=== PATIENT | female | born 1965 | race Caucasian/White ===

== ENCOUNTER 2020-11-14 16:54 | Inpatient (IN) | payer MEDICARE, MEDICAID ==
[~2020-11-14] VITALS: Ht 157.5 cm; Wt 79.0 kg
[2020-11-15] MEDS ORDERED: FLEET ENEMA ADULT 1 EA BTL PR PRN (10:30)
[2020-11-15] MEDS ORDERED: ONDANSETRON 4 MG (ZOFRAN) ORAL DISSOLVE TAB PO PRN (10:30)
[2020-11-15] MEDS ORDERED: LOPERAMIDE 2 MG (IMODIUM) TABLET PO PRN (10:30)
[2020-11-15] MEDS ORDERED: diphenhydrAMINE 25 MG TAB (BENADRYL) PO PRN (10:30)
[2020-11-15] MEDS ORDERED: DOCUSATE SODIUM 100 MG (COLACE) CAP PO PRN (10:30)
[2020-11-15] MEDS ORDERED: BISACODYL 10 MG SUPP (DULCOLAX) PR PRN ×2 (10:30→13:15)
[2020-11-15] MEDS ORDERED: guaiFENesin/CODEINE (ROBITUSSIN AC) 10ML UDC PO PRN (10:30)
[2020-11-15] MEDS ORDERED: CALCIUM CARBONATE 500 MG (TUMS) TAB.CHEW PO PRN (10:30)
[2020-11-15] MEDS ORDERED: LACTULOSE SYRUP 10GM/15ML (ENULOSE) 30ML UDC PO PRN (10:30)
[2020-11-15] MEDS ORDERED: CLOP75TA28 PO (10:36)
[2020-11-15] MEDS ORDERED: INSU200I4 SQ (10:36)
[2020-11-15] MEDS ORDERED: ACHD5005 PO (10:36)
[2020-11-15] MEDS ORDERED: ASPI-999 PO (10:36)
[2020-11-15] MEDS ORDERED: POTA-51 PO (10:36)
[2020-11-15] MEDS ORDERED: ATOR80TA76 PO (10:36)
[2020-11-15] MEDS ORDERED: LORA-404 PO (10:36)
[2020-11-15] MEDS ORDERED: LACO100T2 PO (10:36)
[2020-11-15] MEDS ORDERED: FURO40TA4 PO (10:36)
[2020-11-15] MEDS ORDERED: CYCL10TA9 PO (10:36)
[2020-11-15] MEDS ORDERED: LEVO88CA4 PO (10:36)
[2020-11-15] MEDS ORDERED: HYDR30CR69 RC (10:36)
[2020-11-15] MEDS ORDERED: NICO-533 TD (10:36)
[2020-11-15] MEDS ORDERED: INDLA120 PO (10:36)
[2020-11-15] MEDS ORDERED: NYST1POW4 TOP (10:36)
[2020-11-15] MEDS ORDERED: OMEP20CA18 PO (10:36)
[2020-11-15] MEDS ORDERED: MONT10TA97 PO (10:36)
[2020-11-15] MEDS ORDERED: FLUT9.9S NS (10:36)
[2020-11-15] MEDS ORDERED: LEVE500T99 PO (10:36)
[2020-11-15] MEDS ORDERED: METF-397 PO (10:36)
[2020-11-15] MEDS ORDERED: IPRA4AER IH (10:36)
[2020-11-15] MEDS ORDERED: ALLO100T PO (10:36)
[2020-11-15] MEDS ORDERED: LOSA25TA41 PO (10:36)
[2020-11-15] MEDS ORDERED: FLUT1DIS28 IH (10:36)
[2020-11-15] MEDS ORDERED: DIVA500T PO (10:36)
--- NOTE | 2020-11-15 10:38 | NUR ---
MED REC HAS BEEN ENTERED USING THE DISCHARGE ORDERS FROM [facility]. AFTER MEDICATIONS ARE CONTINUED I WILL SPEAK WITH THE PT AND MAKE ANY CHANGES TO THE MED REC/NOTES IF NEEDED. ON THE DISCHARGE ORDERS IT LISTS "NYSTATIN TOPICAL", I REACHED OUT TO ARIC CORDERO AT [facility] AND SHE VERIFIED THEY HAD BEEN USING THE POWDER Addendum: 11/17/20 at 1555 by AIDA YANG senior php software developer WHEN I SPOKE WITH THE PT SHE WAS NOT ABLE TO GIVE ME INFORMATION ABOUT HER MEDICATIONS- THEREFORE I CALLED [facility] AND WENT THRU THE EXT MED HISTORY TO COMPLETE THE MED REC MEDICATIONS THAT HAVE BEEN REMOVED DUE TO PT NOT TAKING PRIOR TO [facility]: ASPIRIN 81MG CLOPIDOGREL 75MG LOSARTAN 25MG NICOTINE PATCH NYSTATIN MEDICATIONS/DIRECTIONS THAT HAVE BEEN CHANGED TO HOW PT WAS TAKING PRIOR TO [facility]: POTASSIUM 20MEQ- PT WAS TAKING 1 TAB DAILY ([facility] DISCHARGE 1 TAB MON,WED,FRI) TRESIBA- AT HOME PT WAS TAKING 40 UNITS HS ([facility] DISCHARGE 30 UNITS DAILY) HYDROCODONE 5/325MG- AT HOME 1 TAB DAILY PRN ([facility] DISCHARGE 1 TAB Q 6 H PRN) ADVAIR 100/50- AT HOME PT USES PRN ([facility] DISCHARGE 1 PUFF BID) ROSUVASTATIN 10MG WAS DISCONTINUED BY [facility] (AND HAS BEEN ADDED TO THE MED REC) BUT WAS CHANGED TO ATORVASTATIN 80MG (THIS WAS REMOVED FROM THE MED REC) IMITREX 50MG WAS DISCONTINUED BY [facility] BUT PT WAS TAKING PRIOR TO ADMISSION
--- NOTE | 2020-11-15 11:40 | NUR ---
Francesca Lex Zamora admitted to room 224-1, with an admitting diagnosis of CVA, on 11/15/20 from [facility], accompanied by EMS. FRANCESCA SZYMANSKI introduced to surroundings, call light, bed controls, phone, TV, temperature control, lights, meal times, smoking policy, visitor policy, side rail policy, bathrooms and showers. Patient Rights given to patient in the handbook.FRANCESCA SZYMANSKI verbalizes understanding that [facility] is not responsible for the loss or damage to any personal effects or valuables that are kept in the patients posession during their hospitalization. The following Patient Care Plans were discussed with the patient: Discharge Planning, stroke, and falls. FRANCESCA SZYMANSKI verbalizes understanding of Interdisciplinary Patient Education. Patient and/or family were informed about the Rapid Response Team and its purpose. Patient received Patient Rights Booklet, which includes Privacy Act Statement and Data Collection Information Summary.
--- NOTE | 2020-11-15 12:14 | Occupational Therapy Eval ---
OT Evaluation-General/PLF Medical Diagnosis Admission Date Medical Diagnosis: CVA Onset Date: Nov 10, 2020 Therapy Diagnosis Therapy Diagnosis: decreased ADL status, decreased functional use LUE Precautions Precautions/Isolations: Seizure, Fall Prevention, Standard Precautions Referral Physician: Damian Cote Reason: Evaluation/Treatment Medical History Pertinent Medical History: Arthritis, COPD, DM, GERD, HTN Additional Medical History epilepsy, HLD, CKD, hypothyroidism, Vagus Nerve Stimulator (09/05/2011), lumbar (09/18/2011), tremor, gout, thromboembolism, cholecystectomy (10/31/2020) Current History Pt to ED 11/10/2020 with headache, L side weakness, slurred speech. Pt admitted to [facility]U 11/15/2020 for skilled therapies and continued medication management. Social History Home: Single Level Current Living Status: Spouse Entry Into Home: Ramp ADL-Prior Level of Function SCALE: Activities may be completed with or without assistive devices. 9-Xqcwajbwrh-uaddzxl completes the activity by him/herself with no assistance from a helper. 5-Set-up or Clean-up Assistance-helper sets up or cleans up; patient completes activity. [place] assists only prior to or following the activity. 4-Supervision or Touching Assistance-helper provides verbal cues and/or touching/steadying and/or contact guard assistance as patient completes activity. Assistance may be provided throughout the activity or intermittently. 3-Partial/Moderate Assistance-helper does LESS THAN HALF the effort. [place] lifts, holds or supports trunk or limbs, but provides less than half the effort. 2-Substantial/Maximal Assistance-helper does MORE THAN HALF the effort. [place] lifts or holds trunk or limbs and provides more than half the effort. 7-Ammhxzjwi-zipqrd does ALL the effort. Patient does none of the effort to complete the activity. Or, the assistance of 2 or more helpers is required for the patient to complete the activity. If activity was not attempted, code reason: 7-Patient Refused. 9-Not Applicable-not attempted and the patient did not perform the activity before the current illness, exacerbation or injury. 10-Not Attempted due to Environmental Limitations-(lack of equipment, weather restraints, etc.). 88-Not Attempted due to Medical Conditions or Safety Concerns. ADL PLOF Comments Pt reports being independent with ADLs at PLOF, and functional mobility using SPC Self Care: Independent Functional Cognition: Independent DME/Equipment: Bath Chair OT Current Status Subjective Pt agreeable to OT tx, reports some pain L shoulder. 8/10. Pain Numeric Pain Scale: 8 Location: Left Location Body Site: Shoulder Mental Status/Objective Patient Orientation: Person, Confused, Place, Mumbles Current Glasses/Contacts: Yes Hearing Aids: No Dentures/Partials: Yes Hand Dominance: Right Upper Extremity ROM RUE WFL LUE significantly impaired. Pt indicates she is able to make full fist, but when she attempts no movements noted. Upper Extremity Coordination decreased due to decreased functional use LUE. RUE WFL Upper Extremity Sensation slightly impaired LUE, pt had difficulty communicating if she had intact sensation. Upper Extremity Strength RUE grossly 4/5 LUE grossly 1/5 ADL-Treatment Eating (QC): 5 (set up assistance with cutting food. Pt then able to eat.) Oral Hygiene (QC): 3 (Mod A, OT placed toothpaste onto brush and placed in pt's hands, pt able to brush with cues. Pt spit out dentures when asked to spit, assistance to remove dentures and clean thoroughly. ) Shower/Bathe Self (QC): 1 (Assist x2 in stand. Pt able to wash chest/abdomen, LUE with cues. OT assisted with washing RUE, buttocks, periarea, BLEs, feet.) Upper Body Dressing (QC): 2 (Assist to thread LUE. Pt attempted to thread RUE as OT held shirt open, hand over hand assist required to find arm hole. Assist over head and to manage down trunk.) Lower Body Dressing (QC): 1 (Based on clinical judgement, pt would require 2 person assistance in healthcare administrative assistant order to complete pant hike.) On/Off Footwear (QC): 1 (Dependent donning/doffing gripper socks. Pt cued to take sock off but did not initiate task.) Toileting Hygiene (QC): 1 (Based on clinical judgement, pt would require 2 person assistance with task.) Other Treatments [id number] OT evaluation. [id number] OT/PT cotreat due to skill of 2 clinicians required which a x ray tech could not perform in order to coordinate UE/LE with tasks, and due to pt's limitations in strength, endurance, mobility, and L neglect. OT focused on UE placement, cues for sequencing and safety and ADLs, PT focused on LE placement, transfers, and ambulation. Pt transferred supine to sit EOB, assistance required to maintain sitting position unsupported. Pt stood with FAIRING WORKER x2, attempted to take a couple steps. SPT towards R side (strong side). Post tx, pt seated in recliner, call light in reach and all needs met, chair alarm on. [id number] OT/PT cotreat due to skill of 2 clinicians required which a x ray tech could not perform in order to coordinate UE/LE with tasks, and due to pt's limitations in strength, endurance, mobility, and L neglect. OT focused on UE placement, cues for sequencing and safety and ADLs, PT focused on LE placement, transfers, gross overall movement and ambulation. Pt completed sponge bat h/dressing seated at recliner, cues for sequencing of task and due to distractibility. Pt brushed teeth at tray table as outlined above. SPT to R side to w/c. Pt propelled w/c to therapy gym, requiring cues for L side attention, and near constant cues to use RUE/RLE to advance w/c as pt would abruptly stop propelling w/c. During rest break, pt cued to visually scan towards L visual field, pt had difficulty locating items on L. Pt stood at parallel bars, then ambulated length of bars x2, w/c follow and cues to advance L leg. Pt taken back to room in w/c, transferring back to recliner via SPT to R side, mod A. Post tx, pt seated in recliner, call light in reach and all needs met. Chair alarm on. Education OT Patient Education: Correct positioning, Energy conservation, Modified ADL techniques, Progress toward Goal/Update tx plan, Purpose of tx/functional activities, Rehab process, Safety issues, Transfer techniques, W/C management Teaching Recipient: Patient Teaching Methods: Discussion Response to Teaching: Verbalize Understanding, Reinforcement Needed OT Short Term Goals Short Term Goals Time Frame: Nov 30, 2020 Oral hygiene: 5 Shower/bathe self: 3 Upper body dressin Lower body dressin OT Mcfp Goals Mcfp Goals Time Frame: Dec 09, 2020 Eating (QC): 6 Oral Hygiene (QC): 6 Toileting Hygiene (QC): 4 Shower/Bathe Self (QC): 4 Upper Body Dressing (QC): 5 Lower Body Dressing (QC): 4 On/Off Footwear (QC): 4 Additional Goals: 1-Demonstrate ADL Tasks, 2-Verbalize Understanding, 3- ImproveStrength/Cooper 1=Demonstrate adherence to instructed precautions during ADL tasks. 2=Patient will verbalize/demonstrate understanding of assistive devices/modifications for ADL. 3=Patient will improve strength/tolerance for activity to enable patient to perform ADL's. OT Education/Plan Problem List/Assessment Assessment: Decreased Activ Tolerance, Decreased UE Strength, Impaired Bed Mobility, Impaired Funct Balance, Impaired I ADL's, Impaired Self-Care Skills, Restricted Funct UE ROM Discharge Recommendations Plan/Recommendations: Continue POC Treatment Plan/Plan of Care Patient would benefit from OT for education, treatment and training to promote independence in ADL's, mobility, safety and/or upper extremity function for ADL's. Plan of Care: ADL Retraining, Functional Mobility, Group Exercise/Act as Ind, UE Funct Exercise/Act, UE Neuromus Re-Ed/Coord, Visual/Perceptual Retrain Treatment Duration: Dec 09, 2020 Frequency: At least 5 of 7 days/Wk (IRF) Estimated Hrs Per Day: 1.5 hours per day Agreement: Yes Rehab Potential: Fair Time/GCodes Start Time: 11:40 ([id number]) Stop Time: 13:55 ([id number]) Billed Treatment Time [id number] OT evaluation, [id number] OT/PT cotreat [id number] OT/PT cotreat 1, EVM 1, ADL 2 (25'), FA 2 (30)' JOAN JACOBSON OT Nov 15, 2020 12:14
--- NOTE | 2020-11-15 12:57 | Physical Therapy Evaluation ---
PT Evaluation-General Medical Diagnosis Admission Date Nov 15, 2020 at 11:40 Medical Diagnosis: CVA Onset Date: Nov 10, 2020 Therapy Diagnosis Therapy Diagnosis: impaired mobility, strength, endurance, left hemiparesis Precautions Precautions/Isolations: Seizure, Fall Prevention, Standard Precautions, Pressure Ulcer Referral Physician: Emerita Salgado DO Reason for Referral: Evaluation/Treatment Medical History Pertinent Medical History: Arthritis, COPD, DM, GERD, HTN Additional Medical History epilepsy, HLD, CKD, hypothyroidism, Vagus Nerve Stimulator (09/05/2011), lumbar (09/18/2011), tremor, gout, thromboembolism, cholecystectomy (10/31/2020) Reviewed History: Yes Social History Home: Single Level Current Living Status: Spouse Entry Into Home: Ramp Prior Prior Level of Function SCALE: Activities may be completed with or without assistive devices. 5-Ueejashvql-kvharul completes the activity by him/herself with no assistance from a helper. 5-Set-up or Clean-up Assistance-helper sets up or cleans up; patient completes activity. [place] assists only prior to or following the activity. 4-Supervision or Touching Assistance-helper provides verbal cues and/or touching/steadying and/or contact guard assistance as patient completes activ ity. Assistance may be provided throughout the activity or intermittently. 3-Partial/Moderate Assistance-helper does LESS THAN HALF the effort. [place] lifts, holds or supports trunk or limbs, but provides less than half the effort. 2-Substantial/Maximal Assistance-helper does MORE THAN HALF the effort. [place] lifts or holds trunk or limbs and provides more than half the effort. 3-Vozyjgxvx-zwdxna does ALL the effort. Patient does none of the effort to complete the activity. Or, the assistance of 2 or more helpers is required for the patient to complete the activity. If activity was not attempted, code reason: 7-Patient Refused. 9-Not Applicable-not attempted and the patient did not perform the activity before the current illness, exacerbation or injury. 10-Not Attempted due to Environmental Limitations-(lack of equipment, weather restraints, etc.). 88-Not Attempted due to Medical Conditions or Safety Concerns. Bed Mobility: 6 Transfers (B,C,W/C): 6 Gait: 6 Indoor Mobility (Ambulation): Independent SPC PT Evaluation-Current Subjective Patient in bed pre tx, agrees to PT, has no complaints of pain. Will be co- treating with OT for part of tx due to poor patient mobility, strength, endurance, left hemiparesis, the need to coordinate UE and LE during activity. Pt/Family Goals to be independent at home Objective Patient Orientation: Person, Confused, Place, Situation ROM/Strength ROM Lower Extremities WNL Strength Lower Extremities RLE (hip flexion 3/5, knee flexion 4-/5, knee extension 4-/5, dorsiflexion 4- /5), LLE 2/5 gross Neuromuscular (Tone, Coordination, Reflexes) Patient has left neglect, impaired peripheral vision and tracking on the left side Sensory Vision: Hearing: Functional Sensation Right Lower Extremit: Intact Sensation Left Lower Extremity: Intact Transfers Roll Left & Right (QC): 2 Sit to Lying (QC): 2 Lying to Sitting/Side of Bed(Q: 2 Sit to Stand (QC): 2 Chair/Rji-rk-Gawil Xfer(QC): 2 Toilet Transfer (QC): 2 Car Transfer (QC): 2 Patient performs bed mobility and supine <-> sit with max assist, sit <-> stand max assist, transfers max assist, car transfer max assist. Patient performs a stand pivot with min assist to the right side but max assist to the left. Cues for safety and hand placement. Gait Walk 10 feet (QC): 88 Walk 50 ft with 2 Turns(QC): 88 Walk 150 ft (QC): 88 Walking 10ft/uneven surface-QC: 88 Distance: 2' Gait Assistive Device: Handheld Assist Comments/Gait Description Patient can ambulate 2' with [employer] x2. Patient leans heavily to the left side, can only advance her left leg a couple of inches at a time but it takes a lot of time and concentration by patient. Wheelchair Training Wheel 50 ft with 2 turns (QC): 9 Wheel 150 ft (QC): 9 Stairs 1 Step (curb) (QC): 88 4 Steps (QC): 88 12 Steps (QC): 88 Balance Sitting Static: Poor Sitting Dynamic: Poor Standing Static: Poor Standing Dynamic: Poor Picking up an Object (QC): 88 Treatment PT performed testing and functional mobility, OT performed testing and UE positioning and safety during activity. Patient in recliner post tx with nurse call, phone, tray, all needs met, chair alarm on. Assessment/Needs Patient has left neglect, left hemiparesis, flat affect. Patient max assist for most mobility but can perform a stand pivot transfer with min assist (to the right side) after she gets standing. Rehab Potential: Fair PT Short Term Goals Short Term Goals Time Frame: Nov 22, 2020 Roll Left & Right: 3 Sit to lyin Lying to sitting on side of be: 3 Sit to stand: 3 Chair/szu-pk-felye transfer: 3 Walk 10 feet: 3 PT Assisted Goals Hostess Host Goals PT Assisted Goals Time Frame: Dec 06, 2020 Roll Left & Right (QC): 3 (Joel) Sit to Lying (QC): 3 (Joel) Lying-Sitting on Side/Bed(QC): 3 (Joel) Sit to Stand (QC): 3 (Joel) Chair/Ngt-mm-Aidxd Xfer(QC): 3 (Joel) Toilet Transfer (QC): 3 (Joel) Car Transfer (QC): 3 (Joel) Does the Patient Walk: Yes Walk 10 feet (QC): 3 (Joel) Walk 50ft with 2 Turns (QC): 3 (Joel) Walk 150 ft (QC): 88 Walking 10ft on Uneven Surface: 88 1 Step (curb) (QC): 88 4 Steps (QC): 88 12 Steps (QC): 88 Picking up an Object (QC): 88 Wheel 50 feet with 2 turns (QC: 4 Wheel 150 feet: 4 PT Plan Problem List Problem List: Activity Tolerance, Functional Strength, Safety, Balance, Gait, Transfer, Bed Mobility, ROM Treatment/Plan Treatment Plan: Continue Plan of Care Treatment Plan: Bed Mobility, Education, Functional Activity Cooper, Functional Strength, Group Therapy, Gait, Safety, Therapeutic Exercise, Transfers Treatment Duration: Dec 06, 2020 Frequency: At least 5 of 7 days/Wk (IRF) Estimated Hrs Per Day: 1.5 hours per day Patient and/or Family Agrees t: Yes Safety Risks/Education Patient Education: Gait Training, Transfer Techniques, Correct Positioning, Safety Issues Teaching Recipient: Patient Teaching Methods: Demonstration, Discussion Response to Teaching: Reinforcement Needed Discharge Recommendations Plan Patient will perform bed mobility and transfer training, balance and endurance training,functional strengthening, stair training, gait training, and education, to improve functional mobility and independence at home. Therapy Discharge Recommendati: Scheduled Assistance, Home & Family Time/GCodes Time In: 1150 Time Out: 1210 Total Billed Treatment Time: 20 Total Billed Treatment 1 visit KHUSHBU WHITE PT Nov 15, 2020 12:57
[2020-11-15] MEDS ORDERED: HYDROCORTISONE 2.5% CREAM (ANUSOL-HC) 30 GM RC PRN (13:00)
[2020-11-15] MEDS ORDERED: ACETAMINOPHEN 325 MG TABLET PO PRN (13:00)
[2020-11-15] MEDS: FLUTICASONE NASAL SPRAY (FLONASE) 16 GM BTL NS SCH (13:00)
[2020-11-15] MEDS ORDERED: ALBUTEROL/IPRATROP (COMBIVENT RESPIMAT) 4 GM INHALER IH PRN (13:00)
--- NOTE | 2020-11-15 13:03 | PM&R Post Admission Assessment ---
PM&R HP Date of Visit: Nov 15, 2020 Time of Visit: 13:00 History of Present Illness CC: CVA HPI: This is a 55yoWF chronically disabled patient who presents from [facility] following a catastrophic CVA with left sided weakness and left hemineglect. Patient is settling in and I have reviewed all home meds and new meds from [facility]. Multiple allergies noted and will be updated. Patient does smoke and nicotine patch will be maintained. BM today. I have reviewed [facility] chart. Patient does not wish to talk much today due to being tired from therapy assessments. [facility] note DC summary Dr York: Primary Diagnoses: 1. Large right cerebral infarct with left hemineglect, left hemiparesis 2. Right ICA acute intraluminal thrombus Secondary Diagnoses: 1. Epilepsy, no seizure activity while inpatient 2. Migraine headaches 3. Essential tremor, chronic 4. Hypertension 5. Hyperlipidemia 6. Medical obesity 7. Chronic pain syndrome Francesca Ramirez a 55 y.o.femalewho was admitted to [facility] on 11/10/2020and found to have a principle diagnosis of right cerebral infarct. Ms. Zamora presented with headache, left side weakness and slurred speech that started the night prior to admission and worsened the morning of admission so they presented to the ED in the afternoon. Unfortunately, she presented late and was outside of the treatment window for tPA or IR intervention per Neurology consult in the ED. She was admitted with consult to Neurology and CV surgery due to intraluminal thrombus. CV surgery felt that thrombectomy had too high a risk:benefit ratio so felt surgical or other intervention to be inappropriate. Neurology recommended aspirin, Plavix and atorvastatin 80mg. These were all started and therapies were consulted. She passed a swallow. Her odilon-neglect has improved a little and she has gained some movement of her left foot and distal leg. She can still only wiggle fingers for the left upper extremity. She will discharge to Rehab where she can hopefully make further progress with more intensive therapies. Prior to the last 24 hours, her glucose levels were in normal range due to decreased appetite. This has improved significantly in the last 24 hours so I have discharged her with her home medication but will need close monitoring. She has had no seizure activity and her seizure medication has been continued throughout. Discharge medications and new prescriptions: Medication List START taking these medications wxogikq95 mg Tablet, Chewable Commonly known as: [employer] CHEWABLE Take 1 Tablet (81 mg) by mouth daily with breakfast. Start taking on: November 16, 2020 Signed by: Samanta York DO Quantity: Refills: 0 jrfxiczpykrq49 mg tablet Commonly known as: LIPITOR Take 1 Tablet (80 mg) by mouth daily at bedtime. Signed by: Samanta York DO Quantity: Refills: 0 irmzuxunknU57 mg Tablet Commonly known as: PLAVIX Take 1 Tablet (75 mg) by mouth daily. Start taking on: November 16, 2020 Signed by: Samanta York DO Quantity: Refills: 0 ursipamu33 mg tablet Commonly known as: COZAAR Take 1 Tablet (25 mg) by mouth daily. Start taking on: November 16, 2020 Signed by: Samanta York DO Quantity: Refills: 0 mg/24 hr patch Commonly known as: NICODERM CQ Apply 1 Patch to skin as directed 1 time daily as needed for Other (See Comment) (nicotine craving). Signed by: Samanta York DO Quantity: Refills: 0 CHANGE how you take these medications LORazepam0.5 mg tablet Commonly known as: ATIVAN What changed: how much to take Take 1 Tablet (0.5 mg) by mouth 3 times daily as needed for Anxiety. Signed by: Malou Wing MD Quantity: 8 Tablet Refills: 0 potassium gpuhrmkd67 mEq Extended Release tablet Commonly known as: KLOR-CON What changed: additional instructions Take 1 Tab by mouth daily. sat and sat only Signed by: Bryon Andrade DO Quantity: 30 Tab Refills: 5 CONTINUE taking these medications Advair Ptpejh482-06 mcg/dose disk inhaler Take 1 Puff by inhalation 2 times daily. Refills: 0 Generic drug: fluticasone propion-salmeteroL smaygtlldcJ535 mg tablet Commonly known as: ZYLOPRIM TAKE 1 TABLET(S) BY MOUTH 2 TIMES A DAY ORALLY 30 DAY(S) Refills: 1 nuzkskoqypxdxyo06 mg tablet Commonly known as: FLEXERIL 10 mg daily at bedtime. Refills: 0 Zrzfqdnu093 mg delayed release tablet 500 mg 2 times daily. Refills: 0 Generic drug: divalproex fluticasone zdglhnmhyh29 mcg/spray [place], Suspension nasal inhaler Commonly known as: FLONASE Administer 2 Sprays in each nostril daily. Signed by: Diane Hogan PA-C Quantity: 16 Gram Refills: 0 mxtdxrqual82 mg tablet Commonly known as: LASIX Take 1 Tab by mouth daily. Signed by: Bryon Andrade DO Quantity: 30 Tab Refills: 5 ATEUNipsnel-lmjqutkpgxmbq6-638 mg tablet Commonly known as: NORCO Take 1 Tablet by mouth every 6 hours as needed for Pain. Max Daily Amount: 4 Tablets Signed by: Dustin Art MD Quantity: 15 Tablet Refills: 0 hydrocortisone2.5 % cream with perineal applicator Commonly known as: Proctozone-HC Insert by rectum 2 times daily as needed for Hemorrhoids. Signed by: Bryon Andrade DO Quantity: 30 Gram Refills: 2 rnsymwbasto-udyiquflV24-035 mcg/actuation Aerosol Commonly known as: COMBIVENT RESPIMAT Take 1 Puff by inhalation every 6 hours as needed for Wheezing. Signed by: Bryon Andrade DO Quantity: 4 Gram Refills: 3 umbeloxpjc378 mg tablet Commonly known as: Vimpat Take 1 Tablet (100 mg) by mouth 2 times daily. Signed by: Juliano Walton MD Quantity: 60 Tablet Refills: 4 mluWXWHOiycfw653 mg tablet Commonly known as: Keppra Take 3 Tablets (1,500 mg) by mouth 2 times daily. Signed by: Juliano Walton MD Quantity: 180 Tablet Refills: 0 rxncnhzwsdmmy02 mcg tablet Commonly known as: SYNTHROID Take 1 Tablet (88 mcg) by mouth daily. Signed by: Dustin Art MD Quantity: 30 Tablet Refills: 0 ftnOBIKXR198 mg tablet Commonly known as: GLUCOPHAGE Take 500 mg by mouth 2 times daily with meals. Refills: 0 eunuofvxfcg75 mg tablet Commonly known as: Singulair Take 1 Tablet (10 mg) by mouth daily at bedtime. Signed by: Paras Kapadia MD Quantity: 30 Tablet Refills: 3 NYSTATIN TOPICAL Apply to affected area 3 times daily. Refills: 0 ngjwynrtmu17 mg Capsule, Delayed Release(E.C.) Commonly known as: PriLOSEC Take 1 Cap by mouth daily. Signed by: Bryon Andrade DO Quantity: 30 Cap Refills: 5 Pen Ayacui31 gauge x 5/32" Needle USE DIRECTED Refills: 2 Generic drug: Insulin [place] (Disposable) otjkwpmbsxL213 mg Long Acting 24 hour capsule Commonly known as: Inderal LA Take 1 Cap (120 mg) by mouth 2 times daily. Signed by: Joseph Mayes MD Quantity: 60 Cap Refills: 3 Tresiba FlexTouch [id number] unit/mL pen syringe 30 UNITS ONCE A DAY SUBCUTANEOUSLY 30 DAYS Refills: 3 Generic drug: insulin degludec w STOP taking these medications kaekxqreecsh37 mg tablet Commonly known as: CRESTOR WVAOuzyvtou91 mg tablet Commonly known as: IMITREX Past Kaxidae-Gkmwpi-Cixqox Hx Past Med/Social Hx: Reviewed Nursing Past Med/Soc Hx, Reviewed and Corrections made Patient Social History Marrital Status: single Employed/Student: unemployed Alcohol Use: Denies Use Smoking Status: Current Everyday Smoker Immunizations Up To Date Date of Pneumonia Vaccine: Aug 15, 2012 Past Medical History Respiratory: COPD Cardiac: High Cholesterol, Hypertension Neurological: Headaches /Migraines, Seizure Disorder, Stroke Musculoskeletal: Arthritis, Chronic Back Pain Endocrine: Diabetes, Insulin dep Family History FH: breast cancer 19 MOTHER Seizure disorder 19 FATHER Self Care: Independent Functional Cognition: Independent PM&R Allergy/Meds/Data Review Allergies Coded Allergies: NSAIDS (Non-Steroidal Anti-Inflamma (Verified Allergy, Unknown, 11/15/20) Renal dysfunction Penicillins (Verified Allergy, Unknown, 11/15/20) Throat swelling adhesive (Verified Allergy, Unknown, Rash, 11/15/20) albuterol (Verified Allergy, Unknown, 11/15/20) SOB, wheezing bee venom protein (honey bee) (Verified Allergy, Unknown, 11/15/20) Swelling carbamazepine (Verified Allergy, Unknown, 11/15/20) Seizure codeine (Verified Allergy, Unknown, Itching, 11/15/20) doxepin (Verified Allergy, Unknown, 11/15/20) Seizure duloxetine (Verified Allergy, Unknown, 11/15/20) Seizure lavender (Lavandula angustifolia) (Verified Allergy, Unknown, Hives, 11/15/20) phenobarbital (Verified Allergy, Unknown, 11/15/20) Seizure phenytoin (Verified Allergy, Unknown, 11/15/20) Seizure sulfamethoxazole (Verified Allergy, Unknown, 11/15/20) Renal dysfunction tramadol (Verified Allergy, Unknown, 11/15/20) Seizure trimethoprim (Verified Allergy, Unknown, 11/15/20) Renal dysfunction Home Medications Scheduled Allopurinol (Allopurinol), 100 MG PO BID, (Reported) Aspirin (Aspirin), 81 MG PO DAILY, (Reported) Atorvastatin Calcium (Atorvastatin Calcium), 80 MG PO HS, (Reported) Clopidogrel Bisulfate (Clopidogrel), 75 MG PO DAILY, (Reported) Cyclobenzaprine HCl (Cyclobenzaprine HCl), 10 MG PO HS, (Reported) Divalproex Sodium (Depakote), 500 MG PO BID, (Reported) Fluticasone Propionate (Flonase Allergy Relief), 2 SPRAY NS DAILY, (Reported) Fluticasone/Salmeterol (Advair 100-50 Diskus), 1 EACH IH BID, (Reported) Furosemide (Furosemide), 40 MG PO DAILY, (Reported) Insulin Degludec (Tresiba Flextouch U-200), 30 UNIT SQ DAILY, (Reported) Lacosamide (Vimpat), 100 MG PO BID, (Reported) Levetiracetam (Keppra), 1,500 MG PO BID, (Reported) Levothyroxine Sodium (Levothyroxine), 88 MCG PO DAILY, (Reported) Losartan Potassium (Losartan Potassium), 25 MG PO DAILY, (Reported) Metformin HCl (Metformin HCl), 500 MG PO BID WITH MEALS, (Reported) Montelukast Sodium (Montelukast Sodium), 10 MG PO HS, (Reported) Nystatin (Nystatin), 1 EACH TOP TID, (Reported) Omeprazole (Omeprazole), 20 MG PO DAILY, (Reported) Potassium Chloride (Potassium Chloride), 20 MEQ PO SAT,SAT,, (Reported) Propranolol HCl (Inderal LA), 120 MG PO BID, (Reported) Scheduled PRN Albuterol/Ipratropium (Combivent Respimat Inhal [place]), 1 PUFF IH Q6H PRN for WHEEZING, (Reported) Hydrocodone/Acetaminophen (Hydrocodone-Acetamin 5-325 mg), 1 EACH PO Q6H PRN for PAIN-MODERATE (5-7), (Reported) Hydrocortisone (Proctozone-Hc), 1 APPLIC RC BID PRN for HEMMORRHOID DISCOMFORT, (Reported) Lorazepam (Ativan), 0.5 MG PO TID PRN for ANXIETY, (Reported) Nicotine (Nicotine Patch), 14 MG TD DAILY PRN for NICOTINE CRAVING, (Reported) Current Medications Current Medications Reviewed Review of Systems Constitutional: see HPI, malaise, weakness EENTM: no symptoms reported Respiratory: no symptoms reported Cardiovascular: no symptoms reported Gastrointestinal: no symptoms reported Genitourinary: no symptoms reported Musculoskeletal: joint pain Skin: no symptoms reported Psychiatric/Neurological: Anxiety, Depressed, Weakness Physical Exam Physical Exam Vital Signs Capillary Refill : Height, Weight, BMI Height: '" Weight: lbs. oz. kg; BMI Method: General Appearance: No Apparent Distress, WD/WN, Anxious, Chronically ill Eyes: Bilateral Eye Normal Inspection, Bilateral Eye PERRL HEENT: PERRL/EOMI, Normal ENT Inspection, Pharynx Normal Neck: Full Range of Motion, Normal Inspection, Non Tender, Supple, Carotid Bruit Respiratory: Chest Non Tender, Normal Breath Sounds, No Accessory Muscle Use, No Respiratory Distress, Decreased Breath Sounds Cardiovascular: Regular Rate, Rhythm, No Edema, No Gallop, No JVD, No Murmur, Normal Peripheral Pulses Gastrointestinal: Normal Bowel Sounds, No Organomegaly, No Pulsatile Mass, Non Tender, Soft Back: Normal Inspection, No CVA Tenderness, No Vertebral Tenderness Extremity: Normal Capillary Refill, Normal Inspection, Normal Range of Motion, Non Tender, No Calf Tenderness, No Pedal Edema Neurologic/Psychiatric: Alert, Oriented x3, Abnormal Gait, Aphasia (partial), Depressed Affect, Facial Droop (left), Motor Weakness (left sided weakness 1/5) Skin: Normal Color, Warm/Dry Lymphatic: No Adenopathy PM&R Medical Assessment & Plan REHAB/MEDICAL ASSESSMENT AND PLAN: REHAB IMPAIRMENT GROUP: CVA ETIOLOGIC DIAGNOSIS: CVA The comorbidities that impact the patients function and/or functional outcome by: catastrophic CVA with severe deficits, smoker, DM, chronic disability prior to CVA, HTN REHAB PLAN: The patient is being admitted to our comprehensive inpatient rehabilitation facility and can tolerate the intensity of service consisting of at least: 180 minutes of therapy a day, 5 out of 7 days a week Rehab treatment will consist of: PT OT will focus on regaining ambulatory skills with use of AD along with increase of ADL independence with expert techniques The patient/family has a good understanding of our discharge process and will benefit from an interdisciplinary inpatient rehabilitation program. The patient has potential to make improvement and is in need of at least two of the following multidisciplinary therapies including but not limited to physical, occupational, speech, and prosthetics and orthotics. Additionally the patient will need services from respiratory, nutritional services, wound care, psychology, etc. (Customize this to each patient). Given the patients complex condition and risk of further medical complications, rehabilitation services cannot be safely or effectively provided at a lower level of care such as a longterm facility. BARRIERS TO DISCHARGE: Severe deficits ESTIMATED LOS: 14 days DISPOSITION: Home RELEVANT CHANGES SINCE PREADMISSION SCREENING: I have compared the patients medical and functional status at the time of the preadmission screening and there are: no changes PROGNOSIS: Fair REHABILITATION GOALS: 1. PT OT will focus on regaining ambulatory skills with use of AD along with increase of ADL independence with expert techniques All the above goals were reviewed with the patient and he/she is in agreement. By signing this document, I acknowledge that I have personally performed a full physical examination on this patient within 24 hours of admission to this inpatient rehabilitation facility and have determined the patient to be able to tolerate the above course of treatment at an intensive level for a reasonable period of time. I will be completing a detailed individualized Plan of Care for this patient by day #4 of the patients stay based upon the Preadmission Screen, the Post-Admission Evaluation, and the therapy evaluations. 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
[2020-11-15] MEDS ORDERED: polyethylene glycoL POWDER 17 GM (MIRALAX) PACK PO NR (13:15)
[2020-11-15] MEDS ORDERED: NICOTINE 14 MG (NICODERM) PATCH TD PRN (13:30)
[2020-11-15] MEDS ORDERED: PATIENT MAY USE OWN MED,SINGLE MED PO SCH ×4 (13:45→17:00)
[2020-11-15] MEDS ORDERED: SENNA W/DOCUSATE (SENOKOT S) TABLET PO NR (14:00)
--- NOTE | 2020-11-15 14:01 | Physical Therapy Daily Note ---
PT Daily Note-Current Subjective Pt in recliner chair finishing lunch upon arrival to room, pt agreeable to PT treatment at this time. Pt has no complaints of pain during or after session. During session, pt seems confused, continually calling out for her "Priyank", pt reoriented to being in the hospital but she continues to talk to her asking for him to bring her different items. Appearance Following session, pt in recliner chair with BLE elevated and LUE propped onto pillow. Call light placed within reach of RUE and tray table within reach. Pt has no further needs at this time. Pt does seem fatigued post session, as she has her eyes closed prior to exit of room. Mental Status Patient Orientation: Person, Confused Transfers SCALE: Activities may be completed with or without assistive devices. 7-Siqqnjycyc-pftnsol completes the activity by him/herself with no assistance fr om a helper. 5-Set-up or Clean-up Assistance-helper sets up or cleans up; patient completes activity. York assists only prior to or following the activity. 4-Supervision or Touching Assistance-helper provides verbal cues and/or touching/steadying and/or contact guard assistance as patient completes activity. Assistance may be provided throughout the activity or intermittently. 3-Partial/Moderate Assistance-helper does LESS THAN HALF the effort. York lifts, holds or supports trunk or limbs, but provides less than half the effort. 2-Substantial/Maximal Assistance-helper does MORE THAN HALF the effort. York lifts or holds trunk or limbs and provides more than half the effort. 8-Cdrfeqbbo-mmxkgy does ALL the effort. Patient does none of the effort to complete the activity. Or, the assistance of 2 or more helpers is required for the patient to complete the activity. If activity was not attempted, code reason: 7-Patient Refused. 9-Not Applicable-not attempted and the patient did not perform the activity before the current illness, exacerbation or injury. 10-Not Attempted due to Environmental Limitations-(lack of equipment, weather restraints, etc.). 88-Not Attempted due to Medical Conditions or Safety Concerns. Sit to Stand (QC): 3 Chair/Mwx-cl-Yxfyu Xfer(QC): 2 Pt completes sit to stand with mod A for OT to complete sponge bath and she requires assistance to complete dressing. Pt then returned to sitting and then completes sit to stand with mod A again and then stand pivot transfers to the (R) with mod A to the wheelchair. with transfers, pt tends to attempt to stand prior to being in correct positioning to do so, pt requires cueing to make sure both legs are in correct positioning prior to standing. Gait Training Distance: 10' x 2 Gait Assistive Device: Parallel Bars Pt ambulates with step-to gait pattern in //bars. Pt requires heavy cueing to encourage left leg progression. Wheelchair Training Wheel 50 ft with 2 turns (QC): 2 Type of Wheelchair: Manual Pt able to progress [facility] forward small bits at a time with curing to use LUE and LLE. Pt has poor carry over with this skill and requires constant cueing to progress wc. Pt also has poor spatial awareness, and tends to run into items on the L side of the visual field. Treatments PT/OT cotreat due to pts poor patient mobility, strength, endurance, left hemiparesis, the need to coordinate UE and LE during activity. Pt completed a sponge bath with OT dealing with ADLs and PT assisting with sit to stand, transfers and [facility] mobility. Pt then transferred to [facility] and went to gym to complete gait training in // bars prior to returning to room and transferred back to recliner chair. Assessment Current Status: Fair Progress Pt with poor spatial awareness, decreased strength, functional mobility, and safety awareness which impact her overall functional mobility. Will continue to progress pts activity tolerance as able. PT Short Term Goals Short Term Goals Time Frame: Nov 22, 2020 Roll Left & Right: 3 Sit to lyin Lying to sitting on side of be: 3 Sit to stand: 3 Chair/ymr-sz-baxjt transfer: 3 Walk 10 feet: 3 PT Shelter Goals Germ Drier Goals PT Germ Drier Goals Time Frame: Dec 06, 2020 Roll Left & Right (QC): 3 (Joel) Sit to Lying (QC): 3 (Joel) Lying-Sitting on Side/Bed(QC): 3 (Joel) Sit to Stand (QC): 3 (Joel) Chair/Pxj-cw-Fehju Xfer(QC): 3 (Joel) Toilet Transfer (QC): 3 (Joel) Car Transfer (QC): 3 (Joel) Does the Patient Walk: Yes Walk 10 feet (QC): 3 (Joel) Walk 50ft with 2 Turns (QC): 3 (Joel) Walk 150 ft (QC): 88 Walking 10ft on Uneven Surface: 88 1 Step (curb) (QC): 88 4 Steps (QC): 88 12 Steps (QC): 88 Picking up an Object (QC): 88 Wheel 50 feet with 2 turns (QC: 4 Wheel 150 feet: 4 PT Plan Problem List Problem List: Activity Tolerance, Functional Strength, Safety, Balance, Gait, Transfer, Bed Mobility, ROM Treatment/Plan Treatment Plan: Continue Plan of Care Treatment Plan: Bed Mobility, Education, Functional Activity Cooper, Functional Strength, Group Therapy, Gait, Safety, Therapeutic Exercise, Transfers Treatment Duration: Dec 06, 2020 Frequency: At least 5 of 7 days/Wk (IRF) Estimated Hrs Per Day: 1.5 hours per day Patient and/or Family Agrees t: Yes Time/GCodes Time In: 1300 Time Out: 1355 Total Billed Treatment Time: 55 Total Billed Treatment 1 visit FA x2 (25') WCH (20') GT (10') AMIRAH MA PT Nov 15, 2020 14:01
[2020-11-15] MEDS ORDERED: FLU QUADRIvalent (3YOA+) 60 mcg/0.5 ml 2020-21 (AFLURIA) IM ONE (14:15)
--- NOTE | 2020-11-15 14:56 | ST Cognitive Linguistic Eval ---
Speech Evaluation-General Medical Diagnosis CVA Onset Date: Nov 10, 2020 Therapy Diagnosis Therapy Diagnosis: Cognitive-communication Precautions Precautions/Isolations: Seizure, Fall Prevention, Standard Precautions Referral Referring Physician: Dr. Salgado Medical History Pertinent Medical History: Arthritis, COPD, DM, GERD, HTN Reviewed History: Yes Social History Current Living Status: Spouse Speech PLF-Current Status Prior Level of Function Patient lives at home with her spouse who assists her with daily needs due to medical diagnoses. Subjective Patient was cooperative with the cognitive assessment. Language Eval: Auditory Comprehends Simple Yes/No Ques: Functional Indent/Objects Multiple Campbell: Functional Ident/Pics in Multiple Campbell: Functional Follows 1-Step Commands: Functional Follows Complex Directions: Mild Follows General Conversations: Mild Language Eval: Verbal Language Completes Spontaneous Greeting: Functional Produces Auto, Serial Info: Functional Imitates Simple Words/Phrases: Functional Word Finding: Mild Requests Basic Needs: Functional States Basic Personal Info: Functional Expresses Complex Ideas: Mild Objective Cognitive Domain Attention: Mild Memory: Mild Problem Solving: Mild Executive Functions: Mild Visuospatial Skills: Moderate Composite Severity Rating: Mild Clock Drawing Severity Rating: Mild Left side neglect with tasks Objective Formal/Standardized Tests [facility] Mental Status ([facility]), informal speech tasks Results 19/30, Moderate Dementia range of function, patient's score appears to be decreased due to prior dx Oral Motor/Speech Production Patient's speech is at 75% intelligible due to mumbling pattern of speech Impression Patient is a 55 y/o female who was admitted to the ARU s/p CVA. Patient has multiple prior dx including epilepsy which appear to contribute to overall assessment. Patient was given the SLUMS with a score of 19/30 obtained. This score appears to be decreased due to previous dx and function. The patient's score is in the Moderate Dementia range of function. Patient will receive skilled ST services to improve effective communication. Speech Patient Assess Expression of Ideas/Wants: Frequently (2) Understanding Verbal Content: Sometimes Understands(2) Brief Interview-Mental Status: Yes Repetition of Three Words: Three (3) Temporal Orientation: Year: Correct (3) Temporal Orientation: Month: Accurate within 5 days(2) Temporal Orientation: Day: Correct (1) Recall : Wear to say "Sock": No, could not recall (0) Recall : Color: No, could not recall (0) Recall : Bed: Yes,after cueing (1) Memory/Recall Ability: Current season, That he or she is in a hsp/hsp unit Speech Short Term Goals Short Term Goals Short Term Goals 1) The patient will complete memory tasks related to her daily needs at 80% or greater with minimal cuing. 2) The patient will complete problem solving tasks related to her daily needs at 80% or greater with minimal cuing. 3) The patient will complete safety awareness related to her daily needs at 80% or greater with minimal cuing. Speech Conference Services Director Goals Conference Services Director Goals Patient will improve cognitive communication skills in order to require decreased assist with daily tasks. Speech-Plan Patient/Family Goals Patient/Family Goals: Patient plans on returning to her home where she lives with her . Treatment Plan Speech Therapy Treatment Plan: Continue Plan of Care Treatment Duration: Dec 02, 2020 Frequency: 4 times per week (Patient will receive skilled ST 4-5x per week) Estimated Hrs Per Day: .5 hour per day Rehab Potential: Fair Barriers to Learning: Patient's medical status, new onset CVA Pt/Family Agrees to Plan: Yes Safety Risks/Education Teaching Recipient: Patient Teaching Methods: Discussion Response to Teaching: Verbalize Understanding Education Topics Provided: Safety within her room, communication of wants/needs Time Speech Therapy Time In: 15:10 Speech Therapy Time Out: 15:40 Total Billed Time: 30 Billed Treatment Time 1, KYLEI ALVAREZ [address] ST Nov 15, 2020 14:56
[2020-11-15 15:40] VITALS: BP 122/76
[2020-11-15 16:03] VITALS: BP 109/62
[2020-11-15] MEDS: inSUlin ASPART (NovoLOG) 1 UNIT/0.01 ML (CHARGE PER UNIT) SC PRN (17:07)
[2020-11-15] MEDS: ENOXAPARIN 40 MG/0.4 ML (LOVENOX) SYR SC SCH (17:31)
[2020-11-15] MEDS: metFORMIN 500 MG (GLUCOPHAGE) TAB PO SCH (17:33)
--- NOTE | 2020-11-15 18:00 | NUR ---
Called Carlos (S.O.) and he brought in Vimpat and Inderal [place] and phone detective automobile section. He will check on living will and will bring clothes in tomorrow (11/16)
[2020-11-15] MEDS: PROPRANOLOL LA 120 MG (INDERAL LA) CAP NON-FORMULARY PO SCH (20:58)
[2020-11-15] MEDS: VIMPAT 100 MG PO SCH (20:58)
[2020-11-15] MEDS: SENNA W/DOCUSATE (SENOKOT S) TABLET PO SCH (20:59)
[2020-11-15] MEDS: DIVALPROEX 500 MG DELAYED RELEASE (DEPAKOTE) TAB PO SCH (20:59)
[2020-11-15] MEDS: ALLOPURINOL 100 MG (ZYLOPRIM) TAB PO SCH (20:59)
[2020-11-15] MEDS: MICONAZOLE 2% POWDER (DESENEX AF) 90 GM TOP SCH (20:59)
[2020-11-15] MEDS: MONTELUKAST 10 MG (SINGULAIR) TAB PO SCH (21:00)
[2020-11-15] MEDS: CYCLOBENZAPRINE 10 MG (FLEXERIL) TAB PO SCH (21:00)
[2020-11-15] MEDS: polyethylene glycoL POWDER 17 GM (MIRALAX) PACK PO SCH (21:00)
[2020-11-15] MEDS: DOCUSATE SODIUM 100 MG (COLACE) CAP PO SCH (21:00)
[2020-11-15] MEDS: LEVETIRACETAM 500 MG (KEPPRA) TAB PO SCH (21:00)
[2020-11-15] MEDS ORDERED: DIVALPROEX 500 MG DELAYED RELEASE (DEPAKOTE) TAB PO SCH (21:00)
[2020-11-15] MEDS: ADVAIR HFA 45/21 MCG INHALER 8 GM IH SCH (21:50)
[2020-11-16 05:40] LABS: BASOPHILS % (AUTO) 0 % (0-10); EOSINOPHILS # (AUTO) 0.1 10^3/uL (0.0-0.3); MEAN CORPUSCULAR VOLUME 92 fL (80-99)
[2020-11-16] MEDS: KCL 20 MEQ TAB (K-DUR) PO SCH (05:41)
[2020-11-16] MEDS: inSUlin ASPART (NovoLOG) 1 UNIT/0.01 ML (CHARGE PER UNIT) SC PRN (05:41)
[2020-11-16] MEDS: LEVOTHYROXINE 88 MCG (LEVOTHORID) TAB PO SCH (05:41)
[2020-11-16 05:42] LABS: EOSINOPHILS % (AUTO) 1 % (0-10); HEMATOCRIT 41 % (35-52); HEMOGLOBIN 13.5 g/dL (11.5-16.0); LYMPHOCYTES # (AUTO) 3.4 10^3/uL (1.0-4.0); LYMPHOCYTES % (AUTO) 37 % (12-44); MEAN CORPUSCULAR HEMOGLOBIN 31 pg (25-34); MEAN CORPUSCULAR HGB CONC 33 g/dL (32-36); MEAN PLATELET VOLUME 11.8 fL (9.0-12.2); MONOCYTES # (AUTO) 1.1 10^3/uL (0.0-1.0); MONOCYTES % (AUTO) 12 % (0-12); NEUTROPHILS # (AUTO) 4.5 10^3/uL (1.8-7.8); NEUTROPHILS % (AUTO) 50 % (42-75); PLATELET COUNT 320 10^3/uL (130-400)
[2020-11-16 05:49] LABS: ALBUMIN 4.2 GM/DL (3.2-4.5); CHLORIDE 106 MMOL/L (98-107); POTASSIUM 4.2 MMOL/L (3.6-5.0); SODIUM 139 MMOL/L (135-145)
[2020-11-16 05:51] LABS: CALCIUM 9.9 MG/DL (8.5-10.1)
[2020-11-16 05:52] LABS: GLUCOSE 198 MG/DL (70-105); TOTAL PROTEIN 7.4 GM/DL (6.4-8.2)
[2020-11-16 05:53] LABS: CARBON DIOXIDE 21 MMOL/L (21-32)
[2020-11-16 05:54] LABS: BILIRUBIN,TOTAL 0.3 MG/DL (0.1-1.0)
[2020-11-16 05:55] LABS: ALKALINE PHOSPHATASE 53 U/L (40-136); CREATININE SERUM 0.95 MG/DL (0.60-1.30); GFR ESTIMATED > 60
[2020-11-16 05:56] LABS: BUN/CREATININE RATIO 20
[2020-11-16 05:58] LABS: ALANINE AMINOTRANSFERASE 26 U/L (0-55)
[2020-11-16 06:05] VITALS: BP 145/75
[2020-11-16] MEDS: ADVAIR HFA 45/21 MCG INHALER 8 GM IH SCH ×2 (07:48→22:32)
--- NOTE | 2020-11-16 07:50 | NUR ---
Patient refused Advair at this time stated "it makes it hard to breath"
--- NOTE | 2020-11-16 08:50 | PM&R Progress Note ---
Subjective HPI/CC On Admission Date Seen by Provider: Nov 16, 2020 Time Seen by Provider: 09:00 Subjective/Events-last exam 11/16/20: Sugar is 198 receiving sliding scale Improvement on transfers already Bowels moved on November 12 so given laxatives Pt has some unreliable information most of the time Nicotine patch reordered Focus is very poor, requires constant cues Review of Systems General: Fatigue, Malaise Neurological: Weakness, Incoordination, Change in speech, Confusion Objective Exam Vital Signs Vital Signs Date Time Temp Pulse Resp B/P (MAP) Pulse Ox O2 Delivery O2 Flow Rate FiO2 11/16/20 21:44 Room Air 11/16/20 17:13 35.8 109 18 116/57 (76) 96 Capillary Refill : Less Than 3 Seconds General Appearance: No Apparent Distress, WD/WN, Anxious, Chronically ill HEENT: PERRL/EOMI, Normal ENT Inspection, Pharynx Normal Neck: Full Range of Motion, Normal Inspection, Non Tender, Supple, Carotid Bruit Respiratory: Chest Non Tender, Normal Breath Sounds, No Accessory Muscle Use, No Respiratory Distress, Decreased Breath Sounds Cardiovascular: Regular Rate, Rhythm, No Edema, No Gallop, No JVD, No Murmur, Normal Peripheral Pulses Gastrointestinal: Normal Bowel Sounds, No Organomegaly, No Pulsatile Mass, Non Tender, Soft Back: Normal Inspection, No CVA Tenderness, No Vertebral Tenderness Extremity: Normal Capillary Refill, Normal Inspection, Normal Range of Motion, Non Tender, No Calf Tenderness, No Pedal Edema Neurologic/Psychiatric: Alert, Oriented x3, Abnormal Gait, Aphasia (partial), Depressed Affect, Facial Droop (left), Motor Weakness (left sided weakness 1/5) Skin: Normal Color, Warm/Dry Lymphatic: No Adenopathy Results/Procedures Lab Laboratory Tests 11/16/20 05:25 Patient resulted labs reviewed. FIM Transfers Therapy Code Descriptions/Definitions Functional [place] Measure: 0=Not Assessed/NA 4=Minimal Assistance 1=Total Assistance 5=Supervision or Setup 2=Maximal Assistance 6=Modified [place] 3=Moderate Assistance 7=Complete IndependenceSCALE: Activities may be completed with or without assistive devices. 4-Doxgyppveo-aaypplp completes the activity by him/herself with no assistance from a helper. 5-Set-up or Clean-up Assistance-helper sets up or cleans up; patient completes activity. [place] assists only prior to or following the activity. 4-Supervision or Touching Assistance-helper provides verbal cues and/or touching/steadying and/or contact guard assistance as patient completes activity. Assistance may be provided throughout the activity or intermittently. 3-Partial/Moderate Assistance-helper does LESS THAN HALF the effort. [place] lifts, holds or supports trunk or limbs, but provides less than half the effort. 2-Substantial/Maximal Assistance-helper does MORE THAN HALF the effort. [place] lifts or holds trunk or limbs and provides more than half the effort. 6-Yyifkfakl-xvyjtn does ALL the effort. Patient does none of the effort to complete the activity. Or, the assistance of 2 or more helpers is required for the patient to complete the activity. If activity was not attempted, code reason: 7-Patient Refused. 9-Not Applicable-not attempted and the patient did not perform the activity before the current illness, exacerbation or injury. 10-Not Attempted due to Environmental Limitations-(lack of equipment, weather restraints, etc.). 88-Not Attempted due to Medical Conditions or Safety Concerns. Roll Left to Right (QC): 2 Sit to Lying (QC): 2 Sit to Stand (QC): 3 Chair/Abd-kf-Kdhyk Xfer(QC): 2 Car Transfer (QC): 2 Gait Training Does the Patient Walk?: Yes Distance: 10' x 2 Walk 10 feet (QC): 88 Walk 50 ft with 2 Turns(QC): 88 Walk 150 ft (QC): 88 Walking 10ft/uneven surface-QC: 88 Gait Assistive Device: Parallel Bars Wheelchair Training Wheel 50 ft with 2 turns (QC): 2 Wheel 150 ft (QC): 9 Type of Wheelchair: Manual Stair Training 1 Step (curb) (QC): 88 4 Steps (QC): 88 12 Steps (QC): 88 Balance Picking up an Object (QC): 88 ADL-Treatment Eating (QC): 5 (set up assistance with cutting food. Pt then able to eat.) Oral Hygiene (QC): 3 (Mod A, OT placed toothpaste onto brush and placed in pt's hands, pt able to brush with cues. Pt spit out dentures when asked to spit, assistance to remove dentures and clean thoroughly. ) Shower/Bathe Self (QC): 1 (Assist x2 in stand. Pt able to wash chest/abdomen, LUE with cues. OT assisted with washing RUE, buttocks, periarea, BLEs, feet.) Upper Body Dressing (QC): 2 (Assist to thread LUE. Pt attempted to thread RUE as OT held shirt open, hand over hand assist required to find arm hole. Assist over head and to manage down trunk.) Lower Body Dressing (QC): 1 (Based on clinical judgement, pt would require 2 person assistance in sales superintendent order to complete pant hike.) On/Off Footwear (QC): 1 (Dependent donning/doffing gripper socks. Pt cued to take sock off but did not initiate task.) Toileting Hygiene (QC): 1 (Based on clinical judgement, pt would require 2 person assistance with task.) Assessment/Plan Assessment and Plan Assess & Plan/Chief Complaint Assessment: CVA Left sided weakness Left sided neglect HTN DM HLP Smoker COPD Chronic pain Plan: IRF protocol Pain meds home dosing BM regimen Monitor O2 11/16/20: Monitor sugar Increase therapy Monitor confusion (1) CVA (cerebral vascular accident) (2) Diabetes (3) Hypertension (4) Left-sided weakness (5) Smoker (6) Hyperlipemia (7) Odilon-neglect of left side TITA LUBIN DO Nov 16, 2020 08:50
--- NOTE | 2020-11-16 08:51 | Individualized Plan of Care ---
Individualized Plan of Care Rehab Nursing IPOC Order Admission Date Nov 15, 2020 at 11:40 Current Orders Orders Admission Order(Inpt,Obs,Sdc) (11/15/20 10:20) Vital Signs: Per Unit Policy ( 08,16,00 (11/15/20 10:20) Micha Davila (11/15/20 10:20) Sequential Compression Device Q4H (11/15/20 10:20) Spanish Translator-Inpt Rehab Con (11/15/20 10:20) Rehab Nursing Orders-Ipoc (11/15/20 10:20) Physical Therapy Rehab Orders (11/15/20 10:20) Occupational Therapy Rehab Ord (11/15/20 10:20) Speech Therapy Rehab Orders (11/15/20 10:20) Cbc With Automated Diff (11/16/20 06:00) Comprehensive Metabolic Panel (11/16/20 06:00) Intake & Output 06,14,22 (11/15/20 10:20) Precautions (Aru) (11/15/20 10:20) Rehab-Intensity Of Therapy (11/15/20 10:20) Initiate Admission Nursing Pro .admission (11/15/20 10:20) Alprazolam Tablet (Xanax Tablet) (11/15/20 10:30) Calcium Carbonate Chew Tablet (Antacid C (11/15/20 10:30) Diphenhydramine Tablet (Benadryl Tablet) (11/15/20 10:30) Docusate Sodium Capsule (Colace Capsule) (11/15/20 21:00) Docusate Sodium Capsule (Colace Capsule) (11/15/20 10:30) Bisacodyl Suppository (Dulcolax Supposit (11/15/20 10:30) Lactulose Oral Solution (Enulose Oral So (11/15/20 10:30) Na Phos/Na Biphos Enema (Fleet Enema Nico (11/15/20 10:30) Guaifenesin/Codeine Syrup (Robitussin Ac (11/15/20 10:30) Loperamide Tablet (Imodium Tablet) (11/15/20 10:30) Melatonin Tablet (Melatonin Tablet) (11/15/20 10:30) Polyethylene Glycol Powder Pkt (Miralax (11/15/20 21:00) Ondansetron Oral Dissolve Tab (Zofran (11/15/20 10:30) Senna S Tablet (Senokot S Tablet) (11/15/20 21:00) Initiate Admission Nursing Pro .admission (11/15/20 10:20) Admission Arrival Bed Request (11/15/20 11:53) Cho 60g/M 3snack (16-2000 Gonzalo) (11/15/20 Lunch) Acetaminophen Tablet/Caplet (Tylenol T (11/15/20 13:00) Albuterol/Ipratropium Inhaler (Combivent (11/15/20 13:00) Allopurinol Tablet (Zyloprim Tablet) (11/15/20 21:00) Aspirin Chewable Tablet (Baby Aspirin Ch (11/16/20 09:00) Atorvastatin Tablet (Lipitor Tablet) (11/15/20 21:00) Clopidogrel Tablet (Plavix Tablet) (11/16/20 09:00) Cyclobenzaprine Tablet (Flexeril Tablet) (11/15/20 21:00) Divalproex Delay Release Tab (Depakote T (11/15/20 21:00) Furosemide Tablet (Lasix Tablet) (11/16/20 09:00) Hydrocodone/Apap 5/325 Tablet (Lortab 5 (11/15/20 13:00) Hydrocortisone 2.5% Cream (Anusol-Hc 2.5 (11/15/20 13:00) Levetiracetam Tablet (Keppra Tablet) (11/15/20 21:00) Lorazepam Tablet (Ativan Tablet) (11/15/20 13:00) Losartan Tablet (Cozaar Tablet) (11/16/20 09:00) Montelukast Tablet (Singulair Tablet) (11/15/20 21:00) Propranolol La (Non-Formulary) (Inderal (11/15/20 21:00) Fluticasone/Salmeterol / (Advair Hfa (11/15/20 20:00) Insulin Determir (Per Unit) (Levemir (Pe (11/16/20 09:00) (Nf) Lacosamide (Vimpat) (11/15/20 21:00) Levothyroxine Tablet (Synthroid Tablet) (11/16/20 06:30) Nicotine Patch (Nicoderm Patch) (11/15/20 13:30) Miconazole 2% Powder (Desenex Af 2% Powd (11/15/20 21:00) Rt Request For Service (11/15/20 12:58) Metformin Tablet (Glucophage Tablet) (11/15/20 18:00) Code/Resuscitation (11/15/20 13:00) Accucheck Bid DBID (11/15/20 13:00) Insulin Aspart (Novolog) (Novolog (Charg (11/15/20 13:00) Polyethylene Glycol Powder Pkt (Miralax (11/15/20 13:15) Senna S Tablet (Senokot S Tablet) (11/15/20 14:00) Bisacodyl Suppository (Dulcolax Supposit (11/15/20 13:15) Enoxaparin Injection (Lovenox Injection) (11/15/20 18:00) Fluticasone Nasal [place] (Flonase Nasal S (11/15/20 13:09) Potassium Chloride (Tablet) (K Dur Table (11/16/20 07:00) Patch Removal (Patch Removal) (11/16/20 08:59) Pantoprazole Tablet (Protonix Tablet) (11/16/20 09:00) Patient Visit (11/15/20 ) Speech Sound Lang Comp (11/15/20 ) Treat. Speech/Lang/Voice (11/15/20 ) Patient May Use Own Med,Single (Patient (11/15/20 13:45) Patient May Use Own Med,Single (Patient (11/15/20 13:45) Flu Quad (3yoa+) (Afluria Quad 2 (11/15/20 14:15) Divalproex Delay Release Tab (Depakote T (11/15/20 21:00) Patient's Own Med(Rx Use Only) (Patient' (11/16/20 09:00) Patient Visit (11/15/20 ) Pt Eval Moderate Complexity (11/15/20 ) Patient Visit (11/15/20 ) Functional Activities, Ea 15 (11/15/20 ) Wheelchair Mgmt/Propulsn 15min (11/15/20 ) Gait Training, Ea 15 Min (11/15/20 ) Ambulate 08,12,20 (11/15/20 16:10) Sequential Compression Device Q4H (11/15/20 16:10) Dvt/Vte Risk - Notifiy Physici Q4H (11/15/20 16:10) Patient May Use Own Med,Single (Patient (11/15/20 17:00) Patient May Use Own Med,Single (Patient (11/15/20 17:00) Nicotine Patch (Nicoderm Patch) (11/16/20 09:00) Patch Removal (Patch Removal) (11/17/20 08:59) Patient Visit (11/16/20 ) Functional Activities, Ea 15 (11/16/20 ) Wheelchair Mgmt/Propulsn 15min (11/16/20 ) Exercise Therap, Ea 15 Min (11/16/20 ) Patient Visit (11/16/20 ) Treat. Speech/Lang/Voice (11/16/20 ) Rehab Nursing Orders: Ongoing Assess. of Cognitive Status, Ongoing Assess. of Function Status, Bladder Management, Bladder Scan, Bladder Training, Bowel Management, Bowel Training, Disease Management & Educaiton, DVT Prophylaxis, Fall Prevention, Fluid/Electrolyte/Nutrition Mgmt, Infection Prevention, Medication Management & Education, Management of Risks & Complications, Management of Skin Intergrity, Nutrition Management, Pain Management, Patient/Family Support, Safety Management, Swallow Precautions Intensity of Therapy to be met Patient to be seen: Min.3h per day/5 of 7d PT IPOC Problem List: Activity Tolerance, Functional Strength, Safety, Balance, Gait, Transfer, Bed Mobility, ROM Treatment Plan: Continue Plan of Care Bed Mobility, Education, Functional Activity Cooper, Functional Strength, Group Therapy, Gait, Safety, Therapeutic Exercise, Transfers Treatment Duration: Dec 06, 2020 Frequency: At least 5 of 7 days/Wk (IRF) Estimated Hrs Per Day: 1.5 hours per day OT IPOC Problems: Decreased Activ Tolerance, Decreased UE Strength, Impaired Bed Mobility, Impaired Funct Balance, Impaired I ADL's, Impaired Self-Care Skills, Restricted Funct UE ROM OT Treatment, Training and Edu: Yes Plan of Care: ADL Retraining, Functional Mobility, Group Exercise/Act as Ind, UE Funct Exercise/Act, UE Neuromus Re-Ed/Coord, Visual/Perceptual Retrain Treatment Duration: Dec 09, 2020 Frequency: At least 5 of 7 days/Wk (IRF) Estimated Hrs Per Day: 1.[address] IPOC Speech Therapy Treatment Plan: Continue Plan of Care Treatment Duration: Dec 02, 2020 Frequency: 4 times per week (Patient will receive skilled ST 4-5x per week) Estimated Hrs Per Day: .5 hour per day Spanish Translator/Case Mgmt Spanish Translator/Case Managemen: Discharge Planning Dietitian/Audiology Assistant Dietitian/Audiology Assistant to monitor nutritional status and make changes and/or recommendations as needed and work with speech pathology on dietary upgrades as the occur. Physician IPOC Medical Issues being managed closely and that require the 24 hour availability of a physician: Recent catastrophic CVA with left sided weakness with left sided neglect will be high risk for decompensation and will require close monitoring Medical Issues: Bowel/Bladder Function, DVT Prophylaxis, Falls Precautions, Fluid/Electrolyte/Nutrition Balance, Infection Protection, Pain Management Brief Synthesis of Preadmission Screen, Post-Admission Evaluation, and Therapy Evaluations: PT OT will focus on regaining ambulatory skills with use of AD and help regain ADL's in order to return to independent living Medical Prognosis: Fair Anticipated Length of Stay: 14 days TITA LUBIN DO Nov 16, 2020 08:51
[2020-11-16] MEDS: polyethylene glycoL POWDER 17 GM (MIRALAX) PACK PO SCH ×2 (08:59→21:22)
[2020-11-16] MEDS ORDERED: NICOTINE 21 MG (NICODERM) PATCH TD SCH (09:00)
[2020-11-16] MEDS: MICONAZOLE 2% POWDER (DESENEX AF) 90 GM TOP SCH ×3 (09:00→21:22)
[2020-11-16] MEDS: FLUTICASONE NASAL SPRAY (FLONASE) 16 GM BTL NS SCH (09:00)
--- NOTE | 2020-11-16 09:00 | Physical Therapy Daily Note ---
PT Daily Note-Current Subjective Pt.confused, disoriented and distracted during Rx. Speaks of "Priyank" several times and is redirected to task and the fact that Priyank is not here. C/o pain in right low back at 8/10 and requests injections multiple times Pain Numeric Pain Scale: 8 Location: Medial Location Body Site: Back Pain Description: Ache Mental Status Patient Orientation: Confused Attachments: Other-See Comments (mask while out of room) Transfers SCALE: Activities may be completed with or without assistive devices. 5-Tjslqngyio-nubrrhc completes the activity by him/herself with no assistance from a helper. 5-Set-up or Clean-up Assistance-helper sets up or cleans up; patient completes activity. [place] assists only prior to or following the activity. 4-Supervision or Touching Assistance-helper provides verbal cues and/or touching/steadying and/or contact guard assistance as patient completes activity. Assistance may be provided throughout the activity or intermittently. 3-Partial/Moderate Assistance-helper does LESS THAN HALF the effort. [place] lifts, holds or supports trunk or limbs, but provides less than half the effort. 2-Substantial/Maximal Assistance-helper does MORE THAN HALF the effort. [place] lifts or holds trunk or limbs and provides more than half the effort. 4-Uuhtirzzm-ilqhew does ALL the effort. Patient does none of the effort to complete the activity. Or, the assistance of 2 or more helpers is required for the patient to complete the activity. If activity was not attempted, code reason: 7-Patient Refused. 9-Not Applicable-not attempted and the patient did not perform the activity before the current illness, exacerbation or injury. 10-Not Attempted due to Environmental Limitations-(lack of equipment, weather restraints, etc.). 88-Not Attempted due to Medical Conditions or Safety Concerns. Roll Left & Right (QC): 3 Sit to Lying (QC): 3 Lying to Sitting/Side of Bed(Q: 3 Sit to Stand (QC): 4 Chair/Lwu-mu-Yuann Xfer(QC): 3 Toilet Transfer (QC): 3 TRFs all directed to right as pts left neglect is strong. Gait Training Does the Patient Walk?: Yes Gait Persons Needed: 2 Gait Assistive Device: Parallel Bars 7-8 ft in // bars x1 with w/c close behind, requires step by step instruction repeatedly, as well as stability assist at LLE and RUE, does wt bear, poor midline without prompting, mod assist of 2 required for non functional ( at this time) gait. Pt. asked to lay down after 1 walk in //bars Wheelchair Training Does the Pt Use a Wheelchair?: Yes Wheel 50 ft with 2 turns (QC): 2 Type of Wheelchair: Manual needs assist and constant redirection Exercises Supine Ex: Bridging, Ankle pumps, Rolling, Heel Slides, D1 F/E UE (LE right), Straight leg raise, Hip abd/add Supine Reps: 15 Treatments co Rx OT PT for toileting, dressing, TRFs, w/c mobility, sit to stands, gait in //bars . PT and OT jointly instructing and supporting and stabilizing RUE and RLE for safe stable movement as well as attempting to bring pt. to midline gaze and keep pt.on track for tasks Assessment Current Status: Fair Progress confusion and distraction greatly limit progress and participation PT Short Term Goals Short Term Goals Time Frame: Nov 22, 2020 Roll Left & Right: 3 Sit to lyin Lying to sitting on side of be: 3 Sit to stand: 3 Chair/psj-an-tseob transfer: 3 Walk 10 feet: 3 PT Assisted Goals Assisted Goals PT Assisted Goals Time Frame: Dec 06, 2020 Roll Left & Right (QC): 3 (Joel) Sit to Lying (QC): 3 (Joel) Lying-Sitting on Side/Bed(QC): 3 (Joel) Sit to Stand (QC): 3 (Joel) Chair/Qft-xr-Rmfda Xfer(QC): 3 (Joel) Toilet Transfer (QC): 3 (Joel) Car Transfer (QC): 3 (Joel) Does the Patient Walk: Yes Walk 10 feet (QC): 3 (Joel) Walk 50ft with 2 Turns (QC): 3 (Joel) Walk 150 ft (QC): 88 Walking 10ft on Uneven Surface: 88 1 Step (curb) (QC): 88 4 Steps (QC): 88 12 Steps (QC): 88 Picking up an Object (QC): 88 Wheel 50 feet with 2 turns (QC: 4 Wheel 150 feet: 4 PT Plan Treatment/Plan Treatment Plan: Continue Plan of Care Treatment Plan: Bed Mobility, Education, Functional Activity Cooper, Functional Strength, Group Therapy, Gait, Safety, Therapeutic Exercise, Transfers Treatment Duration: Dec 06, 2020 Frequency: At least 5 of 7 days/Wk (IRF) Estimated Hrs Per Day: 1.5 hours per day Patient and/or Family Agrees t: Yes Safety Risks/Education Patient Education: Gait Training, Transfer Techniques, Correct Positioning, W/C Management, Disease Process, Safety Issues Teaching Recipient: Patient Teaching Methods: Demonstration, Discussion Response to Teaching: Unable to Return Demonstration, Unable to Comprehend, Reinforcement Needed Time/GCodes Time In: 800 Time Out: 900 Total Billed Treatment Time: 60 Total Billed Treatment 1,FA30m,GT10m,EX20m CHELA WALLACE AQUARIST Nov 16, 2020 08:59
[2020-11-16] MEDS: HYDROcodone/APAP 5 MG/325 MG (LORTAB) TAB PO PRN (09:01)
[2020-11-16] MEDS: metFORMIN 500 MG (GLUCOPHAGE) TAB PO SCH ×2 (09:01→17:52)
[2020-11-16] MEDS: CLOPIDOGREL 75 MG (PLAVIX) TABLET PO SCH (09:01)
[2020-11-16] MEDS: ASPIRIN 81 MG CHEW (CHILDREN'S ASA) PO SCH (09:01)
[2020-11-16] MEDS: FUROSEMIDE 40 MG (LASIX) TAB PO SCH (09:01)
[2020-11-16] MEDS: LOSARTAN 25 MG (COZAAR) TAB PO SCH (09:01)
[2020-11-16] MEDS: SENNA W/DOCUSATE (SENOKOT S) TABLET PO SCH ×2 (09:01→21:22)
[2020-11-16] MEDS: PANTOPRAZOLE 20 MG TABLET (PROTONIX) PO SCH (09:01)
[2020-11-16] MEDS: ALLOPURINOL 100 MG (ZYLOPRIM) TAB PO SCH ×2 (09:01→21:21)
[2020-11-16] MEDS: DOCUSATE SODIUM 100 MG (COLACE) CAP PO SCH ×2 (09:01→21:21)
[2020-11-16] MEDS: VIMPAT 100 MG PO SCH ×2 (09:02→21:19)
[2020-11-16] MEDS: PROPRANOLOL LA 120 MG (INDERAL LA) CAP NON-FORMULARY PO SCH ×2 (09:03→21:19)
[2020-11-16] MEDS: DIVALPROEX 500 MG DELAYED RELEASE (DEPAKOTE) TAB PO SCH ×2 (09:04→21:20)
[2020-11-16] MEDS: LEVETIRACETAM 500 MG (KEPPRA) TAB PO SCH ×2 (09:06→21:21)
[2020-11-16] MEDS: TRESIBA FLEXTOUCH 200 UNITS/ML SQ SCH (09:12)
--- NOTE | 2020-11-16 10:23 | Occupational Ther Daily Note ---
OT Current Status-Daily Note Subjective Pt stated pain and motioned with hand to lower back. Pt thought her Carlos was present during entire session, asking him questions. Pt unable to understand that her was not present. Mental Status/Objective Patient Orientation: Person, Confused ADL-Treatment Therapy Code Descriptions/Definitions Functional [place] Measure: 0=Not Assessed/NA 4=Minimal Assistance 1=Total Assistance 5=Supervision or Setup 2=Maximal Assistance 6=Modified [place] 3=Moderate Assistance 7=Complete IndependenceSCALE: Activities may be completed with or without assistive devices. 1-Wfinsylapr-sexipgl completes the activity by him/herself with no assistance from a helper. 5-Set-up or Clean-up Assistance-helper sets up or cleans up; patient completes activity. [facility] assists only prior to or following the activity. 4-Supervision or Touching Assistance-helper provides verbal cues and/or touching/steadying and/or contact guard assistance as patient completes activity. Assistance may be provided throughout the activity or intermittently. 3-Partial/Moderate Assistance-helper does LESS THAN HALF the effort. [facility] lifts, holds or supports trunk or limbs, but provides less than half the effort. 2-Substantial/Maximal Assistance-helper does MORE THAN HALF the effort. [facility] lifts or holds trunk or limbs and provides more than half the effort. 2-Hteeugzfu-lplnrt does ALL the effort. Patient does none of the effort to complete the activity. Or, the assistance of 2 or more helpers is required for the patient to complete the activity. If activity was not attempted, code reason: 7-Patient Refused. 9-Not Applicable-not attempted and the patient did not perform the activity before the current illness, exacerbation or injury. 10-Not Attempted due to Environmental Limitations-(lack of equipment, weather restraints, etc.). 88-Not Attempted due to Medical Conditions or Safety Concerns. Lower Body Dressing (QC): 1 (Max A. Pt was able to thread RLE through pant leg, but needed cues to do task. Assist x2 in stand for pant hike.) Toileting Hygiene (QC): 1 (Dependent, OT performed clothing management and hygiene, assist x2 in stand.) Other Treatment [id number] OT/PT cotreat due to skill of 2 clinicians required which a rehabilitation services director could not perform in order to coordinate UE/LE with tasks, and due to pt's limitations in strength, endurance, mobility, and L neglect. OT focused on UE placement, cues for sequencing and safety and ADLs, PT focused on LE placement, transfers, gross overall movement and ambulation. Pt transferred from chair to commode at Max A after mentioning needing to use the restroom. Pt needed assistance donning/doffing pants and well as needing assistance for toileting hygiene. Pt transferred to w/c (R side). Functional mobility using the w/c needed constant cueing to stay on task due to pt distractibility. Pt propelled to therapy gym, ambulating in parallel bars x1, assistance with LUE on bar. Pt sees therapy mat and states she wants to go to bed. Pt transferred to therapy mat and supine. Pt attempted to perform some exercises, but had difficulty following directions with simple instructions and tactile cues. Pt transferred back to w/c. [id number] Pt propelled w/c back to her room, near constant cues to stay on task due to distractibility. During w/c mobility, visual tracking and attention tasks performed with objects in pt's L visual field and towards L side. Pt transferred to recliner, nurse present to give medicine. Pt required cues to take pills, emptying entire pill container into her mouth at once, then cues to drink apple juice. Post tx, pt seated in recliner, call light in reach and all needs met. Education OT Patient Education: Correct positioning, Modified ADL techniques, Progress toward Goal/Update tx plan, Purpose of tx/functional activities, Safety issues, Transfer techniques Teaching Recipient: Patient Teaching Methods: Discussion Response to Teaching: Reinforcement Needed OT Short Term Goals Short Term Goals Time Frame: Nov 30, 2020 Oral hygiene: 5 Shower/bathe self: 3 Upper body dressin Lower body dressin OT [facility] Goals Greeting Card Writer Goals Time Frame: Dec 09, 2020 Eating (QC): 6 Oral Hygiene (QC): 6 Toileting Hygiene (QC): 4 Shower/Bathe Self (QC): 4 Upper Body Dressing (QC): 5 Lower Body Dressing (QC): 4 On/Off Footwear (QC): 4 Additional Goals: 1-Demonstrate ADL Tasks, 2-Verbalize Understanding, 3- ImproveStrength/Cooper 1=Demonstrate adherence to instructed precautions during ADL tasks. 2=Patient will verbalize/demonstrate understanding of assistive devices/modifications for ADL. 3=Patient will improve strength/tolerance for activity to enable patient to perform ADL's. OT Education/Plan Problem List/Assessment Assessment: Decreased Activ Tolerance, Decreased Safety Aware, Decreased UE Strength, Impaired Coordination, Impaired Funct Balance, Impaired I ADL's, Impaired Self-Care Skills, Restricted Funct UE ROM Discharge Recommendations Plan/Recommendations: Continue POC Treatment Plan/Plan of Care Patient would benefit from OT for education, treatment and training to promote independence in ADL's, mobility, safety and/or upper extremity function for A DL's. Plan of Care: ADL Retraining, Functional Mobility, Group Exercise/Act as Ind, UE Funct Exercise/Act, UE Neuromus Re-Ed/Coord, Visual/Perceptual Retrain Treatment Duration: Dec 09, 2020 Frequency: At least 5 of 7 days/Wk (IRF) Estimated Hrs Per Day: 1.5 hours per day Agreement: Yes Rehab Potential: Fair Time/GCodes Start Time: 08:00 Stop Time: 09:15 Total Time Billed (hr/min): 75 Billed Treatment Time Cotreat 60', OT 15' 1, ADL 2 (30'), FA 3 (45') JOAN JACOBSON OT Nov 16, 2020 10:23
--- NOTE | 2020-11-16 11:07 | Speech Therapy Daily Note ---
Speech Daily Progress Note Subjective Date Seen by Provider: Nov 16, 2020 Time Seen by Provider: 00:30 Patient was resting in her recliner when I entered her room. Patient wanted her hat, however clinician could not locate it. Objective Patient completed general information q/a related to her daily needs at 60% with moderate cuing. The patient required frequent redirection to attend to task. She frequently states random information unrelated to the topic. Assessment Assessment Current Status: Fair Progress Treatment Plan Continue Plan of Care Speech Short Term Goals Short Term Goals Short Term Goals 1) The patient will complete memory tasks related to her daily needs at 80% or greater with minimal cuing. 2) The patient will complete problem solving tasks related to her daily needs at 80% or greater with minimal cuing. 3) The patient will complete safety awareness related to her daily needs at 80% or greater with minimal cuing. Speech Dandy Tender Goals Dandy Tender Goals Patient will improve cognitive communication skills in order to require decre ased assist with daily tasks. Speech-Plan Patient/Family Goals Patient/Family Goals: Patient plans on returning to her home where she live with her . Treatment Plan Speech Therapy Treatment Plan: Continue Plan of Care Treatment Duration: Dec 02, 2020 Frequency: 4 times per week (Patient will receive skilled ST 4-5x per week) Estimated Hrs Per Day: .5 hour per day Rehab Potential: Fair Barriers to Learning: Patient's cognitive status, recent CVA and other medical status, left sided neglect Pt/Family Agrees to Plan: Yes Safety Risks/Education Teaching Recipient: Patient Teaching Methods: Demonstration, Discussion Response to Teaching: Verbalize Understanding, Return Demonstration Education Topics Provided: Continued safety and left side awareness Time Speech Therapy Time In: 09:30 Speech Therapy Time Out: 10:00 Total Billed Time: 30 Billed Treatment Time 1, SLYOHANNES Ruvalcaba Nov 16, 2020 11:07
--- NOTE | 2020-11-16 14:11 | Physical Therapy Daily Note ---
PT Daily Note-Current Subjective Pt. sleeping hard in bed with lunch meal at her side. Difficult to awaken but then agrees to med mobility and lunch prep. Continues confused and speaks of and to people not in the room Pain Location: No Pain Reported Mental Status Patient Orientation: Confused Transfers SCALE: Activities may be completed with or without assistive devices. 3-Ritujzwjhr-gqkxbtj completes the activity by him/herself with no assistance from a helper. 5-Set-up or Clean-up Assistance-helper sets up or cleans up; patient completes activity. [place] assists only prior to or following the activity. 4-Supervision or Touching Assistance-helper provides verbal cues and/or touching/steadying and/or contact guard assistance as patient completes activity. Assistance may be provided throughout the activity or intermittently. 3-Partial/Moderate Assistance-helper does LESS THAN HALF the effort. [place] lifts, holds or supports trunk or limbs, but provides less than half the effort. 2-Substantial/Maximal Assistance-helper does MORE THAN HALF the effort. [place] lifts or holds trunk or limbs and provides more than half the effort. 3-Saqwxtdcm-elnwbp does ALL the effort. Patient does none of the effort to complete the activity. Or, the assistance of 2 or more helpers is required for the patient to complete the activity. If activity was not attempted, code reason: 7-Patient Refused. 9-Not Applicable-not attempted and the patient did not perform the activity before the current illness, exacerbation or injury. 10-Not Attempted due to Environmental Limitations-(lack of equipment, weather restraints, etc.). 88-Not Attempted due to Medical Conditions or Safety Concerns. scooted up in bed with mod assist of 2 and instructed pt. to use RUE and RLE to assist to push up in bed. Exercises Supine Ex: Ankle pumps, Heel Slides, Hip abd/add Supine Reps: 10 Treatments HOB up, pt. using R hand to attempt to eat, pt. directed to each food item , assist fo meat cut and potatoe prepped. pt then began to consume meal with RUE Assessment Current Status: Fair Progress PT Short Term Goals Short Term Goals Time Frame: Nov 22, 2020 Roll Left & Right: 3 Sit to lyin Lying to sitting on side of be: 3 Sit to stand: 3 Chair/xul-oe-dloxv transfer: 3 Walk 10 feet: 3 PT Carton Forming Machine Tender Goals [facility] Goals PT [facility] Goals Time Frame: Dec 06, 2020 Roll Left & Right (QC): 3 (Joel) Sit to Lying (QC): 3 (Joel) Lying-Sitting on Side/Bed(QC): 3 (Joel) Sit to Stand (QC): 3 (Joel) Chair/Qar-ez-Kpuib Xfer(QC): 3 (Joel) Toilet Transfer (QC): 3 (Joel) Car Transfer (QC): 3 (Joel) Does the Patient Walk: Yes Walk 10 feet (QC): 3 (Joel) Walk 50ft with 2 Turns (QC): 3 (Joel) Walk 150 ft (QC): 88 Walking 10ft on Uneven Surface: 88 1 Step (curb) (QC): 88 4 Steps (QC): 88 12 Steps (QC): 88 Picking up an Object (QC): 88 Wheel 50 feet with 2 turns (QC: 4 Wheel 150 feet: 4 PT Plan Treatment/Plan Treatment Plan: Continue Plan of Care Treatment Plan: Bed Mobility, Education, Functional Activity Cooper, Functional Strength, Group Therapy, Gait, Safety, Therapeutic Exercise, Transfers Treatment Duration: Dec 06, 2020 Frequency: At least 5 of 7 days/Wk (IRF) Estimated Hrs Per Day: 1.5 hours per day Patient and/or Family Agrees t: Yes Safety Risks/Education Patient Education: Correct Positioning Teaching Recipient: Patient Response to Teaching: Reinforcement Needed Time/GCodes Time In: 1300 Time Out: 1315 Total Billed Treatment Time: 15 Total Billed Treatment 1,FA15m CHELA WALLACE LEATHER GRADER Nov 16, 2020 14:11
--- NOTE | 2020-11-16 15:35 | NUR ---
RD ASSESSMENT PMHx: COPD; hypercholesterolemia; HTN; seizure disorder; stroke; DM; PT INTERACTION: Pt was semi-awake and pleasant during nutrition assessment. Pt states current appetite is okay. Note avg PO intake of 50-75% x1d, per chart review. Pt states following a regular diet at home, and has no issues with chewing/swallowing food. Pt states no recent issues with nausea, vomiting, constipation, or diarrhea, and that her last BM was "a few days ago." Note pt currently on bowel regimen of colace BID, senna BID, and miralax BID, per chart review. Pt states recent wt loss, but was unsure of amount/timeframe. Note unable to determine recent wt hx, per chart review. Pt states current DM management is good. Note unable to determine recent HbA1c, per chart review. Note abnormal lab values of BUN 19 H, and glu 198 H, per chart review. Est. kcal needs: [id number] kcal | 15-20 kcal/kg Est. Pro needs: 61-76 g Pro | 0.8-1.0 g Pro/kg PES STATEMENT: Inadequate oral intake (NI-2.1) related to loss of appetite, as evidenced by pt interview, and avg PO intake 50-75% x1d. INTERVENTION: Continue with current diet order of CHO 60g/m 3snack diet. Pt may benefit from nutrition supplementation if PO intake declines. Offered diet education on DM management, but pt declined at this time. Will attempt to offer again prior to discharge. Will continue to follow and reassess as pt needs, intake, and status change. Kim JENKINS, MS RD LD [phone] cell
[2020-11-16 17:13] VITALS: BP 116/57
[2020-11-16] MEDS: ENOXAPARIN 40 MG/0.4 ML (LOVENOX) SYR SC SCH (17:52)
[2020-11-16] MEDS: MONTELUKAST 10 MG (SINGULAIR) TAB PO SCH (21:21)
[2020-11-16] MEDS: CYCLOBENZAPRINE 10 MG (FLEXERIL) TAB PO SCH (21:21)
[2020-11-17] MEDS: HYDROcodone/APAP 5 MG/325 MG (LORTAB) TAB PO PRN ×3 (01:19→20:21)
--- NOTE | 2020-11-17 05:13 | PM&R Progress Note ---
Subjective HPI/CC On Admission Date Seen by Provider: Nov 17, 2020 Time Seen by Provider: 09:00 Subjective/Events-last exam 11/17/20: No BM since 11/12 Laxatives and supp will be given Facial droop appears less pronounced Confusion noted 11/16/20: Sugar is 198 receiving sliding scale Improvement on transfers already Bowels moved on November 12 so given laxatives Pt has some unreliable information most of the time Nicotine patch reordered Focus is very poor, requires constant cues Review of Systems General: Fatigue, Malaise Objective Exam Vital Signs Vital Signs Date Time Temp Pulse Resp B/P (MAP) Pulse Ox O2 Delivery O2 Flow Rate FiO2 11/17/20 20:30 Room Air 11/17/20 18:05 36.0 77 18 129/74 (92) 96 Capillary Refill : Less Than 3 Seconds General Appearance: No Apparent Distress, WD/WN, Anxious, Chronically ill HEENT: PERRL/EOMI, Normal ENT Inspection, Pharynx Normal Neck: Full Range of Motion, Normal Inspection, Non Tender, Supple, Carotid Bruit Respiratory: Chest Non Tender, Normal Breath Sounds, No Accessory Muscle Use, No Respiratory Distress, Decreased Breath Sounds Cardiovascular: Regular Rate, Rhythm, No Edema, No Gallop, No JVD, No Murmur, Normal Peripheral Pulses Gastrointestinal: Normal Bowel Sounds, No Organomegaly, No Pulsatile Mass, Non Tender, Soft Back: Normal Inspection, No CVA Tenderness, No Vertebral Tenderness Extremity: Normal Capillary Refill, Normal Inspection, Normal Range of Motion, Non Tender, No Calf Tenderness, No Pedal Edema Neurologic/Psychiatric: Alert, Oriented x3, Abnormal Gait, Aphasia (partial), Depressed Affect, Facial Droop (left), Motor Weakness (left sided weakness 1/5) Skin: Normal Color, Warm/Dry Lymphatic: No Adenopathy Results/Procedures Lab Patient resulted labs reviewed. FIM Transfers Therapy Code Descriptions/Definitions Functional [place] Measure: 0=Not Assessed/NA 4=Minimal Assistance 1=Total Assistance 5=Supervision or Setup 2=Maximal Assistance 6=Modified [place] 3=Moderate Assistance 7=Complete IndependenceSCALE: Activities may be completed with or without assistive devices. 4-Aaqgapwguh-fxnztvv completes the activity by him/herself with no assistance from a helper. 5-Set-up or Clean-up Assistance-helper sets up or cleans up; patient completes activity. [place] assists only prior to or following the activity. 4-Supervision or Touching Assistance-helper provides verbal cues and/or touching/steadying and/or contact guard assistance as patient completes activity. Assistance may be provided throughout the activity or intermittently. 3-Partial/Moderate Assistance-helper does LESS THAN HALF the effort. [place] lifts, holds or supports trunk or limbs, but provides less than half the effort. 2-Substantial/Maximal Assistance-helper does MORE THAN HALF the effort. [place] lifts or holds trunk or limbs and provides more than half the effort. 3-Tpuuptzpw-nqhhiv does ALL the effort. Patient does none of the effort to complete the activity. Or, the assistance of 2 or more helpers is required for the patient to complete the activity. If activity was not attempted, code reason: 7-Patient Refused. 9-Not Applicable-not attempted and the patient did not perform the activity before the current illness, exacerbation or injury. 10-Not Attempted due to Environmental Limitations-(lack of equipment, weather restraints, etc.). 88-Not Attempted due to Medical Conditions or Safety Concerns. Roll Left to Right (QC): 3 Sit to Lying (QC): 3 Sit to Stand (QC): 4 Chair/Eat-ih-Zmuxp Xfer(QC): 3 Car Transfer (QC): 2 Gait Training Does the Patient Walk?: Yes Distance: 10' x 2 Walk 10 feet (QC): 88 Walk 50 ft with 2 Turns(QC): 88 Walk 150 ft (QC): 88 Walking 10ft/uneven surface-QC: 88 Gait Persons Needed: 2 Gait Assistive Device: Parallel Bars Wheelchair Training Does the Pt Use a Wheelchair?: Yes Wheel 50 ft with 2 turns (QC): 2 Wheel 150 ft (QC): 9 Type of Wheelchair: Manual Stair Training 1 Step (curb) (QC): 88 4 Steps (QC): 88 12 Steps (QC): 88 Balance Picking up an Object (QC): 88 ADL-Treatment Eating (QC): 5 (set up assistance with cutting food. Pt then able to eat.) Oral Hygiene (QC): 3 (Mod A, OT placed toothpaste onto brush and placed in pt's hands, pt able to brush with cues. Pt spit out dentures when asked to spit, assistance to remove dentures and clean thoroughly. ) Shower/Bathe Self (QC): 1 (Assist x2 in stand. Pt able to wash chest/abdomen, LUE with cues. OT assisted with washing RUE, buttocks, periarea, BLEs, feet.) Upper Body Dressing (QC): 2 (Assist to thread LUE. Pt attempted to thread RUE as OT held shirt open, hand over hand assist required to find arm hole. Assist over head and to manage down trunk.) Lower Body Dressing (QC): 1 (Max A. Pt was able to thread RLE through pant leg, but needed cues to do task. Assist x2 in stand for pant hike.) On/Off Footwear (QC): 1 (Dependent donning/doffing gripper socks. Pt cued to take sock off but did not initiate task.) Toileting Hygiene (QC): 1 (Dependent, OT performed clothing management and hygiene, assist x2 in stand.) Assessment/Plan Assessment and Plan Assess & Plan/Chief Complaint Assessment: CVA Left sided weakness Left sided neglect HTN DM HLP Smoker COPD Chronic pain Plan: IRF protocol Pain meds home dosing BM regimen Monitor O2 11/16/20: Monitor sugar Increase therapy Monitor confusion 11/17/20: Confusion noted BM regimen (1) CVA (cerebral vascular accident) (2) Diabetes (3) Hypertension (4) Left-sided weakness (5) Smoker (6) Hyperlipemia (7) [place]-neglect of left side TITA LUBIN DO Nov 17, 2020 05:13
[2020-11-17 06:00] VITALS: BP 146/71
[2020-11-17] MEDS: LEVOTHYROXINE 88 MCG (LEVOTHORID) TAB PO SCH (06:14)
[2020-11-17] MEDS: ADVAIR HFA 45/21 MCG INHALER 8 GM IH SCH (07:01)
[2020-11-17] MEDS: FLUTICASONE NASAL SPRAY (FLONASE) 16 GM BTL NS SCH (08:50)
[2020-11-17] MEDS: MICONAZOLE 2% POWDER (DESENEX AF) 90 GM TOP SCH ×3 (08:51→20:19)
[2020-11-17] MEDS: PROPRANOLOL LA 120 MG (INDERAL LA) CAP NON-FORMULARY PO SCH ×2 (08:51→20:20)
[2020-11-17] MEDS: DIVALPROEX 500 MG DELAYED RELEASE (DEPAKOTE) TAB PO SCH ×2 (08:52→20:18)
[2020-11-17] MEDS: TRESIBA FLEXTOUCH 200 UNITS/ML SQ SCH (08:52)
[2020-11-17] MEDS: VIMPAT 100 MG PO SCH ×2 (08:52→20:18)
[2020-11-17] MEDS: ALLOPURINOL 100 MG (ZYLOPRIM) TAB PO SCH ×2 (08:53→20:15)
[2020-11-17] MEDS: PANTOPRAZOLE 20 MG TABLET (PROTONIX) PO SCH (08:53)
[2020-11-17] MEDS: LOSARTAN 25 MG (COZAAR) TAB PO SCH (08:53)
[2020-11-17] MEDS: LEVETIRACETAM 500 MG (KEPPRA) TAB PO SCH ×2 (08:53→20:15)
[2020-11-17] MEDS: SENNA W/DOCUSATE (SENOKOT S) TABLET PO SCH ×2 (08:53→20:19)
[2020-11-17] MEDS: polyethylene glycoL POWDER 17 GM (MIRALAX) PACK PO SCH ×2 (08:53→20:19)
[2020-11-17] MEDS: CLOPIDOGREL 75 MG (PLAVIX) TABLET PO SCH (08:53)
[2020-11-17] MEDS: DOCUSATE SODIUM 100 MG (COLACE) CAP PO SCH ×2 (08:53→20:19)
[2020-11-17] MEDS: ASPIRIN 81 MG CHEW (CHILDREN'S ASA) PO SCH (08:53)
[2020-11-17] MEDS: FUROSEMIDE 40 MG (LASIX) TAB PO SCH (08:53)
[2020-11-17] MEDS: metFORMIN 500 MG (GLUCOPHAGE) TAB PO SCH ×2 (08:53→17:29)
--- NOTE | 2020-11-17 08:59 | Physical Therapy Daily Note ---
PT Daily Note-Current Subjective Patient in recliner pre tx, agrees to PT, has 10/10 low back pain, nurse notified. Will be co-treating with OT due to poor patient mobility, strength, endurance, left hemiparesis, the need to coordinate UE and LE during activity, safety and reduce risk of falling. Appearance Patient in recliner post tx with nurse call,phone, tray, chair alarm on, legs elevated. Mental Status Patient Orientation: Person, Confused, Place, Situation Transfers SCALE: Activities may be completed with or without assistive devices. 8-Zmlypzxruf-ncshhny completes the activity by him/herself with no assistance from a helper. 5-Set-up or Clean-up Assistance-helper sets up or cleans up; patient completes activity. [place] assists only prior to or following the activity. 4-Supervision or Touching Assistance-helper provides verbal cues and/or touching/steadying and/or contact guard assistance as patient completes activity. Assistance may be provided throughout the activity or intermittently. 3-Partial/Moderate Assistance-helper does LESS THAN HALF the effort. [place] lifts, holds or supports trunk or limbs, but provides less than half the effort. 2-Substantial/Maximal Assistance-helper does MORE THAN HALF the effort. [place] lifts or holds trunk or limbs and provides more than half the effort. 0-Azjmhxqiy-uusdrz does ALL the effort. Patient does none of the effort to complete the activity. Or, the assistance of 2 or more helpers is required for the patient to complete the activity. If activity was not attempted, code reason: 7-Patient Refused. 9-Not Applicable-not attempted and the patient did not perform the activity bef ore the current illness, exacerbation or injury. 10-Not Attempted due to Environmental Limitations-(lack of equipment, weather r estraints, etc.). 88-Not Attempted due to Medical Conditions or Safety Concerns. Sit to Stand (QC): 3 Chair/Eci-gs-Bpdsl Xfer(QC): 3 Toilet Transfer (QC): 3 Patient needed to use the commode at the beginning of tx, dependent for getting pants down and up and for wiping Gait Training Distance: 6'x3 Gait Assistive Device: Parallel Bars min assist, cues for advancing her left leg Wheelchair Training Does the Pt Use a Wheelchair?: Yes Wheel 50 ft with 2 turns (QC): 2 Type of Wheelchair: Manual 120'x2 Exercises Standing: Sit to Stand Standing Reps: 15 (3 sets of 5) Treatments PT performed transfers, ambulation, WC mobility, sit to stands, OT performed cleaning and toileting, UE positioning and safety during activity Assessment Current Status: Poor Progress Patient has poor motivation, needs constant cues to stay on task PT Short Term Goals Short Term Goals Time Frame: Nov 22, 2020 Roll Left & Right: 3 Sit to lyin Lying to sitting on side of be: 3 Sit to stand: 3 Chair/fjf-mi-ouvlw transfer: 3 Walk 10 feet: 3 PT Obstetric Assistant Goals Detention Goals PT Obstetric Assistant Goals Time Frame: Dec 06, 2020 Roll Left & Right (QC): 3 (Joel) Sit to Lying (QC): 3 (Joel) Lying-Sitting on Side/Bed(QC): 3 (Joel) Sit to Stand (QC): 3 (Joel) Chair/Djh-rt-Pnmbr Xfer(QC): 3 (Joel) Toilet Transfer (QC): 3 (Joel) Car Transfer (QC): 3 (Joel) Does the Patient Walk: Yes Walk 10 feet (QC): 3 (Joel) Walk 50ft with 2 Turns (QC): 3 (Joel) Walk 150 ft (QC): 88 Walking 10ft on Uneven Surface: 88 1 Step (curb) (QC): 88 4 Steps (QC): 88 12 Steps (QC): 88 Picking up an Object (QC): 88 Wheel 50 feet with 2 turns (QC: 4 Wheel 150 feet: 4 PT Plan Problem List Problem List: Activity Tolerance, Functional Strength, Safety, Balance, Gait, Transfer, Bed Mobility, ROM Treatment/Plan Treatment Plan: Continue Plan of Care Treatment Plan: Bed Mobility, Education, Functional Activity Cooper, Functional Strength, Group Therapy, Gait, Safety, Therapeutic Exercise, Transfers Treatment Duration: Dec 06, 2020 Frequency: At least 5 of 7 days/Wk (IRF) Estimated Hrs Per Day: 1.5 hours per day Patient and/or Family Agrees t: Yes Safety Risks/Education Patient Education: Gait Training, Transfer Techniques, Correct Positioning, W/C Management, Safety Issues Teaching Recipient: Patient Teaching Methods: Demonstration, Discussion Response to Teaching: Reinforcement Needed Time/GCodes Time In: 0800 Time Out: 0900 Total Billed Treatment Time: 60 Total Billed Treatment 1 visit FA 60' co-treated with OT for 60' KHUSHBU ONEIL PT Nov 17, 2020 08:59
--- NOTE | 2020-11-17 08:59 | Occupational Ther Daily Note ---
OT Current Status-Daily Note Subjective 10/10 pain in low back. Pt easily distracted, stating staff members were relatives of her. Staff redirected pt to where she is and why she is here but pt insisted staff were people she knows instead of hospital workers. Mental Status/Objective Patient Orientation: Person, Confused, Place, Situation ADL-Treatment Therapy Code Descriptions/Definitions Functional [place] Measure: 0=Not Assessed/NA 4=Minimal Assistance 1=Total Assistance 5=Supervision or Setup 2=Maximal Assistance 6=Modified Tye 3=Moderate Assistance 7=Complete IndependenceSCALE: Activities may be completed with or without assistive devices. 9-Xwwswrwlxw-puzbexo completes the activity by him/herself with no assistance from a helper. 5-Set-up or Clean-up Assistance-helper sets up or cleans up; patient completes activity. [place] assists only prior to or following the activity. 4-Supervision or Touching Assistance-helper provides verbal cues and/or touching/steadying and/or contact guard assistance as patient completes activity. Assistance may be provided throughout the activity or intermittently. 3-Partial/Moderate Assistance-helper does LESS THAN HALF the effort. [place] lifts, holds or supports trunk or limbs, but provides less than half the effort. 2-Substantial/Maximal Assistance-helper does MORE THAN HALF the effort. [place] lifts or holds trunk or limbs and provides more than half the effort. 2-Yepfqybhg-qvobja does ALL the effort. Patient does none of the effort to complete the activity. Or, the assistance of 2 or more helpers is required for the patient to complete the activity. If activity was not attempted, code reason: 7-Patient Refused. 9-Not Applicable-not attempted and the patient did not perform the activity before the current illness, exacerbation or injury. 10-Not Attempted due to Environmental Limitations-(lack of equipment, weather restraints, etc.). 88-Not Attempted due to Medical Conditions or Safety Concerns. Lower Body Dressing (QC): 1 (Assist x2 in stand for pant hike. Pt required assistance threading LLE, and max verbal and tactile cues to thread R.) Toileting Hygiene (QC): 1 (Assist x2 needed during stand. Pt required assist with hygiene, and clothing management. ) Toilet Transfer (QC): 3 (Mod A on/off BSC.) Other Treatment OT/PT cotreat due to skill of 2 clinicians required which a rehabilitation teacher could not perform in order to coordinate UE/LE with tasks, and due to pt's limitations in strength, endurance, mobility, and L neglect. OT focused on UE placement, cues for sequencing and safety and ADLs, PT focused on LE placement, transfers, gross overall movement and ambulation. Pt transferred from chair to commode at Mod A after mentioning needing to use the restroom. Pt needed assistance donning/doffing pants and well as needing assistance for toileting hygiene. Pt transferred to w/c (R side). Functional mobility using the w/c needed constant cueing to stay on task due to pt distractibility. Pt propelled to therapy gym, ambulating in parallel bars x3, assistance with LUE on bar. Pt then completed 3x5 sit to stands in order to increase BUE strength and endurance and increase independence with functional transfers. Pt required assistance with placement of LUE thorughout tx. Pt transferred back to w/c. Pt propelled w/c back to room, near constant cues to use RUE/LE to propel w/c. Visual scanning tasks performed towards L visual field throughout tx. Pt transferred to recliner towards L side. Post tx, pt seated in recliner, call light in reach and all needs met. Chair alarm on. Education OT Patient Education: Correct positioning, Modified ADL techniques, Progress toward Goal/Update tx plan, Purpose of tx/functional activities, Safety issues, Transfer techniques Teaching Recipient: Patient Teaching Methods: Demonstration, Discussion Response to Teaching: Reinforcement Needed OT Short Term Goals Short Term Goals Time Frame: Nov 30, 2020 Oral hygiene: 5 Shower/bathe self: 3 Upper body dressin Lower body dressin OT Tile Setter Supervisor Goals Fpc Goals Time Frame: Dec 09, 2020 Eating (QC): 6 Oral Hygiene (QC): 6 Toileting Hygiene (QC): 4 Shower/Bathe Self (QC): 4 Upper Body Dressing (QC): 5 Lower Body Dressing (QC): 4 On/Off Footwear (QC): 4 Additional Goals: 1-Demonstrate ADL Tasks, 2-Verbalize Understanding, 3- ImproveStrength/Cooper 1=Demonstrate adherence to instructed precautions during ADL tasks. 2=Patient will verbalize/demonstrate understanding of assistive devices/modifications for ADL. 3=Patient will improve strength/tolerance for activity to enable patient to perform ADL's. OT Education/Plan Problem List/Assessment Assessment: Decreased Activ Tolerance, Decreased Safety Aware, Decreased UE Strength, Impaired Cognition, Impaired Coordination, Impaired Funct Balance, Impaired I ADL's, Impaired Self-Care Skills, Restricted Funct UE ROM, Visual- Perceptual Deficit Discharge Recommendations Plan/Recommendations: Continue POC Treatment Plan/Plan of Care Patient would benefit from OT for education, treatment and training to promote independence in ADL's, mobility, safety and/or upper extremity function for ADL's. Plan of Care: ADL Retraining, Functional Mobility, Group Exercise/Act as Ind, UE Funct Exercise/Act, UE Neuromus Re-Ed/Coord, Visual/Perceptual Retrain Treatment Duration: Dec 09, 2020 Frequency: At least 5 of 7 days/Wk (IRF) Estimated Hrs Per Day: 1.5 hours per day Agreement: Yes Rehab Potential: Fair Time/GCodes Start Time: 08:00 Stop Time: 09:00 Total Time Billed (hr/min): 60 Billed Treatment Time cotreat x60 1, ADL (15'), FA 3 (45') JOAN JACOBSON OT Nov 17, 2020 08:59
[2020-11-17] MEDS: LORazepam 0.5 MG (ATIVAN) TABLET PO PRN (09:04)
[2020-11-17] MEDS: NICOTINE PATCH REMOVAL TP SCH (09:34)
--- NOTE | 2020-11-17 11:29 | Physical Therapy Daily Note ---
PT Daily Note-Current Subjective Patient in recliner pre tx, drowsy, agrees to PT, has no complaints of pain. Appearance Patient in recliner post tx with nurse call, phone, tray, chair alarm on, legs e levated. Mental Status Patient Orientation: Person, Confused Transfers SCALE: Activities may be completed with or without assistive devices. 9-Ynxitelyrs-vprgnfu completes the activity by him/herself with no assistance from a helper. 5-Set-up or Clean-up Assistance-helper sets up or cleans up; patient completes activity. [place] assists only prior to or following the activity. 4-Supervision or Touching Assistance-helper provides verbal cues and/or touching/steadying and/or contact guard assistance as patient completes activity. Assistance may be provided throughout the activity or intermittently. 3-Partial/Moderate Assistance-helper does LESS THAN HALF the effort. [place] lifts, holds or supports trunk or limbs, but provides less than half the effort. 2-Substantial/Maximal Assistance-helper does MORE THAN HALF the effort. [place] lifts or holds trunk or limbs and provides more than half the effort. 7-Shkxnhyuh-kvaqqc does ALL the effort. Patient does none of the effort to complete the activity. Or, the assistance of 2 or more helpers is required for the patient to complete the activity. If activity was not attempted, code reason: 7-Patient Refused. 9-Not Applicable-not attempted and the patient did not perform the activity before the current illness, exacerbation or injury. 10-Not Attempted due to Environmental Limitations-(lack of equipment, weather restraints, etc.). 88-Not Attempted due to Medical Conditions or Safety Concerns. Exercises Supine Ex: Heel Slides, Short Arc Quads, Straight leg raise, Hip abd/add Supine Reps: 20 (AAROM) Seated Therapy Exercises: Ankle pumps, Long arc quads, Hip flexion Seated Reps: 20 (AAROM) All exercises were AAROM, patient would only perform a couple of reps before stopping, needs constant cues to keep working. Treatments LE exercise Assessment Current Status: Poor Progress Patient has poor motivation. Patient appears drowsy, closes eyes, will hardly participate in PT but as soon as we stop her eyes open and she begins searching for stuff on her tray, calling out to family, etc. PT Short Term Goals Short Term Goals Time Frame: Nov 22, 2020 Roll Left & Right: 3 Sit to lyin Lying to sitting on side of be: 3 Sit to stand: 3 Chair/bnh-pc-merrb transfer: 3 Walk 10 feet: 3 PT Beer Merchant Goals Beer Merchant Goals PT Beer Merchant Goals Time Frame: Dec 06, 2020 Roll Left & Right (QC): 3 (Joel) Sit to Lying (QC): 3 (Joel) Lying-Sitting on Side/Bed(QC): 3 (Joel) Sit to Stand (QC): 3 (Joel) Chair/Juq-uw-Gknpp Xfer(QC): 3 (Joel) Toilet Transfer (QC): 3 (Joel) Car Transfer (QC): 3 (Joel) Does the Patient Walk: Yes Walk 10 feet (QC): 3 (Joel) Walk 50ft with 2 Turns (QC): 3 (Joel) Walk 150 ft (QC): 88 Walking 10ft on Uneven Surface: 88 1 Step (curb) (QC): 88 4 Steps (QC): 88 12 Steps (QC): 88 Picking up an Object (QC): 88 Wheel 50 feet with 2 turns (QC: 4 Wheel 150 feet: 4 PT Plan Problem List Problem List: Activity Tolerance, Functional Strength, Safety, Balance, Gait, Transfer, Bed Mobility, ROM Treatment/Plan Treatment Plan: Continue Plan of Care Treatment Plan: Bed Mobility, Education, Functional Activity Cooper, Functional Strength, Group Therapy, Gait, Safety, Therapeutic Exercise, Transfers Treatment Duration: Dec 06, 2020 Frequency: At least 5 of 7 days/Wk (IRF) Estimated Hrs Per Day: 1.5 hours per day Patient and/or Family Agrees t: Yes Safety Risks/Education Patient Education: Correct Positioning, Safety Issues Teaching Recipient: Patient Teaching Methods: Demonstration, Discussion Response to Teaching: Reinforcement Needed Time/GCodes Time In: 1115 Time Out: 1130 Total Billed Treatment Time: 15 Total Billed Treatment 1 visit EX KHUSHBU LUCIANO PT Nov 17, 2020 11:29
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
--- NOTE | 2020-11-17 13:51 | Speech Therapy Daily Note ---
Speech Daily Progress Note Subjective Date Seen by Provider: Nov 17, 2020 Time Seen by Provider: 00:30 Patient resting in her recliner, c/o headache and lower back ache. Objective Patient completed a series of safety awareness cards with 60% accuracy given mod to max cuing to complete. Assessment Assessment Current Status: Fair Progress Treatment Plan Continue Plan of Care Speech Short Term Goals Short Term Goals Short Term Goals 1) The patient will complete memory tasks related to her daily needs at 80% or greater with minimal cuing. 2) The patient will complete problem solving tasks related to her daily needs at 80% or greater with minimal cuing. 3) The patient will complete safety awareness related to her daily needs at 80% or greater with minimal cuing. Speech Research Methods Instructor Goals Fdc Goals Patient will improve cognitive communication skills in order to require decreased assist with daily tasks. Speech-Plan Patient/Family Goals Patient/Family Goals: Patient plans on returning to her home where she lives with her . Treatment Plan Speech Therapy Treatment Plan: Continue Plan of Care Treatment Duration: Dec 02, 2020 Frequency: 4 times per week (Patient will receive skilled ST 4-5x per week) Estimated Hrs Per Day: .5 hour per day Rehab Potential: Fair Barriers to Learning: Patient's decreased cognitive level of function, medical history, current CVA Pt/Family Agrees to Plan: Yes Safety Risks/Education Teaching Recipient: Patient Teaching Methods: Demonstration, Discussion Response to Teaching: Verbalize Understanding, Return Demonstration, Reinforcement Needed Education Topics Provided: Continued safety within her room , utilization of the call light, attention to the left side Time Speech Therapy Time In: 10:30 Speech Therapy Time Out: 11:00 Total Billed Time: 30 Billed Treatment Time 1KYLIE BETHANIA ST Nov 17, 2020 13:51
[2020-11-17] MEDS ORDERED: LEVO112T55 PO (15:26)
[2020-11-17] MEDS ORDERED: PROP120C3 PO (15:32)
[2020-11-17] MEDS ORDERED: ROSU10TA28 PO (15:32)
[2020-11-17] MEDS ORDERED: LEVO88TA54 PO (15:32)
[2020-11-17] MEDS ORDERED: SUMA50TA2 PO (15:37)
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
[2020-11-17] MEDS: ENOXAPARIN 40 MG/0.4 ML (LOVENOX) SYR SC SCH (17:30)
[2020-11-17 18:05] VITALS: BP 129/74
[2020-11-17] MEDS: CYCLOBENZAPRINE 10 MG (FLEXERIL) TAB PO SCH (20:15)
[2020-11-17] MEDS: MONTELUKAST 10 MG (SINGULAIR) TAB PO SCH (20:15)
[2020-11-18] MEDS: ADVAIR HFA 45/21 MCG INHALER 8 GM IH SCH ×2 (00:20→19:40)
[2020-11-18] MEDS: HYDROcodone/APAP 5 MG/325 MG (LORTAB) TAB PO PRN ×3 (05:35→20:27)
[2020-11-18] MEDS: LEVOTHYROXINE 88 MCG (LEVOTHORID) TAB PO SCH (05:35)
[2020-11-18] MEDS: KCL 20 MEQ TAB (K-DUR) PO SCH (05:35)
[2020-11-18 06:14] VITALS: BP 129/58
[2020-11-18] MEDS: polyethylene glycoL POWDER 17 GM (MIRALAX) PACK PO SCH ×2 (07:44→19:43)
[2020-11-18] MEDS: DOCUSATE SODIUM 100 MG (COLACE) CAP PO SCH ×2 (07:45→19:42)
[2020-11-18] MEDS: SENNA W/DOCUSATE (SENOKOT S) TABLET PO SCH ×2 (07:45→19:43)
[2020-11-18] MEDS: MICONAZOLE 2% POWDER (DESENEX AF) 90 GM TOP SCH ×3 (08:03→20:27)
[2020-11-18] MEDS: PROPRANOLOL LA 120 MG (INDERAL LA) CAP NON-FORMULARY PO SCH ×2 (08:03→20:28)
[2020-11-18] MEDS: TRESIBA FLEXTOUCH 200 UNITS/ML SQ SCH (08:03)
[2020-11-18] MEDS: VIMPAT 100 MG PO SCH ×2 (08:04→20:28)
[2020-11-18] MEDS: DIVALPROEX 500 MG DELAYED RELEASE (DEPAKOTE) TAB PO SCH ×2 (08:04→20:29)
[2020-11-18] MEDS: ASPIRIN 81 MG CHEW (CHILDREN'S ASA) PO SCH (08:04)
[2020-11-18] MEDS: CLOPIDOGREL 75 MG (PLAVIX) TABLET PO SCH (08:04)
[2020-11-18] MEDS: PANTOPRAZOLE 20 MG TABLET (PROTONIX) PO SCH (08:04)
[2020-11-18] MEDS: ALLOPURINOL 100 MG (ZYLOPRIM) TAB PO SCH ×2 (08:04→20:27)
[2020-11-18] MEDS: LOSARTAN 25 MG (COZAAR) TAB PO SCH (08:04)
[2020-11-18] MEDS: LEVETIRACETAM 500 MG (KEPPRA) TAB PO SCH ×2 (08:04→20:27)
[2020-11-18] MEDS: FLUTICASONE NASAL SPRAY (FLONASE) 16 GM BTL NS SCH (08:04)
[2020-11-18] MEDS: metFORMIN 500 MG (GLUCOPHAGE) TAB PO SCH ×2 (08:04→18:08)
[2020-11-18] MEDS: FUROSEMIDE 40 MG (LASIX) TAB PO SCH (08:04)
[2020-11-18] MEDS: NICOTINE PATCH REMOVAL TP SCH (08:08)
--- NOTE | 2020-11-18 08:57 | Occupational Ther Daily Note ---
OT Current Status-Daily Note Subjective Pt stated pain in her lower back with a rating of 10/10 after reaching across midline. Pt continuously asks "Carlos-Carlos" questions and OT reassures pt that Carlos- Carlos is not in the hospital at this time. Pain Numeric Pain Scale: 10-Worst Possible Pain Location: Lower Location Body Site: Back Mental Status/Objective Patient Orientation: Person, Confused, Situation ADL-Treatment Therapy Code Descriptions/Definitions Functional [place] Measure: 0=Not Assessed/NA 4=Minimal Assistance 1=Total Assistance 5=Supervision or Setup 2=Maximal Assistance 6=Modified [place] 3=Moderate Assistance 7=Complete IndependenceSCALE: Activities may be completed with or without assistive devices. 6-Nsdiuqvmue-iyhbcad completes the activity by him/herself with no assistance from a helper. 5-Set-up or Clean-up Assistance-helper sets up or cleans up; patient completes activity. [place] assists only prior to or following the activity. 4-Supervision or Touching Assistance-helper provides verbal cues and/or touching/steadying and/or contact guard assistance as patient completes activity. Assistance may be provided throughout the activity or intermittently. 3-Partial/Moderate Assistance-helper does LESS THAN HALF the effort. [place] lifts, holds or supports trunk or limbs, but provides less than half the effort. 2-Substantial/Maximal Assistance-helper does MORE THAN HALF the effort. [place] lifts or holds trunk or limbs and provides more than half the effort. 4-Ueglgrmkp-rtlsgc does ALL the effort. Patient does none of the effort to complete the activity. Or, the assistance of 2 or more helpers is required for the patient to complete the activity. If activity was not attempted, code reason: 7-Patient Refused. 9-Not Applicable-not attempted and the patient did not perform the activity before the current illness, exacerbation or injury. 10-Not Attempted due to Environmental Limitations-(lack of equipment, weather restraints, etc.). 88-Not Attempted due to Medical Conditions or Safety Concerns. Bathing Location: L Arm, L Upper Leg, R Upper Leg, R Lower Leg (including wolf t), Chest, Abdomen Shower/Bathe Self (QC): 1 (Assist x2 in stand to wash buttocks. Pt requires constant cues to stay on task.) Upper Body Dressing (QC): 3 (Mod A. Assist threading L arm through. Pt can thread R arm through shirt as well as reach over head to don shirt, slight assistance managing down trunk.) Lower Body Dressing (QC): 1 (Pt can thread R leg through but needs assistance to guide R leg. OT assisted with L leg. Pt can pull pants over knees while sitting, but needs assistance to pull pants up while standing. Assist x2 in stand.) On/Off Footwear: 1 (Pt can guide R foot to the sock but needs additional assistance to pull both socks up.) Toileting Hygiene (QC): 1 (Assist x2 due to balance while standing. Assist to manage clothing and with hygiene.) Toilet Transfer (QC): 1 (Assist x2) Other Treatment OT/PT cotreat due to skill of 2 clinicians required which a radiologic technologist chief could not perform in order to coordinate UE/LE with tasks, and due to pt's limitations in strength, endurance, mobility, and L neglect. OT focused on UE placement, cues for sequencing and safety and ADLs, PT focused on LE placement, transfers, gross overall movement and ambulation. Socks donned to transfer from bed to w/c. Once in w/c, pt was instructed to start washing LE with washcloth. Pt needed constant cues to stay on task and needed assistance to wash L leg. Pt completed UE washin g with Mod A for constant cueing to stay on task and to wash R arm and back. Pt was instructed to don shirt and successfully threading R arm through and head while needing assistance to thread L arm and to adjust shirt. Assistance was needed to thread feet through pants, and pt was able to reach and pull pants above the knee. Assistance was needed when standing and to perform pants hike. Pt taken to therapy gym in w/. Pt was transferred to mat and was instructed to reach across midline to L side and grab cones with R hand in order to increase L side awareness, and to increase dynamic sitting balance. Pt needed constant cues to stay on task. Pt was easily distracted and kept asking for "Priyank" and asking questions to him. The OT reassured pt that Priyank is not at the hospital. Pt was transferred back to / to perform functional w/c mobility back to room. Pt needed constant cues to stay on task and to continue to use her arm to propel the w/c back to her room. Pt was transferred to recliner and continued to ask OT for medication. OT ensured the pt that the nurse had already given the medication. Pt was left in recliner and with call light in reach with all needs met. Chair alarm on. Education OT Patient Education: Correct positioning, Modified ADL techniques, Progress toward Goal/Update tx plan, Purpose of tx/functional activities, Safety issues, Transfer techniques Teaching Recipient: Patient Teaching Methods: Demonstration, Discussion Response to Teaching: Unable to Comprehend, Reinforcement Needed OT Short Term Goals Short Term Goals Time Frame: Nov 30, 2020 Oral hygiene: 5 Shower/bathe self: 3 Upper body dressin Lower body dressin OT Senior Care Goals Patient Accounts Specialist Goals Time Frame: Dec 09, 2020 Eating (QC): 6 Oral Hygiene (QC): 6 Toileting Hygiene (QC): 4 Shower/Bathe Self (QC): 4 Upper Body Dressing (QC): 5 Lower Body Dressing (QC): 4 On/Off Footwear (QC): 4 Additional Goals: 1-Demonstrate ADL Tasks, 2-Verbalize Understanding, 3-Improv eStrength/Cooper 1=Demonstrate adherence to instructed precautions during ADL tasks. 2=Patient will verbalize/demonstrate understanding of assistive devices/modifications for ADL. 3=Patient will improve strength/tolerance for activity to enable patient to p erform ADL's. OT Education/Plan Problem List/Assessment Assessment: Decreased Activ Tolerance, Decreased Safety Aware, Decreased UE Strength, Impaired Cognition, Impaired Coordination, Impaired Funct Balance, I mpaired I ADL's, Impaired Self-Care Skills, Restricted Funct UE ROM, Visual- Perceptual Deficit Discharge Recommendations Plan/Recommendations: Continue POC Treatment Plan/Plan of Care Patient would benefit from OT for education, treatment and training to promote independence in ADL's, mobility, safety and/or upper extremity function for ADL's. Plan of Care: ADL Retraining, Functional Mobility, Group Exercise/Act as Ind, UE Funct Exercise/Act, UE Neuromus Re-Ed/Coord, Visual/Perceptual Retrain Treatment Duration: Dec 09, 2020 Frequency: At least 5 of 7 days/Wk (IRF) Estimated Hrs Per Day: 1.5 hours per day Agreement: Yes Rehab Potential: Fair Time/GCodes Start Time: 08:00 Stop Time: 09:00 Total Time Billed (hr/min): 60 Billed Treatment Time 1, ADL 2 (30'), FA 2 (30') JOAN JACOBSON OT Nov 18, 2020 08:57
--- NOTE | 2020-11-18 08:57 | Physical Therapy Daily Note ---
PT Daily Note-Current Subjective Patient in bed pre tx, agrees to PT, has 10/10 pain in low back with activity, will be co-treating with OT due to poor patient mobility, strength, endurance, left hemiparesis, the need to coordinate UE and LE during activity, safety and reduce risk of falls. Appearance Patient in recliner post tx with nurse call, phone, tray, legs elevated, chair alarm on. Mental Status Patient Orientation: Person, Confused Transfers SCALE: Activities may be completed with or without assistive devices. 6-Ytldujayzc-lralmst completes the activity by him/herself with no assistance from a helper. 5-Set-up or Clean-up Assistance-helper sets up or cleans up; patient completes activity. [place] assists only prior to or following the activity. 4-Supervision or Touching Assistance-helper provides verbal cues and/or touching/steadying and/or contact guard assistance as patient completes activity. Assistance may be provided throughout the activity or intermittently. 3-Partial/Moderate Assistance-helper does LESS THAN HALF the effort. [place] lifts, holds or supports trunk or limbs, but provides less than half the effort. 2-Substantial/Maximal Assistance-helper does MORE THAN HALF the effort. [place] lifts or holds trunk or limbs and provides more than half the effort. 7-Gmginueou-yytmmq does ALL the effort. Patient does none of the effort to complete the activity. Or, the assistance of 2 or more helpers is required for the patient to complete the activity. If activity was not attempted, code reason: 7-Patient Refused. 9-Not Applicable-not attempted and the patient did not perform the activity before the current illness, exacerbation or injury. 10-Not Attempted due to Environmental Limitations-(lack of equipment, weather restraints, etc.). 88-Not Attempted due to Medical Conditions or Safety Concerns. Roll Left & Right (QC): 3 Lying to Sitting/Side of Bed(Q: 3 Sit to Stand (QC): 3 Chair/Vby-sc-Aqrro Xfer(QC): 3 Patient supine to sit, then stand, OT cleans backside, transfer to , bathe and dress (some standing involved), transfer to therapy gym, stand pivot to therapy table, work on sitting balance (reaching for cones, crossing midline), transfer to work on WC mobility (max assist 100'), stand pivot to recliner. Treatments PT worked on bed mobility and transfers, WC mobility, standing balance during dressing and bathing, sitting balance, OT worked on bathing, dressing, sitting balance Assessment Current Status: Poor Progress Patient has poor motivation, poor participation, needs constant cues to stay on task, patient seems unconcerned with therapy and really concentrated on people/things on the periphery that may or may not be there. PT Short Term Goals Short Term Goals Time Frame: Nov 22, 2020 Roll Left & Right: 3 Sit to lyin Lying to sitting on side of be: 3 Sit to stand: 3 Chair/tgs-fl-ydxof transfer: 3 Walk 10 feet: 3 PT Campus President Goals Retirement Goals PT Retirement Goals Time Frame: Dec 06, 2020 Roll Left & Right (QC): 3 (Joel) Sit to Lying (QC): 3 (Joel) Lying-Sitting on Side/Bed(QC): 3 (Joel) Sit to Stand (QC): 3 (Joel) Chair/Xiw-gm-Mslkz Xfer(QC): 3 (Joel) Toilet Transfer (QC): 3 (Joel) Car Transfer (QC): 3 (Joel) Does the Patient Walk: Yes Walk 10 feet (QC): 3 (Joel) Walk 50ft with 2 Turns (QC): 3 (Joel) Walk 150 ft (QC): 88 Walking 10ft on Uneven Surface: 88 1 Step (curb) (QC): 88 4 Steps (QC): 88 12 Steps (QC): 88 Picking up an Object (QC): 88 Wheel 50 feet with 2 turns (QC: 4 Wheel 150 feet: 4 PT Plan Problem List Problem List: Activity Tolerance, Functional Strength, Safety, Balance, Gait, Transfer, Bed Mobility, ROM Treatment/Plan Treatment Plan: Continue Plan of Care Treatment Plan: Bed Mobility, Education, Functional Activity Cooper, Functional Strength, Group Therapy, Gait, Safety, Therapeutic Exercise, Transfers Treatment Duration: Dec 06, 2020 Frequency: At least 5 of 7 days/Wk (IRF) Estimated Hrs Per Day: 1.5 hours per day Patient and/or Family Agrees t: Yes Safety Risks/Education Patient Education: Transfer Techniques, Correct Positioning, W/C Management, Safety Issues Teaching Recipient: Patient Teaching Methods: Demonstration, Discussion Response to Teaching: Reinforcement Needed Time/GCodes Time In: 0800 Time Out: 0900 Total Billed Treatment Time: 60 Total Billed Treatment 1 visit FA 60' co-treated for 60' KHUSHBU ONEIL PT Nov 18, 2020 08:57
--- NOTE | 2020-11-18 11:13 | Speech Therapy Daily Note ---
Speech Daily Progress Note Subjective Date Seen by Provider: Nov 18, 2020 Time Seen by Provider: 00:30 Patient was resting in her recliner when I entered her room. She requested her milk carton which was out of reach. I handed it to her and she drank the rest of it with a few dribbles and some on her shirt. She asked if I could clean her shirt which I did with a tissue. Objective Patient answered questions related to her daily needs at 60%. Patient continues to call out for Priyank even though she is told he is not here. She requires frequent redirection to task. Assessment Assessment Current Status: Poor Progress Treatment Plan Continue Plan of Care Speech Short Term Goals Short Term Goals Short Term Goals 1) The patient will complete memory tasks related to her daily needs at 80% or greater with minimal cuing. 2) The patient will complete problem solving tasks related to her daily needs at 80% or greater with minimal cuing. 3) The patient will complete safety awareness related to her daily needs at 80% or greater with minimal cuing. Speech Senior Living Goals Milled Rice Broker Goals Patient will improve cognitive communication skills in order to require decreased assist with daily tasks. Speech-Plan Patient/Family Goals Patient/Family Goals: Patient plans on returning to her home upon discharge. Treatment Plan Speech Therapy Treatment Plan: Continue Plan of Care Treatment Duration: Dec 02, 2020 Frequency: 4 times per week (Patient will receive skilled ST 4-5x per week) Estimated Hrs Per Day: .5 hour per day Rehab Potential: Fair Barriers to Learning: Patient's confusion, focus on people in her family that have passed and her that is not physically here Pt/Family Agrees to Plan: Yes Safety Risks/Education Teaching Recipient: Patient Teaching Methods: Demonstration, Discussion Response to Teaching: Verbalize Understanding, Return Demonstration, Reinforcement Needed Education Topics Provided: Continued safety, left side focus during therapy Time Speech Therapy Time In: 10:30 Speech Therapy Time Out: 11:00 Total Billed Time: 30 Billed Treatment Time 1KYLIE BETHANIA ST Nov 18, 2020 11:13
--- NOTE | 2020-11-18 11:43 | PM&R Progress Note ---
Subjective HPI/CC On Admission Date Seen by Provider: Nov 18, 2020 Time Seen by Provider: 11:45 Subjective/Events-last exam 11/18/20: Doing well Confusion noted BM finally after aggressive regimen More alert today 11/17/20: No BM since 11/12 Laxatives and supp will be given Facial droop appears less pronounced Confusion noted 11/16/20: Sugar is 198 receiving sliding scale Improvement on transfers already Bowels moved on November 12 so given laxatives Pt has some unreliable information most of the time Nicotine patch reordered Focus is very poor, requires constant cues Review of Systems General: Fatigue, Malaise Neurological: Weakness, Incoordination, Confusion Objective Exam Vital Signs Vital Signs Date Time Temp Pulse Resp B/P (MAP) Pulse Ox O2 Delivery O2 Flow Rate FiO2 11/19/20 05:32 36.2 72 16 133/63 (86) 96 Room Air Capillary Refill : Less Than 3 Seconds General Appearance: No Apparent Distress, WD/WN, Anxious, Chronically ill HEENT: PERRL/EOMI, Normal ENT Inspection, Pharynx Normal Neck: Full Range of Motion, Normal Inspection, Non Tender, Supple, Carotid Bruit Respiratory: Chest Non Tender, Normal Breath Sounds, No Accessory Muscle Use, No Respiratory Distress, Decreased Breath Sounds Cardiovascular: Regular Rate, Rhythm, No Edema, No Gallop, No JVD, No Murmur, Normal Peripheral Pulses Gastrointestinal: Normal Bowel Sounds, No Organomegaly, No Pulsatile Mass, Non Tender, Soft Back: Normal Inspection, No CVA Tenderness, No Vertebral Tenderness Extremity: Normal Capillary Refill, Normal Inspection, Normal Range of Motion, Non Tender, No Calf Tenderness, No Pedal Edema Neurologic/Psychiatric: Alert, Oriented x3, Abnormal Gait, Aphasia (partial), Depressed Affect, Facial Droop (left), Motor Weakness (left sided weakness 1/5) Skin: Normal Color, Warm/Dry Lymphatic: No Adenopathy Results/Procedures Lab Patient resulted labs reviewed. FIM Transfers Therapy Code Descriptions/Definitions Functional [place] Measure: 0=Not Assessed/NA 4=Minimal Assistance 1=Total Assistance 5=Supervision or Setup 2=Maximal Assistance 6=Modified [place] 3=Moderate Assistance 7=Complete IndependenceSCALE: Activities may be completed with or without assistive devices. 9-Jzvuxxnelg-rnufeuj completes the activity by him/herself with no assistance from a helper. 5-Set-up or Clean-up Assistance-helper sets up or cleans up; patient completes activity. [place] assists only prior to or following the activity. 4-Supervision or Touching Assistance-helper provides verbal cues and/or touching/steadying and/or contact guard assistance as patient completes activity. Assistance may be provided throughout the activity or intermittently. 3-Partial/Moderate Assistance-helper does LESS THAN HALF the effort. [place] lifts, holds or supports trunk or limbs, but provides less than half the effort. 2-Substantial/Maximal Assistance-helper does MORE THAN HALF the effort. [place] lifts or holds trunk or limbs and provides more than half the effort. 5-Qfnhxqztx-xicbkq does ALL the effort. Patient does none of the effort to complete the activity. Or, the assistance of 2 or more helpers is required for the patient to complete the activity. If activity was not attempted, code reason: 7-Patient Refused. 9-Not Applicable-not attempted and the patient did not perform the activity before the current illness, exacerbation or injury. 10-Not Attempted due to Environmental Limitations-(lack of equipment, weather restraints, etc.). 88-Not Attempted due to Medical Conditions or Safety Concerns. Roll Left to Right (QC): 3 Sit to Lying (QC): 3 Sit to Stand (QC): 3 Chair/Knp-nq-Elole Xfer(QC): 3 Car Transfer (QC): 2 Gait Training Does the Patient Walk?: Yes Distance: 6'x3 Walk 10 feet (QC): 88 Walk 50 ft with 2 Turns(QC): 88 Walk 150 ft (QC): 88 Walking 10ft/uneven surface-QC: 88 Gait Persons Needed: 2 Gait Assistive Device: Parallel Bars Wheelchair Training Does the Pt Use a Wheelchair?: Yes Wheel 50 ft with 2 turns (QC): 2 Wheel 150 ft (QC): 9 Type of Wheelchair: Manual Stair Training 1 Step (curb) (QC): 88 4 Steps (QC): 88 12 Steps (QC): 88 Balance Picking up an Object (QC): 88 ADL-Treatment Eating (QC): 5 (set up assistance with cutting food. Pt then able to eat.) Oral Hygiene (QC): 3 (Mod A, OT placed toothpaste onto brush and placed in pt's hands, pt able to brush with cues. Pt spit out dentures when asked to spit, assistance to remove dentures and clean thoroughly. ) Shower/Bathe Self (QC): 1 (Assist x2. Pt requires constant sues to stay on task and wash her R arm. Pt washes L arm throughouly.) Upper Body Dressing (QC): 2 (Max A for threading L arm through. Pt can thread R arm through shirt as well as reach over head to don shirt) Lower Body Dressing (QC): 2 (Pt can thread R leg through but needs assistance to quide R leg. OT assisted with L leg. Pt can pull pants over knees while sitting, but needs assistance to pull pants up while standing) On/Off Footwear (QC): 1 (Pt can quide R foot to the sock but needs additional assistance to pull both socks up.) Toileting Hygiene (QC): 1 (Assist x2 due to balance while standing) Toilet Transfer (QC): 1 (Assist x2) Assessment/Plan Assessment and Plan Assess & Plan/Chief Complaint Assessment: CVA Left sided weakness Left sided neglect HTN DM HLP Smoker COPD Chronic pain Plan: IRF protocol Pain meds home dosing BM regimen Monitor O2 11/16/20: Monitor sugar Increase therapy Monitor confusion 11/17/20: Confusion noted BM regimen 11/18/20: BM regimen successful now maintain Monitor confusion Work on transfers to decrease caregiver burden (1) CVA (cerebral vascular accident) (2) Diabetes (3) Hypertension (4) Left-sided weakness (5) Smoker (6) Hyperlipemia (7) [place]-neglect of left side TITA LUBIN DO Nov 18, 2020 11:43
--- NOTE | 2020-11-18 13:27 | Physical Therapy Daily Note ---
PT Daily Note-Current Subjective Patient on commode. Agrees to PT. Mental Status Patient Orientation: Confused Transfers SCALE: Activities may be completed with or without assistive devices. 8-Cohfezuclt-hfkjnzr completes the activity by him/herself with no assistance from a helper. 5-Set-up or Clean-up Assistance-helper sets up or cleans up; patient completes activity. [place] assists only prior to or following the activity. 4-Supervision or Touching Assistance-helper provides verbal cues and/or touching/steadying and/or contact guard assistance as patient completes activity. Assistance may be provided throughout the activity or intermittently. 3-Partial/Moderate Assistance-helper does LESS THAN HALF the effort. [place] lifts, holds or supports trunk or limbs, but provides less than half the effort. 2-Substantial/Maximal Assistance-helper does MORE THAN HALF the effort. [place] lifts or holds trunk or limbs and provides more than half the effort. 3-Iqgfxmyba-rcxuxl does ALL the effort. Patient does none of the effort to com plete the activity. Or, the assistance of 2 or more helpers is required for the patient to complete the activity. If activity was not attempted, code reason: 7-Patient Refused. 9-Not Applicable-not attempted and the patient did not perform the activity before the current illness, exacerbation or injury. 10-Not Attempted due to Environmental Limitations-(lack of equipment, weather restraints, etc.). 88-Not Attempted due to Medical Conditions or Safety Concerns. Sit to Lying (QC): 1 Sit to Stand (QC): 2 Chair/Win-fr-Buvkm Xfer(QC): 2 (did take 5 steps with PT advancing left LE ) Exercises Supine Ex: Ankle pumps, Heel Slides, Straight leg raise, Hip abd/add Supine Reps: 12 (PROM left LE/AAROM right LE) Assessment Patient continues to display left neglect with all activity. Bed alarm activated. PT Short Term Goals Short Term Goals Time Frame: Nov 22, 2020 Roll Left & Right: 3 Sit to lyin Lying to sitting on side of be: 3 Sit to stand: 3 Chair/llk-ay-qlefg transfer: 3 Walk 10 feet: 3 PT [facility] Goals Ground Wirer Goals PT Ground Wirer Goals Time Frame: Dec 06, 2020 Roll Left & Right (QC): 3 (Joel) Sit to Lying (QC): 3 (Joel) Lying-Sitting on Side/Bed(QC): 3 (Joel) Sit to Stand (QC): 3 (Joel) Chair/Sve-qg-Bkhkc Xfer(QC): 3 (Joel) Toilet Transfer (QC): 3 (Joel) Car Transfer (QC): 3 (Joel) Does the Patient Walk: Yes Walk 10 feet (QC): 3 (Joel) Walk 50ft with 2 Turns (QC): 3 (Joel) Walk 150 ft (QC): 88 Walking 10ft on Uneven Surface: 88 1 Step (curb) (QC): 88 4 Steps (QC): 88 12 Steps (QC): 88 Picking up an Object (QC): 88 Wheel 50 feet with 2 turns (QC: 4 Wheel 150 feet: 4 PT Plan Treatment/Plan Treatment Plan: Continue Plan of Care Treatment Plan: Bed Mobility, Education, Functional Activity Cooper, Functional Strength, Group Therapy, Gait, Safety, Therapeutic Exercise, Transfers Treatment Duration: Dec 06, 2020 Frequency: At least 5 of 7 days/Wk (IRF) Estimated Hrs Per Day: 1.5 hours per day Patient and/or Family Agrees t: Yes Time/GCodes Time In: 1300 Time Out: 1315 Total Billed Treatment Time: 15 Total Billed Treatment 1 visit EX 15 min DIONY CERVANTES PT Nov 18, 2020 13:27
--- NOTE | 2020-11-18 13:30 | Occupational Ther Daily Note ---
OT Current Status-Daily Note Subjective Pt seated in recliner calling aloud for help. OT went in room to assist pt, she indicates she was not able to find her call light (call light was located to pt's L side). Pt needed to use restroom. Mental Status/Objective Patient Orientation: Person, Confused ADL-Treatment Therapy Code Descriptions/Definitions Functional [place] Measure: 0=Not Assessed/NA 4=Minimal Assistance 1=Total Assistance 5=Supervision or Setup 2=Maximal Assistance 6=Modified [place] 3=Moderate Assistance 7=Complete IndependenceSCALE: Activities may be completed with or without assistive devices. 1-Btydgtleyy-pgjxuls completes the activity by him/herself with no assistance from a helper. 5-Set-up or Clean-up Assistance-helper sets up or cleans up; patient completes activity. [place] assists only prior to or following the activity. 4-Supervision or Touching Assistance-helper provides verbal cues and/or touching/steadying and/or contact guard assistance as patient completes activity. Assistance may be provided throughout the activity or intermittently. 3-Partial/Moderate Assistance-helper does LESS THAN HALF the effort. [place] lifts, holds or supports trunk or limbs, but provides less than half the effort. 2-Substantial/Maximal Assistance-helper does MORE THAN HALF the effort. [place] lifts or holds trunk or limbs and provides more than half the effort. 3-Iwszvfoif-bwopih does ALL the effort. Patient does none of the effort to com plete the activity. Or, the assistance of 2 or more helpers is required for the patient to complete the activity. If activity was not attempted, code reason: 7-Patient Refused. 9-Not Applicable-not attempted and the patient did not perform the activity before the current illness, exacerbation or injury. 10-Not Attempted due to Environmental Limitations-(lack of equipment, weather restraints, etc.). 88-Not Attempted due to Medical Conditions or Safety Concerns. Toileting Hygiene (QC): 3 (Max A, pt required assistance to manage clothing up/down, pt able to complete hygiene with mod assist for balance.) Toilet Transfer (QC): 3 Other Treatment Pt seated in recliner, indicates she needs to use the restroom. BSC brought over to pt, SPT complete to BS, min A. Pt completed toilet, then stood at [facility] to complete hygiene, pt attempted to sit down while cleaning her bottom. OT had to encourage pt to stand up straight. OT repositioned hand at front of pt at gait belt, pt tells this therapist that she isn't wearing a bra and that the therapist is "touching my boobies". This therapist educates pt that the therapist is using the gait belt for pts safety as pt is not standing up straight, requiring moderate assistance to maintain standing position. OT assist pt with managing pants up, then SPT back to recliner, mod A. OT assists pt with positioning in chair, stating lunch will be there soon. Pt immediately presses call button as OT is in the room, when asked what she needs, pt states she would like her lunch. OT again explains that lunch is on its way and should be there shortly. Post tx, pt seated in recliner, call light in reach (R side) and all needs met. Chair alarm on. Education OT Patient Education: Correct positioning, Modified ADL techniques, Progress toward Goal/Update tx plan, Purpose of tx/functional activities Teaching Recipient: Patient Teaching Methods: Discussion Response to Teaching: Verbalize Understanding OT Short Term Goals Short Term Goals Time Frame: Nov 30, 2020 Oral hygiene: 5 Shower/bathe self: 3 Upper body dressin Lower body dressin OT Alf Goals Alf Goals Time Frame: Dec 09, 2020 Eating (QC): 6 Oral Hygiene (QC): 6 Toileting Hygiene (QC): 4 Shower/Bathe Self (QC): 4 Upper Body Dressing (QC): 5 Lower Body Dressing (QC): 4 On/Off Footwear (QC): 4 Additional Goals: 1-Demonstrate ADL Tasks, 2-Verbalize Understanding, 3- ImproveStrength/Cooper 1=Demonstrate adherence to instructed precautions during ADL tasks. 2=Patient will verbalize/demonstrate understanding of assistive dev ices/modifications for ADL. 3=Patient will improve strength/tolerance for activity to enable patient to perform ADL's. OT Education/Plan Problem List/Assessment Assessment: Decreased Activ Tolerance, Decreased Safety Aware, Decreased UE Strength, Impaired Cognition, Impaired Funct Balance, Impaired I ADL's, Impaired Self-Care Skills, Restricted Funct UE ROM, Visual-Perceptual Deficit Discharge Recommendations Plan/Recommendations: Continue POC Treatment Plan/Plan of Care Patient would benefit from OT for education, treatment and training to promote independence in ADL's, mobility, safety and/or upper extremity function for ADL's. Plan of Care: ADL Retraining, Functional Mobility, Group Exercise/Act as Ind, UE Funct Exercise/Act, UE Neuromus Re-Ed/Coord, Visual/Perceptual Retrain Treatment Duration: Dec 09, 2020 Frequency: At least 5 of 7 days/Wk (IRF) Estimated Hrs Per Day: 1.5 hours per day Agreement: Yes Rehab Potential: Fair Time/GCodes Start Time: 12:00 Stop Time: 12:15 Total Time Billed (hr/min): 15 Billed Treatment Time 1, ADL JOAN JACOBSON OT Nov 18, 2020 13:30
[2020-11-18 18:00] VITALS: BP 119/62
[2020-11-18] MEDS: ENOXAPARIN 40 MG/0.4 ML (LOVENOX) SYR SC SCH (18:08)
[2020-11-18] MEDS: MONTELUKAST 10 MG (SINGULAIR) TAB PO SCH (20:27)
[2020-11-18] MEDS: CYCLOBENZAPRINE 10 MG (FLEXERIL) TAB PO SCH (20:27)
[2020-11-19 05:32] VITALS: BP 133/63
[2020-11-19] MEDS: LEVOTHYROXINE 88 MCG (LEVOTHORID) TAB PO SCH (06:13)
--- NOTE | 2020-11-19 06:34 | PM&R Progress Note ---
Subjective HPI/CC On Admission Date Seen by Provider: Nov 19, 2020 Time Seen by Provider: 12:30 Subjective/Events-last exam 11/19/20: Refuses Advair since she states it makes her wheeze No pain reported Confusion apparent Unclear of recovery potential 11/18/20: Doing well Confusion noted BM finally after aggressive regimen More alert today 11/17/20: No BM since 11/12 Laxatives and supp will be given Facial droop appears less pronounced Confusion noted 11/16/20: Sugar is 198 receiving sliding scale Improvement on transfers already Bowels moved on November 12 so given laxatives Pt has some unreliable information most of the time Nicotine patch reordered Focus is very poor, requires constant cues Review of Systems General: Fatigue, Malaise Neurological: Weakness, Incoordination, Confusion Objective Exam Vital Signs Vital Signs Date Time Temp Pulse Resp B/P (MAP) Pulse Ox O2 Delivery O2 Flow Rate FiO2 11/20/20 05:24 35.8 72 16 106/51 (69) 96 Room Air Capillary Refill : Less Than 3 Seconds General Appearance: No Apparent Distress, WD/WN, Anxious, Chronically ill HEENT: PERRL/EOMI, Normal ENT Inspection, Pharynx Normal Neck: Full Range of Motion, Normal Inspection, Non Tender, Supple, Carotid Bruit Respiratory: Chest Non Tender, Normal Breath Sounds, No Accessory Muscle Use, No Respiratory Distress, Decreased Breath Sounds Cardiovascular: Regular Rate, Rhythm, No Edema, No Gallop, No JVD, No Murmur, Normal Peripheral Pulses Gastrointestinal: Normal Bowel Sounds, No Organomegaly, No Pulsatile Mass, Non Tender, Soft Back: Normal Inspection, No CVA Tenderness, No Vertebral Tenderness Extremity: Normal Capillary Refill, Normal Inspection, Normal Range of Motion, Non Tender, No Calf Tenderness, No Pedal Edema Neurologic/Psychiatric: Alert, Oriented x3, Abnormal Gait, Aphasia (partial), Depressed Affect, Facial Droop (left), Motor Weakness (left sided weakness 1/5) Skin: Normal Color, Warm/Dry Lymphatic: No Adenopathy Results/Procedures Lab Patient resulted labs reviewed. FIM Transfers Therapy Code Descriptions/Definitions Functional [place] Measure: 0=Not Assessed/NA 4=Minimal Assistance 1=Total Assistance 5=Supervision or Setup 2=Maximal Assistance 6=Modified [place] 3=Moderate Assistance 7=Complete IndependenceSCALE: Activities may be completed with or without assistive devices. 4-Meddtwxjto-utgbjuj completes the activity by him/herself with no assistance from a helper. 5-Set-up or Clean-up Assistance-helper sets up or cleans up; patient completes activity. [place] assists only prior to or following the activity. 4-Supervision or Touching Assistance-helper provides verbal cues and/or touching/steadying and/or contact guard assistance as patient completes activity. Assistance may be provided throughout the activity or intermittently. 3-Partial/Moderate Assistance-helper does LESS THAN HALF the effort. [place] lifts, holds or supports trunk or limbs, but provides less than half the effort. 2-Substantial/Maximal Assistance-helper does MORE THAN HALF the effort. [place] lifts or holds trunk or limbs and provides more than half the effort. 0-Ylpmswvwj-vmilcz does ALL the effort. Patient does none of the effort to complete the activity. Or, the assistance of 2 or more helpers is required for the patient to complete the activity. If activity was not attempted, code reason: 7-Patient Refused. 9-Not Applicable-not attempted and the patient did not perform the activity before the current illness, exacerbation or injury. 10-Not Attempted due to Environmental Limitations-(lack of equipment, weather restraints, etc.). 88-Not Attempted due to Medical Conditions or Safety Concerns. Roll Left to Right (QC): 3 Sit to Lying (QC): 1 Sit to Stand (QC): 2 Chair/Dxl-dm-Dpckb Xfer(QC): 2 (did take 5 steps with PT advancing left LE ) Car Transfer (QC): 2 Gait Training Does the Patient Walk?: Yes Distance: 6'x3 Walk 10 feet (QC): 88 Walk 50 ft with 2 Turns(QC): 88 Walk 150 ft (QC): 88 Walking 10ft/uneven surface-QC: 88 Gait Persons Needed: 2 Gait Assistive Device: Parallel Bars Wheelchair Training Does the Pt Use a Wheelchair?: Yes Wheel 50 ft with 2 turns (QC): 2 Wheel 150 ft (QC): 9 Type of Wheelchair: Manual Stair Training 1 Step (curb) (QC): 88 4 Steps (QC): 88 12 Steps (QC): 88 Balance Picking up an Object (QC): 88 ADL-Treatment Eating (QC): 5 (set up assistance with cutting food. Pt then able to eat.) Oral Hygiene (QC): 3 (Mod A, OT placed toothpaste onto brush and placed in pt's hands, pt able to brush with cues. Pt spit out dentures when asked to spit, assistance to remove dentures and clean thoroughly. ) Bathing Location: L Arm, L Upper Leg, R Upper Leg, R Lower Leg (including foot), Chest, Abdomen Shower/Bathe Self (QC): 1 (Assist x2 in stand to wash buttocks. Pt requires constant cues to stay on task.) Upper Body Dressing (QC): 3 (Mod A. Assist threading L arm through. Pt can thread R arm through shirt as well as reach over head to don shirt, slight assistance managing down trunk.) Lower Body Dressing (QC): 1 (Pt can thread R leg through but needs assistance to guide R leg. OT assisted with L leg. Pt can pull pants over knees while sitting, but needs assistance to pull pants up while standing. Assist x2 in stand.) On/Off Footwear (QC): 1 (Pt can guide R foot to the sock but needs additional assistance to pull both socks up.) Toileting Hygiene (QC): 1 (Assist x2 due to balance while standing. Assist to manage clothing and with hygiene.) Toilet Transfer (QC): 3 Assessment/Plan Assessment and Plan Assess & Plan/Chief Complaint Assessment: CVA Left sided weakness Left sided neglect HTN DM HLP Smoker COPD Chronic pain Plan: IRF protocol Pain meds home dosing BM regimen Monitor O2 11/16/20: Monitor sugar Increase therapy Monitor confusion 11/17/20: Confusion noted BM regimen 11/18/20: BM regimen successful now maintain Monitor confusion Work on transfers to decrease caregiver burden 11/19/20: Confusion monitored Monitor BP and sugar (1) CVA (cerebral vascular accident) (2) Diabetes (3) Hypertension (4) Left-sided weakness (5) Smoker (6) Hyperlipemia (7) [place]-neglect of left side TITA LUBIN DO Nov 19, 2020 06:34
--- NOTE | 2020-11-19 08:49 | Physical Therapy Daily Note ---
PT Daily Note-Current Subjective Pt. in bed with breakfst tray in front of her . Pt. cannot see many items on tray. Agrees to up in chair for breakfast, standing , short gait and LE exercises. Pt. states later she is happy to be up in chair and can now see her food Pain Location: No Pain Reported Mental Status Patient Orientation: Confused Transfers SCALE: Activities may be completed with or without assistive devices. 3-Ujsokbvagb-tktkkqm completes the activity by him/herself with no assistance from a helper. 5-Set-up or Clean-up Assistance-helper sets up or cleans up; patient completes activity. [place] assists only prior to or following the activity. 4-Supervision or Touching Assistance-helper provides verbal cues and/or touchin g/steadying and/or contact guard assistance as patient completes activity. Assistance may be provided throughout the activity or intermittently. 3-Partial/Moderate Assistance-helper does LESS THAN HALF the effort. [place] lifts, holds or supports trunk or limbs, but provides less than half the effort. 2-Substantial/Maximal Assistance-helper does MORE THAN HALF the effort. [place] lifts or holds trunk or limbs and provides more than half the effort. 7-Lnxdnzxai-oovwzl does ALL the effort. Patient does none of the effort to complete the activity. Or, the assistance of 2 or more helpers is required for the patient to complete the activity. If activity was not attempted, code reason: 7-Patient Refused. 9-Not Applicable-not attempted and the patient did not perform the activity before the current illness, exacerbation or injury. 10-Not Attempted due to Environmental Limitations-(lack of equipment, weather restraints, etc.). 88-Not Attempted due to Medical Conditions or Safety Concerns. sup to sit mod to max assist, sit to stand mod assist x 4 trials, SPT 2 small steps bed to recliner mod assist of 2. Exercises Supine Ex: Bridging, Ankle pumps, Quad Set, Rolling, Heel Slides, Straight leg raise, Hip abd/add Supine Reps: 12 (assisted) Treatments pt. with very soiled brief stood with mod assist in dance fashion and required max assist to clean up and doff soiled brief and sudhir clean . Assessment Current Status: Fair Progress PT Short Term Goals Short Term Goals Time Frame: Nov 22, 2020 Roll Left & Right: 3 Sit to lyin Lying to sitting on side of be: 3 Sit to stand: 3 Chair/mow-cf-ccmrb transfer: 3 Walk 10 feet: 3 PT Care Home Goals Care Home Goals PT Care Home Goals Time Frame: Dec 06, 2020 Roll Left & Right (QC): 3 (Joel) Sit to Lying (QC): 3 (Joel) Lying-Sitting on Side/Bed(QC): 3 (Joel) Sit to Stand (QC): 3 (Joel) Chair/Pdg-wt-Husqm Xfer(QC): 3 (Joel) Toilet Transfer (QC): 3 (Joel) Car Transfer (QC): 3 (Joel) Does the Patient Walk: Yes Walk 10 feet (QC): 3 (Joel) Walk 50ft with 2 Turns (QC): 3 (Joel) Walk 150 ft (QC): 88 Walking 10ft on Uneven Surface: 88 1 Step (curb) (QC): 88 4 Steps (QC): 88 12 Steps (QC): 88 Picking up an Object (QC): 88 Wheel 50 feet with 2 turns (QC: 4 Wheel 150 feet: 4 PT Plan Treatment/Plan Treatment Plan: Continue Plan of Care Treatment Plan: Bed Mobility, Education, Functional Activity [place], Functional Strength, Group Therapy, Gait, Safety, Therapeutic Exercise, Transfers Treatment Duration: Dec 06, 2020 Frequency: At least 5 of 7 days/Wk (IRF) Estimated Hrs Per Day: 1.5 hours per day Patient and/or Family Agrees t: Yes Time/GCodes Time In: 815 Time Out: 840 Total Billed Treatment Time: 25 Total Billed Treatment 1,EX10m,FA15m CHELA WALLACE INPATIENT NURSING AIDE Nov 19, 2020 08:49
[2020-11-19] MEDS: CLOPIDOGREL 75 MG (PLAVIX) TABLET PO SCH (09:50)
[2020-11-19] MEDS: PANTOPRAZOLE 20 MG TABLET (PROTONIX) PO SCH (09:50)
[2020-11-19] MEDS: LOSARTAN 25 MG (COZAAR) TAB PO SCH (09:50)
[2020-11-19] MEDS: LEVETIRACETAM 500 MG (KEPPRA) TAB PO SCH ×2 (09:51→20:25)
[2020-11-19] MEDS: FUROSEMIDE 40 MG (LASIX) TAB PO SCH (09:51)
[2020-11-19] MEDS: metFORMIN 500 MG (GLUCOPHAGE) TAB PO SCH ×2 (09:51→17:13)
[2020-11-19] MEDS: ALLOPURINOL 100 MG (ZYLOPRIM) TAB PO SCH ×2 (09:51→20:25)
[2020-11-19] MEDS: ASPIRIN 81 MG CHEW (CHILDREN'S ASA) PO SCH (09:51)
[2020-11-19] MEDS: DOCUSATE SODIUM 100 MG (COLACE) CAP PO SCH ×2 (09:57→19:20)
[2020-11-19] MEDS: polyethylene glycoL POWDER 17 GM (MIRALAX) PACK PO SCH ×2 (09:58→19:20)
[2020-11-19] MEDS: SENNA W/DOCUSATE (SENOKOT S) TABLET PO SCH ×2 (09:58→19:20)
[2020-11-19] MEDS: FLUTICASONE NASAL SPRAY (FLONASE) 16 GM BTL NS SCH (10:03)
[2020-11-19] MEDS: DIVALPROEX 500 MG DELAYED RELEASE (DEPAKOTE) TAB PO SCH ×2 (10:04→20:29)
[2020-11-19] MEDS: PROPRANOLOL LA 120 MG (INDERAL LA) CAP NON-FORMULARY PO SCH ×2 (10:05→20:29)
[2020-11-19] MEDS: VIMPAT 100 MG PO SCH ×2 (10:09→20:29)
[2020-11-19] MEDS: MICONAZOLE 2% POWDER (DESENEX AF) 90 GM TOP SCH ×3 (10:15→20:31)
[2020-11-19] MEDS: TRESIBA FLEXTOUCH 200 UNITS/ML SQ SCH (10:15)
[2020-11-19] MEDS: ADVAIR HFA 45/21 MCG INHALER 8 GM IH SCH ×2 (11:06→21:12)
[2020-11-19] MEDS: HYDROcodone/APAP 5 MG/325 MG (LORTAB) TAB PO PRN ×2 (12:28→20:25)
[2020-11-19] MEDS: LORazepam 0.5 MG (ATIVAN) TABLET PO PRN ×2 (12:57→20:25)
--- NOTE | 2020-11-19 13:00 | NUR ---
FEELS LIKE A SEIZURE IS ABOUT TO START, REQUESTED ATIVAN. HAS COMPLAINED OF LEG PAIN TODAY AND MEDICATED WITH HYDROCODONE, REQUESTING PRN FLEXERIL BUT DUE TO DROWSINESS DR LUBIN STATES TO KEEP FLEXERIL AT HS ONLY.
[2020-11-19] MEDS: ENOXAPARIN 40 MG/0.4 ML (LOVENOX) SYR SC SCH (17:13)
[2020-11-19] MEDS: NICOTINE 21 MG (NICODERM) PATCH TD SCH (17:14)
[2020-11-19 17:16] VITALS: BP 132/63
[2020-11-19] MEDS: MONTELUKAST 10 MG (SINGULAIR) TAB PO SCH (20:25)
[2020-11-19] MEDS: MELATONIN 3 MG TABLET PO PRN (20:25)
[2020-11-19] MEDS: CYCLOBENZAPRINE 10 MG (FLEXERIL) TAB PO SCH (20:25)
[2020-11-20 05:24] VITALS: BP 106/51
[2020-11-20] MEDS: LEVOTHYROXINE 88 MCG (LEVOTHORID) TAB PO SCH (05:53)
[2020-11-20] MEDS: ADVAIR HFA 45/21 MCG INHALER 8 GM IH SCH ×2 (07:32→20:14)
[2020-11-20 08:00] VITALS: BP 125/60
[2020-11-20] MEDS: ALLOPURINOL 100 MG (ZYLOPRIM) TAB PO SCH ×2 (08:33→20:23)
[2020-11-20] MEDS: ASPIRIN 81 MG CHEW (CHILDREN'S ASA) PO SCH (08:33)
[2020-11-20] MEDS: FUROSEMIDE 40 MG (LASIX) TAB PO SCH (08:34)
[2020-11-20] MEDS: LEVETIRACETAM 500 MG (KEPPRA) TAB PO SCH ×2 (08:40→20:24)
[2020-11-20] MEDS: CLOPIDOGREL 75 MG (PLAVIX) TABLET PO SCH (08:40)
[2020-11-20] MEDS: PANTOPRAZOLE 20 MG TABLET (PROTONIX) PO SCH (08:40)
[2020-11-20] MEDS: NICOTINE 21 MG (NICODERM) PATCH TD SCH (08:42)
[2020-11-20] MEDS: DOCUSATE SODIUM 100 MG (COLACE) CAP PO SCH ×2 (08:44→20:19)
[2020-11-20] MEDS: FLUTICASONE NASAL SPRAY (FLONASE) 16 GM BTL NS SCH (08:44)
[2020-11-20] MEDS: LOSARTAN 25 MG (COZAAR) TAB PO SCH (08:45)
[2020-11-20] MEDS: DIVALPROEX 500 MG DELAYED RELEASE (DEPAKOTE) TAB PO SCH ×2 (08:45→20:24)
[2020-11-20] MEDS: PROPRANOLOL LA 120 MG (INDERAL LA) CAP NON-FORMULARY PO SCH ×2 (08:46→20:24)
[2020-11-20] MEDS: polyethylene glycoL POWDER 17 GM (MIRALAX) PACK PO SCH ×2 (08:46→19:40)
[2020-11-20] MEDS: SENNA W/DOCUSATE (SENOKOT S) TABLET PO SCH ×2 (08:46→19:40)
[2020-11-20] MEDS: MICONAZOLE 2% POWDER (DESENEX AF) 90 GM TOP SCH ×3 (08:51→20:27)
[2020-11-20] MEDS: NICOTINE PATCH REMOVAL TP SCH (08:51)
[2020-11-20] MEDS: TRESIBA FLEXTOUCH 200 UNITS/ML SQ SCH (08:51)
--- NOTE | 2020-11-20 08:52 | NUR ---
NICODERM PATCH REMOVED, AND NEW PATCH PLACED ON RIGHT ARM.
[2020-11-20] MEDS: VIMPAT 100 MG PO SCH ×2 (08:58→20:25)
[2020-11-20] MEDS: metFORMIN 500 MG (GLUCOPHAGE) TAB PO SCH ×2 (08:58→17:21)
--- NOTE | 2020-11-20 13:00 | NUR ---
SAT UP IN CHAIR X 1.5 HOURS. ASKED TO GO OUTSIDE TO SMOKE. NICOTINE PATCH ON. APPEARS TO BE FEELING BETTER TODAY.
--- NOTE | 2020-11-20 13:05 | PM&R Progress Note ---
Subjective HPI/CC On Admission Date Seen by Provider: Nov 20, 2020 Time Seen by Provider: 13:00 Subjective/Events-last exam 11/20/20: Nicotine patch on and still asks to go outside to smoke More alert today Confusion is significant No issues otherwise 11/19/20: Refuses Advair since she states it makes her wheeze No pain reported Confusion apparent Unclear of recovery potential 11/18/20: Doing well Confusion noted BM finally after aggressive regimen More alert today 11/17/20: No BM since 11/12 Laxatives and supp will be given Facial droop appears less pronounced Confusion noted 11/16/20: Sugar is 198 receiving sliding scale Improvement on transfers already Bowels moved on November 12 so given laxatives Pt has some unreliable information most of the time Nicotine patch reordered Focus is very poor, requires constant cues Review of Systems General: Fatigue, Malaise Neurological: Weakness, Incoordination, Confusion Objective Exam Vital Signs Vital Signs Date Time Temp Pulse Resp B/P (MAP) Pulse Ox O2 Delivery O2 Flow Rate FiO2 11/20/20 17:25 36.9 93 18 107/65 (79) 93 Room Air Capillary Refill : Less Than 3 Seconds General Appearance: No Apparent Distress, WD/WN, Anxious, Chronically ill HEENT: PERRL/EOMI, Normal ENT Inspection, Pharynx Normal Neck: Full Range of Motion, Normal Inspection, Non Tender, Supple, Carotid Bruit Respiratory: Chest Non Tender, Normal Breath Sounds, No Accessory Muscle Use, No Respiratory Distress, Decreased Breath Sounds Cardiovascular: Regular Rate, Rhythm, No Edema, No Gallop, No JVD, No Murmur, Normal Peripheral Pulses Gastrointestinal: Normal Bowel Sounds, No Organomegaly, No Pulsatile Mass, Non Tender, Soft Back: Normal Inspection, No CVA Tenderness, No Vertebral Tenderness Extremity: Normal Capillary Refill, Normal Inspection, Normal Range of Motion, Non Tender, No Calf Tenderness, No Pedal Edema Neurologic/Psychiatric: Alert, Oriented x3, Abnormal Gait, Aphasia (partial), Depressed Affect, Facial Droop (left), Motor Weakness (left sided weakness 1/5) Skin: Normal Color, Warm/Dry Lymphatic: No Adenopathy Results/Procedures Lab Patient resulted labs reviewed. FIM Transfers Therapy Code Descriptions/Definitions Functional [place] Measure: 0=Not Assessed/NA 4=Minimal Assistance 1=Total Assistance 5=Supervision or Setup 2=Maximal Assistance 6=Modified [place] 3=Moderate Assistance 7=Complete IndependenceSCALE: Activities may be completed with or without assistive devices. 3-Hjigjwwocr-rxiqcgi completes the activity by him/herself with no assistance from a helper. 5-Set-up or Clean-up Assistance-helper sets up or cleans up; patient completes activity. [place] assists only prior to or following the activity. 4-Supervision or Touching Assistance-helper provides verbal cues and/or touching/steadying and/or contact guard assistance as patient completes activity. Assistance may be provided throughout the activity or intermittently. 3-Partial/Moderate Assistance-helper does LESS THAN HALF the effort. [place] lifts, holds or supports trunk or limbs, but provides less than half the effort. 2-Substantial/Maximal Assistance-helper does MORE THAN HALF the effort. [place] lifts or holds trunk or limbs and provides more than half the effort. 7-Zqqmuydtd-vvnyfc does ALL the effort. Patient does none of the effort to complete the activity. Or, the assistance of 2 or more helpers is required for the patient to complete the activity. If activity was not attempted, code reason: 7-Patient Refused. 9-Not Applicable-not attempted and the patient did not perform the activity before the current illness, exacerbation or injury. 10-Not Attempted due to Environmental Limitations-(lack of equipment, weather restraints, etc.). 88-Not Attempted due to Medical Conditions or Safety Concerns. Roll Left to Right (QC): 3 Sit to Lying (QC): 1 Sit to Stand (QC): 2 Chair/Fke-es-Srsbb Xfer(QC): 2 (did take 5 steps with PT advancing left LE ) Car Transfer (QC): 2 Gait Training Does the Patient Walk?: Yes Distance: 6'x3 Walk 10 feet (QC): 88 Walk 50 ft with 2 Turns(QC): 88 Walk 150 ft (QC): 88 Walking 10ft/uneven surface-QC: 88 Gait Persons Needed: 2 Gait Assistive Device: Parallel Bars Wheelchair Training Does the Pt Use a Wheelchair?: Yes Wheel 50 ft with 2 turns (QC): 2 Wheel 150 ft (QC): 9 Type of Wheelchair: Manual Stair Training 1 Step (curb) (QC): 88 4 Steps (QC): 88 12 Steps (QC): 88 Balance Picking up an Object (QC): 88 ADL-Treatment Eating (QC): 5 (set up assistance with cutting food. Pt then able to eat.) Oral Hygiene (QC): 3 (Mod A, OT placed toothpaste onto brush and placed in pt's hands, pt able to brush with cues. Pt spit out dentures when asked to spit, assistance to remove dentures and clean thoroughly. ) Bathing Location: L Arm, L Upper Leg, R Upper Leg, R Lower Leg (including foot), Chest, Abdomen Shower/Bathe Self (QC): 1 (Assist x2 in stand to wash buttocks. Pt requires constant cues to stay on task.) Upper Body Dressing (QC): 3 (Mod A. Assist threading L arm through. Pt can thread R arm through shirt as well as reach over head to don shirt, slight assistance managing down trunk.) Lower Body Dressing (QC): 1 (Pt can thread R leg through but needs assistance to guide R leg. OT assisted with L leg. Pt can pull pants over knees while sitting, but needs assistance to pull pants up while standing. Assist x2 in stand.) On/Off Footwear (QC): 1 (Pt can guide R foot to the sock but needs additional assistance to pull both socks up.) Toileting Hygiene (QC): 1 (Assist x2 due to balance while standing. Assist to manage clothing and with hygiene.) Toilet Transfer (QC): 3 Assessment/Plan Assessment and Plan Assess & Plan/Chief Complaint Assessment: CVA Left sided weakness Left sided neglect HTN DM HLP Smoker COPD Chronic pain Plan: IRF protocol Pain meds home dosing BM regimen Monitor O2 11/16/20: Monitor sugar Increase therapy Monitor confusion 11/17/20: Confusion noted BM regimen 11/18/20: BM regimen successful now maintain Monitor confusion Work on transfers to decrease caregiver burden 11/19/20: Confusion monitored Monitor BP and sugar 11/20/20: Monitor BP and glucose Labs tomorrow Monitor for falls (1) CVA (cerebral vascular accident) (2) Diabetes (3) Hypertension (4) Left-sided weakness (5) Smoker (6) Hyperlipemia (7) [place]-neglect of left side TITA LUBIN DO Nov 20, 2020 13:05
[2020-11-20] MEDS: ENOXAPARIN 40 MG/0.4 ML (LOVENOX) SYR SC SCH (17:22)
[2020-11-20 17:25] VITALS: BP 107/65
[2020-11-20] MEDS: MONTELUKAST 10 MG (SINGULAIR) TAB PO SCH (20:23)
[2020-11-20] MEDS: MELATONIN 3 MG TABLET PO PRN (20:23)
[2020-11-20] MEDS: CYCLOBENZAPRINE 10 MG (FLEXERIL) TAB PO SCH (20:23)
[2020-11-21] MEDS: LEVOTHYROXINE 88 MCG (LEVOTHORID) TAB PO SCH (05:06)
[2020-11-21] MEDS: KCL 20 MEQ TAB (K-DUR) PO SCH (05:06)
[2020-11-21 05:25] LABS: BASOPHILS % (AUTO) 0 % (0-10); EOSINOPHILS # (AUTO) 0.1 10^3/uL (0.0-0.3); EOSINOPHILS % (AUTO) 1 % (0-10); HEMATOCRIT 39 % (35-52); HEMOGLOBIN 12.7 g/dL (11.5-16.0); LYMPHOCYTES # (AUTO) 4.4 10^3/uL (1.0-4.0); LYMPHOCYTES % (AUTO) 66 % (12-44); MEAN CORPUSCULAR HEMOGLOBIN 30 pg (25-34); MEAN CORPUSCULAR HGB CONC 33 g/dL (32-36); MEAN CORPUSCULAR VOLUME 92 fL (80-99); MEAN PLATELET VOLUME 12.3 fL (9.0-12.2); MONOCYTES # (AUTO) 0.7 10^3/uL (0.0-1.0); MONOCYTES % (AUTO) 10 % (0-12); NEUTROPHILS # (AUTO) 1.5 10^3/uL (1.8-7.8); NEUTROPHILS % (AUTO) 23 % (42-75); PLATELET COUNT 319 10^3/uL (130-400); WHITE BLOOD COUNT 6.6 10^3/uL (4.3-11.0)
[2020-11-21 05:38] LABS: ALBUMIN 4.1 GM/DL (3.2-4.5)
[2020-11-21 05:39] LABS: CHLORIDE 102 MMOL/L (98-107); POTASSIUM 4.4 MMOL/L (3.6-5.0); SODIUM 140 MMOL/L (135-145)
[2020-11-21 05:41] VITALS: BP 118/57
[2020-11-21 05:41] LABS: GLUCOSE 114 MG/DL (70-105); TOTAL PROTEIN 7.2 GM/DL (6.4-8.2)
[2020-11-21 05:42] LABS: CARBON DIOXIDE 22 MMOL/L (21-32)
[2020-11-21 05:43] LABS: BILIRUBIN,TOTAL 0.3 MG/DL (0.1-1.0)
[2020-11-21 05:44] LABS: ALKALINE PHOSPHATASE 45 U/L (40-136)
[2020-11-21 05:45] LABS: CREATININE SERUM 0.93 MG/DL (0.60-1.30); GFR ESTIMATED > 60
[2020-11-21 05:46] LABS: BUN/CREATININE RATIO 27
[2020-11-21 05:47] LABS: ALANINE AMINOTRANSFERASE 18 U/L (0-55)
--- NOTE | 2020-11-21 05:52 | PM&R Progress Note ---
Subjective HPI/CC On Admission Date Seen by Provider: Nov 21, 2020 Time Seen by Provider: 08:30 Subjective/Events-last exam 11/21/20: Pt doing pretty well Labs okay Sugars are good Hgb stable Bowels moved two days ago 11/20/20: Nicotine patch on and still asks to go outside to smoke More alert today Confusion is significant No issues otherwise 11/19/20: Refuses Advair since she states it makes her wheeze No pain reported Confusion apparent Unclear of recovery potential 11/18/20: Doing well Confusion noted BM finally after aggressive regimen More alert today 11/17/20: No BM since 11/12 Laxatives and supp will be given Facial droop appears less pronounced Confusion noted 11/16/20: Sugar is 198 receiving sliding scale Improvement on transfers already Bowels moved on November 12 so given laxatives Pt has some unreliable information most of the time Nicotine patch reordered Focus is very poor, requires constant cues Review of Systems General: Fatigue, Malaise Neurological: Weakness, Incoordination, Confusion Objective Exam Vital Signs Vital Signs Date Time Temp Pulse Resp B/P (MAP) Pulse Ox O2 Delivery O2 Flow Rate FiO2 11/21/20 18:45 Room Air 95 11/21/20 17:08 36.4 75 18 122/59 (80) 100 Capillary Refill : Less Than 3 Seconds General Appearance: No Apparent Distress, WD/WN, Anxious, Chronically ill HEENT: PERRL/EOMI, Normal ENT Inspection, Pharynx Normal Neck: Full Range of Motion, Normal Inspection, Non Tender, Supple, Carotid Bruit Respiratory: Chest Non Tender, Normal Breath Sounds, No Accessory Muscle Use, No Respiratory Distress, Decreased Breath Sounds Cardiovascular: Regular Rate, Rhythm, No Edema, No Gallop, No JVD, No Murmur, Normal Peripheral Pulses Gastrointestinal: Normal Bowel Sounds, No Organomegaly, No Pulsatile Mass, Non Tender, Soft Back: Normal Inspection, No CVA Tenderness, No Vertebral Tenderness Extremity: Normal Capillary Refill, Normal Inspection, Normal Range of Motion, Non Tender, No Calf Tenderness, No Pedal Edema Neurologic/Psychiatric: Alert, Oriented x3, Abnormal Gait, Aphasia (partial), Depressed Affect, Facial Droop (left), Motor Weakness (left sided weakness 1/5) Skin: Normal Color, Warm/Dry Lymphatic: No Adenopathy Results/Procedures Lab Laboratory Tests 11/21/20 04:30 Patient resulted labs reviewed. FIM Transfers Therapy Code Descriptions/Definitions Functional [place] Measure: 0=Not Assessed/NA 4=Minimal Assistance 1=Total Assistance 5=Supervision or Setup 2=Maximal Assistance 6=Modified [place] 3=Moderate Assistance 7=Complete IndependenceSCALE: Activities may be completed with or without assistive devices. 4-Tuzkfuakto-zujdlxa completes the activity by him/herself with no assistance from a helper. 5-Set-up or Clean-up Assistance-helper sets up or cleans up; patient completes activity. [employer] assists only prior to or following the activity. 4-Supervision or Touching Assistance-helper provides verbal cues and/or touching/steadying and/or contact guard assistance as patient completes activity. Assistance may be provided throughout the activity or intermittently. 3-Partial/Moderate Assistance-helper does LESS THAN HALF the effort. [employer] lifts, holds or supports trunk or limbs, but provides less than half the effort. 2-Substantial/Maximal Assistance-helper does MORE THAN HALF the effort. [employer] lifts or holds trunk or limbs and provides more than half the effort. 5-Acgakqmpj-nfykys does ALL the effort. Patient does none of the effort to complete the activity. Or, the assistance of 2 or more helpers is required for the patient to complete the activity. If activity was not attempted, code reason: 7-Patient Refused. 9-Not Applicable-not attempted and the patient did not perform the activity before the current illness, exacerbation or injury. 10-Not Attempted due to Environmental Limitations-(lack of equipment, weather restraints, etc.). 88-Not Attempted due to Medical Conditions or Safety Concerns. Roll Left to Right (QC): 3 Sit to Lying (QC): 1 Sit to Stand (QC): 2 Chair/Fyt-co-Kyqvl Xfer(QC): 2 (did take 5 steps with PT advancing left LE ) Car Transfer (QC): 2 Gait Training Does the Patient Walk?: Yes Distance: 6'x3 Walk 10 feet (QC): 88 Walk 50 ft with 2 Turns(QC): 88 Walk 150 ft (QC): 88 Walking 10ft/uneven surface-QC: 88 Gait Persons Needed: 2 Gait Assistive Device: Parallel Bars Wheelchair Training Does the Pt Use a Wheelchair?: Yes Wheel 50 ft with 2 turns (QC): 2 Wheel 150 ft (QC): 9 Type of Wheelchair: Manual Stair Training 1 Step (curb) (QC): 88 4 Steps (QC): 88 12 Steps (QC): 88 Balance Picking up an Object (QC): 88 ADL-Treatment Eating (QC): 5 (set up assistance with cutting food. Pt then able to eat.) Oral Hygiene (QC): 3 (Mod A, OT placed toothpaste onto brush and placed in pt's hands, pt able to brush with cues. Pt spit out dentures when asked to spit, assistance to remove dentures and clean thoroughly. ) Bathing Location: L Arm, L Upper Leg, R Upper Leg, R Lower Leg (including foot), Chest, Abdomen Shower/Bathe Self (QC): 1 (Assist x2 in stand to wash buttocks. Pt requires constant cues to stay on task.) Upper Body Dressing (QC): 3 (Mod A. Assist threading L arm through. Pt can t hread R arm through shirt as well as reach over head to don shirt, slight assistance managing down trunk.) Lower Body Dressing (QC): 1 (Pt can thread R leg through but needs assistance to guide R leg. OT assisted with L leg. Pt can pull pants over knees while sitting, but needs assistance to pull pants up while standing. Assist x2 in stand.) On/Off Footwear (QC): 1 (Pt can guide R foot to the sock but needs additional assistance to pull both socks up.) Toileting Hygiene (QC): 1 (Assist x2 due to balance while standing. Assist to manage clothing and with hygiene.) Toilet Transfer (QC): 3 Assessment/Plan Assessment and Plan Assess & Plan/Chief Complaint Assessment: CVA Left sided weakness Left sided neglect HTN DM HLP Smoker COPD Chronic pain Plan: IRF protocol Pain meds home dosing BM regimen Monitor O2 11/16/20: Monitor sugar Increase therapy Monitor confusion 11/17/20: Confusion noted BM regimen 11/18/20: BM regimen successful now maintain Monitor confusion Work on transfers to decrease caregiver burden 11/19/20: Confusion monitored Monitor BP and sugar 11/20/20: Monitor BP and glucose Labs tomorrow Monitor for falls 11/21/20: Labs good Monitor confusion Monitor for falls (1) CVA (cerebral vascular accident) (2) Diabetes (3) Hypertension (4) Left-sided weakness (5) Smoker (6) Hyperlipemia (7) Odilon-neglect of left side TITA LUBIN DO Nov 21, 2020 05:52
[2020-11-21] MEDS: ADVAIR HFA 45/21 MCG INHALER 8 GM IH SCH ×2 (06:47→18:45)
[2020-11-21] MEDS: PROPRANOLOL LA 120 MG (INDERAL LA) CAP NON-FORMULARY PO SCH ×2 (08:12→20:57)
[2020-11-21] MEDS: DIVALPROEX 500 MG DELAYED RELEASE (DEPAKOTE) TAB PO SCH ×2 (08:13→20:58)
[2020-11-21] MEDS: VIMPAT 100 MG PO SCH ×2 (08:13→21:00)
[2020-11-21] MEDS: HYDROcodone/APAP 5 MG/325 MG (LORTAB) TAB PO PRN (08:14)
[2020-11-21] MEDS: LEVETIRACETAM 500 MG (KEPPRA) TAB PO SCH ×2 (08:14→20:55)
[2020-11-21] MEDS: NICOTINE 21 MG (NICODERM) PATCH TD SCH (08:14)
[2020-11-21] MEDS: FUROSEMIDE 40 MG (LASIX) TAB PO SCH (08:14)
[2020-11-21] MEDS: ASPIRIN 81 MG CHEW (CHILDREN'S ASA) PO SCH (08:14)
[2020-11-21] MEDS: LOSARTAN 25 MG (COZAAR) TAB PO SCH (08:15)
[2020-11-21] MEDS: FLUTICASONE NASAL SPRAY (FLONASE) 16 GM BTL NS SCH (08:15)
[2020-11-21] MEDS: metFORMIN 500 MG (GLUCOPHAGE) TAB PO SCH ×2 (08:15→18:18)
[2020-11-21] MEDS: CLOPIDOGREL 75 MG (PLAVIX) TABLET PO SCH (08:15)
[2020-11-21] MEDS: NICOTINE PATCH REMOVAL TP SCH (08:15)
[2020-11-21] MEDS: ALLOPURINOL 100 MG (ZYLOPRIM) TAB PO SCH ×2 (08:15→20:55)
[2020-11-21] MEDS: PANTOPRAZOLE 20 MG TABLET (PROTONIX) PO SCH (08:15)
[2020-11-21] MEDS: TRESIBA FLEXTOUCH 200 UNITS/ML SQ SCH (08:16)
[2020-11-21] MEDS: MICONAZOLE 2% POWDER (DESENEX AF) 90 GM TOP SCH ×3 (08:19→20:59)
--- NOTE | 2020-11-21 10:26 | Occupational Ther Daily Note ---
OT Current Status-Daily Note Subjective Pt describes pain in lower back 9/10 during sitting up in w/c. Pt describes pain of 6/10 during PROM in L shoulder. Pt consistently speaks of the OT as someone who she has known before, and telling stories about them. Difficulty redirecting pt back to task. OT reassures pt that she has never seen her before admit for hospital. Mental Status/Objective Patient Orientation: Person, Confused ADL-Treatment Therapy Code Descriptions/Definitions Functional [place] Measure: 0=Not Assessed/NA 4=Minimal Assistance 1=Total Assistance 5=Supervision or Setup 2=Maximal Assistance 6=Modified [place] 3=Moderate Assistance 7=Complete IndependenceSCALE: Activities may be completed with or without assistive devices. 5-Mzotnstrtu-hmdwzrt completes the activity by him/herself with no assistance from a helper. 5-Set-up or Clean-up Assistance-helper sets up or cleans up; patient completes activity. [place] assists only prior to or following the activity. 4-Supervision or Touching Assistance-helper provides verbal cues and/or touching/steadying and/or contact guard assistance as patient completes activity. Assistance may be provided throughout the activity or intermittently. 3-Partial/Moderate Assistance-helper does LESS THAN HALF the effort. [place] lifts, holds or supports trunk or limbs, but provides less than half the effort. 2-Substantial/Maximal Assistance-helper does MORE THAN HALF the effort. [place] lifts or holds trunk or limbs and provides more than half the effort. 3-Tmkktfexu-mfufla does ALL the effort. Patient does none of the effort to complete the activity. Or, the assistance of 2 or more helpers is required for the patient to complete the activity. If activity was not attempted, code reason: 7-Patient Refused. 9-Not Applicable-not attempted and the patient did not perform the activity before the current illness, exacerbation or injury. 10-Not Attempted due to Environmental Limitations-(lack of equipment, weather restraints, etc.). 88-Not Attempted due to Medical Conditions or Safety Concerns. Upper Body Dressing (QC): 2 (Max A, Pt needed assistance for threading L arm and adjusting over trunk and back) Lower Body Dressing (QC): 1 (Pt was able to thread R leg, needed assistance to thread L leg. Pt was able to do pants hike when standing with assistance x2) On/Off Footwear: 1 (Pt able to raise leg, but needed assistance to don and doff socks) Toileting Hygiene (QC): 1 (Assist x2 for standing balance and hygiene) Toilet Transfer (QC): 3 (Mod A SPT to/from [facility] Other Treatment Pt stated to OT that she needed to use the restroom. Pt transferred to [facility], SPT with mod A. Pt had BM in brief, that got over her legs and clothing requiring assist to clean up. Pt consistently stated that she knew the OT from out of the hospital setting and OT reassured pt that she did not know her from out of the hospital. Pt needed constant reassurance to stay seated while OT cleaned up BM from pt's legs. Pt finished toileting and donned clean clothing at [facility]. Then transferred from [facility] to [facility] where she was propelled to therapy gym, max cues to stay on task, and min A with w/c mobility. When in gym, pt stated pain in lower back and the need to lay down in bed. OT explained that she was in therapy and was unable to lay down. OT did cone exercise to encourage visual scanning and reach across midline, constant cues for L side attention and scanning to L visual field. Pt insistent that she wanted to go to the therapy mat, OT moved pt to table where mat was no longer in view, pt did not mention laying down again during tx. Pt completed visual task at table top, required max cues with tasks to complete and to scan into L visual field. Pt propelled w/c, with cues to stay on tasks, back to room and then transferred from w/ to recliner. In recliner, pt performed hair brushing and minimal verbal cues to continue brushing hair. Pt then washed face with washcloth and minimal verbal cues to reach behind ears and also to get both sides of face. OT then performed PROM on LUE, x10 reps each movement of the following: elbow flexion, shoulder flexion, shoulder abduction, internal and external horizontal shoulder abduction, wrist flexion, wrist extension, and wrist circles. Pt was left in recliner, with call light on R side and all needs met. Chair alarm on. Education OT Patient Education: Correct positioning, Modified ADL techniques, Progress toward Goal/Update tx plan, Purpose of tx/functional activities, Safety issues, Transfer techniques, W/C management Teaching Recipient: Patient Teaching Methods: Discussion Response to Teaching: Reinforcement Needed OT Short Term Goals Short Term Goals Time Frame: Nov 30, 2020 Oral hygiene: 5 Shower/bathe self: 3 Upper body dressin Lower body dressin OT [facility] Goals Sticker On Goals Time Frame: Dec 09, 2020 Eating (QC): 6 Oral Hygiene (QC): 6 Toileting Hygiene (QC): 4 Shower/Bathe Self (QC): 4 Upper Body Dressing (QC): 5 Lower Body Dressing (QC): 4 On/Off Footwear (QC): 4 Additional Goals: 1-Demonstrate ADL Tasks, 2-Verbalize Understanding, 3-ImproveStrength/Cooper 1=Demonstrate adherence to instructed precautions during ADL tasks. 2=Patient will verbalize/demonstrate understanding of assistive devices/modifications for ADL. 3=Patient will improve strength/tolerance for activity to enable patient to perform ADL's. OT Education/Plan Problem List/Assessment Assessment: Decreased Safety Aware, Decreased UE Strength, Impaired Cognition, Impaired Coordination, Impaired Funct Balance, Impaired I ADL's, Impaired Self- Care Skills, Restricted Funct UE ROM, Visual-Perceptual Deficit Discharge Recommendations Plan/Recommendations: Continue POC Treatment Plan/Plan of Care Patient would benefit from OT for education, treatment and training to promote independence in ADL's, mobility, safety and/or upper extremity function for ADL's. Plan of Care: ADL Retraining, Functional Mobility, Group Exercise/Act as Ind, UE Funct Exercise/Act, UE Neuromus Re-Ed/Coord, Visual/Perceptual Retrain Treatment Duration: Dec 09, 2020 Frequency: At least 5 of 7 days/Wk (IRF) Estimated Hrs Per Day: 1.5 hours per day Agreement: Yes Rehab Potential: Fair Time/GCodes Start Time: 09:00 Stop Time: 10:15 Total Time Billed (hr/min): 75 Billed Treatment Time 1, ADL 2 (30'), FA 3 (45') JOAN JACOBSON OT Nov 21, 2020 10:26
[2020-11-21] MEDS: DOCUSATE SODIUM 100 MG (COLACE) CAP PO SCH ×2 (10:36→20:56)
[2020-11-21] MEDS: SENNA W/DOCUSATE (SENOKOT S) TABLET PO SCH ×2 (10:36→20:55)
[2020-11-21] MEDS: polyethylene glycoL POWDER 17 GM (MIRALAX) PACK PO SCH ×2 (10:36→20:55)
--- NOTE | 2020-11-21 12:13 | Physical Therapy Daily Note ---
PT Daily Note-Current Subjective Pt sitting in recliner upon arrival. Pt continues to remain confused and call out for [employer]. TRANSPORT CONDUCTOR assures pt that he is not at the hospital with her due to no visitor policy but pt continues to ask. Pain Location: No Pain Reported Mental Status Patient Orientation: Person, Confused Transfers SCALE: Activities may be completed with or without assistive devices. 4-Oenceyqggp-ziscqai completes the activity by him/herself with no assistance from a helper. 5-Set-up or Clean-up Assistance-helper sets up or cleans up; patient completes activity. [place] assists only prior to or following the activity. 4-Supervision or Touching Assistance-helper provides verbal cues and/or touching/steadying and/or contact guard assistance as patient completes activity. Assistance may be provided throughout the activity or intermittently. 3-Partial/Moderate Assistance-helper does LESS THAN HALF the effort. [place] lifts, holds or supports trunk or limbs, but provides less than half the effort. 2-Substantial/Maximal Assistance-helper does MORE THAN HALF the effort. [place] lifts or holds trunk or limbs and provides more than half the effort. 1-Naagopkrv-sydqzb does ALL the effort. Patient does none of the effort to compl ete the activity. Or, the assistance of 2 or more helpers is required for the patient to complete the activity. If activity was not attempted, code reason: 7-Patient Refused. 9-Not Applicable-not attempted and the patient did not perform the activity before the current illness, exacerbation or injury. 10-Not Attempted due to Environmental Limitations-(lack of equipment, weather restraints, etc.). 88-Not Attempted due to Medical Conditions or Safety Concerns. Sit to Stand (QC): 3 Weight Bearing Full Weight Bearing Full Weight Bearing Wheelchair Training Does the Pt Use a Wheelchair?: Yes Wheel 50 ft with 2 turns (QC): 3 Wheel 150 ft (QC): 3 Type of Wheelchair: Manual Exercises Supine Ex: Ankle pumps, Quad Set, Straight leg raise, Hip abd/add Supine Reps: 15 Seated Therapy Exercises: Long arc quads, Hip flexion, Kicking activity Seated Reps: 15 Treatments Completes Supine & Seated Ex in recliner before TF to [facility] via SPT. TRANSPORT CONDUCTOR assists pt with propelling WC in hallway. VC as well as assistance given since pt is only able to use R side at this time. Pt returns to room and TF back to recliner for lunch. All needs met, call light in hand. Assessment Current Status: Fair Progress Pt needs constant VC and sometimes TC for completion of tasks. Pt remains very confused and easily distracted. PT Short Term Goals Short Term Goals Time Frame: Nov 22, 2020 Roll Left & Right: 3 Sit to lyin Lying to sitting on side of be: 3 Sit to stand: 3 Chair/xcn-bu-lwliw transfer: 3 Walk 10 feet: 3 PT Care Home Goals Care Home Goals PT Customer Service Associate Goals Time Frame: Dec 06, 2020 Roll Left & Right (QC): 3 (Joel) Sit to Lying (QC): 3 (Joel) Lying-Sitting on Side/Bed(QC): 3 (Joel) Sit to Stand (QC): 3 (Joel) Chair/Qkg-wv-Umaex Xfer(QC): 3 (Joel) Toilet Transfer (QC): 3 (Joel) Car Transfer (QC): 3 (Joel) Does the Patient Walk: Yes Walk 10 feet (QC): 3 (Joel) Walk 50ft with 2 Turns (QC): 3 (Joel) Walk 150 ft (QC): 88 Walking 10ft on Uneven Surface: 88 1 Step (curb) (QC): 88 4 Steps (QC): 88 12 Steps (QC): 88 Picking up an Object (QC): 88 Wheel 50 feet with 2 turns (QC: 4 Wheel 150 feet: 4 PT Plan Problem List Problem List: Activity Tolerance, Functional Strength, Safety, Balance, Transfer Treatment/Plan Treatment Plan: Continue Plan of Care Treatment Plan: Bed Mobility, Education, Functional Activity Cooper, Functional Strength, Group Therapy, Gait, Safety, Therapeutic Exercise, Transfers Treatment Duration: Dec 06, 2020 Frequency: At least 5 of 7 days/Wk (IRF) Estimated Hrs Per Day: 1.5 hours per day Patient and/or Family Agrees t: Yes Safety Risks/Education Patient Education: Transfer Techniques, Correct Positioning, W/C Management, Safety Issues Teaching Recipient: Patient Teaching Methods: Discussion Response to Teaching: Reinforcement Needed Time/GCodes Time In: 1125 Time Out: 1205 Total Billed Treatment Time: 40 Total Billed Treatment 1, EX (20m), FA (10m) & WCH (10m) HILDA BRADLEY TRANSPORT CONDUCTOR Nov 21, 2020 12:12
[2020-11-21] MEDS: ALPRAZolam 0.25 MG (XANAX) TAB PO PRN (12:53)
--- NOTE | 2020-11-21 13:20 | Speech Therapy Daily Note ---
Speech Daily Progress Note Subjective Date Seen by Provider: Nov 21, 2020 Time Seen by Provider: 00:30 Patient was resting in her recliner, asking where her phone was. Patient's phone was laying on the left side of her lap. Objective Patient completed a series of q/a related to her daily needs prior to being hospitalized with 60% given moderate cues/repetitions. Assessment Assessment Current Status: Fair Progress Treatment Plan Continue Plan of Care Speech Short Term Goals Short Term Goals Short Term Goals 1) The patient will complete memory tasks related to her daily needs at 80% or greater with minimal cuing. 2) The patient will complete problem solving tasks related to her daily needs at 80% or greater with minimal cuing. 3) The patient will complete safety awareness related to her daily needs at 80% or greater with minimal cuing. Speech Fci Goals Fci Goals Patient will improve cognitive communication skills in order to require decreased assist with daily tasks. Speech-Plan Patient/Family Goals Patient/Family Goals: Patient plans on returning to her home where she lives with her . Treatment Plan Speech Therapy Treatment Plan: Continue Plan of Care Treatment Duration: Dec 02, 2020 Frequency: 4 times per week (Patient will receive skilled ST 4-5x per week) Estimated Hrs Per Day: .5 hour per day Rehab Potential: Fair Barriers to Learning: Patient's recent CVA with left side neglect, prior illness Pt/Family Agrees to Plan: Yes Safety Risks/Education Teaching Recipient: Patient Teaching Methods: Demonstration, Discussion Response to Teaching: Verbalize Understanding, Return Demonstration, Reinforcement Needed Education Topics Provided: Continued safety within her room, utilization of call light Time Speech Therapy Time In: 10:30 Speech Therapy Time Out: 11:00 Total Billed Time: 30 Billed Treatment Time 1KYLIE BETHANIA ST Nov 21, 2020 13:20
--- NOTE | 2020-11-21 13:37 | NUR ---
CM/SS CONCURRENT DOCUMENTATION Reviewed EMR and therapy session documentation. Will continue to monitor patient's performance level relative to her goal to return home with Carlos. She called out for nursing earlier instead of using call light; however call light was at her side in the chair and available to her.
--- NOTE | 2020-11-21 15:10 | Physical Therapy Daily Note ---
PT Daily Note-Current Subjective Pt asleep in bed upon arrival. Pt is very drowsy per pt from morning session. Pt is very difficult to awaken. Pain Location: No Pain Reported Mental Status Patient Orientation: Person, Confused Transfers SCALE: Activities may be completed with or without assistive devices. 2-Dfxqcptbqs-lhtirjv completes the activity by him/herself with no assistance from a helper. 5-Set-up or Clean-up Assistance-helper sets up or cleans up; patient completes activity. [place] assists only prior to or following the activity. 4-Supervision or Touching Assistance-helper provides verbal cues and/or touching/steadying and/or contact guard assistance as patient completes activity. Assistance may be provided throughout the activity or intermittently. 3-Partial/Moderate Assistance-helper does LESS THAN HALF the effort. [place] lifts, holds or supports trunk or limbs, but provides less than half the effort. 2-Substantial/Maximal Assistance-helper does MORE THAN HALF the effort. [place] lifts or holds trunk or limbs and provides more than half the effort. 4-Rvgqnosak-hezphn does ALL the effort. Patient does none of the effort to complete the activity. Or, the assistance of 2 or more helpers is required for the patient to complete the activity. If activity was not attempted, code reason: 7-Patient Refused. 9-Not Applicable-not attempted and the patient did not perform the activity before the current illness, exacerbation or injury. 10-Not Attempted due to Environmental Limitations-(lack of equipment, weather restraints, etc.). 88-Not Attempted due to Medical Conditions or Safety Concerns. Weight Bearing Full Weight Bearing Full Weight Bearing Exercises Supine Ex: Ankle pumps, Quad Set, Glut sets, Heel Slides, Straight leg raise, Hip abd/add Supine Reps: 15 Treatments CARPENTER SUPERVISOR continues to try to keep pt awake. Pt completes Supine Ex. Pt resting Supine in bed with all needs met, call light next to pt. Assessment Current Status: Fair Progress Pt is very drowsy due to lack of sleep last night. Nurse is notified. PT Short Term Goals Short Term Goals Time Frame: Nov 22, 2020 Roll Left & Right: 3 Sit to lyin Lying to sitting on side of be: 3 Sit to stand: 3 Chair/fry-rv-fdkwq transfer: 3 Walk 10 feet: 3 PT Alliance Consultant Goals Long-Term Goals PT Long-Term Goals Time Frame: Dec 06, 2020 Roll Left & Right (QC): 3 (Joel) Sit to Lying (QC): 3 (Joel) Lying-Sitting on Side/Bed(QC): 3 (Joel) Sit to Stand (QC): 3 (Joel) Chair/Lwt-dm-Wnenw Xfer(QC): 3 (Joel) Toilet Transfer (QC): 3 (Joel) Car Transfer (QC): 3 (Joel) Does the Patient Walk: Yes Walk 10 feet (QC): 3 (Joel) Walk 50ft with 2 Turns (QC): 3 (Joel) Walk 150 ft (QC): 88 Walking 10ft on Uneven Surface: 88 1 Step (curb) (QC): 88 4 Steps (QC): 88 12 Steps (QC): 88 Picking up an Object (QC): 88 Wheel 50 feet with 2 turns (QC: 4 Wheel 150 feet: 4 PT Plan Problem List Problem List: Activity Tolerance, Functional Strength Treatment/Plan Treatment Plan: Continue Plan of Care Treatment Plan: Bed Mobility, Education, Functional Activity Cooper, Functional Strength, Group Therapy, Gait, Safety, Therapeutic Exercise, Transfers Treatment Duration: Dec 06, 2020 Frequency: At least 5 of 7 days/Wk (IRF) Estimated Hrs Per Day: 1.5 hours per day Patient and/or Family Agrees t: Yes Time/GCodes Time In: 1330 Time Out: 1405 Total Billed Treatment Time: 35 Total Billed Treatment 1, FA (15m) & EX (20m) HILDA BRADLEY PTA Nov 21, 2020 15:10
[2020-11-21 17:08] VITALS: BP 122/59
[2020-11-21] MEDS: ENOXAPARIN 40 MG/0.4 ML (LOVENOX) SYR SC SCH (18:18)
[2020-11-21] MEDS: CYCLOBENZAPRINE 10 MG (FLEXERIL) TAB PO SCH (20:54)
[2020-11-21] MEDS: MONTELUKAST 10 MG (SINGULAIR) TAB PO SCH (20:54)
[2020-11-21 21:00] VITALS: BP 121/69
[2020-11-21] MEDS: MELATONIN 3 MG TABLET PO PRN (22:48)
--- NOTE | 2020-11-21 22:52 | NUR ---
RESTLESS. REPEATEDLY CALLING OUT FOR WANDA. MEDICATED WITH MELATONIN. HAS DENIES PAIN OR DISCOMFORTS.
[2020-11-22] MEDS: HYDROcodone/APAP 5 MG/325 MG (LORTAB) TAB PO PRN ×3 (01:04→20:59)
[2020-11-22 06:04] VITALS: BP 108/58
[2020-11-22] MEDS: LEVOTHYROXINE 88 MCG (LEVOTHORID) TAB PO SCH (06:26)
[2020-11-22] MEDS: ADVAIR HFA 45/21 MCG INHALER 8 GM IH SCH ×2 (07:11→20:06)
[2020-11-22] MEDS: NICOTINE 21 MG (NICODERM) PATCH TD SCH (07:33)
[2020-11-22] MEDS: metFORMIN 500 MG (GLUCOPHAGE) TAB PO SCH ×2 (07:34→18:44)
[2020-11-22] MEDS: CLOPIDOGREL 75 MG (PLAVIX) TABLET PO SCH (07:34)
[2020-11-22] MEDS: LEVETIRACETAM 500 MG (KEPPRA) TAB PO SCH ×2 (07:34→20:56)
[2020-11-22] MEDS: LOSARTAN 25 MG (COZAAR) TAB PO SCH (07:34)
[2020-11-22] MEDS: ASPIRIN 81 MG CHEW (CHILDREN'S ASA) PO SCH (07:34)
[2020-11-22] MEDS: FUROSEMIDE 40 MG (LASIX) TAB PO SCH (07:34)
[2020-11-22] MEDS: ALLOPURINOL 100 MG (ZYLOPRIM) TAB PO SCH ×2 (07:34→21:04)
[2020-11-22] MEDS: VIMPAT 100 MG PO SCH ×2 (07:35→20:51)
[2020-11-22] MEDS: DIVALPROEX 500 MG DELAYED RELEASE (DEPAKOTE) TAB PO SCH ×2 (07:35→20:57)
[2020-11-22] MEDS: PROPRANOLOL LA 120 MG (INDERAL LA) CAP NON-FORMULARY PO SCH ×2 (07:36→20:56)
[2020-11-22] MEDS: polyethylene glycoL POWDER 17 GM (MIRALAX) PACK PO SCH ×2 (07:36→21:02)
[2020-11-22] MEDS: DOCUSATE SODIUM 100 MG (COLACE) CAP PO SCH ×2 (07:36→21:02)
[2020-11-22] MEDS: NICOTINE PATCH REMOVAL TP SCH (07:36)
[2020-11-22] MEDS: PANTOPRAZOLE 20 MG TABLET (PROTONIX) PO SCH (07:37)
[2020-11-22] MEDS: SENNA W/DOCUSATE (SENOKOT S) TABLET PO SCH ×2 (07:37→21:02)
[2020-11-22] MEDS: MICONAZOLE 2% POWDER (DESENEX AF) 90 GM TOP SCH ×3 (07:38→21:07)
[2020-11-22] MEDS: TRESIBA FLEXTOUCH 200 UNITS/ML SQ SCH (07:38)
--- NOTE | 2020-11-22 08:34 | PM&R Progress Note ---
Subjective HPI/CC On Admission Date Seen by Provider: Nov 22, 2020 Time Seen by Provider: 08:15 Subjective/Events-last exam 11/22/20: No major issues Mentally she is a little bit more alert but very debilitated and cognitively deficient BM yesterday and she was incontinent 11/21/20: Pt doing pretty well Labs okay Sugars are good Hgb stable Bowels moved two days ago 11/20/20: Nicotine patch on and still asks to go outside to smoke More alert today Confusion is significant No issues otherwise 11/19/20: Refuses Advair since she states it makes her wheeze No pain reported Confusion apparent Unclear of recovery potential 11/18/20: Doing well Confusion noted BM finally after aggressive regimen More alert today 11/17/20: No BM since 11/12 Laxatives and supp will be given Facial droop appears less pronounced Confusion noted 11/16/20: Sugar is 198 receiving sliding scale Improvement on transfers already Bowels moved on November 12 so given laxatives Pt has some unreliable information most of the time Nicotine patch reordered Focus is very poor, requires constant cues Review of Systems Neurological: Weakness, Incoordination, Confusion Objective Exam Vital Signs Vital Signs Date Time Temp Pulse Resp B/P (MAP) Pulse Ox O2 Delivery O2 Flow Rate FiO2 11/22/20 21:00 Room Air 11/22/20 20:06 97 11/22/20 15:32 36.0 66 16 101/57 (72) 11/21/20 18:45 95 Capillary Refill : Less Than 3 Seconds General Appearance: No Apparent Distress, WD/WN, Anxious, Chronically ill HEENT: PERRL/EOMI, Normal ENT Inspection, Pharynx Normal Neck: Full Range of Motion, Normal Inspection, Non Tender, Supple, Carotid Bruit Respiratory: Chest Non Tender, Normal Breath Sounds, No Accessory Muscle Use, No Respiratory Distress, Decreased Breath Sounds Cardiovascular: Regular Rate, Rhythm, No Edema, No Gallop, No JVD, No Murmur, Normal Peripheral Pulses Gastrointestinal: Normal Bowel Sounds, No Organomegaly, No Pulsatile Mass, Non Tender, Soft Back: Normal Inspection, No CVA Tenderness, No Vertebral Tenderness Extremity: Normal Capillary Refill, Normal Inspection, Normal Range of Motion, Non Tender, No Calf Tenderness, No Pedal Edema Neurologic/Psychiatric: Alert, Oriented x3, Abnormal Gait, Aphasia (partial), Depressed Affect, Facial Droop (left), Motor Weakness (left sided weakness 1/5) Skin: Normal Color, Warm/Dry Lymphatic: No Adenopathy Results/Procedures Lab Patient resulted labs reviewed. FIM Transfers Therapy Code Descriptions/Definitions Functional [place] Measure: 0=Not Assessed/NA 4=Minimal Assistance 1=Total Assistance 5=Supervision or Setup 2=Maximal Assistance 6=Modified [place] 3=Moderate Assistance 7=Complete IndependenceSCALE: Activities may be completed with or without assistive devices. 8-Lajoeefkpv-prcqonj completes the activity by him/herself with no assistance from a helper. 5-Set-up or Clean-up Assistance-helper sets up or cleans up; patient completes activity. [place] assists only prior to or following the activity. 4-Supervision or Touching Assistance-helper provides verbal cues and/or touching/steadying and/or contact guard assistance as patient completes activity. Assistance may be provided throughout the activity or intermittently. 3-Partial/Moderate Assistance-helper does LESS THAN HALF the effort. [place] lifts, holds or supports trunk or limbs, but provides less than half the effort. 2-Substantial/Maximal Assistance-helper does MORE THAN HALF the effort. [place] lifts or holds trunk or limbs and provides more than half the effort. 1-Zdhnetptd-qfnkqq does ALL the effort. Patient does none of the effort to complete the activity. Or, the assistance of 2 or more helpers is required for the patient to complete the activity. If activity was not attempted, code reason: 7-Patient Refused. 9-Not Applicable-not attempted and the patient did not perform the activity before the current illness, exacerbation or injury. 10-Not Attempted due to Environmental Limitations-(lack of equipment, weather restraints, etc.). 88-Not Attempted due to Medical Conditions or Safety Concerns. Roll Left to Right (QC): 3 Sit to Lying (QC): 1 Sit to Stand (QC): 3 Chair/Bon-ob-Knefd Xfer(QC): 2 (did take 5 steps with PT advancing left LE ) Car Transfer (QC): 2 Gait Training Does the Patient Walk?: Yes Distance: 6'x3 Walk 10 feet (QC): 88 Walk 50 ft with 2 Turns(QC): 88 Walk 150 ft (QC): 88 Walking 10ft/uneven surface-QC: 88 Gait Persons Needed: 2 Gait Assistive Device: Parallel Bars Wheelchair Training Does the Pt Use a Wheelchair?: Yes Wheel 50 ft with 2 turns (QC): 3 Wheel 150 ft (QC): 3 Type of Wheelchair: Manual Stair Training 1 Step (curb) (QC): 88 4 Steps (QC): 88 12 Steps (QC): 88 Balance Picking up an Object (QC): 88 ADL-Treatment Eating (QC): 5 (set up assistance with cutting food. Pt then able to eat.) Oral Hygiene (QC): 3 (Mod A, OT placed toothpaste onto brush and placed in pt's hands, pt able to brush with cues. Pt spit out dentures when asked to spit, assistance to remove dentures and clean thoroughly. ) Bathing Location: L Arm, L Upper Leg, R Upper Leg, R Lower Leg (including foot) , Chest, Abdomen Shower/Bathe Self (QC): 1 (Assist x2 in stand to wash buttocks. Pt requires constant cues to stay on task.) Upper Body Dressing (QC): 2 (Max A, Pt needed assistance for threading L arm and adjusting over trunk and back) Lower Body Dressing (QC): 1 (Pt was able to thread R leg, needed assistance to thread L leg. Pt was able to do pants hike when standing with assistance x2) On/Off Footwear (QC): 1 (Pt able to raise leg, but needed assistance to don and doff socks) Toileting Hygiene (QC): 1 (Assist x2 for standing balance and hygiene) Toilet Transfer (QC): 3 (Mod A SPT to/from [facility] Assessment/Plan Assessment and Plan Assess & Plan/Chief Complaint Assessment: CVA Left sided weakness Left sided neglect HTN DM HLP Smoker COPD Chronic pain Plan: IRF protocol Pain meds home dosing BM regimen Monitor O2 11/16/20: Monitor sugar Increase therapy Monitor confusion 11/17/20: Confusion noted BM regimen 11/18/20: BM regimen successful now maintain Monitor confusion Work on transfers to decrease caregiver burden 11/19/20: Confusion monitored Monitor BP and sugar 11/20/20: Monitor BP and glucose Labs tomorrow Monitor for falls 11/21/20: Labs good Monitor confusion Monitor for falls 11/22/20: Incontinence care Monitor confusion Monitor BP (1) CVA (cerebral vascular accident) (2) Diabetes (3) Hypertension (4) Left-sided weakness (5) Smoker (6) Hyperlipemia (7) Odilon-neglect of left side TITA LUBIN DO Nov 22, 2020 08:34
--- NOTE | 2020-11-22 09:01 | Physical Therapy Daily Note ---
PT Daily Note-Current Subjective Pt sitting in recliner upon arrival. Pt agreed to OT when asked if she was falling asleep during tx. During tx, pt stated she had a 8/10 pain in lower back while leaning up in w/c. Nurse notified of pt's request for pain pill. Mental Status Patient Orientation: Person, Confused Transfers SCALE: Activities may be completed with or without assistive devices. 8-Aqkkzvtbqs-ziunhek completes the activity by him/herself with no assistance from a helper. 5-Set-up or Clean-up Assistance-helper sets up or cleans up; patient completes activity. [place] assists only prior to or following the activity. 4-Supervision or Touching Assistance-helper provides verbal cues and/or touching/steadying and/or contact guard assistance as patient completes activity. Assistance may be provided throughout the activity or intermittently. 3-Partial/Moderate Assistance-helper does LESS THAN HALF the effort. [place] lifts, holds or supports trunk or limbs, but provides less than half the effort. 2-Substantial/Maximal Assistance-helper does MORE THAN HALF the effort. [place] lifts or holds trunk or limbs and provides more than half the effort. 8-Nrguzyqxz-qhacnz does ALL the effort. Patient does none of the effort to complete the activity. Or, the assistance of 2 or more helpers is required for the patient to complete the activity. If activity was not attempted, code reason: 7-Patient Refused. 9-Not Applicable-not attempted and the patient did not perform the activity before the current illness, exacerbation or injury. 10-Not Attempted due to Environmental Limitations-(lack of equipment, weather restraints, etc.). 88-Not Attempted due to Medical Conditions or Safety Concerns. Sit to Stand (QC): 2 Weight Bearing Full Weight Bearing Full Weight Bearing Wheelchair Training Does the Pt Use a Wheelchair?: Yes Wheel 150 ft (QC): 3 Type of Wheelchair: Manual Exercises Seated Therapy Exercises: Ankle pumps, Long arc quads, Hip flexion, Kicking activity Seated Reps: 15 Treatments [id number]: OT/PT cotreat due to skill of 2 clinicians required which a homemaking rehabilitation consultant could not perform in order to coordinate UE/LE with tasks, and due to pt's limitations in strength, endurance, mobility, and L neglect. OT focused on UE placement, cues for sequencing and safety and ADLs, PT focused on LE placement, transfers, gross overall movement and ambulation. Pt transferred from recliner to w/c, then from w/c to shower bench via SPT. Pt doffed clothing with assistance x2. Pt told OT that "Priyank" normally washes her hair for her and mentioned that he would teach OT how to do it. OT stated that "Priyank" is not in the hospital. Pt participated in washing hair with tactile cues to scrub L side of scalp. Assistance x2 was needed for dynamic sitting balance of the pt and also to wash RLE and RUE. Pt repeatedly attempted to stand after shower and during donning of shirt. OT continually stated her safety precautions. Pt transferred from shower bench to w/c where assistance was needed for LE dressing. Pt propelled to therapy gym with minimal pushing of the w/c from OT. In therapy gym, pt participated in UE exercises of active R shoulder flexion and passive L shoulder flexion. Pt also participated in a visual scanning and reaching across midline activity towards L side. Pt mentioned to OT that she had to use the restroom, OT took pt back to her room. Pt transferred from w/ to [facility]. Assessment Current Status: Fair Progress Pt continues to be confused and requires assistance to transfer. PT Short Term Goals Short Term Goals Time Frame: Nov 22, 2020 Roll Left & Right: 3 Sit to lyin Lying to sitting on side of be: 3 Sit to stand: 3 Chair/ufj-nc-xnkvw transfer: 3 Walk 10 feet: 3 PT Halfway Goals Halfway Goals PT Capital Project Engineer Goals Time Frame: Dec 06, 2020 Roll Left & Right (QC): 3 (Joel) Sit to Lying (QC): 3 (Joel) Lying-Sitting on Side/Bed(QC): 3 (Joel) Sit to Stand (QC): 3 (Joel) Chair/Kqi-hq-Tvwes Xfer(QC): 3 (Jole) Toilet Transfer (QC): 3 (Joel) Car Transfer (QC): 3 (Joel) Does the Patient Walk: Yes Walk 10 feet (QC): 3 (Joel) Walk 50ft with 2 Turns (QC): 3 (Joel) Walk 150 ft (QC): 88 Walking 10ft on Uneven Surface: 88 1 Step (curb) (QC): 88 4 Steps (QC): 88 12 Steps (QC): 88 Picking up an Object (QC): 88 Wheel 50 feet with 2 turns (QC: 4 Wheel 150 feet: 4 PT Plan Problem List Problem List: Activity Tolerance, Functional Strength, Safety, Balance, Transfer Treatment/Plan Treatment Plan: Continue Plan of Care Treatment Plan: Bed Mobility, Education, Functional Activity Cooper, Functional Strength, Group Therapy, Gait, Safety, Therapeutic Exercise, Transfers Treatment Duration: Dec 06, 2020 Frequency: At least 5 of 7 days/Wk (IRF) Estimated Hrs Per Day: 1.5 hours per day Patient and/or Family Agrees t: Yes Safety Risks/Education Patient Education: Transfer Techniques, Correct Positioning, W/C Management, Safety Issues Teaching Recipient: Patient Teaching Methods: Discussion Response to Teaching: Reinforcement Needed Time/GCodes Time In: 800 Time Out: 900 Total Billed Treatment Time: 60 Total Billed Treatment 1, FA x2 (35m) & EX x2 (25m) Co-treat w/OT for 60m HILDA BRADLEY PTA Nov 22, 2020 09:01
--- NOTE | 2020-11-22 09:21 | Occupational Ther Daily Note ---
OT Current Status-Daily Note Subjective Pt agreed to OT when asked if she was falling asleep during tx. During tx, pt stated she had a 8/10 pain in lower back while leaning up in w/c. Nurse notified of pt's request for pain pill. Pain Numeric Pain Scale: 8 Location: Lower Location Body Site: Back Mental Status/Objective Patient Orientation: Person, Confused ADL-Treatment Therapy Code Descriptions/Definitions Functional [place] Measure: 0=Not Assessed/NA 4=Minimal Assistance 1=Total Assistance 5=Supervision or Setup 2=Maximal Assistance 6=Modified [place] 3=Moderate Assistance 7=Complete IndependenceSCALE: Activities may be completed with or without assistive devices. 9-Jpqurbwoum-fmuxldu completes the activity by him/herself with no assistance from a helper. 5-Set-up or Clean-up Assistance-helper sets up or cleans up; patient completes activity. [place] assists only prior to or following the activity. 4-Supervision or Touching Assistance-helper provides verbal cues and/or t ouching/steadying and/or contact guard assistance as patient completes activity. Assistance may be provided throughout the activity or intermittently. 3-Partial/Moderate Assistance-helper does LESS THAN HALF the effort. [place] lifts, holds or supports trunk or limbs, but provides less than half the effort. 2-Substantial/Maximal Assistance-helper does MORE THAN HALF the effort. [place] lifts or holds trunk or limbs and provides more than half the effort. 2-Qucalrjns-kqkqgq does ALL the effort. Patient does none of the effort to complete the activity. Or, the assistance of 2 or more helpers is required for the patient to complete the activity. If activity was not attempted, code reason: 7-Patient Refused. 9-Not Applicable-not attempted and the patient did not perform the activity before the current illness, exacerbation or injury. 10-Not Attempted due to Environmental Limitations-(lack of equipment, weather restraints, etc.). 88-Not Attempted due to Medical Conditions or Safety Concerns. Oral Hygiene (QC): 3 (ModA, pt took out dentures, brushed gums and managed denture cream with minimal assist from OT. OT also brushed dentures) Shower/Bathe Self (QC): 1 (ModA overall for task, pt washed LLE by crossing ove r R, wash trunk and LUE. Assist for raising LUE. Assist x2 needed due to pt's impulsivity and insistance on wanting to stand throughout shower.) Upper Body Dressing (QC): 2 (MaxA, pt could thread RUE and head through shirt. Assitance for thread LUE and adjust over trunk) Lower Body Dressing (QC): 1 (Assist x2, pt needed assistance with threading feet through and pants hike when standing. Pt was able to pull pants above knees while sitting) On/Off Footwear: 2 (MaxA, pt was able to doff L sock by crossing over R. Pt crossed R leg over L, but needed assistance doffing R. Assistance for donning socks) Toileting Hygiene (QC): 1 (Assist x2 while standing for hygiene) Toilet Transfer (QC): 1 (Assist x2. needed max verbal and tactile cues to step with left foot) Other Treatment [id number]: OT/PT cotreat due to skill of 2 clinicians required which a rehabilitation engineer could not perform in order to coordinate UE/LE with tasks, and due to pt's limitations in strength, endurance, mobility, and L neglect. OT focused on UE placement, cues for sequencing and safety and ADLs, PT focused on LE placement, transfers, gross overall movement and ambulation. Pt transferred from recliner to w/c, then from w/c to shower bench via SPT. Pt doffed clothing with assistance x2. Pt told OT that "Priyank" normally washes her hair for her and mentioned that he would teach OT how to do it. OT stated that "Priyank" is not in the hospital. Pt participated in washing hair with tactile cues to scrub L side of scalp. Assistance x2 was needed for dynamic sitting balance of the pt and also to wash RLE and RUE. Pt repeatedly attempted to stand after shower and during donning of shirt. OT continually stated her safety precautions. Pt transferred from shower bench to w/ where assistance was needed for LE dressing. Pt propelled to therapy gym with minimal pushing of the w/c from OT. In therapy gym, pt participated in UE exercises of active R shoulder flexion and passive L shoulder flexion. Pt also participated in a visual scanning and reaching across midline activity towards L side. Pt mentioned to OT that she had to use the restroom, OT took pt back to her room. Pt transferred from w/c to [facility]. [id number]: Pt stated that she was done using the restroom, but while OT performing hygiene, she did not use the restroom. OT explained to pt that she did not use the restroom and asked if she felt the need. Pt mentioned she did not have too as she had already went and was transferred from [facility] to recliner. SPT towards L side, assist x2 and max verbal and tactile cues to step with L leg. Pt participated in oral hygiene. OT assisted with denture care with soaking and brushing dentures and pt brushed gums at supervision. Pt was left in recliner with call light on R side and all needs met. Chair alarm on. Education OT Patient Education: Correct positioning, Exercise program, Modified ADL techniques, Progress toward Goal/Update tx plan, Purpose of tx/functional activities, Reviewed precautions, Safety issues, Transfer techniques, W/C management Teaching Recipient: Patient Teaching Methods: Demonstration, Discussion Response to Teaching: Unable to Comprehend, Reinforcement Needed OT Short Term Goals Short Term Goals Time Frame: Nov 30, 2020 Oral hygiene: 5 Shower/bathe self: 3 Upper body dressin Lower body dressin OT Electric Car Operator Goals Electric Car Operator Goals Time Frame: Dec 09, 2020 Eating (QC): 6 Oral Hygiene (QC): 6 Toileting Hygiene (QC): 4 Shower/Bathe Self (QC): 4 Upper Body Dressing (QC): 5 Lower Body Dressing (QC): 4 On/Off Footwear (QC): 4 Additional Goals: 1-Demonstrate ADL Tasks, 2-Verbalize Understanding, 3- ImproveStrength/Cooper 1=Demonstrate adherence to instructed precautions during ADL tasks. 2=Patient will verbalize/demonstrate understanding of assistive devices/modifications for ADL. 3=Patient will improve strength/tolerance for activity to enable patient to perform ADL's. OT Education/Plan Problem List/Assessment Assessment: Decreased Safety Aware, Decreased UE Strength, Impaired Cognition, Impaired Coordination, Impaired Funct Balance, Impaired I ADL's, Impaired Self- Care Skills, Restricted Funct UE ROM, Visual-Perceptual Deficit Discharge Recommendations Plan/Recommendations: Continue POC Treatment Plan/Plan of Care Patient would benefit from OT for education, treatment and training to promote independence in ADL's, mobility, safety and/or upper extremity function for ADL's. Plan of Care: ADL Retraining, Functional Mobility, Group Exercise/Act as Ind, UE Funct Exercise/Act, UE Neuromus Re-Ed/Coord, Visual/Perceptual Retrain Treatment Duration: Dec 09, 2020 Frequency: At least 5 of 7 days/Wk (IRF) Estimated Hrs Per Day: 1.5 hours per day Agreement: Yes Rehab Potential: Fair Time/GCodes Start Time: 08:00 Stop Time: 09:15 Total Time Billed (hr/min): 75 Billed Treatment Time [id number]: OT/PT cotreat. [id number]: OT tx 1, ADL 3 (45'), FA (15'), EX (15') JOAN JACOBSON OT Nov 22, 2020 09:21
[2020-11-22] MEDS: ALPRAZolam 0.25 MG (XANAX) TAB PO PRN (09:33)
[2020-11-22] MEDS: FLUTICASONE NASAL SPRAY (FLONASE) 16 GM BTL NS SCH (09:36)
--- NOTE | 2020-11-22 11:50 | Speech Therapy Daily Note ---
Speech Daily Progress Note Subjective Date Seen by Provider: Nov 22, 2020 Time Seen by Provider: 00:30 Patient was resting in her bed when I entered her room. She did alert and participate with therapy. Objective Patient completed a series of safety awareness cards for unsafe scenarios she may encounter at 75% with min to mod verbal/visual cues. Assessment Assessment Current Status: Fair Progress Treatment Plan Continue Plan of Care Speech Short Term Goals Short Term Goals Short Term Goals 1) The patient will complete memory tasks related to her daily needs at 80% or greater with minimal cuing. 2) The patient will complete problem solving tasks related to her daily needs at 80% or greater with minimal cuing. 3) The patient will complete safety awareness related to her daily needs at 80% or greater with minimal cuing. Speech Fdc Goals Gum Remover Goals Patient will improve cognitive communication skills in order to require decreased assist with daily tasks. Speech-Plan Patient/Family Goals Patient/Family Goals: Patient plans on returning to her home where she lives with her . Treatment Plan Speech Therapy Treatment Plan: Continue Plan of Care Treatment Duration: Dec 02, 2020 Frequency: 4 times per week (Patient will receive skilled ST 4-5x per week) Estimated Hrs Per Day: .5 hour per day Rehab Potential: Fair Barriers to Learning: Patient's recent CVA, prior health issues, left side neglect Pt/Family Agrees to Plan: Yes Safety Risks/Education Teaching Recipient: Patient Teaching Methods: Demonstration, Discussion Response to Teaching: Verbalize Understanding, Return Demonstration Education Topics Provided: Continued safety within her room Time Speech Therapy Time In: 10:30 Speech Therapy Time Out: 11:00 Total Billed Time: 30 Billed Treatment Time 1KYLIE BETHAN[address] ST Nov 22, 2020 11:50
--- NOTE | 2020-11-22 14:06 | Physical Therapy Daily Note ---
PT Daily Note-Current Subjective Pt is supine in bed, asleep upon arrival to room. Pt is very difficult to awaken, and requires multiple attempts to awaken throughout session. Appearance Following session, pt supine in bed with call light within reach on R side of bed. All needs met at this time. Mental Status Patient Orientation: Person Transfers SCALE: Activities may be completed with or without assistive devices. 0-Qhoaatwnsk-qtsnfoz completes the activity by him/herself with no assistance from a helper. 5-Set-up or Clean-up Assistance-helper sets up or cleans up; patient completes activity. [place] assists only prior to or following the activity. 4-Supervision or Touching Assistance-helper provides verbal cues and/or touching/steadying and/or contact guard assistance as patient completes activity. Assistance may be provided throughout the activity or intermittently. 3-Partial/Moderate Assistance-helper does LESS THAN HALF the effort. [place] lifts, holds or supports trunk or limbs, but provides less than half the effort. 2-Substantial/Maximal Assistance-helper does MORE THAN HALF the effort. [place] lifts or holds trunk or limbs and provides more than half the effort. 3-Pxrxbobup-qaihiq does ALL the effort. Patient does none of the effort to complete the activity. Or, the assistance of 2 or more helpers is required for the patient to complete the activity. If activity was not attempted, code reason: 7-Patient Refused. 9-Not Applicable-not attempted and the patient did not perform the activity bef ore the current illness, exacerbation or injury. 10-Not Attempted due to Environmental Limitations-(lack of equipment, weather r estraints, etc.). 88-Not Attempted due to Medical Conditions or Safety Concerns. Weight Bearing Full Weight Bearing Full Weight Bearing Exercises Supine Ex: Ankle pumps, Quad Set, Glut sets, Heel Slides, Resisted flex/ext, D1 F/E UE, Straight leg raise, Hip abd/add Treatments Pt difficult to awaken throughout session, and she falls asleep in the middle of the session multiple times. Supine TherEx completed for LE strengthening. Assessment Current Status: Fair Progress Pt drowsy from AM session and difficulty sleeping last night. Will continue to progress functional activities as able. PT Short Term Goals Short Term Goals Time Frame: Nov 22, 2020 Roll Left & Right: 3 Sit to lyin Lying to sitting on side of be: 3 Sit to stand: 3 Chair/hua-qy-ubzsc transfer: 3 Walk 10 feet: 3 PT Correction Goals Office Machine Inspector Goals PT Correction Goals Time Frame: Dec 06, 2020 Roll Left & Right (QC): 3 (Joel) Sit to Lying (QC): 3 (Joel) Lying-Sitting on Side/Bed(QC): 3 (Joel) Sit to Stand (QC): 3 (Joel) Chair/Zvm-xw-Zzqsg Xfer(QC): 3 (Joel) Toilet Transfer (QC): 3 (Joel) Car Transfer (QC): 3 (Joel) Does the Patient Walk: Yes Walk 10 feet (QC): 3 (Joel) Walk 50ft with 2 Turns (QC): 3 (Joel) Walk 150 ft (QC): 88 Walking 10ft on Uneven Surface: 88 1 Step (curb) (QC): 88 4 Steps (QC): 88 12 Steps (QC): 88 Picking up an Object (QC): 88 Wheel 50 feet with 2 turns (QC: 4 Wheel 150 feet: 4 PT Plan Problem List Problem List: Activity Tolerance, Functional Strength, Safety, Balance, Gait, Transfer, Bed Mobility, ROM Treatment/Plan Treatment Plan: Continue Plan of Care Treatment Plan: Bed Mobility, Education, Functional Activity Cooper, Functional Strength, Group Therapy, Gait, Safety, Therapeutic Exercise, Transfers Treatment Duration: Dec 06, 2020 Frequency: At least 5 of 7 days/Wk (IRF) Estimated Hrs Per Day: 1.5 hours per day Patient and/or Family Agrees t: Yes Time/GCodes Time In: 1335 Time Out: 1355 Total Billed Treatment Time: 20 Total Billed Treatment 1 visit Ex (20') AMIRAH MA PT Nov 22, 2020 14:06
[2020-11-22 15:32] VITALS: BP 101/57
[2020-11-22] MEDS: ENOXAPARIN 40 MG/0.4 ML (LOVENOX) SYR SC SCH (18:44)
--- NOTE | 2020-11-22 19:06 | NUR ---
Bedside report received from GLADYS CORDERO, assume care of pt
[2020-11-22] MEDS: MONTELUKAST 10 MG (SINGULAIR) TAB PO SCH (20:55)
[2020-11-22] MEDS: MELATONIN 3 MG TABLET PO PRN (20:58)
--- NOTE | 2020-11-22 20:59 | NUR ---
Pt refused Colace, Miralax & Senokot, c/o pain generalized , pain level 7/10 on numeric scale, given Lortab 5 1 tab
[2020-11-22] MEDS: CYCLOBENZAPRINE 10 MG (FLEXERIL) TAB PO SCH (21:05)
--- NOTE | 2020-11-22 21:05 | NUR ---
fsbs 137 no ss insulin req
--- NOTE | 2020-11-22 21:40 | NUR ---
Rates pain 4/10 on numeric scale
--- NOTE | 2020-11-22 23:50 | NUR ---
Asking this nurse for a cigarette, advised can not smoke in or around the hospital & this nurse does not smoke, pt states to this nurse i expect that out of your mom but I know you smoke, advised pt this nurse is allergic to smoke so this nurse does not smoke nor ever smoked & she has a nicotine patch to help with cravings
[2020-11-23] MEDS: ALPRAZolam 0.25 MG (XANAX) TAB PO PRN (00:02)
--- NOTE | 2020-11-23 00:02 | NUR ---
Xanax 0.25mg given for anxiety
[2020-11-23 06:20] VITALS: BP 148/63
[2020-11-23] MEDS: HYDROcodone/APAP 5 MG/325 MG (LORTAB) TAB PO PRN (06:24)
[2020-11-23] MEDS: KCL 20 MEQ TAB (K-DUR) PO SCH (06:24)
[2020-11-23] MEDS: LEVOTHYROXINE 88 MCG (LEVOTHORID) TAB PO SCH (06:24)
--- NOTE | 2020-11-23 06:24 | NUR ---
c/o back pain, level 5/10 on numeric scale, lortab 5 1 tab given
--- NOTE | 2020-11-23 07:05 | NUR ---
Rates pain at 3/10 on numeric scale
[2020-11-23] MEDS: ADVAIR HFA 45/21 MCG INHALER 8 GM IH SCH ×2 (07:51→20:36)
--- NOTE | 2020-11-23 08:45 | PM&R Progress Note ---
Subjective HPI/CC On Admission Date Seen by Provider: Nov 23, 2020 Time Seen by Provider: 09:00 Subjective/Events-last exam 11/23/20: Pt participating in PT Wheelchair mobility focused on Will have family education on Saturday, to see if family is able to accommodate her needs but she remains completely dependent Denies any significant other issues Hallucinates often 11/22/20: No major issues Mentally she is a little bit more alert but very debilitated and cognitively deficient BM yesterday and she was incontinent 11/21/20: Pt doing pretty well Labs okay Sugars are good Hgb stable Bowels moved two days ago 11/20/20: Nicotine patch on and still asks to go outside to smoke More alert today Confusion is significant No issues otherwise 11/19/20: Refuses Advair since she states it makes her wheeze No pain reported Confusion apparent Unclear of recovery potential 11/18/20: Doing well Confusion noted BM finally after aggressive regimen More alert today 11/17/20: No BM since 11/12 Laxatives and supp will be given Facial droop appears less pronounced Confusion noted 11/16/20: Sugar is 198 receiving sliding scale Improvement on transfers already Bowels moved on November 12 so given laxatives Pt has some unreliable information most of the time Nicotine patch reordered Focus is very poor, requires constant cues Review of Systems Neurological: Weakness, Incoordination, Confusion Objective Exam Vital Signs Vital Signs Date Time Temp Pulse Resp B/P (MAP) Pulse Ox O2 Delivery O2 Flow Rate FiO2 11/23/20 21:00 Room Air 11/23/20 18:07 36.4 72 16 111/55 (73) 96 11/21/20 18:45 95 Capillary Refill : Less Than 3 Seconds General Appearance: No Apparent Distress, WD/WN, Anxious, Chronically ill HEENT: PERRL/EOMI, Normal ENT Inspection, Pharynx Normal Neck: Full Range of Motion, Normal Inspection, Non Tender, Supple, Carotid Bruit Respiratory: Chest Non Tender, Normal Breath Sounds, No Accessory Muscle Use, No Respiratory Distress, Decreased Breath Sounds Cardiovascular: Regular Rate, Rhythm, No Edema, No Gallop, No JVD, No Murmur, Normal Peripheral Pulses Gastrointestinal: Normal Bowel Sounds, No Organomegaly, No Pulsatile Mass, Non Tender, Soft Back: Normal Inspection, No CVA Tenderness, No Vertebral Tenderness Extremity: Normal Capillary Refill, Normal Inspection, Normal Range of Motion, Non Tender, No Calf Tenderness, No Pedal Edema Neurologic/Psychiatric: Alert, Oriented x3, Abnormal Gait, Aphasia (partial), Depressed Affect, Facial Droop (left), Motor Weakness (left sided weakness 1/5) Skin: Normal Color, Warm/Dry Lymphatic: No Adenopathy Results/Procedures Lab Patient resulted labs reviewed. FIM Transfers Therapy Code Descriptions/Definitions Functional [place] Measure: 0=Not Assessed/NA 4=Minimal Assistance 1=Total Assistance 5=Supervision or Setup 2=Maximal Assistance 6=Modified [place] 3=Moderate Assistance 7=Complete IndependenceSCALE: Activities may be completed with or without assistive devices. 9-Elhhvgpgai-xogktrl completes the activity by him/herself with no assistance from a helper. 5-Set-up or Clean-up Assistance-helper sets up or cleans up; patient completes activity. [place] assists only prior to or following the activity. 4-Supervision or Touching Assistance-helper provides verbal cues and/or touching/steadying and/or contact guard assistance as patient completes activity. Assistance may be provided throughout the activity or intermittently. 3-Partial/Moderate Assistance-helper does LESS THAN HALF the effort. [place] lifts, holds or supports trunk or limbs, but provides less than half the effort. 2-Substantial/Maximal Assistance-helper does MORE THAN HALF the effort. [place] lifts or holds trunk or limbs and provides more than half the effort. 7-Paymcdbfx-cocvky does ALL the effort. Patient does none of the effort to complete the activity. Or, the assistance of 2 or more helpers is required for the patient to complete the activity. If activity was not attempted, code reason: 7-Patient Refused. 9-Not Applicable-not attempted and the patient did not perform the activity before the current illness, exacerbation or injury. 10-Not Attempted due to Environmental Limitations-(lack of equipment, weather restraints, etc.). 88-Not Attempted due to Medical Conditions or Safety Concerns. Roll Left to Right (QC): 3 Sit to Lying (QC): 1 Sit to Stand (QC): 2 Chair/Xre-cf-Drcox Xfer(QC): 2 (did take 5 steps with PT advancing left LE ) Car Transfer (QC): 2 Gait Training Does the Patient Walk?: Yes Distance: 6'x3 Walk 10 feet (QC): 88 Walk 50 ft with 2 Turns(QC): 88 Walk 150 ft (QC): 88 Walking 10ft/uneven surface-QC: 88 Gait Persons Needed: 2 Gait Assistive Device: Parallel Bars Wheelchair Training Does the Pt Use a Wheelchair?: Yes Wheel 50 ft with 2 turns (QC): 3 Wheel 150 ft (QC): 3 Type of Wheelchair: Manual Stair Training 1 Step (curb) (QC): 88 4 Steps (QC): 88 12 Steps (QC): 88 Balance Picking up an Object (QC): 88 ADL-Treatment Eating (QC): 5 (set up assistance with cutting food. Pt then able to eat.) Oral Hygiene (QC): 3 (ModA, pt took out dentures, brushed gums and managed denture cream with minimal assist from OT. OT also brushed dentures) Bathing Location: L Arm, L Upper Leg, R Upper Leg, R Lower Leg (including foot), Chest, Abdomen Shower/Bathe Self (QC): 1 (ModA overall for task, pt washed LLE by crossing over R, wash trunk and LUE. Assist for raising LUE. Assist x2 needed due to pt's impulsivity and insistance on wanting to stand throughout shower.) Upper Body Dressing (QC): 2 (MaxA, pt could thread RUE and head through shirt. Assitance for thread LUE and adjust over trunk) Lower Body Dressing (QC): 1 (Assist x2, pt needed assistance with threading feet through and pants hike when standing. Pt was able to pull pants above knees while sitting) On/Off Footwear (QC): 2 (MaxA, pt was able to doff L sock by crossing over R. Pt crossed R leg over L, but needed assistance doffing R. Assistance for donning socks) Toileting Hygiene (QC): 1 (Assist x2 while standing for hygiene) Toilet Transfer (QC): 1 (Assist x2. needed max verbal and tactile cues to step with left foot) Assessment/Plan Assessment and Plan Assess & Plan/Chief Complaint Assessment: CVA Left sided weakness Left sided neglect HTN DM HLP Smoker COPD Chronic pain Plan: IRF protocol Pain meds home dosing BM regimen Monitor O2 11/16/20: Monitor sugar Increase therapy Monitor confusion 11/17/20: Confusion noted BM regimen 11/18/20: BM regimen successful now maintain Monitor confusion Work on transfers to decrease caregiver burden 11/19/20: Confusion monitored Monitor BP and sugar 11/20/20: Monitor BP and glucose Labs tomorrow Monitor for falls 11/21/20: Labs good Monitor confusion Monitor for falls 11/22/20: Incontinence care Monitor confusion Monitor BP 11/23/20: Family education to eval options at DC Monitor hallucinations (1) CVA (cerebral vascular accident) (2) Diabetes (3) Hypertension (4) Left-sided weakness (5) Smoker (6) Hyperlipemia (7) Odilon-neglect of left side TITA LUBIN DO Nov 23, 2020 08:45
[2020-11-23] MEDS: ALLOPURINOL 100 MG (ZYLOPRIM) TAB PO SCH ×2 (08:54→20:28)
[2020-11-23] MEDS: PANTOPRAZOLE 20 MG TABLET (PROTONIX) PO SCH (08:54)
[2020-11-23] MEDS: metFORMIN 500 MG (GLUCOPHAGE) TAB PO SCH ×2 (08:54→18:18)
[2020-11-23] MEDS: DOCUSATE SODIUM 100 MG (COLACE) CAP PO SCH ×2 (08:54→20:28)
[2020-11-23] MEDS: LOSARTAN 25 MG (COZAAR) TAB PO SCH (08:54)
[2020-11-23] MEDS: CLOPIDOGREL 75 MG (PLAVIX) TABLET PO SCH (08:54)
[2020-11-23] MEDS: FUROSEMIDE 40 MG (LASIX) TAB PO SCH (08:54)
[2020-11-23] MEDS: ASPIRIN 81 MG CHEW (CHILDREN'S ASA) PO SCH (08:54)
[2020-11-23] MEDS: LEVETIRACETAM 500 MG (KEPPRA) TAB PO SCH ×2 (08:55→20:27)
[2020-11-23] MEDS: SENNA W/DOCUSATE (SENOKOT S) TABLET PO SCH ×2 (09:01→20:28)
[2020-11-23] MEDS: polyethylene glycoL POWDER 17 GM (MIRALAX) PACK PO SCH ×2 (09:01→20:35)
[2020-11-23] MEDS: NICOTINE 21 MG (NICODERM) PATCH TD SCH (09:02)
[2020-11-23] MEDS: MICONAZOLE 2% POWDER (DESENEX AF) 90 GM TOP SCH ×3 (09:03→20:30)
[2020-11-23] MEDS: PROPRANOLOL LA 120 MG (INDERAL LA) CAP NON-FORMULARY PO SCH ×2 (09:47→20:28)
[2020-11-23] MEDS: TRESIBA FLEXTOUCH 200 UNITS/ML SQ SCH (09:47)
[2020-11-23] MEDS: DIVALPROEX 500 MG DELAYED RELEASE (DEPAKOTE) TAB PO SCH ×2 (09:47→20:29)
[2020-11-23] MEDS: VIMPAT 100 MG PO SCH ×2 (09:47→20:30)
[2020-11-23] MEDS: FLUTICASONE NASAL SPRAY (FLONASE) 16 GM BTL NS SCH (09:47)
[2020-11-23] MEDS: NICOTINE PATCH REMOVAL TP SCH (09:48)
--- NOTE | 2020-11-23 10:58 | Occupational Ther Daily Note ---
OT Current Status-Daily Note Subjective Pt agrees to OT/PT cotreat. Pt thought OT was a relative, insisting that this therapist had kids. OT attempted to redirect pt to being in the hospital and informed pt that this therapist does not have kids. Pt kept insisting that this therapist did, pt difficult to redirect. Mental Status/Objective Patient Orientation: Person, Confused ADL-Treatment Therapy Code Descriptions/Definitions Functional [place] Measure: 0=Not Assessed/NA 4=Minimal Assistance 1=Total Assistance 5=Supervision or Setup 2=Maximal Assistance 6=Modified [place] 3=Moderate Assistance 7=Complete IndependenceSCALE: Activities may be completed with or without assistive devices. 4-Eafxvsyuqg-wxtctfq completes the activity by him/herself with no assistance from a helper. 5-Set-up or Clean-up Assistance-helper sets up or cleans up; patient completes activity. [place] assists only prior to or following the activity. 4-Supervision or Touching Assistance-helper provides verbal cues and/or touching/steadying and/or contact guard assistance as patient completes activity. Assistance may be provided throughout the activity or intermittently. 3-Partial/Moderate Assistance-helper does LESS THAN HALF the effort. [place] lifts, holds or supports trunk or limbs, but provides less than half the effort. 2-Substantial/Maximal Assistance-helper does MORE THAN HALF the effort. [place] lifts or holds trunk or limbs and provides more than half the effort. 8-Sjslfpmup-gyqqer does ALL the effort. Patient does none of the effort to complete the activity. Or, the assistance of 2 or more helpers is required for the patient to complete the activity. If activity was not attempted, code reason: 7-Patient Refused. 9-Not Applicable-not attempted and the patient did not perform the activity before the current illness, exacerbation or injury. 10-Not Attempted due to Environmental Limitations-(lack of equipment, weather restraints, etc.). 88-Not Attempted due to Medical Conditions or Safety Concerns. Upper Body Dressing (QC): 2 (MaxA, Needed tactile and verbal cues to thread R arm and thread shirt overhead. Pt needed assistance threading L arm and adjustment over trunk) Lower Body Dressing (QC): 1 (Assist x2 for pants hike. assistance needed for threading over feet. pt able to pull pants above knees while sitting) On/Off Footwear: 3 (ModA, needed assistance threading over toes and assist for adjustment, pt able to pull above ankle) Toileting Hygiene (QC): 1 (assist x2 for managing pants and hygiene) Other Treatment OT/PT cotreat due to skill of 2 clinicians required which a remote sensing technologist could not perform in order to coordinate UE/LE with tasks, and due to pt's limitations in strength, endurance, mobility, and L neglect. OT focused on UE placement, cues for sequencing and safety and ADLs, PT focused on LE placement, transfers, gross overall movement and ambulation. Pt donned socks in recliner by crossing legs over (leg rest up on chair). Pt needed assistance for crossing L leg over right and assistance for uncrossing L leg. Pt mentioned needing to use the restroom before tx. pt transferred from recliner to [facility] [place]. Once hygiene was completed by OT, pt transferred from [facility] top w/ using SPT. Pt propelled to therapy gym with minimal pushing and verbal and tactile cues to continue propelling. Pt walked through parallel bars 3x through with a rest breaks in between. Assistance required to position LUE onto bar and to advance. Pt transferred from w/ to therapy mat using a SPT. In order to increase proprioception inout to LUE, pt performed weight bearing activity to L side, OT assisted pt with maintaining extended elbow. Pt also completed 2x5 reps of weight bearing through forearm and pushing up to sitting position. Pt educated on leg devulcanizer loader, trial attempted but pt required max assistance using leg devulcanizer loader sit <-> supine. Pt transferred from mat to w/ using SPT and propelled back to room with minimal pushing from OT and tactile and verbal cues to continue to propel w/c. Once in room, pt transferred back to recliner, chair alarm set, call light on R side and all needs met. Education OT Patient Education: Correct positioning, Modified ADL techniques, Progress toward Goal/Update tx plan, Purpose of tx/functional activities, Safety issues, Transfer techniques, Use of adapted equipment, W/C management Teaching Recipient: Patient Teaching Methods: Demonstration, Discussion Response to Teaching: Unable to Comprehend, Reinforcement Needed OT Short Term Goals Short Term Goals Time Frame: Nov 30, 2020 Oral hygiene: 5 Shower/bathe self: 3 Upper body dressin Lower body dressin OT Bending Roll Hand Goals Shelter Goals Time Frame: Dec 09, 2020 Eating (QC): 6 Oral Hygiene (QC): 6 Toileting Hygiene (QC): 4 Shower/Bathe Self (QC): 4 Upper Body Dressing (QC): 5 Lower Body Dressing (QC): 4 On/Off Footwear (QC): 4 Additional Goals: 1-Demonstrate ADL Tasks, 2-Verbalize Understanding, 3- ImproveStrength/[place]oper 1=Demonstrate adherence to instructed precautions during ADL tasks. 2=Patient will verbalize/demonstrate understanding of assistive devices/modifications for ADL. 3=Patient will improve strength/tolerance for activity to enable patient to perform ADL's. OT Education/Plan Problem List/Assessment Assessment: Decreased Activ Tolerance, Decreased UE Strength, Impaired Funct B alance, Impaired I ADL's, Impaired Self-Care Skills, Restricted Funct UE ROM, Visual-Perceptual Deficit Discharge Recommendations Plan/Recommendations: Continue POC Treatment Plan/Plan of Care Patient would benefit from OT for education, treatment and training to promote independence in ADL's, mobility, safety and/or upper extremity function for ADL's. Plan of Care: ADL Retraining, Functional Mobility, Group Exercise/Act as Ind, U E Funct Exercise/Act, UE Neuromus Re-Ed/Coord, Visual/Perceptual Retrain Treatment Duration: Dec 09, 2020 Frequency: At least 5 of 7 days/Wk (IRF) Estimated Hrs Per Day: 1.5 hours per day Agreement: Yes Rehab Potential: Fair Time/GCodes Start Time: 08:00 Stop Time: 09:15 Total Time Billed (hr/min): 75 Billed Treatment Time PT/OT cotreat x75' 1, ADL 2 (30'), FA (20'), NM 2 (25') JOAN JACOBSON OT Nov 23, 2020 10:58
--- NOTE | 2020-11-23 11:07 | Speech Therapy Daily Note ---
Speech Daily Progress Note Subjective Date Seen by Provider: Nov 23, 2020 Time Seen by Provider: 00:30 Patient was sitting in her recliner, c/o lower back pain. Patient was lethargic during the session, requiring frequent prompts to complete task. Objective Patient completed a series of safety awareness cards related to scenarios she may encounter with 70% given mod to max cuing. Assessment Assessment Current Status: Fair Progress Treatment Plan Continue Plan of Care Speech Short Term Goals Short Term Goals Short Term Goals 1) The patient will complete memory tasks related to her daily needs at 80% or greater with minimal cuing. 2) The patient will complete problem solving tasks related to her daily needs at 80% or greater with minimal cuing. 3) The patient will complete safety awareness related to her daily needs at 80% or greater with minimal cuing. Speech Roof Painter Goals Roof Painter Goals Patient will improve cognitive communication skills in order to require decreased assist with daily tasks. Speech-Plan Patient/Family Goals Patient/Family Goals: Patient plans on returning to her home where she lives with her . Treatment Plan Speech Therapy Treatment Plan: Continue Plan of Care Treatment Duration: Dec 02, 2020 Frequency: 4 times per week (Patient will receive skilled ST 4-5x per week) Estimated Hrs Per Day: .5 hour per day Rehab Potential: Fair Barriers to Learning: Patient's prior illness', current CVA and related deficits Pt/Family Agrees to Plan: Yes Safety Risks/Education Teaching Recipient: Patient Teaching Methods: Demonstration, Discussion Response to Teaching: Verbalize Understanding, Return Demonstration, Reinforce ment Needed Education Topics Provided: Continued safety within her room and utilizing call light as needed Time Speech Therapy Time In: 10:00 Speech Therapy Time Out: 10:30 Total Billed Time: 30 Billed Treatment Time 1KYLIE BETHAN[address] ST Nov 23, 2020 11:07
--- NOTE | 2020-11-23 13:49 | Physical Therapy Daily Note ---
PT Daily Note-Current Subjective Pt agrees to OT/PT cotreat. Pt thought OT was a relative, insisting that OT had kids. OT attempted to redirect pt to being in the hospital and informed pt that therapist does not have kids. Pt kept insisting that therapist did, pt difficult to redirect. Pain Location: No Pain Reported Mental Status Patient Orientation: Person, Confused Transfers SCALE: Activities may be completed with or without assistive devices. 7-Kedkqzohuk-cpdwoev completes the activity by him/herself with no assistance from a helper. 5-Set-up or Clean-up Assistance-helper sets up or cleans up; patient completes activity. [place] assists only prior to or following the activity. 4-Supervision or Touching Assistance-helper provides verbal cues and/or touching/steadying and/or contact guard assistance as patient completes activity. Assistance may be provided throughout the activity or intermittently. 3-Partial/Moderate Assistance-helper does LESS THAN HALF the effort. [place] l ifts, holds or supports trunk or limbs, but provides less than half the effort. 2-Substantial/Maximal Assistance-helper does MORE THAN HALF the effort. [place] lifts or holds trunk or limbs and provides more than half the effort. 5-Dyhzjuhjx-jntlxe does ALL the effort. Patient does none of the effort to complete the activity. Or, the assistance of 2 or more helpers is required for t he patient to complete the activity. If activity was not attempted, code reason: 7-Patient Refused. 9-Not Applicable-not attempted and the patient did not perform the activity before the current illness, exacerbation or injury. 10-Not Attempted due to Environmental Limitations-(lack of equipment, weather restraints, etc.). 88-Not Attempted due to Medical Conditions or Safety Concerns. Sit to Stand (QC): 4 Toilet Transfer (QC): 4 VC for picking up L foot to advance. Weight Bearing Full Weight Bearing Full Weight Bearing Gait Training Does the Patient Walk?: Yes Distance: 8' x3 Walk 10 feet (QC): 3 Gait Persons Needed: 2 Gait Assistive Device: Parallel Bars Pt needs VC for advancing L LE and assistance for advancing L UE. Treatments OT/PT cotreat due to skill of 2 clinicians required which a rehab physician could not perform in order to coordinate UE/LE with tasks, and due to pt's limitations in strength, endurance, mobility, and L neglect. OT focused on UE placement, cues for sequencing and safety and ADLs, PT focused on LE placement, transfers, gross overall movement and ambulation. Pt donned socks in recliner by crossing legs over (leg rest up on chair). Pt needed assistance for crossing L leg over right and assistance for uncrossing L leg. Pt mentioned needing to use the restroom before tx. pt transferred from recliner to [facility] using SPT. Once hygiene was completed by OT, pt transferred from [facility] top w/ using SPT. Pt propelled to therapy gym with minimal pushing and verbal and tactile cues to continue propelling. Pt walked through parallel bars 3x through with a rest breaks in between. Assistance required to position LUE onto bar and to advance. Pt transferred from w/c to therapy mat using a SPT. In order to increase proprioception inout to LUE, pt performed weight bearing activity to L side, OT assisted pt with maintaining extended elbow. Pt also completed 2x5 reps of weight bearing through forearm and pushing up to sitting position. Pt educated on leg recruitment and outreach assistant, trial attempted but pt required max assistance using leg recruitment and outreach assistant sit <-> supine. Pt transferred from mat to w/ using SPT and propelled back to room with minimal pushing from OT and tactile and verbal cues to continue to propel w/c. Once in room, pt transferred back to recliner, chair alarm set, call light on R side and all needs met. Assessment Current Status: Fair Progress Pt remains confused although can follow directions when given VC & TC to complete. PT Short Term Goals Short Term Goals Time Frame: Nov 22, 2020 Roll Left & Right: 3 Sit to lyin Lying to sitting on side of be: 3 Sit to stand: 3 Chair/vtv-bt-gkijh transfer: 3 Walk 10 feet: 3 PT Custodial Goals Custodial Goals PT New Patient Escort Goals Time Frame: Dec 06, 2020 Roll Left & Right (QC): 3 (Joel) Sit to Lying (QC): 3 (Joel) Lying-Sitting on Side/Bed(QC): 3 (Joel) Sit to Stand (QC): 3 (Joel) Chair/Uyl-yl-Kqjca Xfer(QC): 3 (Joel) Toilet Transfer (QC): 3 (Joel) Car Transfer (QC): 3 (Joel) Does the Patient Walk: Yes Walk 10 feet (QC): 3 (Joel) Walk 50ft with 2 Turns (QC): 3 (Joel) Walk 150 ft (QC): 88 Walking 10ft on Uneven Surface: 88 1 Step (curb) (QC): 88 4 Steps (QC): 88 12 Steps (QC): 88 Picking up an Object (QC): 88 Wheel 50 feet with 2 turns (QC: 4 Wheel 150 feet: 4 PT Plan Problem List Problem List: Activity Tolerance, Functional Strength, Balance Treatment/Plan Treatment Plan: Continue Plan of Care Treatment Plan: Bed Mobility, Education, Functional Activity Cooper, Functional Strength, Group Therapy, Gait, Safety, Therapeutic Exercise, Transfers Treatment Duration: Dec 06, 2020 Frequency: At least 5 of 7 days/Wk (IRF) Estimated Hrs Per Day: 1.5 hours per day Patient and/or Family Agrees t: Yes Safety Risks/Education Patient Education: Transfer Techniques, Correct Positioning, W/C Management, Safety Issues Teaching Recipient: Patient Teaching Methods: Discussion Response to Teaching: Reinforcement Needed Time/GCodes Time In: 800 Time Out: 915 Total Billed Treatment Time: 75 Total Billed Treatment 1, WCH (20m), FA x3 (45m) & GT (10m) HILDA BRADLEY PTA Nov 23, 2020 13:49
--- NOTE | 2020-11-23 15:19 | NUR ---
"RD ASSESSMENT PMHx: COPD; hypercholesterolemia; HTN; seizure disorder; stroke; DM; PT INTERACTION: Pt was awake and pleasant during nutrition follow-up. Pt states she has been eating okay since last assessment. Note avg PO intake 25-50% x4d, per chart review. Pt states no issues with nausea, vomiting, constipation, or diarrhea since last assessment. Note last BM was 11/22, and pt currently on bowel regimen of colace BID, senna BID, and miralax BID, per chart review. Est. kcal needs: 7518-6663 kcal | 15-20 kcal/kg Est. Pro needs: 62-78 g Pro | 0.8-1.0 g Pro/kg PES STATEMENT: Inadequate oral intake (NI-2.1) related to loss of appetite, as evidenced by pt interview, and avg PO intake 25-50% x4d. INTERVENTION: Continue with current diet order of CHO 60g/m 3snack diet. Add Glucerna (vary) to meals TID, for increased kcal intake. Provides 220 kcal and 10 g Pro per serving. Will continue to follow and reassess as pt needs, intake, and status change. Kim JENKINS, MS RD LD [phone] cell"
--- NOTE | 2020-11-23 15:25 | NUR ---
CM/SS PATIENT CARE CONFERENCE Patient is unable to engage meaningfully regarding review of Summary, discussed with spouse Carlos Zamora by phone. He has agreed to come November 25, to participate in her therapy sessions to determine whether he can care for her in their home. Notified involved staff and updated communication board. She is incontinent of bowel and bladder, dependent of two for toileting and showering, dependent otherwise for assistance of at least one. She is unable to manage using her telephone which she had been able to do prior. Regarding Carlos's proposal to use her power wheelchair, team consensus was that she would not be cognitively or physically able to safely control. Patient may in fact require admission to a intermediate school teacher care arrangement, Medicare skilled vs Medicaid long term status. Would pursue closer to their home in [place], to be confirmed once Carlos has had a chance to assess. He works power tong operator and has to be able to continue to do that. Discuss with Carlos post education and observation of patient's current care needs.
[2020-11-23 18:07] VITALS: BP 111/55
[2020-11-23] MEDS: ENOXAPARIN 40 MG/0.4 ML (LOVENOX) SYR SC SCH (18:18)
[2020-11-23] MEDS: CYCLOBENZAPRINE 10 MG (FLEXERIL) TAB PO SCH (20:27)
[2020-11-23] MEDS: MONTELUKAST 10 MG (SINGULAIR) TAB PO SCH (20:28)
[2020-11-24] MEDS: ALPRAZolam 0.25 MG (XANAX) TAB PO PRN (02:54)
[2020-11-24 05:57] VITALS: BP 123/68
[2020-11-24] MEDS: LEVOTHYROXINE 88 MCG (LEVOTHORID) TAB PO SCH (06:07)
[2020-11-24] MEDS: HYDROcodone/APAP 5 MG/325 MG (LORTAB) TAB PO PRN ×2 (07:17→19:46)
--- NOTE | 2020-11-24 09:20 | Occupational Ther Daily Note ---
OT Current Status-Daily Note Subjective Pt agreed to OT/PT cotreat. Pt yelled out for "Priyank". OT reassured pt that he is not at the hospital and we aren't allowing visitors. Pt mentioned no pain before tx, but having a lower back pain of 10/10 in the middle of tx. Mental Status/Objective Patient Orientation: Person, Confused ADL-Treatment Therapy Code Descriptions/Definitions Functional [place] Measure: 0=Not Assessed/NA 4=Minimal Assistance 1=Total Assistance 5=Supervision or Setup 2=Maximal Assistance 6=Modified [place] 3=Moderate Assistance 7=Complete IndependenceSCALE: Activities may be completed with or without assistive devices. 4-Piezdyafhj-xmdvttq completes the activity by him/herself with no assistance from a helper. 5-Set-up or Clean-up Assistance-helper sets up or cleans up; patient completes activity. [place] assists only prior to or following the activity. 4-Supervision or Touching Assistance-helper provides verbal cues and/or weston lorena/steadying and/or contact guard assistance as patient completes activity. Assistance may be provided throughout the activity or intermittently. 3-Partial/Moderate Assistance-helper does LESS THAN HALF the effort. [place] lifts, holds or supports trunk or limbs, but provides less than half the effort. 2-Substantial/Maximal Assistance-helper does MORE THAN HALF the effort. [place] lifts or holds trunk or limbs and provides more than half the effort. 1-Ituyjdvci-heklsy does ALL the effort. Patient does none of the effort to complete the activity. Or, the assistance of 2 or more helpers is required for the patient to complete the activity. If activity was not attempted, code reason: 7-Patient Refused. 9-Not Applicable-not attempted and the patient did not perform the activity before the current illness, exacerbation or injury. 10-Not Attempted due to Environmental Limitations-(lack of equipment, weather restraints, etc.). 88-Not Attempted due to Medical Conditions or Safety Concerns. Oral Hygiene (QC): 3 (ModA, pt able to brush gums with no cues. OT assisted with denture care and setting up toothbrush with toothpaste. Pt able to place fixodent onto dentures OT held.) Shower/Bathe Self (QC): 1 (Needed max verbal cues to wash trunk and under arms. needed assist x2 to wash buttocks while standing) Upper Body Dressing (QC): 2 (MaxA, pt able to thread R arm through with OT guiding hand through. OT assisted with threading L arm and head through shirt) Lower Body Dressing (QC): 1 (Pt able to pull pants above knees while sitting. OT assisted with threading B legs through. Assist x2 for pants hike while standing) On/Off Footwear: 1 (Pt required assistance donning and doffing gripper socks.) Other Treatment OT/PT cotreat due to skill of 2 clinicians required which a rehabilitation therapist could not perform in order to coordinate UE/LE with tasks, and due to pt's limitations in strength, endurance, mobility, and L neglect. OT focused on UE placement, cues for sequencing and safety and ADLs, PT focused on LE placement, transfers, gross overall movement and ambulation. Pt donned pants in recliner. Assistance x2 was needing for pants hike while sta nding, then transferred to w/. Pt propelled to therapy gym with minimal pushing and verbal and tactile cues from OT. Pt participated in ambulating at parallel bars with assistance x2 for instability while walking and correct L hand placement on parallel bar while walking. Pt ambulating through bars 4x through with a rest break in between and needed maximum verbal and tactile cues to stay on task and to step with L leg. Pt propelled back to room with minimal pushing and verbal cues given by OT. Pt participated in sponge bath in pt's room with moderate cues to wash body and to proceed to the next body part. OT assisted x2 with standing to wash buttocks and to don and doff pants. Pt brushed gums and applied denture adhesive with moderate assistance for placement of adhesive on dentures. OT also assisted with brushing dentures. Pt transferred from w/c to recliner and participated in UE exercises for the following; R shoulder flexion, R horizontal abduction, and R abduction, and L passive shoulder flexion, L hori zontal abduction and L abduction. Pt asked to call "Priyank" and OT assisted with making the phone call and left with chair alarm set, call light on R side and all needs met. Education OT Patient Education: Correct positioning, Modified ADL techniques, Progress toward Goal/Update tx plan, Purpose of tx/functional activities, Safety issues, W/C management Teaching Recipient: Patient Teaching Methods: Demonstration, Discussion Response to Teaching: Unable to Comprehend, Reinforcement Needed OT Short Term Goals Short Term Goals Time Frame: Nov 30, 2020 Oral hygiene: 5 Shower/bathe self: 3 Upper body dressin Lower body dressin OT Intermediate Goals Intermediate Goals Time Frame: Dec 09, 2020 Eating (QC): 6 Oral Hygiene (QC): 6 Toileting Hygiene (QC): 4 Shower/Bathe Self (QC): 4 Upper Body Dressing (QC): 5 Lower Body Dressing (QC): 4 On/Off Footwear (QC): 4 Additional Goals: 1-Demonstrate ADL Tasks, 2-Verbalize Understanding, 3-ImproveStrength/Cooper 1=Demonstrate adherence to instructed precautions during ADL tasks. 2=Patient will verbalize/demonstrate understanding of assistive devices/modifications for ADL. 3=Patient will improve strength/tolerance for activity to enable patient to perform ADL's. OT Education/Plan Problem List/Assessment Assessment: Decreased Activ Tolerance, Decreased Safety Aware, Decreased UE Strength, Impaired Cognition, Impaired Coordination, Impaired Funct Balance, Impaired I ADL's, Impaired Self-Care Skills, Restricted Funct UE ROM, Visual- Perceptual Deficit Discharge Recommendations Plan/Recommendations: Continue POC Treatment Plan/Plan of Care Patient would benefit from OT for education, treatment and training to promote independence in ADL's, mobility, safety and/or upper extremity function for ADL's. Plan of Care: ADL Retraining, Functional Mobility, Group Exercise/Act as Ind, UE Funct Exercise/Act, UE Neuromus Re-Ed/Coord, Visual/Perceptual Retrain Treatment Duration: Dec 09, 2020 Frequency: At least 5 of 7 days/Wk (IRF) Estimated Hrs Per Day: 1.5 hours per day Agreement: Yes Rehab Potential: Fair Time/GCodes Start Time: 08:00 Stop Time: 09:15 Total Time Billed (hr/min): 75 Billed Treatment Time PT/OT cotreat: 1, ADL 2 (30'), FA 2 (30'), EX (15') JOAN JACOBSON OT Nov 24, 2020 09:20
[2020-11-24] MEDS: CLOPIDOGREL 75 MG (PLAVIX) TABLET PO SCH (09:29)
[2020-11-24] MEDS: PANTOPRAZOLE 20 MG TABLET (PROTONIX) PO SCH (09:29)
[2020-11-24] MEDS: metFORMIN 500 MG (GLUCOPHAGE) TAB PO SCH ×2 (09:29→18:27)
[2020-11-24] MEDS: LOSARTAN 25 MG (COZAAR) TAB PO SCH (09:29)
[2020-11-24] MEDS: ASPIRIN 81 MG CHEW (CHILDREN'S ASA) PO SCH (09:29)
[2020-11-24] MEDS: ALLOPURINOL 100 MG (ZYLOPRIM) TAB PO SCH ×2 (09:29→19:47)
[2020-11-24] MEDS: LEVETIRACETAM 500 MG (KEPPRA) TAB PO SCH ×2 (09:29→19:47)
[2020-11-24] MEDS: FUROSEMIDE 40 MG (LASIX) TAB PO SCH (09:29)
[2020-11-24] MEDS: DOCUSATE SODIUM 100 MG (COLACE) CAP PO SCH ×2 (09:33→19:53)
[2020-11-24] MEDS: ADVAIR HFA 45/21 MCG INHALER 8 GM IH SCH ×2 (09:33→19:16)
[2020-11-24] MEDS: VIMPAT 100 MG PO SCH ×2 (09:33→19:53)
[2020-11-24] MEDS: polyethylene glycoL POWDER 17 GM (MIRALAX) PACK PO SCH ×2 (09:34→19:53)
[2020-11-24] MEDS: SENNA W/DOCUSATE (SENOKOT S) TABLET PO SCH ×2 (09:34→19:54)
[2020-11-24] MEDS: DIVALPROEX 500 MG DELAYED RELEASE (DEPAKOTE) TAB PO SCH ×2 (09:35→19:49)
[2020-11-24] MEDS: PROPRANOLOL LA 120 MG (INDERAL LA) CAP NON-FORMULARY PO SCH ×2 (09:36→19:50)
[2020-11-24] MEDS: TRESIBA FLEXTOUCH 200 UNITS/ML SQ SCH (09:37)
[2020-11-24] MEDS: MICONAZOLE 2% POWDER (DESENEX AF) 90 GM TOP SCH ×3 (09:37→19:48)
[2020-11-24] MEDS: NICOTINE PATCH REMOVAL TP SCH (09:37)
[2020-11-24] MEDS: FLUTICASONE NASAL SPRAY (FLONASE) 16 GM BTL NS SCH (09:42)
--- NOTE | 2020-11-24 10:28 | PM&R Progress Note ---
Subjective HPI/CC On Admission Date Seen by Provider: Nov 24, 2020 Time Seen by Provider: 10:30 Subjective/Events-last exam 11/24/20: Patient about the same Confusion continues BM today Family education/training tomorrow? 11/23/20: Pt participating in PT Wheelchair mobility focused on Will have family education on Saturday, to see if family is able to accommodate her needs but she remains completely dependent Denies any significant other issues Hallucinates often 11/22/20: No major issues Mentally she is a little bit more alert but very debilitated and cognitively deficient BM yesterday and she was incontinent 11/21/20: Pt doing pretty well Labs okay Sugars are good Hgb stable Bowels moved two days ago 11/20/20: Nicotine patch on and still asks to go outside to smoke More alert today Confusion is significant No issues otherwise 11/19/20: Refuses Advair since she states it makes her wheeze No pain reported Confusion apparent Unclear of recovery potential 11/18/20: Doing well Confusion noted BM finally after aggressive regimen More alert today 11/17/20: No BM since 11/12 Laxatives and supp will be given Facial droop appears less pronounced Confusion noted 11/16/20: Sugar is 198 receiving sliding scale Improvement on transfers already Bowels moved on November 12 so given laxatives Pt has some unreliable information most of the time Nicotine patch reordered Focus is very poor, requires constant cues Review of Systems General: Fatigue, Malaise Neurological: Weakness, Incoordination, Confusion Objective Exam Vital Signs Vital Signs Date Time Temp Pulse Resp B/P (MAP) Pulse Ox O2 Delivery O2 Flow Rate FiO2 11/24/20 21:00 Room Air 11/24/20 19:17 95 11/24/20 18:00 36.2 78 16 105/62 (76) 11/21/20 18:45 95 Capillary Refill : Less Than 3 Seconds General Appearance: No Apparent Distress, WD/WN, Anxious, Chronically ill HEENT: PERRL/EOMI, Normal ENT Inspection, Pharynx Normal Neck: Full Range of Motion, Normal Inspection, Non Tender, Supple, Carotid Bruit Respiratory: Chest Non Tender, Normal Breath Sounds, No Accessory Muscle Use, No Respiratory Distress, Decreased Breath Sounds Cardiovascular: Regular Rate, Rhythm, No Edema, No Gallop, No JVD, No Murmur, Normal Peripheral Pulses Gastrointestinal: Normal Bowel Sounds, No Organomegaly, No Pulsatile Mass, Non Tender, Soft Back: Normal Inspection, No CVA Tenderness, No Vertebral Tenderness Extremity: Normal Capillary Refill, Normal Inspection, Normal Range of Motion, Non Tender, No Calf Tenderness, No Pedal Edema Neurologic/Psychiatric: Alert, Oriented x3, Abnormal Gait, Aphasia (partial), Depressed Affect, Facial Droop (left), Motor Weakness (left sided weakness 1/5) Skin: Normal Color, Warm/Dry Lymphatic: No Adenopathy Results/Procedures Lab Patient resulted labs reviewed. FIM Transfers Therapy Code Descriptions/Definitions Functional [place] Measure: 0=Not Assessed/NA 4=Minimal Assistance 1=Total Assistance 5=Supervision or Setup 2=Maximal Assistance 6=Modified [place] 3=Moderate Assistance 7=Complete IndependenceSCALE: Activities may be completed with or without assistive devices. 2-Iujsanlgmt-lavedop completes the activity by him/herself with no assistance from a helper. 5-Set-up or Clean-up Assistance-helper sets up or cleans up; patient completes activity. [place] assists only prior to or following the activity. 4-Supervision or Touching Assistance-helper provides verbal cues and/or touching/steadying and/or contact guard assistance as patient completes activity. Assistance may be provided throughout the activity or intermittently. 3-Partial/Moderate Assistance-helper does LESS THAN HALF the effort. [place] lifts, holds or supports trunk or limbs, but provides less than half the effort. 2-Substantial/Maximal Assistance-helper does MORE THAN HALF the effort. [place] lifts or holds trunk or limbs and provides more than half the effort. 4-Vamujatuv-gaxagz does ALL the effort. Patient does none of the effort to complete the activity. Or, the assistance of 2 or more helpers is required for the patient to complete the activity. If activity was not attempted, code reason: 7-Patient Refused. 9-Not Applicable-not attempted and the patient did not perform the activity before the current illness, exacerbation or injury. 10-Not Attempted due to Environmental Limitations-(lack of equipment, weather restraints, etc.). 88-Not Attempted due to Medical Conditions or Safety Concerns. Roll Left to Right (QC): 3 Sit to Lying (QC): 1 Sit to Stand (QC): 4 Chair/Fth-dh-Uthkb Xfer(QC): 2 (did take 5 steps with PT advancing left LE ) Car Transfer (QC): 2 Gait Training Does the Patient Walk?: Yes Distance: 8' x3 Walk 10 feet (QC): 3 Walk 50 ft with 2 Turns(QC): 88 Walk 150 ft (QC): 88 Walking 10ft/uneven surface-QC: 88 Gait Persons Needed: 2 Gait Assistive Device: Parallel Bars Wheelchair Training Does the Pt Use a Wheelchair?: Yes Wheel 50 ft with 2 turns (QC): 3 Wheel 150 ft (QC): 3 Type of Wheelchair: Manual Stair Training 1 Step (curb) (QC): 88 4 Steps (QC): 88 12 Steps (QC): 88 Balance Picking up an Object (QC): 88 ADL-Treatment Eating (QC): 5 (set up assistance with cutting food. Pt then able to eat.) Oral Hygiene (QC): 2 (MaxA, pt able to brush gums with no cues. OT assisted with denture care and setting up toothbrush with toothpaste) Bathing Location: L Arm, L Upper Leg, R Upper Leg, R Lower Leg (including foot), Chest, Abdomen Shower/Bathe Self (QC): 1 (Needed max cues to wash trunk and under arms. needed assist x2 to wash buttocks while standing) Upper Body Dressing (QC): 2 (MaxA, pt able to thread R arm through with OT guiding hand through. OT assisted with threading L arm and head through shirt) Lower Body Dressing (QC): 1 (Pt able to pull pants above knees while sitting. OT assisted with threading B legs through. Assist x2 for pants hike while standing) On/Off Footwear (QC): 2 (MaxA, pt able to doff socks. OT assisted with donning socks) Toileting Hygiene (QC): 1 (assist x2 for managing pants and hygiene) Assessment/Plan Assessment and Plan Assess & Plan/Chief Complaint Assessment: CVA Left sided weakness Left sided neglect HTN DM HLP Smoker COPD Chronic pain Plan: IRF protocol Pain meds home dosing BM regimen Monitor O2 11/16/20: Monitor sugar Increase therapy Monitor confusion 11/17/20: Confusion noted BM regimen 11/18/20: BM regimen successful now maintain Monitor confusion Work on transfers to decrease caregiver burden 11/19/20: Confusion monitored Monitor BP and sugar 11/20/20: Monitor BP and glucose Labs tomorrow Monitor for falls 11/21/20: Labs good Monitor confusion Monitor for falls 11/22/20: Incontinence care Monitor confusion Monitor BP 11/23/20: Family education to eval options at DC Monitor hallucinations 11/24/20: Family training tomorrow Monitor closely Sugars good (1) CVA (cerebral vascular accident) (2) Diabetes (3) Hypertension (4) Left-sided weakness (5) Smoker (6) Hyperlipemia (7) Odilon-neglect of left side TITA LUBIN DO Nov 24, 2020 10:28
--- NOTE | 2020-11-24 10:29 | Speech Therapy Daily Note ---
Speech Daily Progress Note Subjective Date Seen by Provider: Nov 24, 2020 Time Seen by Provider: 00:30 Patient was resting in her recliner, drinking her Glucerna following her other therapies. Objective Patient completed a series of questions related to her return home with 80% given min to mod cues. Assessment Assessment Current Status: Fair Progress Treatment Plan Continue Plan of Care Speech Short Term Goals Short Term Goals Short Term Goals 1) The patient will complete memory tasks related to her daily needs at 80% or greater with minimal cuing. 2) The patient will complete problem solving tasks related to her daily needs at 80% or greater with minimal cuing. 3) The patient will complete safety awareness related to her daily needs at 80% or greater with minimal cuing. Speech Dandy Operator Goals Dandy Operator Goals Patient will improve cognitive communication skills in order to require decreased assist with daily tasks. Speech-Plan Patient/Family Goals Patient/Family Goals: Patient plans on returning to her home where she lives with her . Treatment Plan Speech Therapy Treatment Plan: Continue Plan of Care Treatment Duration: Dec 02, 2020 Frequency: 4 times per week (Patient will receive skilled ST 4-5x per week) Estimated Hrs Per Day: .5 hour per day Rehab Potential: Fair Barriers to Learning: Patient's cognitive deficits, recent CVA, prior medical diagnosis Pt/Family Agrees to Plan: Yes Safety Risks/Education Teaching Recipient: Patient Teaching Methods: Demonstration, Discussion Response to Teaching: Verbalize Understanding, Return Demonstration Education Topics Provided: Continued safety within her room, continued use of the call light Time Speech Therapy Time In: 10:00 Speech Therapy Time Out: 10:30 Total Billed Time: 30 Billed Treatment Time 1, YOHANNES Cervantes Nov 24, 2020 10:29
[2020-11-24] MEDS: NICOTINE 21 MG (NICODERM) PATCH TD SCH (10:33)
--- NOTE | 2020-11-24 11:07 | Physical Therapy Daily Note ---
PT Daily Note-Current Subjective Pt up in recliner chair upon arrival to room, with breakfast tray pulled down into her lap. Pt reluctantly agreeable to PT/OT treatment, but she continually requests going back to bed. Pt calls out for "Priyank" and needs to be reoriented to being in hospital, and the no visitor policy. Pain Numeric Pain Scale: 10-Worst Possible Pain Location Body Site: Back Appearance Following session, pt in chair with BLE elevated and LUE propped on pillow. Call light placed on (R) side, all needs met at current time. Mental Status Patient Orientation: Confused Transfers SCALE: Activities may be completed with or without assistive devices. 9-Ssckyuigdt-kzvqkvi completes the activity by him/herself with no assistance from a helper. 5-Set-up or Clean-up Assistance-helper sets up or cleans up; patient completes activity. [place] assists only prior to or following the activity. 4-Supervision or Touching Assistance-helper provides verbal cues and/or touching/steadying and/or contact guard assistance as patient completes activity. Assistance may be provided throughout the activity or intermittently. 3-Partial/Moderate Assistance-helper does LESS THAN HALF the effort. [place] lifts, holds or supports trunk or limbs, but provides less than half the effort. 2-Substantial/Maximal Assistance-helper does MORE THAN HALF the effort. [place] lifts or holds trunk or limbs and provides more than half the effort. 8-Htzjxxmsv-ylgvjx does ALL the effort. Patient does none of the effort to complete the activity. Or, the assistance of 2 or more helpers is required for the patient to complete the activity. If activity was not attempted, code reason: 7-Patient Refused. 9-Not Applicable-not attempted and the patient did not perform the activity before the current illness, exacerbation or injury. 10-Not Attempted due to Environmental Limitations-(lack of equipment, weather restraints, etc.). 88-Not Attempted due to Medical Conditions or Safety Concerns. Sit to Lying (QC): 3 Chair/Xgk-ce-Hgvoc Xfer(QC): 3 Pt requires min A to achieve standing, and maximal verbal cueing to bring (L) leg back into a good starting position. Pt transfers to the (R) side with min A for safety, but when transferring back to the (L) pt requires mod A, and fails to advance her LLE, which causes her to twist her legs to pivot and sit in chair. Weight Bearing Full Weight Bearing Full Weight Bearing Gait Training Distance: 4 x 8' Walk 10 feet (QC): 3 Gait Assistive Device: Parallel Bars Pt ambulates 4x in the parallel bars. Initially she requires extensive verbal and tactile cueing to advance LUE/LLE; however, with more practice and cueing to bring LLE past RLE, she is able to ambulate with swing-through gait. She continues to need assistance with LUE. Wheelchair Training Does the Pt Use a Wheelchair?: Yes Wheel 50 ft with 2 turns (QC): 3 Pt requires cueing for spatial awareness, as well as sequencing to propel the [facility] as she tends to take small strokes with the UEs. With cueing she is able to take longer strokes x2-3 but then returned to smaller pushes. Exercises Seated Therapy Exercises: Ankle pumps, Long arc quads, Hip flexion Seated Reps: 15 Treatments OT/PT cotreat due to skill of 2 clinicians required which a rehabilitation manager could not perform in order to coordinate UE/LE with tasks, and due to pt's limitations in strength, endurance, mobility, and L neglect. OT focused on UE placement, cues for sequencing and safety and ADLs, PT focused on LE placement, transfers, gross overall movement and ambulation. Pt transferred to [facility] and then self propelled wc to therapy gym, before co mpleting gait training in // bars x 4. She continues to need verbal cueing for progression of LLE with ambulation. Following gait training, she self propels the [facility] back to her room, where she completed assisted sponge bath. Then she transfers back to chair where she completes UE and LE exercises. Assessment Current Status: Fair Progress Pt continues to be confused and requires encouragement to participate in PT. Will continue to progress as pt tolerates. PT Short Term Goals Short Term Goals Time Frame: Nov 22, 2020 Roll Left & Right: 3 Sit to lyin Lying to sitting on side of be: 3 Sit to stand: 3 Chair/phb-rn-vwxdx transfer: 3 Walk 10 feet: 3 PT Plumbing Engineering Draftsperson Goals Fdc Goals PT Pl[employer] Draftsperson Goals Time Frame: Dec 06, 2020 Roll Left & Right (QC): 3 (Joel) Sit to Lying (QC): 3 (Joel) Lying-Sitting on Side/Bed(QC): 3 (Joel) Sit to Stand (QC): 3 (Joel) Chair/Hzj-ju-Vchxg Xfer(QC): 3 (Joel) Toilet Transfer (QC): 3 (Joel) Car Transfer (QC): 3 (Joel) Does the Patient Walk: Yes Walk 10 feet (QC): 3 (Joel) Walk 50ft with 2 Turns (QC): 3 (Joel) Walk 150 ft (QC): 88 Walking 10ft on Uneven Surface: 88 1 Step (curb) (QC): 88 4 Steps (QC): 88 12 Steps (QC): 88 Picking up an Object (QC): 88 Wheel 50 feet with 2 turns (QC: 4 Wheel 150 feet: 4 PT Plan Problem List Problem List: Activity Tolerance, Functional Strength, Safety, Balance, Gait, Transfer, Bed Mobility, ROM Treatment/Plan Treatment Plan: Continue Plan of Care Treatment Plan: Bed Mobility, Education, Functional Activity Cooper, Functional Strength, Group Therapy, Gait, Safety, Therapeutic Exercise, Transfers Treatment Duration: Dec 06, 2020 Frequency: At least 5 of 7 days/Wk (IRF) Estimated Hrs Per Day: 1.5 hours per day Patient and/or Family Agrees t: Yes Time/GCodes Time In: 800 Time Out: 915 Total Billed Treatment Time: 75 Total Billed Treatment 1 visit GT(20') [facility] (15') FA (40') AMIRAH MA PT Nov 24, 2020 11:07
[2020-11-24 18:00] VITALS: BP 105/62
[2020-11-24] MEDS: ENOXAPARIN 40 MG/0.4 ML (LOVENOX) SYR SC SCH (18:27)
[2020-11-24] MEDS: MELATONIN 3 MG TABLET PO PRN (19:47)
[2020-11-24] MEDS: MONTELUKAST 10 MG (SINGULAIR) TAB PO SCH (19:47)
[2020-11-24] MEDS: CYCLOBENZAPRINE 10 MG (FLEXERIL) TAB PO SCH (19:47)
[2020-11-25 05:57] VITALS: BP 101/62
[2020-11-25] MEDS: KCL 20 MEQ TAB (K-DUR) PO SCH (06:07)
[2020-11-25] MEDS: LEVOTHYROXINE 88 MCG (LEVOTHORID) TAB PO SCH (06:07)
[2020-11-25] MEDS: ADVAIR HFA 45/21 MCG INHALER 8 GM IH SCH ×2 (07:13→20:00)
--- NOTE | 2020-11-25 09:48 | PM&R Progress Note ---
Subjective HPI/CC On Admission Date Seen by Provider: Nov 25, 2020 Time Seen by Provider: 10:30 Subjective/Events-last exam 11/25/20: Family training today Patient needs NH at DC after assessment per BM++ Lortab helps Incontinent Increase mobility of the left leg 11/24/20: Patient about the same Confusion continues BM today Family education/training tomorrow? 11/23/20: Pt participating in PT Wheelchair mobility focused on Will have family education on Saturday, to see if family is able to accommodate her needs but she remains completely dependent Denies any significant other issues Hallucinates often 11/22/20: No major issues Mentally she is a little bit more alert but very debilitated and cognitively deficient BM yesterday and she was incontinent 11/21/20: Pt doing pretty well Labs okay Sugars are good Hgb stable Bowels moved two days ago 11/20/20: Nicotine patch on and still asks to go outside to smoke More alert today Confusion is significant No issues otherwise 11/19/20: Refuses Advair since she states it makes her wheeze No pain reported Confusion apparent Unclear of recovery potential 11/18/20: Doing well Confusion noted BM finally after aggressive regimen More alert today 11/17/20: No BM since 11/12 Laxatives and supp will be given Facial droop appears less pronounced Confusion noted 11/16/20: Sugar is 198 receiving sliding scale Improvement on transfers already Bowels moved on November 12 so given laxatives Pt has some unreliable information most of the time Nicotine patch reordered Focus is very poor, requires constant cues Review of Systems General: Fatigue, Malaise Neurological: Weakness, Incoordination, Confusion Objective Exam Vital Signs Vital Signs Date Time Temp Pulse Resp B/P (MAP) Pulse Ox O2 Delivery O2 Flow Rate FiO2 11/25/20 20:06 95 Room Air 11/25/20 16:17 36.4 72 16 120/59 (79) 11/21/20 18:45 95 Capillary Refill : Less Than 3 Seconds General Appearance: No Apparent Distress, WD/WN, Anxious, Chronically ill HEENT: PERRL/EOMI, Normal ENT Inspection, Pharynx Normal Neck: Full Range of Motion, Normal Inspection, Non Tender, Supple, Carotid Bruit Respiratory: Chest Non Tender, Normal Breath Sounds, No Accessory Muscle Use, No Respiratory Distress, Decreased Breath Sounds Cardiovascular: Regular Rate, Rhythm, No Edema, No Gallop, No JVD, No Murmur, Normal Peripheral Pulses Gastrointestinal: Normal Bowel Sounds, No Organomegaly, No Pulsatile Mass, Non Tender, Soft Back: Normal Inspection, No CVA Tenderness, No Vertebral Tenderness Extremity: Normal Capillary Refill, Normal Inspection, Normal Range of Motion, Non Tender, No Calf Tenderness, No Pedal Edema Neurologic/Psychiatric: Alert, Oriented x3, Abnormal Gait, Aphasia (partial), Depressed Affect, Facial Droop (left), Motor Weakness (left sided weakness 1/5) Skin: Normal Color, Warm/Dry Lymphatic: No Adenopathy Results/Procedures Lab Patient resulted labs reviewed. FIM Transfers Therapy Code Descriptions/Definitions Functional [place] Measure: 0=Not Assessed/NA 4=Minimal Assistance 1=Total Assistance 5=Supervision or Setup 2=Maximal Assistance 6=Modified [place] 3=Moderate Assistance 7=Complete IndependenceSCALE: Activities may be completed with or without assistive devices. 7-Cxkopzzavw-kktgwlq completes the activity by him/herself with no assistance from a helper. 5-Set-up or Clean-up Assistance-helper sets up or cleans up; patient completes activity. [place] assists only prior to or following the activity. 4-Supervision or Touching Assistance-helper provides verbal cues and/or touching/steadying and/or contact guard assistance as patient completes activity. Assistance may be provided throughout the activity or intermittently. 3-Partial/Moderate Assistance-helper does LESS THAN HALF the effort. [place] lifts, holds or supports trunk or limbs, but provides less than half the effort. 2-Substantial/Maximal Assistance-helper does MORE THAN HALF the effort. [place] lifts or holds trunk or limbs and provides more than half the effort. 7-Asojajcua-mlgeva does ALL the effort. Patient does none of the effort to complete the activity. Or, the assistance of 2 or more helpers is required for the patient to complete the activity. If activity was not attempted, code reason: 7-Patient Refused. 9-Not Applicable-not attempted and the patient did not perform the activity before the current illness, exacerbation or injury. 10-Not Attempted due to Environmental Limitations-(lack of equipment, weather restraints, etc.). 88-Not Attempted due to Medical Conditions or Safety Concerns. Roll Left to Right (QC): 3 Sit to Lying (QC): 3 Sit to Stand (QC): 4 Chair/Jmr-ae-Xiqbv Xfer(QC): 3 Car Transfer (QC): 2 Gait Training Does the Patient Walk?: Yes Distance: 4 x 8' Walk 10 feet (QC): 3 Walk 50 ft with 2 Turns(QC): 88 Walk 150 ft (QC): 88 Walking 10ft/uneven surface-QC: 88 Gait Persons Needed: 2 Gait Assistive Device: Parallel Bars Wheelchair Training Does the Pt Use a Wheelchair?: Yes Wheel 50 ft with 2 turns (QC): 3 Wheel 150 ft (QC): 3 Type of Wheelchair: Manual Stair Training 1 Step (curb) (QC): 88 4 Steps (QC): 88 12 Steps (QC): 88 Balance Picking up an Object (QC): 88 ADL-Treatment Eating (QC): 5 (set up assistance with cutting food. Pt then able to eat.) Oral Hygiene (QC): 3 (ModA, pt able to brush gums with no cues. OT assisted with denture care and setting up toothbrush with toothpaste. Pt able to place fixodent onto dentures OT held.) Bathing Location: L Arm, L Upper Leg, R Upper Leg, R Lower Leg (including foot), Chest, Abdomen Shower/Bathe Self (QC): 1 (Needed max verbal cues to wash trunk and under arms. needed assist x2 to wash buttocks while standing) Upper Body Dressing (QC): 2 (MaxA, pt able to thread R arm through with OT guiding hand through. OT assisted with threading L arm and head through shirt) Lower Body Dressing (QC): 1 (Pt able to pull pants above knees while sitting. OT assisted with threading B legs through. Assist x2 for pants hike while standing) On/Off Footwear (QC): 1 (Pt required assistance donning and doffing gripper socks.) Toileting Hygiene (QC): 1 (assist x2 for managing pants and hygiene) Assessment/Plan Assessment and Plan Assess & Plan/Chief Complaint Assessment: CVA Left sided weakness Left sided neglect HTN DM HLP Smoker COPD Chronic pain Plan: IRF protocol Pain meds home dosing BM regimen Monitor O2 11/16/20: Monitor sugar Increase therapy Monitor confusion 11/17/20: Confusion noted BM regimen 11/18/20: BM regimen successful now maintain Monitor confusion Work on transfers to decrease caregiver burden 11/19/20: Confusion monitored Monitor BP and sugar 11/20/20: Monitor BP and glucose Labs tomorrow Monitor for falls 11/21/20: Labs good Monitor confusion Monitor for falls 11/22/20: Incontinence care Monitor confusion Monitor BP 11/23/20: Family education to eval options at DC Monitor hallucinations 11/24/20: Family training tomorrow Monitor closely Sugars good 11/25/20: NHP (1) CVA (cerebral vascular accident) (2) Diabetes (3) Hypertension (4) Left-sided weakness (5) Smoker (6) Hyperlipemia (7) Odilon-neglect of left side TITA LUBIN DO Nov 25, 2020 09:48
[2020-11-25] MEDS: FUROSEMIDE 40 MG (LASIX) TAB PO SCH (10:09)
[2020-11-25] MEDS: CLOPIDOGREL 75 MG (PLAVIX) TABLET PO SCH (10:09)
[2020-11-25] MEDS: LOSARTAN 25 MG (COZAAR) TAB PO SCH (10:10)
[2020-11-25] MEDS: PANTOPRAZOLE 20 MG TABLET (PROTONIX) PO SCH (10:10)
[2020-11-25] MEDS: ASPIRIN 81 MG CHEW (CHILDREN'S ASA) PO SCH (10:10)
[2020-11-25] MEDS: DOCUSATE SODIUM 100 MG (COLACE) CAP PO SCH ×2 (10:10→20:21)
[2020-11-25] MEDS: LEVETIRACETAM 500 MG (KEPPRA) TAB PO SCH ×2 (10:10→20:08)
[2020-11-25] MEDS: SENNA W/DOCUSATE (SENOKOT S) TABLET PO SCH ×2 (10:10→20:21)
[2020-11-25] MEDS: VIMPAT 100 MG PO SCH ×2 (10:11→20:17)
[2020-11-25] MEDS: PROPRANOLOL LA 120 MG (INDERAL LA) CAP NON-FORMULARY PO SCH ×2 (10:12→20:12)
[2020-11-25] MEDS: DIVALPROEX 500 MG DELAYED RELEASE (DEPAKOTE) TAB PO SCH ×2 (10:13→20:12)
[2020-11-25] MEDS: metFORMIN 500 MG (GLUCOPHAGE) TAB PO SCH ×2 (10:13→18:58)
[2020-11-25] MEDS: FLUTICASONE NASAL SPRAY (FLONASE) 16 GM BTL NS SCH (10:14)
[2020-11-25] MEDS: polyethylene glycoL POWDER 17 GM (MIRALAX) PACK PO SCH ×2 (10:14→20:21)
[2020-11-25] MEDS: ALLOPURINOL 100 MG (ZYLOPRIM) TAB PO SCH ×2 (10:17→20:08)
[2020-11-25] MEDS: TRESIBA FLEXTOUCH 200 UNITS/ML SQ SCH (10:19)
[2020-11-25] MEDS: MICONAZOLE 2% POWDER (DESENEX AF) 90 GM TOP SCH ×3 (10:23→20:18)
[2020-11-25] MEDS: NICOTINE 21 MG (NICODERM) PATCH TD SCH (10:26)
[2020-11-25] MEDS: NICOTINE PATCH REMOVAL TP SCH (10:27)
--- NOTE | 2020-11-25 11:04 | Occupational Ther Daily Note ---
OT Current Status-Daily Note Subjective Pt mentioned having no pain and agreed to PT/OT cotreat. Pt's Carlos present for family training. Mental Status/Objective Patient Orientation: Person, Situation ADL-Treatment Therapy Code Descriptions/Definitions Functional [place] Measure: 0=Not Assessed/NA 4=Minimal Assistance 1=Total Assistance 5=Supervision or Setup 2=Maximal Assistance 6=Modified [place] 3=Moderate Assistance 7=Complete IndependenceSCALE: Activities may be completed with or without assistive devices. 8-Jougmcsolg-zdstjnp completes the activity by him/herself with no assistance from a helper. 5-Set-up or Clean-up Assistance-helper sets up or cleans up; patient completes activity. [place] assists only prior to or following the activity. 4-Supervision or Touching Assistance-helper provides verbal cues and/or touching/steadying and/or contact guard assistance as patient completes activity. Assistance may be provided throughout the activity or intermittently. 3-Partial/Moderate Assistance-helper does LESS THAN HALF the effort. [place] lifts, holds or supports trunk or limbs, but provides less than half the effort. 2-Substantial/Maximal Assistance-helper does MORE THAN HALF the effort. [place] lifts or holds trunk or limbs and provides more than half the effort. 3-Gqyehsxqs-bdclkm does ALL the effort. Patient does none of the effort to complete the activity. Or, the assistance of 2 or more helpers is required for the patient to complete the activity. If activity was not attempted, code reason: 7-Patient Refused. 9-Not Applicable-not attempted and the patient did not perform the activity before the current illness, exacerbation or injury. 10-Not Attempted due to Environmental Limitations-(lack of equipment, weather restraints, etc.). 88-Not Attempted due to Medical Conditions or Safety Concerns. Lower Body Dressing (QC): 2 (MaxA, OT assisted with threading brief and pants on L leg. Pt able to thread R leg through. Assistance needed for pants hike while standing) Toileting Hygiene (QC): 1 (dependent, assist with all parts.) Other Treatment [id number] OT tx: Pt seated on commode at start of tx. Pt donned brief and pants with assistance for threading L leg and pants hike while standing. OT performed hygiene and transferred pt from [facility] to w/c Family education was given on how much assistance was needed for toilet transfers. [id number]: OT/PT cotreat due to skill of 2 clinicians required which a animal rehabilitator could not perform in order to coordinate UE/LE with tasks, and due to pt's limitations in strength, endurance, mobility, and L neglect. OT focused on UE placement, cues for sequencing and safety and ADLs, PT focused on LE placement, transfers, gross overall movement and ambulation. Pt propelled to therapy gym with a tactile cue to use R arm to propel and minimal verbal cues to bring arm higher on w/c wheel to propel more forward. Min A with w/c mobility to maintain straight path. Pt walked to parallel bars 3x through with a rest break in between. On last walk through, family member assisted with advancing L hand on parallel bars. Family education was given on how much assistance is needed before pt being discharged home. Pt transferred from w/c to therapy mat for weight barring through elbow on L arm 3x5 with a rest break in between. Bed mobility was shown to family member, sit to supine. Pt attempted to use leg raiser for bed mobility but was unsuccessful. Pt transferred from mat to w/c and propelled back to room with minimal cues to continue to propel self to room. Pt transferred from w/c to recliner with call light on R side, chair alarm on and all needs met. Pt's indicates pt needs to be able to toilet herself, t ransfer independently and get to/from bathroom independently in order to return home. 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 Carlos is not able to provide 24/7 care and does not have any family members/friends that could help pt. Pt's open to SNF placement if required. Education OT Patient Education: Correct positioning, Instructions to caregiver, Modified ADL techniques, Progress toward Goal/Update tx plan, Purpose of tx/functional activities, Reviewed precautions, Safety issues, Transfer techniques, Use of adapted equipment, W/C management Teaching Recipient: Patient, Family Teaching Methods: Demonstration, Discussion Response to Teaching: Verbalize Understanding, Reinforcement Needed OT Short Term Goals Short Term Goals Time Frame: Nov 30, 2020 Oral hygiene: 5 Shower/bathe self: 3 Upper body dressin Lower body dressin OT Bingo Cashier Goals Bingo Cashier Goals Time Frame: Dec 09, 2020 Eating (QC): 6 Oral Hygiene (QC): 6 Toileting Hygiene (QC): 4 Shower/Bathe Self (QC): 4 Upper Body Dressing (QC): 5 Lower Body Dressing (QC): 4 On/Off Footwear (QC): 4 Additional Goals: 1-Demonstrate ADL Tasks, 2-Verbalize Understanding, 3- ImproveStrength/[place]oper 1=Demonstrate adherence to instructed precautions during ADL tasks. 2=Patient will verbalize/demonstrate understanding of assistive device s/modifications for ADL. 3=Patient will improve strength/tolerance for activity to enable patient to perform ADL's. OT Education/Plan Problem List/Assessment Assessment: Decreased Safety Aware, Decreased UE Strength, Impaired I ADL's, Impaired Self-Care Skills, Restricted Funct UE ROM, Visual-Perceptual Deficit Discharge Recommendations Plan/Recommendations: Continue POC Treatment Plan/Plan of Care Patient would benefit from OT for education, treatment and training to promote independence in ADL's, mobility, safety and/or upper extremity function for ADL's. Plan of Care: ADL Retraining, Functional Mobility, Group Exercise/Act as Ind, UE Funct Exercise/Act, UE Neuromus Re-Ed/Coord, Visual/Perceptual Retrain Treatment Duration: Dec 09, 2020 Frequency: At least 5 of 7 days/Wk (IRF) Estimated Hrs Per Day: 1.5 hours per day Agreement: Yes Rehab Potential: Fair Time/GCodes Start Time: 08:45 Stop Time: 10:00 Total Time Billed (hr/min): 75 Billed Treatment Time OT tx: [id number]. PT/OT cotreat: [id number] 1, ADL (15'), FA 3 (40'), NM (20') JOAN JACOBSON OT Nov 25, 2020 11:04
--- NOTE | 2020-11-25 11:49 | Speech Therapy Daily Note ---
Speech Daily Progress Note Subjective Date Seen by Provider: Nov 25, 2020 Time Seen by Provider: 00:30 Patient and her were sleeping when I entered her room. Patient states she is cold so I covered her up. Objective Patient completed a series of questions related to her return home with 80% given minimal cues. was here for training as to the patient's needs upon her return home. Assessment Assessment Current Status: Good Progress Treatment Plan Continue Plan of Care Speech Short Term Goals Short Term Goals Short Term Goals 1) The patient will complete memory tasks related to her daily needs at 80% or greater with minimal cuing. 2) The patient will complete problem solving tasks related to her daily needs at 80% or greater with minimal cuing. 3) The patient will complete safety awareness related to her daily needs at 80% or greater with minimal cuing. Speech Care Home Goals Care Home Goals Patient will improve cognitive communication skills in order to require decreased assist with daily tasks. Speech-Plan Patient/Family Goals Patient/Family Goals: Patient plans on returning to her home where she lives with her , however he states he's not sure how he will take care of her due to his working at nights. Treatment Plan Speech Therapy Treatment Plan: Continue Plan of Care Treatment Duration: Dec 02, 2020 Frequency: 4 times per week (Patient will receive skilled ST 4-5x per week) Estimated Hrs Per Day: .5 hour per day Rehab Potential: Fair Barriers to Learning: Patient's recent CVA, prior illnesses Pt/Family Agrees to Plan: Yes Safety Risks/Education Teaching Recipient: Patient, Significant Other Teaching Methods: Demonstration, Discussion Response to Teaching: Verbalize Understanding, Return Demonstration Education Topics Provided: Continued safety and communication of wants/needs Time Speech Therapy Time In: 11:30 Speech Therapy Time Out: 12:00 Total Billed Time: 30 Billed Treatment Time 1KYLIE BETHANIA ST Nov 25, 2020 11:49
--- NOTE | 2020-11-25 12:11 | Physical Therapy Daily Note ---
PT Daily Note-Current Subjective Pt is sitting in recliner visiting with Sp & OT upon arrival. Pt agrees to PT. Pain Location: No Pain Reported Mental Status Patient Orientation: Person, Confused Transfers SCALE: Activities may be completed with or without assistive devices. 5-Aagzbagtwf-cburehm completes the activity by him/herself with no assistance from a helper. 5-Set-up or Clean-up Assistance-helper sets up or cleans up; patient completes activity. [place] assists only prior to or following the activity. 4-Supervision or Touching Assistance-helper provides verbal cues and/or touching/steadying and/or contact guard assistance as patient completes activity. Assistance may be provided throughout the activity or intermittently. 3-Partial/Moderate Assistance-helper does LESS THAN HALF the effort. [place] lifts, holds or supports trunk or limbs, but provides less than half the effort. 2-Substantial/Maximal Assistance-helper does MORE THAN HALF the effort. [place] lifts or holds trunk or limbs and provides more than half the effort. 1-[place]-qmykih does ALL the effort. Patient does none of the effort to complete the activity. Or, the assistance of 2 or more helpers is required for the patient to complete the activity. If activity was not attempted, code reason: 7-Patient Refused. 9-Not Applicable-not attempted and the patient did not perform the activity before the current illness, exacerbation or injury. 10-Not Attempted due to Environmental Limitations-(lack of equipment, weather restraints, etc.). 88-Not Attempted due to Medical Conditions or Safety Concerns. Sit to Lying (QC): 3 Lying to Sitting/Side of Bed(Q: 4 Sit to Stand (QC): 4 Chair/Oao-xz-Pbaqq Xfer(QC): 3 Weight Bearing Full Weight Bearing Full Weight Bearing Gait Training Does the Patient Walk?: Yes Distance: 8' x3 Walk 10 feet (QC): 4 Gait Persons Needed: 1 Gait Assistive Device: Parallel Bars Wheelchair Training Does the Pt Use a Wheelchair?: Yes Wheel 50 ft with 2 turns (QC): 3 Wheel 150 ft (QC): 3 Type of Wheelchair: Manual Treatments [id number]: OT/PT cotreat due to skill of 2 clinicians required which a clinical rehab specialist could not perform in order to coordinate UE/LE with tasks, and due to pt's limitations in strength, endurance, mobility, and L neglect. OT focused on UE placement, cues for sequencing and safety and ADLs, PT focused on LE placement, transfers, gross overall movement and ambulation. Pt propelled to therapy gym with a tactile cue to use R arm to propel and minimal verbal cues to bring arm higher on w/c wheel to propel more forward. Pt walked to parallel bars 3x through witha rest break in between. On last walk through, family member assisted with advancing L hand on parallel bars. Family education was given on how much assistance is needed before pt being discharged home. Pt transferred from w/c to therapy mat for weight barring through elbow on L arm 3x5 with a rest break in between. Bed mobility was shown to family member, sit to supine. Pt attempted to use leg raiser for bed mobility but was unsuccessful. Pt transferred from mat to w/c and propelled back to room with minimal cues to continue to propel self to room. Pt transferred from w/c to recliner with call light on R side, chair alarm on and all needs met. [id number]: Pt asleep upon arrival. PROFESSOR OF COMMUNICATION spoke to Sp about any concerns and pt reviewed HEP. Pt resting in bed upon arrival. All needs met. Call light in hand. Assessment Current Status: Fair Progress Pt focused better with Sp present. Pt is improving with transfers and mobility but still requiring a lot of VC for sequencing and safety. PT Short Term Goals Short Term Goals Time Frame: Nov 22, 2020 Roll Left & Right: 3 Sit to lyin Lying to sitting on side of be: 3 Sit to stand: 3 Chair/nmh-ir-znnld transfer: 3 Walk 10 feet: 3 PT Skilled Nursing Goals Database Operator Goals PT Skilled Nursing Goals Time Frame: Dec 06, 2020 Roll Left & Right (QC): 3 (Joel) Sit to Lying (QC): 3 (Joel) Lying-Sitting on Side/Bed(QC): 3 (Joel) Sit to Stand (QC): 3 (Joel) Chair/Jct-ly-Qjgaq Xfer(QC): 3 (Joel) Toilet Transfer (QC): 3 (Joel) Car Transfer (QC): 3 (Joel) Does the Patient Walk: Yes Walk 10 feet (QC): 3 (Joel) Walk 50ft with 2 Turns (QC): 3 (Joel) Walk 150 ft (QC): 88 Walking 10ft on Uneven Surface: 88 1 Step (curb) (QC): 88 4 Steps (QC): 88 12 Steps (QC): 88 Picking up an Object (QC): 88 Wheel 50 feet with 2 turns (QC: 4 Wheel 150 feet: 4 PT Plan Problem List Problem List: Activity Tolerance, Functional Strength, Safety, Balance Treatment/Plan Treatment Plan: Continue Plan of Care Treatment Plan: Bed Mobility, Education, Functional Activity Cooper, Functional Strength, Group Therapy, Gait, Safety, Therapeutic Exercise, Transfers Treatment Duration: Dec 06, 2020 Frequency: At least 5 of 7 days/Wk (IRF) Estimated Hrs Per Day: 1.5 hours per day Patient and/or Family Agrees t: Yes Safety Risks/Education Patient Education: Gait Training, Transfer Techniques, Correct Positioning, W/C Management, Safety Issues Teaching Recipient: Patient, Significant Other Teaching Methods: Discussion Response to Teaching: Verbalize Understanding, Reinforcement Needed Time/GCodes Time In: 900 Time Out: 1000 Total Billed Treatment Time: 75 Total Billed Treatment 1, FARHAD (15m), ENRIQUE montanez (45m) Co-treat w/Ot for 60m Afternoon session:[id number] (15m) 1, HILDA INMAN PTA Nov 25, 2020 12:11
--- NOTE | 2020-11-25 13:52 | NUR ---
CM/SS CONCURRENT DOCUMENTATION Spouse Carlos Zamora came as planned for education, observation, training on patient's current care level. Program Advocate met with Carlos and patient after and both were in agreement she could not return home at this time due to dependent care needs. They had already discussed a next step as a alf facility prior to ad copy writer's arrival. Reviewed facilities in their area, their first two choices are: 1. [facility]/Adalberto, Liaison CELL: [phone]. They have only one female bed on the Covid positive unit. Adalberto offered for the referral to be submitted for a waiting list. All the rooms are being used as privates right now to avoid cross exposures. They are reportedly inundated with referrals at this time. 2. [facility]/Jose Have vacancies, referral faxed. Response anticipated Saturday. Addendum: 11/25/20 at 1522 by TOYA RODRIGUEZ Additional referrals completed: [facility] (availability really not anticipated) [facility] 3 referrals out at this time.
[2020-11-25 16:17] VITALS: BP 120/59
[2020-11-25] MEDS: ENOXAPARIN 40 MG/0.4 ML (LOVENOX) SYR SC SCH (18:58)
--- NOTE | 2020-11-25 19:16 | NUR ---
Bedside report received from HILDA CORDERO, assume care of pt
[2020-11-25] MEDS: MONTELUKAST 10 MG (SINGULAIR) TAB PO SCH (20:07)
[2020-11-25] MEDS: CYCLOBENZAPRINE 10 MG (FLEXERIL) TAB PO SCH (20:08)
[2020-11-25] MEDS: MELATONIN 3 MG TABLET PO PRN (20:08)
[2020-11-25] MEDS: HYDROcodone/APAP 5 MG/325 MG (LORTAB) TAB PO PRN (20:09)
--- NOTE | 2020-11-25 20:09 | NUR ---
Pt refused COLACE, SENOKOT & MIRALAX, c/o back pain level 7/10 on numeric scale, Lortab 5 1 tab given
--- NOTE | 2020-11-25 20:35 | NUR ---
Resting quietly in bed, pain level 0/10 on CNPI SCALE
--- NOTE | 2020-11-26 05:13 | PM&R Progress Note ---
Subjective HPI/CC On Admission Date Seen by Provider: Nov 26, 2020 Time Seen by Provider: 08:30 Subjective/Events-last exam 11/26/20: Needs NHP Confused BM++ Sugars reasonable 11/25/20: Family training today Patient needs NH at DC after assessment per BM++ Lortab helps Incontinent Increase mobility of the left leg 11/24/20: Patient about the same Confusion continues BM today Family education/training tomorrow? 11/23/20: Pt participating in PT Wheelchair mobility focused on Will have family education on Saturday, to see if family is able to accommodate her needs but she remains completely dependent Denies any significant other issues Hallucinates often 11/22/20: No major issues Mentally she is a little bit more alert but very debilitated and cognitively deficient BM yesterday and she was incontinent 11/21/20: Pt doing pretty well Labs okay Sugars are good Hgb stable Bowels moved two days ago 11/20/20: Nicotine patch on and still asks to go outside to smoke More alert today Confusion is significant No issues otherwise 11/19/20: Refuses Advair since she states it makes her wheeze No pain reported Confusion apparent Unclear of recovery potential 11/18/20: Doing well Confusion noted BM finally after aggressive regimen More alert today 11/17/20: No BM since 11/12 Laxatives and supp will be given Facial droop appears less pronounced Confusion noted 11/16/20: Sugar is 198 receiving sliding scale Improvement on transfers already Bowels moved on November 12 so given laxatives Pt has some unreliable information most of the time Nicotine patch reordered Focus is very poor, requires constant cues Review of Systems General: Fatigue Neurological: Weakness, Incoordination, Change in speech, Confusion Objective Exam Vital Signs Vital Signs Date Time Temp Pulse Resp B/P (MAP) Pulse Ox O2 Delivery O2 Flow Rate FiO2 11/27/20 05:36 36.0 70 16 121/76 (91) 96 Room Air 11/21/20 18:45 95 Capillary Refill : Less Than 3 Seconds General Appearance: No Apparent Distress, WD/WN, Anxious, Chronically ill HEENT: PERRL/EOMI, Normal ENT Inspection, Pharynx Normal Neck: Full Range of Motion, Normal Inspection, Non Tender, Supple, Carotid Bruit Respiratory: Chest Non Tender, Normal Breath Sounds, No Accessory Muscle Use, No Respiratory Distress, Decreased Breath Sounds Cardiovascular: Regular Rate, Rhythm, No Edema, No Gallop, No JVD, No Murmur, Normal Peripheral Pulses Gastrointestinal: Normal Bowel Sounds, No Organomegaly, No Pulsatile Mass, Non Tender, Soft Back: Normal Inspection, No CVA Tenderness, No Vertebral Tenderness Extremity: Normal Capillary Refill, Normal Inspection, Normal Range of Motion, Non Tender, No Calf Tenderness, No Pedal Edema Neurologic/Psychiatric: Alert, Oriented x3, Abnormal Gait, Aphasia (partial), Depressed Affect, Facial Droop (left), Motor Weakness (left sided weakness 1/5) Skin: Normal Color, Warm/Dry Lymphatic: No Adenopathy Results/Procedures Lab Patient resulted labs reviewed. FIM Transfers Therapy Code Descriptions/Definitions Functional [place] Measure: 0=Not Assessed/NA 4=Minimal Assistance 1=Total Assistance 5=Supervision or Setup 2=Maximal Assistance 6=Modified [place] 3=Moderate Assistance 7=Complete IndependenceSCALE: Activities may be completed with or without assistive devices. 8-Llkowkqnzr-ghevjkm completes the activity by him/herself with no assistance f rom a helper. 5-Set-up or Clean-up Assistance-helper sets up or cleans up; patient completes activity. [place] assists only prior to or following the activity. 4-Supervision or Touching Assistance-helper provides verbal cues and/or touching/steadying and/or contact guard assistance as patient completes activity. Assistance may be provided throughout the activity or intermittently. 3-Partial/Moderate Assistance-helper does LESS THAN HALF the effort. [place] lifts, holds or supports trunk or limbs, but provides less than half the effort. 2-Substantial/Maximal Assistance-helper does MORE THAN HALF the effort. [place] lifts or holds trunk or limbs and provides more than half the effort. 2-Pqrxwyyyy-erbnvc does ALL the effort. Patient does none of the effort to complete the activity. Or, the assistance of 2 or more helpers is required for the patient to complete the activity. If activity was not attempted, code reason: 7-Patient Refused. 9-Not Applicable-not attempted and the patient did not perform the activity before the current illness, exacerbation or injury. 10-Not Attempted due to Environmental Limitations-(lack of equipment, weather restraints, etc.). 88-Not Attempted due to Medical Conditions or Safety Concerns. Roll Left to Right (QC): 3 Sit to Lying (QC): 3 Sit to Stand (QC): 4 Chair/Hvo-ox-Iuuja Xfer(QC): 3 Car Transfer (QC): 2 Gait Training Does the Patient Walk?: Yes Distance: 8' x3 Walk 10 feet (QC): 4 Walk 50 ft with 2 Turns(QC): 88 Walk 150 ft (QC): 88 Walking 10ft/uneven surface-QC: 88 Gait Persons Needed: 1 Gait Assistive Device: Parallel Bars Wheelchair Training Does the Pt Use a Wheelchair?: Yes Wheel 50 ft with 2 turns (QC): 3 Wheel 150 ft (QC): 3 Type of Wheelchair: Manual Stair Training 1 Step (curb) (QC): 88 4 Steps (QC): 88 12 Steps (QC): 88 Balance Picking up an Object (QC): 88 ADL-Treatment Eating (QC): 5 (set up assistance with cutting food. Pt then able to eat.) Oral Hygiene (QC): 3 (ModA, pt able to brush gums with no cues. OT assisted with denture care and setting up toothbrush with toothpaste. Pt able to place fixodent onto dentures OT held.) Bathing Location: L Arm, L Upper Leg, R Upper Leg, R Lower Leg (including foot), Chest, Abdomen Shower/Bathe Self (QC): 1 (Needed max verbal cues to wash trunk and under arms. needed assist x2 to wash buttocks while standing) Upper Body Dressing (QC): 2 (MaxA, pt able to thread R arm through with OT guiding hand through. OT assisted with threading L arm and head through shirt) Lower Body Dressing (QC): 2 (MaxA, OT assisted with threading brief and pants on L leg. Pt able to thread R leg through. Assistance needed for pants hike while standing) On/Off Footwear (QC): 1 (Pt required assistance donning and doffing gripper socks.) Toileting Hygiene (QC): 1 (dependent, assist with all parts.) Assessment/Plan Assessment and Plan Assess & Plan/Chief Complaint Assessment: CVA Left sided weakness Left sided neglect HTN DM HLP Smoker COPD Chronic pain Plan: IRF protocol Pain meds home dosing BM regimen Monitor O2 11/16/20: Monitor sugar Increase therapy Monitor confusion 11/17/20: Confusion noted BM regimen 11/18/20: BM regimen successful now maintain Monitor confusion Work on transfers to decrease caregiver burden 11/19/20: Confusion monitored Monitor BP and sugar 11/20/20: Monitor BP and glucose Labs tomorrow Monitor for falls 11/21/20: Labs good Monitor confusion Monitor for falls 11/22/20: Incontinence care Monitor confusion Monitor BP 11/23/20: Family education to eval options at DC Monitor hallucinations 11/24/20: Family training tomorrow Monitor closely Sugars good 11/25/20: NHP 11/26/20: Continue treatment Needs NHP (1) CVA (cerebral vascular accident) (2) Diabetes (3) Hypertension (4) Left-sided weakness (5) Smoker (6) Hyperlipemia (7) Odilon-neglect of left side TITA LUBIN DO Nov 26, 2020 05:13
[2020-11-26 05:50] VITALS: BP 108/53
[2020-11-26] MEDS: LEVOTHYROXINE 88 MCG (LEVOTHORID) TAB PO SCH (06:04)
[2020-11-26] MEDS: ADVAIR HFA 45/21 MCG INHALER 8 GM IH SCH ×3 (07:49→22:04)
[2020-11-26] MEDS: LEVETIRACETAM 500 MG (KEPPRA) TAB PO SCH ×2 (08:05→21:27)
[2020-11-26] MEDS: ALLOPURINOL 100 MG (ZYLOPRIM) TAB PO SCH ×2 (08:05→21:26)
[2020-11-26] MEDS: DOCUSATE SODIUM 100 MG (COLACE) CAP PO SCH ×2 (08:05→21:29)
[2020-11-26] MEDS: CLOPIDOGREL 75 MG (PLAVIX) TABLET PO SCH (08:05)
[2020-11-26] MEDS: FUROSEMIDE 40 MG (LASIX) TAB PO SCH (08:05)
[2020-11-26] MEDS: SENNA W/DOCUSATE (SENOKOT S) TABLET PO SCH ×2 (08:05→21:29)
[2020-11-26] MEDS: ASPIRIN 81 MG CHEW (CHILDREN'S ASA) PO SCH (08:05)
[2020-11-26] MEDS: HYDROcodone/APAP 5 MG/325 MG (LORTAB) TAB PO PRN ×2 (08:06→14:33)
[2020-11-26] MEDS: NICOTINE 21 MG (NICODERM) PATCH TD SCH (08:06)
[2020-11-26] MEDS: metFORMIN 500 MG (GLUCOPHAGE) TAB PO SCH ×2 (08:06→17:21)
[2020-11-26] MEDS: VIMPAT 100 MG PO SCH ×2 (08:07→21:32)
[2020-11-26] MEDS: PANTOPRAZOLE 20 MG TABLET (PROTONIX) PO SCH (08:07)
[2020-11-26] MEDS: PROPRANOLOL LA 120 MG (INDERAL LA) CAP NON-FORMULARY PO SCH ×2 (08:07→21:30)
[2020-11-26] MEDS: DIVALPROEX 500 MG DELAYED RELEASE (DEPAKOTE) TAB PO SCH ×2 (08:08→21:29)
[2020-11-26] MEDS: NICOTINE PATCH REMOVAL TP SCH (08:09)
[2020-11-26] MEDS: MICONAZOLE 2% POWDER (DESENEX AF) 90 GM TOP SCH ×3 (08:09→21:31)
[2020-11-26] MEDS: TRESIBA FLEXTOUCH 200 UNITS/ML SQ SCH (08:10)
[2020-11-26] MEDS: LOSARTAN 25 MG (COZAAR) TAB PO SCH (08:24)
[2020-11-26] MEDS: polyethylene glycoL POWDER 17 GM (MIRALAX) PACK PO SCH ×2 (08:30→21:29)
[2020-11-26] MEDS: FLUTICASONE NASAL SPRAY (FLONASE) 16 GM BTL NS SCH (08:30)
[2020-11-26] MEDS: inSUlin ASPART (NovoLOG) 1 UNIT/0.01 ML (CHARGE PER UNIT) SC PRN (10:43)
--- NOTE | 2020-11-26 12:26 | Physical Therapy Daily Note ---
PT Daily Note-Current Subjective Pt in bed upon arrival. Pt immediately asks INSIDE BARREL POLISHER "If I work really hard today, can I go home tomorrow instead of to Assisted Living on Saturday?" Pain Numeric Pain Scale: 0-No Pain Location: No Pain Reported Mental Status Patient Orientation: Person, Place, Situation Transfers SCALE: Activities may be completed with or without assistive devices. 8-Wqypqubwps-cnnimwi completes the activity by him/herself with no assistance from a helper. 5-Set-up or Clean-up Assistance-helper sets up or cleans up; patient completes activity. [place] assists only prior to or following the activity. 4-Supervision or Touching Assistance-helper provides verbal cues and/or touching/steadying and/or contact guard assistance as patient completes activity. Assistance may be provided throughout the activity or intermittently. 3-Partial/Moderate Assistance-helper does LESS THAN HALF the effort. [place] lifts, holds or supports trunk or limbs, but provides less than half the effort. 2-Substantial/Maximal Assistance-helper does MORE THAN HALF the effort. [place] lifts or holds trunk or limbs and provides more than half the effort. 2-Ejjeefgir-jjsiok does ALL the effort. Patient does none of the effort to complete the activity. Or, the assistance of 2 or more helpers is required for the patient to complete the activity. If activity was not attempted, code reason: 7-Patient Refused. 9-Not Applicable-not attempted and the patient did not perform the activity before the current illness, exacerbation or injury. 10-Not Attempted due to Environmental Limitations-(lack of equipment, weather restraints, etc.). 88-Not Attempted due to Medical Conditions or Safety Concerns. Sit to Lying (QC): 3 Sit to Stand (QC): 3 Toilet Transfer (QC): 3 Weight Bearing Full Weight Bearing Full Weight Bearing Exercises Supine Ex: Ankle pumps, Quad Set, Glut sets, Heel Slides, Short Arc Quads, Straight leg raise Supine Reps: 12 Treatments Supine ex completed. Pt requests commode. Pt transfers EOB<>commode w/ ModA. Pt remains in bed w/ call light and bedside table w/in reach and all needs met at end of tx. Assessment Current Status: Fair Progress Pt refuses to complete ex outside of bed. Pt voices that she is not happy about going to an assisted living facility. PT Short Term Goals Short Term Goals Time Frame: Nov 22, 2020 Roll Left & Right: 3 Sit to lyin Lying to sitting on side of be: 3 Sit to stand: 3 Chair/ioo-na-eleeb transfer: 3 Walk 10 feet: 3 PT Fitness Center Attendant Goals Fitness Center Attendant Goals PT Fitness Center Attendant Goals Time Frame: Dec 06, 2020 Roll Left & Right (QC): 3 (Joel) Sit to Lying (QC): 3 (Joel) Lying-Sitting on Side/Bed(QC): 3 (Joel) Sit to Stand (QC): 3 (Joel) Chair/Rzm-bd-Mulhn Xfer(QC): 3 (Joel) Toilet Transfer (QC): 3 (Joel) Car Transfer (QC): 3 (Joel) Does the Patient Walk: Yes Walk 10 feet (QC): 3 (Joel) Walk 50ft with 2 Turns (QC): 3 (Joel) Walk 150 ft (QC): 88 Walking 10ft on Uneven Surface: 88 1 Step (curb) (QC): 88 4 Steps (QC): 88 12 Steps (QC): 88 Picking up an Object (QC): 88 Wheel 50 feet with 2 turns (QC: 4 Wheel 150 feet: 4 PT Plan Problem List Problem List: Activity Tolerance, Functional Strength, Safety, Balance, Gait, Transfer, Bed Mobility, ROM Treatment/Plan Treatment Plan: Continue Plan of Care Treatment Plan: Bed Mobility, Education, Functional Activity Cooper, Functional Strength, Group Therapy, Gait, Safety, Therapeutic Exercise, Transfers Treatment Duration: Dec 06, 2020 Frequency: At least 5 of 7 days/Wk (IRF) Estimated Hrs Per Day: 1.5 hours per day Patient and/or Family Agrees t: Yes Safety Risks/Education Patient Education: Transfer Techniques, Correct Positioning, Safety Issues Teaching Recipient: Patient Teaching Methods: Discussion Response to Teaching: Verbalize Understanding Time/GCodes Time In: 905 Time Out: 928 Total Billed Treatment Time: 23 Total Billed Treatment 1, EX(15m), FA(8m) JESUS MONTGOMERY INSIDE BARREL POLISHER Nov 26, 2020 12:26
[2020-11-26 15:48] VITALS: BP 105/60
[2020-11-26] MEDS: ENOXAPARIN 40 MG/0.4 ML (LOVENOX) SYR SC SCH (17:23)
[2020-11-26 21:00] VITALS: BP 142/60
[2020-11-26] MEDS: MONTELUKAST 10 MG (SINGULAIR) TAB PO SCH (21:26)
[2020-11-26] MEDS: CYCLOBENZAPRINE 10 MG (FLEXERIL) TAB PO SCH (21:26)
--- NOTE | 2020-11-26 22:00 | NUR ---
ASSISTED UP TO COMMODE. MOVING AROUND BETTER. STILL CONFUSED, BUT MENTATION SEEMS IMPROVED FROM EARLIER IN THE WEEK.
[2020-11-27 05:36] VITALS: BP 121/76
[2020-11-27] MEDS: LEVOTHYROXINE 88 MCG (LEVOTHORID) TAB PO SCH (06:18)
[2020-11-27] MEDS: HYDROcodone/APAP 5 MG/325 MG (LORTAB) TAB PO PRN ×2 (06:19→12:50)
--- NOTE | 2020-11-27 08:07 | PM&R Progress Note ---
Subjective HPI/CC On Admission Date Seen by Provider: Nov 27, 2020 Time Seen by Provider: 12:30 Subjective/Events-last exam 11/27/20: Confusion still present NHP BM yesterday Imitrex was DC after her CVA 11/26/20: Needs NHP Confused BM++ Sugars reasonable 11/25/20: Family training today Patient needs NH at DC after assessment per BM++ Lortab helps Incontinent Increase mobility of the left leg 11/24/20: Patient about the same Confusion continues BM today Family education/training tomorrow? 11/23/20: Pt participating in PT Wheelchair mobility focused on Will have family education on Saturday, to see if family is able to accommodate her needs but she remains completely dependent Denies any significant other issues Hallucinates often 11/22/20: No major issues Mentally she is a little bit more alert but very debilitated and cognitively deficient BM yesterday and she was incontinent 11/21/20: Pt doing pretty well Labs okay Sugars are good Hgb stable Bowels moved two days ago 11/20/20: Nicotine patch on and still asks to go outside to smoke More alert today Confusion is significant No issues otherwise 11/19/20: Refuses Advair since she states it makes her wheeze No pain reported Confusion apparent Unclear of recovery potential 11/18/20: Doing well Confusion noted BM finally after aggressive regimen More alert today 11/17/20: No BM since 11/12 Laxatives and supp will be given Facial droop appears less pronounced Confusion noted 11/16/20: Sugar is 198 receiving sliding scale Improvement on transfers already Bowels moved on November 12 so given laxatives Pt has some unreliable information most of the time Nicotine patch reordered Focus is very poor, requires constant cues Review of Systems General: Fatigue, Malaise Neurological: Weakness, Incoordination, Change in speech, Confusion Objective Exam Vital Signs Vital Signs Date Time Temp Pulse Resp B/P (MAP) Pulse Ox O2 Delivery O2 Flow Rate FiO2 11/27/20 18:44 95 Room Air 11/27/20 17:32 37.4 99 18 129/70 (89) 11/21/20 18:45 95 Capillary Refill : Less Than 3 Seconds General Appearance: No Apparent Distress, WD/WN, Anxious, Chronically ill HEENT: PERRL/EOMI, Normal ENT Inspection, Pharynx Normal Neck: Full Range of Motion, Normal Inspection, Non Tender, Supple, Carotid Bruit Respiratory: Chest Non Tender, Normal Breath Sounds, No Accessory Muscle Use, No Respiratory Distress, Decreased Breath Sounds Cardiovascular: Regular Rate, Rhythm, No Edema, No Gallop, No JVD, No Murmur, Normal Peripheral Pulses Gastrointestinal: Normal Bowel Sounds, No Organomegaly, No Pulsatile Mass, Non Tender, Soft Back: Normal Inspection, No CVA Tenderness, No Vertebral Tenderness Extremity: Normal Capillary Refill, Normal Inspection, Normal Range of Motion, Non Tender, No Calf Tenderness, No Pedal Edema Neurologic/Psychiatric: Alert, Oriented x3, Abnormal Gait, Aphasia (partial), Depressed Affect, Facial Droop (left), Motor Weakness (left sided weakness 1/5) Skin: Normal Color, Warm/Dry Lymphatic: No Adenopathy Results/Procedures Lab Patient resulted labs reviewed. FIM Transfers Therapy Code Descriptions/Definitions Functional [place] Measure: 0=Not Assessed/NA 4=Minimal Assistance 1=Total Assistance 5=Supervision or Setup 2=Maximal Assistance 6=Modified [place] 3=Moderate Assistance 7=Complete IndependenceSCALE: Activities may be completed with or without assistive devices. 6-Lkcjvxegww-spgxnvs completes the activity by him/herself with no assistance from a helper. 5-Set-up or Clean-up Assistance-helper sets up or cleans up; patient completes activity. [place] assists only prior to or following the activity. 4-Supervision or Touching Assistance-helper provides verbal cues and/or touching/steadying and/or contact guard assistance as patient completes activity. Assistance may be provided throughout the activity or intermittently. 3-Partial/Moderate Assistance-helper does LESS THAN HALF the effort. [place] lifts, holds or supports trunk or limbs, but provides less than half the effort. 2-Substantial/Maximal Assistance-helper does MORE THAN HALF the effort. [place] lifts or holds trunk or limbs and provides more than half the effort. 6-Hfhvdztax-mparbn does ALL the effort. Patient does none of the effort to compl ete the activity. Or, the assistance of 2 or more helpers is required for the patient to complete the activity. If activity was not attempted, code reason: 7-Patient Refused. 9-Not Applicable-not attempted and the patient did not perform the activity before the current illness, exacerbation or injury. 10-Not Attempted due to Environmental Limitations-(lack of equipment, weather restraints, etc.). 88-Not Attempted due to Medical Conditions or Safety Concerns. Roll Left to Right (QC): 3 Sit to Lying (QC): 3 Sit to Stand (QC): 3 Chair/Qvc-ju-Vstli Xfer(QC): 3 Car Transfer (QC): 2 Gait Training Does the Patient Walk?: Yes Distance: 8' x3 Walk 10 feet (QC): 4 Walk 50 ft with 2 Turns(QC): 88 Walk 150 ft (QC): 88 Walking 10ft/uneven surface-QC: 88 Gait Persons Needed: 1 Gait Assistive Device: Parallel Bars Wheelchair Training Does the Pt Use a Wheelchair?: Yes Wheel 50 ft with 2 turns (QC): 3 Wheel 150 ft (QC): 3 Type of Wheelchair: Manual Stair Training 1 Step (curb) (QC): 88 4 Steps (QC): 88 12 Steps (QC): 88 Balance Picking up an Object (QC): 88 ADL-Treatment Eating (QC): 5 (set up assistance with cutting food. Pt then able to eat.) Oral Hygiene (QC): 3 (ModA, pt able to brush gums with no cues. OT assisted with denture care and setting up toothbrush with toothpaste. Pt able to place fixodent onto dentures OT held.) Bathing Location: L Arm, L Upper Leg, R Upper Leg, R Lower Leg (including foot), Chest, Abdomen Shower/Bathe Self (QC): 1 (Needed max verbal cues to wash trunk and under arms. needed assist x2 to wash buttocks while standing) Upper Body Dressing (QC): 2 (MaxA, pt able to thread R arm through with OT guiding hand through. OT assisted with threading L arm and head through shirt) Lower Body Dressing (QC): 2 (MaxA, OT assisted with threading brief and pants on L leg. Pt able to thread R leg through. Assistance needed for pants hike while standing) On/Off Footwear (QC): 1 (Pt required assistance donning and doffing gripper socks.) Toileting Hygiene (QC): 1 (dependent, assist with all parts.) Assessment/Plan Assessment and Plan Assess & Plan/Chief Complaint Assessment: CVA Left sided weakness Left sided neglect HTN DM HLP Smoker COPD Chronic pain Plan: IRF protocol Pain meds home dosing BM regimen Monitor O2 11/16/20: Monitor sugar Increase therapy Monitor confusion 11/17/20: Confusion noted BM regimen 11/18/20: BM regimen successful now maintain Monitor confusion Work on transfers to decrease caregiver burden 11/19/20: Confusion monitored Monitor BP and sugar 11/20/20: Monitor BP and glucose Labs tomorrow Monitor for falls 11/21/20: Labs good Monitor confusion Monitor for falls 11/22/20: Incontinence care Monitor confusion Monitor BP 11/23/20: Family education to eval options at DC Monitor hallucinations 11/24/20: Family training tomorrow Monitor closely Sugars good 11/25/20: NHP 11/26/20: Continue treatment Needs NHP 11/27/20: VTP Monitor sugar (1) CVA (cerebral vascular accident) (2) Diabetes (3) Hypertension (4) Left-sided weakness (5) Smoker (6) Hyperlipemia (7) Odilon-neglect of left side TITA LUBIN DO Nov 27, 2020 08:07
[2020-11-27] MEDS: LOSARTAN 25 MG (COZAAR) TAB PO SCH (08:54)
[2020-11-27] MEDS: SENNA W/DOCUSATE (SENOKOT S) TABLET PO SCH ×2 (08:54→20:57)
[2020-11-27] MEDS: ASPIRIN 81 MG CHEW (CHILDREN'S ASA) PO SCH (08:54)
[2020-11-27] MEDS: FUROSEMIDE 40 MG (LASIX) TAB PO SCH (08:54)
[2020-11-27] MEDS: DOCUSATE SODIUM 100 MG (COLACE) CAP PO SCH ×2 (08:54→20:57)
[2020-11-27] MEDS: NICOTINE 21 MG (NICODERM) PATCH TD SCH (08:54)
[2020-11-27] MEDS: CLOPIDOGREL 75 MG (PLAVIX) TABLET PO SCH (08:54)
[2020-11-27] MEDS: PANTOPRAZOLE 20 MG TABLET (PROTONIX) PO SCH (08:54)
[2020-11-27] MEDS: LEVETIRACETAM 500 MG (KEPPRA) TAB PO SCH ×2 (08:54→20:58)
[2020-11-27] MEDS: metFORMIN 500 MG (GLUCOPHAGE) TAB PO SCH ×2 (08:55→18:34)
[2020-11-27] MEDS: ALLOPURINOL 100 MG (ZYLOPRIM) TAB PO SCH ×2 (08:55→20:59)
[2020-11-27] MEDS: polyethylene glycoL POWDER 17 GM (MIRALAX) PACK PO SCH ×2 (08:55→20:58)
[2020-11-27] MEDS: VIMPAT 100 MG PO SCH ×2 (08:55→20:56)
[2020-11-27] MEDS: PROPRANOLOL LA 120 MG (INDERAL LA) CAP NON-FORMULARY PO SCH ×2 (08:56→20:58)
[2020-11-27] MEDS: DIVALPROEX 500 MG DELAYED RELEASE (DEPAKOTE) TAB PO SCH ×2 (08:57→20:55)
[2020-11-27] MEDS: MICONAZOLE 2% POWDER (DESENEX AF) 90 GM TOP SCH ×3 (08:57→20:59)
[2020-11-27] MEDS: NICOTINE PATCH REMOVAL TP SCH (08:57)
[2020-11-27] MEDS: TRESIBA FLEXTOUCH 200 UNITS/ML SQ SCH (08:57)
[2020-11-27] MEDS: FLUTICASONE NASAL SPRAY (FLONASE) 16 GM BTL NS SCH (08:58)
[2020-11-27] MEDS: ALPRAZolam 0.25 MG (XANAX) TAB PO PRN (14:23)
--- NOTE | 2020-11-27 14:24 | NUR ---
RESTLESS AND ASKING TO GO HOME. PT. STATES " SEE, WANDA WANDA IS OUT THERE WAITING FOR ME." ATTEMPTED TO EXPLAIN TO PT. THAT SHE WAS ON THE 2ND FLOOR AT [facility] AND THAT HER S/O WAS NOT OUTSIDE AT THIS TIME. PT. STATED SHE'S FEELING ANXIETY. XANAX 0.25 MG GIVEN P.O.
[2020-11-27 17:32] VITALS: BP 129/70
[2020-11-27] MEDS: ENOXAPARIN 40 MG/0.4 ML (LOVENOX) SYR SC SCH (18:34)
[2020-11-27] MEDS: ADVAIR HFA 45/21 MCG INHALER 8 GM IH SCH (18:44)
[2020-11-27 20:20] VITALS: BP 131/74
[2020-11-27] MEDS: CYCLOBENZAPRINE 10 MG (FLEXERIL) TAB PO SCH (20:57)
[2020-11-27] MEDS: MONTELUKAST 10 MG (SINGULAIR) TAB PO SCH (20:59)
[2020-11-28] MEDS: HYDROcodone/APAP 5 MG/325 MG (LORTAB) TAB PO PRN ×2 (01:09→15:42)
[2020-11-28] MEDS: LEVOTHYROXINE 88 MCG (LEVOTHORID) TAB PO SCH (05:41)
[2020-11-28 06:07] LABS: BASOPHILS % (AUTO) 0 % (0-10); EOSINOPHILS % (AUTO) 0 % (0-10); HEMATOCRIT 37 % (35-52); HEMOGLOBIN 12.1 g/dL (11.5-16.0); LYMPHOCYTES # (AUTO) 4.7 10^3/uL (1.0-4.0); LYMPHOCYTES % (AUTO) 28 % (12-44); MEAN CORPUSCULAR HEMOGLOBIN 30 pg (25-34); MEAN CORPUSCULAR HGB CONC 33 g/dL (32-36); MEAN CORPUSCULAR VOLUME 92 fL (80-99); MEAN PLATELET VOLUME 12.7 fL (9.0-12.2); MONOCYTES # (AUTO) 2.1 10^3/uL (0.0-1.0); MONOCYTES % (AUTO) 12 % (0-12); NEUTROPHILS # (AUTO) 10.1 10^3/uL (1.8-7.8); NEUTROPHILS % (AUTO) 59 % (42-75); PLATELET COUNT 243 10^3/uL (130-400)
[2020-11-28 06:13] LABS: ALBUMIN 3.9 GM/DL (3.2-4.5)
[2020-11-28 06:14] LABS: CHLORIDE 101 MMOL/L (98-107); POTASSIUM 4.2 MMOL/L (3.6-5.0); SODIUM 140 MMOL/L (135-145)
[2020-11-28 06:15] LABS: CALCIUM 9.8 MG/DL (8.5-10.1)
[2020-11-28 06:16] LABS: GLUCOSE 119 MG/DL (70-105); TOTAL PROTEIN 6.8 GM/DL (6.4-8.2)
[2020-11-28 06:17] LABS: CARBON DIOXIDE 27 MMOL/L (21-32)
[2020-11-28 06:18] LABS: BILIRUBIN,TOTAL 0.4 MG/DL (0.1-1.0)
[2020-11-28 06:19] LABS: ALKALINE PHOSPHATASE 40 U/L (40-136)
[2020-11-28 06:20] LABS: CREATININE SERUM 0.83 MG/DL (0.60-1.30); GFR ESTIMATED > 60
[2020-11-28 06:21] LABS: BUN/CREATININE RATIO 19
[2020-11-28 06:22] LABS: ALANINE AMINOTRANSFERASE 15 U/L (0-55)
[2020-11-28] MEDS: KCL 20 MEQ TAB (K-DUR) PO SCH (06:22)
[2020-11-28 06:36] VITALS: BP 119/55
[2020-11-28 06:37] LABS: BAND NEUTROPHILS 9 %; LYMPHOCYTES % (MANUAL) 27 %; MONOCYTES % (MANUAL) 10 %; NEUTROPHILS % (MANUAL) 54 %
[2020-11-28 06:38] LABS: ELLIPT/OVALOCYTES SLIGHT; MICROCYTOSIS SLIGHT; POLYCHROMASIA SLIGHT
[2020-11-28 07:12] LABS: BILIRUBIN,URINE NEGATIVE (NEGATIVE); CLARITY,URINE CLEAR; COLOR,URINE DARK YELLOW; GLUCOSE, URINE (UA) NEGATIVE (NEGATIVE); KETONES,URINE 1+ (NEGATIVE); LEUKOCYTE ESTERASE ,URINE NEGATIVE (NEGATIVE); NITRITE,URINE NEGATIVE (NEGATIVE); PROTEIN,URINE TRACE (NEGATIVE)
[2020-11-28 07:23] LABS: BACTERIA,URINE TRACE /HPF; WBC,URINE 0-2 /HPF
[2020-11-28] MEDS: ADVAIR HFA 45/21 MCG INHALER 8 GM IH SCH ×2 (07:28→18:32)
--- NOTE | 2020-11-28 08:19 | Diagnostic Imaging Report ---
CHEST 1 VIEW, AP/PA ONLY Indication: Cough. Comparison: None available. Findings: Left midlung zone bandlike opacities likely due to atelectasis. There is some hazy opacities in the periphery of the right lung base. No pleural effusion or pneumothorax. Normal cardiomediastinal silhouette. Posterior lower lobes are poorly evaluated by portable radiography. There is a generator pack with lead extending cranially in the left chest wall. The electrodes terminating in the lower neck may be associated with the vagal nerve or carotid bulb. Impression: 1. Right basilar ill-defined pulmonary opacities could be due to an infectious process in the appropriate setting. Dictated by: Dictated on workstation # [id number]
--- NOTE | 2020-11-28 08:44 | PM&R Progress Note ---
Subjective HPI/CC On Admission Date Seen by Provider: Nov 28, 2020 Time Seen by Provider: 08:30 Subjective/Events-last exam 11/28/20: WBC 17,000 with no fever and no evidence of any sepsis Chest X-ray showed evidence of an early right lower lobe pneumonia so she was placed on Zosyn No evidence of sepsis so no IV antibiotics initiated She will be discharged after a Covid test is completed and will be sent to a alf tomorrow for long-term care 11/27/20: Confusion still present NHP BM yesterday Imitrex was DC after her CVA 11/26/20: Needs NHP Confused BM++ Sugars reasonable 11/25/20: Family training today Patient needs NH at DC after assessment per BM++ Lortab helps Incontinent Increase mobility of the left leg 11/24/20: Patient about the same Confusion continues BM today Family education/training tomorrow? 11/23/20: Pt participating in PT Wheelchair mobility focused on Will have family education on Saturday, to see if family is able to accommodate her needs but she remains completely dependent Denies any significant other issues Hallucinates often 11/22/20: No major issues Mentally she is a little bit more alert but very debilitated and cognitively deficient BM yesterday and she was incontinent 11/21/20: Pt doing pretty well Labs okay Sugars are good Hgb stable Bowels moved two days ago 11/20/20: Nicotine patch on and still asks to go outside to smoke More alert today Confusion is significant No issues otherwise 11/19/20: Refuses Advair since she states it makes her wheeze No pain reported Confusion apparent Unclear of recovery potential 11/18/20: Doing well Confusion noted BM finally after aggressive regimen More alert today 11/17/20: No BM since 11/12 Laxatives and supp will be given Facial droop appears less pronounced Confusion noted 11/16/20: Sugar is 198 receiving sliding scale Improvement on transfers already Bowels moved on November 12 so given laxatives Pt has some unreliable information most of the time Nicotine patch reordered Focus is very poor, requires constant cues Review of Systems General: Fatigue, Malaise Neurological: Weakness Focused Exam Lactate Level 11/28/20 06:25: Lactic Acid Level 1.46 Lactic Acid Level Objective Exam Vital Signs Vital Signs Date Time Temp Pulse Resp B/P (MAP) Pulse Ox O2 Delivery O2 Flow Rate FiO2 11/28/20 21:49 88 113/69 (84) 94 Room Air 11/28/20 18:32 36.4 20 Capillary Refill : Less Than 3 Seconds General Appearance: No Apparent Distress, WD/WN, Anxious, Chronically ill HEENT: PERRL/EOMI, Normal ENT Inspection, Pharynx Normal Neck: Full Range of Motion, Normal Inspection, Non Tender, Supple, Carotid Bruit Respiratory: Chest Non Tender, Normal Breath Sounds, No Accessory Muscle Use, No Respiratory Distress, Decreased Breath Sounds Cardiovascular: Regular Rate, Rhythm, No Edema, No Gallop, No JVD, No Murmur, Normal Peripheral Pulses Gastrointestinal: Normal Bowel Sounds, No Organomegaly, No Pulsatile Mass, Non Tender, Soft Back: Normal Inspection, No CVA Tenderness, No Vertebral Tenderness Extremity: Normal Capillary Refill, Normal Inspection, Normal Range of Motion, Non Tender, No Calf Tenderness, No Pedal Edema Neurologic/Psychiatric: Alert, Oriented x3, Abnormal Gait, Aphasia (partial), Depressed Affect, Facial Droop (left), Motor Weakness (left sided weakness 1/5) Skin: Normal Color, Warm/Dry Lymphatic: No Adenopathy Results/Procedures Lab Laboratory Tests 11/28/20 05:12 Patient resulted labs reviewed. FIM Transfers Therapy Code Descriptions/Definitions Functional [place] Measure: 0=Not Assessed/NA 4=Minimal Assistance 1=Total Assistance 5=Supervision or Setup 2=Maximal Assistance 6=Modified [place] 3=Moderate Assistance 7=Complete IndependenceSCALE: Activities may be completed with or without assistive devices. 9-Rositqeykw-fhqctxf completes the activity by him/herself with no assistance from a helper. 5-Set-up or Clean-up Assistance-helper sets up or cleans up; patient completes activity. [place] assists only prior to or following the activity. 4-Supervision or Touching Assistance-helper provides verbal cues and/or touching/steadying and/or contact guard assistance as patient completes activity. Assistance may be provided throughout the activity or intermittently. 3-Partial/Moderate Assistance-helper does LESS THAN HALF the effort. [place] lifts, holds or supports trunk or limbs, but provides less than half the effort. 2-Substantial/Maximal Assistance-helper does MORE THAN HALF the effort. [place] lifts or holds trunk or limbs and provides more than half the effort. 6-Srnmwxiak-qsisbc does ALL the effort. Patient does none of the effort to compl ete the activity. Or, the assistance of 2 or more helpers is required for the patient to complete the activity. If activity was not attempted, code reason: 7-Patient Refused. 9-Not Applicable-not attempted and the patient did not perform the activity before the current illness, exacerbation or injury. 10-Not Attempted due to Environmental Limitations-(lack of equipment, weather restraints, etc.). 88-Not Attempted due to Medical Conditions or Safety Concerns. Roll Left to Right (QC): 3 Sit to Lying (QC): 3 Sit to Stand (QC): 3 Chair/Cad-ch-Iesyb Xfer(QC): 3 Car Transfer (QC): 2 Gait Training Does the Patient Walk?: Yes Distance: 8' x3 Walk 10 feet (QC): 4 Walk 50 ft with 2 Turns(QC): 88 Walk 150 ft (QC): 88 Walking 10ft/uneven surface-QC: 88 Gait Persons Needed: 1 Gait Assistive Device: Parallel Bars Wheelchair Training Does the Pt Use a Wheelchair?: Yes Wheel 50 ft with 2 turns (QC): 3 Wheel 150 ft (QC): 3 Type of Wheelchair: Manual Stair Training 1 Step (curb) (QC): 88 4 Steps (QC): 88 12 Steps (QC): 88 Balance Picking up an Object (QC): 88 ADL-Treatment Eating (QC): 5 (set up assistance with cutting food. Pt then able to eat.) Oral Hygiene (QC): 3 (ModA, pt able to brush gums with no cues. OT assisted with denture care and setting up toothbrush with toothpaste. Pt able to place fixodent onto dentures OT held.) Bathing Location: L Arm, L Upper Leg, R Upper Leg, R Lower Leg (including foot), Chest, Abdomen Shower/Bathe Self (QC): 1 (Needed max verbal cues to wash trunk and under arms. needed assist x2 to wash buttocks while standing) Upper Body Dressing (QC): 2 (MaxA, pt able to thread R arm through with OT guiding hand through. OT assisted with threading L arm and head through shirt) Lower Body Dressing (QC): 2 (MaxA, OT assisted with threading brief and pants on L leg. Pt able to thread R leg through. Assistance needed for pants hike while standing) On/Off Footwear (QC): 1 (Pt required assistance donning and doffing gripper socks.) Toileting Hygiene (QC): 1 (dependent, assist with all parts.) Assessment/Plan Assessment and Plan Assess & Plan/Chief Complaint Assessment: CVA Left sided weakness Left sided neglect HTN DM HLP Smoker COPD Chronic pain PNA on CXR 11/27/20 placed on treatment no sepsis Plan: IRF protocol Pain meds home dosing BM regimen Monitor O2 11/16/20: Monitor sugar Increase therapy Monitor confusion 11/17/20: Confusion noted BM regimen 11/18/20: BM regimen successful now maintain Monitor confusion Work on transfers to decrease caregiver burden 11/19/20: Confusion monitored Monitor BP and sugar 11/20/20: Monitor BP and glucose Labs tomorrow Monitor for falls 11/21/20: Labs good Monitor confusion Monitor for falls 11/22/20: Incontinence care Monitor confusion Monitor BP 11/23/20: Family education to eval options at DC Monitor hallucinations 11/24/20: Family training tomorrow Monitor closely Sugars good 11/25/20: NHP 11/26/20: Continue treatment Needs NHP 11/27/20: NHP Monitor sugar 11/28/20: Monitor closely DC home PNA treatment early no sepsis COVID test (1) CVA (cerebral vascular accident) (2) Diabetes (3) Hypertension (4) Left-sided weakness (5) Smoker (6) Hyperlipemia (7) Odilon-neglect of left side TITA LUBIN DO Nov 28, 2020 08:44
--- NOTE | 2020-11-28 08:56 | Physical Therapy Daily Note ---
PT Daily Note-Current Subjective Patient in recliner pre tx, agrees to PT, has mild pain in abdomen patient states from where nursing has been giving her insulin shots. Will be co- treating with OT due to poor patient mobility, strength, endurance, left hemiparesis, the need to coordinate UE and LE during activity, safety and reduce risk of falls. Appearance Patient in bed post tx with nurse call, phone, tray, all needs met, bed alarm on, OT to continue to work with patient on some ADL's Mental Status Patient Orientation: Person, Confused Transfers SCALE: Activities may be completed with or without assistive devices. 2-Obshfieddr-rjwwqoj completes the activity by him/herself with no assistance from a helper. 5-Set-up or Clean-up Assistance-helper sets up or cleans up; patient completes activity. [place] assists only prior to or following the activity. 4-Supervision or Touching Assistance-helper provides verbal cues and/or touching/steadying and/or contact guard assistance as patient completes activity. Assistance may be provided throughout the activity or intermittently. 3-Partial/Moderate Assistance-helper does LESS THAN HALF the effort. [place] lifts, holds or supports trunk or limbs, but provides less than half the effort. 2-Substantial/Maximal Assistance-helper does MORE THAN HALF the effort. [place] lifts or holds trunk or limbs and provides more than half the effort. 1-Agkmtodna-xssqgj does ALL the effort. Patient does none of the effort to complete the activity. Or, the assistance of 2 or more helpers is required for the patient to complete the activity. If activity was not attempted, code reason: 7-Patient Refused. 9-Not Applicable-not attempted and the patient did not perform the activity before the current illness, exacerbation or injury. 10-Not Attempted due to Environmental Limitations-(lack of equipment, weather restraints, etc.). 88-Not Attempted due to Medical Conditions or Safety Concerns. Roll Left & Right (QC): 3 Sit to Lying (QC): 3 Lying to Sitting/Side of Bed(Q: 3 Sit to Stand (QC): 3 Chair/Aqc-zc-Txicu Xfer(QC): 3 Toilet Transfer (QC): 3 Car Transfer (QC): 3 Patient performs bed mobility with min assist, supine <-> sit mod assist, sit <- > stand min assist, SPT to the right min assist and to the left mod assist, car transfer mod assist. Patient needs cues for positioning and safety especially due to her left neglect. Weight Bearing Full Weight Bearing Full Weight Bearing Gait Training Distance: 8'x2 Gait Persons Needed: 1 Gait Assistive Device: Parallel Bars min to mod assist, occasional assistance needed to advance her left leg, assist with balance and cues for steps and positioning Wheelchair Training Does the Pt Use a Wheelchair?: Yes Wheel 50 ft with 2 turns (QC): 2 Wheel 150 ft (QC): 2 Type of Wheelchair: Manual Stair Training 1 Step (curb) (QC): 88 4 Steps (QC): 88 12 Steps (QC): 88 Balance Picking up an Object (QC): 88 Treatments PT performed bed mobility and transfers, ambulation, WC mobility, assisted with balance and positioning during bathing and dressing, OT worked on bathing and dressing and UE positioning and safety during activity. Assessment Current Status: Poor Progress Patient has poor motivation, gets distracted easily, left neglect is a big obstacle to improvement PT Short Term Goals Short Term Goals Time Frame: Nov 22, 2020 Roll Left & Right: 3 Sit to lyin Lying to sitting on side of be: 3 Sit to stand: 3 Chair/pfg-mu-wwsgz transfer: 3 Walk 10 feet: 3 PT [facility] Goals Packager Hand Goals PT Packager Hand Goals Time Frame: Dec 06, 2020 Roll Left & Right (QC): 3 (Joel) Sit to Lying (QC): 3 (Joel) Lying-Sitting on Side/Bed(QC): 3 (Joel) Sit to Stand (QC): 3 (Joel) Chair/Gqi-tr-Xmexn Xfer(QC): 3 (Joel) Toilet Transfer (QC): 3 (Joel) Car Transfer (QC): 3 (Joel) Does the Patient Walk: Yes Walk 10 feet (QC): 3 (Joel) Walk 50ft with 2 Turns (QC): 3 (Joel) Walk 150 ft (QC): 88 Walking 10ft on Uneven Surface: 88 1 Step (curb) (QC): 88 4 Steps (QC): 88 12 Steps (QC): 88 Picking up an Object (QC): 88 Wheel 50 feet with 2 turns (QC: 4 Wheel 150 feet: 4 PT Plan Problem List Problem List: Activity Tolerance, Functional Strength, Safety, Balance, Gait, Transfer, Bed Mobility, ROM Treatment/Plan Treatment Plan: Continue Plan of Care Treatment Plan: Bed Mobility, Education, Functional Activity Cooper, Functional Strength, Group Therapy, Gait, Safety, Therapeutic Exercise, Transfers Treatment Duration: Dec 06, 2020 Frequency: At least 5 of 7 days/Wk (IRF) Estimated Hrs Per Day: 1.5 hours per day Patient and/or Family Agrees t: Yes Safety Risks/Education Patient Education: Gait Training, Transfer Techniques, Correct Positioning, W/C Management, Safety Issues Teaching Recipient: Patient Teaching Methods: Demonstration, Discussion Response to Teaching: Reinforcement Needed Time/GCodes Time In: 0800 Time Out: 0900 Total Billed Treatment Time: 60 Total Billed Treatment 1 visit FA 60' co-treated with OT for 60' KHUSHBU ONEIL PT Nov 28, 2020 08:56
--- NOTE | 2020-11-28 09:02 | Occupational Ther Daily Note ---
OT Current Status-Daily Note Subjective Pt agreeable to therapy at this time. Mental Status/Objective Patient Orientation: Person, Confused ADL-Treatment Therapy Code Descriptions/Definitions Functional [place] Measure: 0=Not Assessed/NA 4=Minimal Assistance 1=Total Assistance 5=Supervision or Setup 2=Maximal Assistance 6=Modified [place] 3=Moderate Assistance 7=Complete IndependenceSCALE: Activities may be completed with or without assistive devices. 5-Tjnlqyberz-qcseldr completes the activity by him/herself with no assistance from a helper. 5-Set-up or Clean-up Assistance-helper sets up or cleans up; patient completes activity. [place] assists only prior to or following the activity. 4-Supervision or Touching Assistance-helper provides verbal cues and/or touching/steadying and/or contact guard assistance as patient completes activity. Assistance may be provided throughout the activity or intermittently. 3-Partial/Moderate Assistance-helper does LESS THAN HALF the effort. [place] lifts, holds or supports trunk or limbs, but provides less than half the effort. 2-Substantial/Maximal Assistance-helper does MORE THAN HALF the effort. [place] lifts or holds trunk or limbs and provides more than half the effort. 8-Goqejwilg-svlkda does ALL the effort. Patient does none of the effort to complete the activity. Or, the assistance of 2 or more helpers is required for the patient to complete the activity. If activity was not attempted, code reason: 7-Patient Refused. 9-Not Applicable-not attempted and the patient did not perform the activity before the current illness, exacerbation or injury. 10-Not Attempted due to Environmental Limitations-(lack of equipment, weather restraints, etc.). 88-Not Attempted due to Medical Conditions or Safety Concerns. Eating (QC): 4 (SBA, Assist to open containers, then cues to locate food if located on L side of tray.) Oral Hygiene (QC): 2 (Max A. Pt removed dentures with moderate verbal cues. Pt able to brush gums after OT set up toothbrush with paste. Step by step cues for sequencing. Assist to brush dentures, then assistance to place fixodent. Pt placed top dentures in, required assist with bottom due to putting dentures in at a sideways angle.) Bathing Location: L Upper Leg, R Upper Leg, Chest, Abdomen, Perineal Area Shower/Bathe Self (QC): 1 (Assist x2 in hotel maintenance engineer order to wash buttocks. Pt required step by step cues for sequencing) Upper Body Dressing (QC): 2 (Max A, OT threaded LUE, pt able to thread RUE with cues, assist overhead and assist down trunk.) Lower Body Dressing (QC): 1 (Assist to thread LLE, Pt threaded RLE with step by step verbal cues. Assist x2 in stand for pant hike.) On/Off Footwear: 1 (Pt required assistance doffing/donning gripper socks.) Toileting Hygiene (QC): 1 (Assist x2 for clothing management and hygiene.) Other Treatment [id number] OT/PT cotreat due to skill of 2 clinicians required which a occupational rehabilitation aide could not perform in order to coordinate UE/LE with tasks, and due to pt's limitations in functional mobility, endurance, L neglect, LUE/LLE weakness, and functional ambulation. OT focused on ADLs, UE placement, cues for sequencing and safety while PT focused on LE placement, gross overall movement, and functional ambulation/mobility. Pt seated in recliner, transferred to w/c, then transferred onto shower bench. Pt completed showering and dressing, then transferred back to w/c. Pt propelled w/c around [facility] common area, then performed functional transfer in/out of car simulation. Pt taken into therapy gym, ambulated in parallel bars x2, with w/c follow. Required constant cues to advance feet, and some assistance to advance L foot. Pt taken back to her room via w/c, transferring into bed. Assist x2 to scoot towards HOB. [id number] OT tx. Head elevated and pt completed oral care. Pt states she has ate breakfast but pt's breakfast tray remains on tray table, no bites taken from pancakes or sausage, and fruit cup still present. Pt indicates she had ate the cheese, but unopened cheese remained on tray table. OT opened cheese for pt, she was able to grab from OT and eat slowly, pt looking towards R side of room while eating. Post tx, pt laying in bed, call light in reach (R side), and all needs met. Bed alarm on. Education OT Patient Education: Correct positioning, Modified ADL techniques, Progress toward Goal/Update tx plan, Purpose of tx/functional activities, Transfer techniques, W/C management Teaching Recipient: Patient Teaching Methods: Discussion Response to Teaching: Reinforcement Needed OT Short Term Goals Short Term Goals Time Frame: Nov 30, 2020 Oral hygiene: 5 Shower/bathe self: 3 Upper body dressin Lower body dressin OT Prison Goals Prison Goals Time Frame: Dec 09, 2020 Eating (QC): 6 Oral Hygiene (QC): 6 Toileting Hygiene (QC): 4 Shower/Bathe Self (QC): 4 Upper Body Dressing (QC): 5 Lower Body Dressing (QC): 4 On/Off Footwear (QC): 4 Additional Goals: 1-Demonstrate ADL Tasks, 2-Verbalize Understanding, 3- ImproveStrength/Cooper 1=Demonstrate adherence to instructed precautions during ADL tasks. 2=Patient will verbalize/demonstrate understanding of assistive devices/modifications for ADL. 3=Patient will improve strength/tolerance for activity to enable patient to perform ADL's. OT Education/Plan Problem List/Assessment Assessment: Decreased Activ Tolerance, Decreased Safety Aware, Decreased UE Strength, Impaired Bed Mobility, Impaired Cognition, Impaired Coordination, Impaired Funct Balance, Impaired I ADL's, Impaired Self-Care Skills, Restricted Funct UE ROM, Visual-Perceptual Deficit Discharge Recommendations Plan/Recommendations: Continue POC Treatment Plan/Plan of Care Patient would benefit from OT for education, treatment and training to promote independence in ADL's, mobility, safety and/or upper extremity function for ADL's. Plan of Care: ADL Retraining, Functional Mobility, Group Exercise/Act as Ind, UE Funct Exercise/Act, UE Neuromus Re-Ed/Coord, Visual/Perceptual Retrain Treatment Duration: Dec 09, 2020 Frequency: At least 5 of 7 days/Wk (IRF) Estimated Hrs Per Day: 1.5 hours per day Agreement: Yes Rehab Potential: Fair Time/GCodes Start Time: 08:00 Stop Time: 09:15 Total Time Billed (hr/min): 75 Billed Treatment Time 1, ADL 3 (45'), FA 2 (30') JOAN JACOBSON OT Nov 28, 2020 09:02
[2020-11-28] MEDS: ASPIRIN 81 MG CHEW (CHILDREN'S ASA) PO SCH (09:38)
[2020-11-28] MEDS: PANTOPRAZOLE 20 MG TABLET (PROTONIX) PO SCH (09:38)
[2020-11-28] MEDS: ALLOPURINOL 100 MG (ZYLOPRIM) TAB PO SCH ×2 (09:38→22:02)
[2020-11-28] MEDS: CLOPIDOGREL 75 MG (PLAVIX) TABLET PO SCH (09:38)
[2020-11-28] MEDS: DOCUSATE SODIUM 100 MG (COLACE) CAP PO SCH ×2 (09:38→22:00)
[2020-11-28] MEDS: DOXYCYCLINE 100 MG (VIBRAMYCIN) TABLET PO SCH ×2 (09:38→16:34)
[2020-11-28] MEDS: metFORMIN 500 MG (GLUCOPHAGE) TAB PO SCH ×2 (09:38→17:58)
[2020-11-28] MEDS: FUROSEMIDE 40 MG (LASIX) TAB PO SCH (09:38)
[2020-11-28] MEDS: LEVETIRACETAM 500 MG (KEPPRA) TAB PO SCH ×2 (09:38→22:02)
[2020-11-28] MEDS: SENNA W/DOCUSATE (SENOKOT S) TABLET PO SCH ×2 (09:38→22:02)
[2020-11-28] MEDS: LOSARTAN 25 MG (COZAAR) TAB PO SCH (09:39)
[2020-11-28] MEDS: NICOTINE 21 MG (NICODERM) PATCH TD SCH (09:39)
[2020-11-28] MEDS: NICOTINE PATCH REMOVAL TP SCH (09:39)
[2020-11-28] MEDS: FLUTICASONE NASAL SPRAY (FLONASE) 16 GM BTL NS SCH (09:40)
[2020-11-28] MEDS: VIMPAT 100 MG PO SCH ×2 (09:41→21:59)
[2020-11-28] MEDS: PROPRANOLOL LA 120 MG (INDERAL LA) CAP NON-FORMULARY PO SCH ×2 (09:41→22:01)
[2020-11-28] MEDS: MICONAZOLE 2% POWDER (DESENEX AF) 90 GM TOP SCH ×3 (09:42→22:03)
[2020-11-28] MEDS: polyethylene glycoL POWDER 17 GM (MIRALAX) PACK PO SCH ×2 (09:42→22:02)
[2020-11-28] MEDS: TRESIBA FLEXTOUCH 200 UNITS/ML SQ SCH (09:42)
[2020-11-28] MEDS: DIVALPROEX 500 MG DELAYED RELEASE (DEPAKOTE) TAB PO SCH ×2 (09:47→22:00)
--- NOTE | 2020-11-28 11:53 | Speech Therapy Daily Note ---
Speech Daily Progress Note Subjective Date Seen by Provider: Nov 28, 2020 Time Seen by Provider: 00:30 Patient was resting in bed following her other therapy. Patient c/o neck ache and headache. Objective Patient completed a series of orientation question related to herself with 80% given min to mod verbal cuing. Assessment Assessment Current Status: Fair Progress Treatment Plan Continue Plan of Care Speech Short Term Goals Short Term Goals Short Term Goals 1) The patient will complete memory tasks related to her daily needs at 80% or greater with minimal cuing. 2) The patient will complete problem solving tasks related to her daily needs at 80% or greater with minimal cuing. 3) The patient will complete safety awareness related to her daily needs at 80% or greater with minimal cuing. 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 Speech-Plan Patient/Family Goals Patient/Family Goals: Patient will be discharging to a local SNF once details are confirmed. Treatment Plan Speech Therapy Treatment Plan: Continue Plan of Care Treatment Duration: Dec 02, 2020 Frequency: 4 times per week (Patient will receive skilled ST 4-5x per week) Estimated Hrs Per Day: .5 hour per day Rehab Potential: Fair Barriers to Learning: Patient's prior medical status, new onset CVA, cognitive deficits Pt/Family Agrees to Plan: Yes Safety Risks/Education Teaching Recipient: Patient Teaching Methods: Demonstration, Discussion Response to Teaching: Return Demonstration, Reinforcement Needed Education Topics Provided: Continued safety within her room and upon discharge Time Speech Therapy Time In: 10:30 Speech Therapy Time Out: 11:00 Total Billed Time: 30 Billed Treatment Time 1, SLTS No QUALITY CODES EXPRESSION OF IDEAS/WANTS: 4 UNDERSTANDING VERBAL CONTENT: 4 BRIEF INTERVIEW MENTAL STATUS: YES REPETITION OF 3 WORDS: 3 TEMPORAL ORIENTATION: YEAR: MISSED BY ONE YEAR, MONTH: CORRECT, DAY: INCORRECT BY 3 DAYS RECALL: SOCK: NO, COLOR: YES WITH CUE, BED: NO MEMORY/RECALL ABILITY: SEASON, THAT SHE IS IN THE HOSPITAL JAVIER,YOHANNES ST Nov 28, 2020 11:53
[2020-11-28] MEDS: CEFEPIME INJECTION 1,000 MG in WATER (STERILE) FOR INJECTION 10 ML IV SCH ×2 (12:55→17:58)
--- NOTE | 2020-11-28 13:57 | NUR ---
CM/SS DISCHARGE PLANNING Communities [facility] accepted patient for admission pending a negative Covid screening. If patient is Covid positive, they do have a Covid unit she can admit to. Physician and unit RN informed, Covid screen to be performed. Informed patient, spoke with HATTIE/Carlos Zamora. He is realistic in his statements that patient may not recover fully enough to be at home alone while he works. Patient has Medicaid [place] which could be utilized for fpc care if needed. Work in partnership with [facility] regarding admission.
--- NOTE | 2020-11-28 13:59 | Physical Therapy Daily Note ---
PT Daily Note-Current Subjective Patient in bed pre tx, agrees to PT, has no complaints of pain Appearance Patient in bed post tx with nurse call, phone, tray, all needs met, bed alarm on. Mental Status Patient Orientation: Person, Confused Transfers SCALE: Activities may be completed with or without assistive devices. 8-Rnqmhlmyfa-bxroshk completes the activity by him/herself with no assistance from a helper. 5-Set-up or Clean-up Assistance-helper sets up or cleans up; patient completes activity. [place] assists only prior to or following the activity. 4-Supervision or Touching Assistance-helper provides verbal cues and/or touching /steadying and/or contact guard assistance as patient completes activity. Assistance may be provided throughout the activity or intermittently. 3-Partial/Moderate Assistance-helper does LESS THAN HALF the effort. [place] lifts, holds or supports trunk or limbs, but provides less than half the effort. 2-Substantial/Maximal Assistance-helper does MORE THAN HALF the effort. [place] lifts or holds trunk or limbs and provides more than half the effort. 7-Bdnatlyno-zzbvew does ALL the effort. Patient does none of the effort to complete the activity. Or, the assistance of 2 or more helpers is required for the patient to complete the activity. If activity was not attempted, code reason: 7-Patient Refused. 9-Not Applicable-not attempted and the patient did not perform the activity before the current illness, exacerbation or injury. 10-Not Attempted due to Environmental Limitations-(lack of equipment, weather restraints, etc.). 88-Not Attempted due to Medical Conditions or Safety Concerns. Weight Bearing Full Weight Bearing Full Weight Bearing Exercises Supine Ex: Ankle pumps, Heel Slides, Short Arc Quads, Straight leg raise, Hip abd/add Supine Reps: 20 (AAROM on the left side) Treatments LE exercise Assessment Current Status: Poor Progress poor motivation, patient seems unaware of her deficits on the left side, she says everyone calls her left side her weak side but she thinks it is just fine. PT Short Term Goals Short Term Goals Time Frame: Nov 22, 2020 Roll Left & Right: 3 Sit to lyin Lying to sitting on side of be: 3 Sit to stand: 3 Chair/qzz-un-qryeg transfer: 3 Walk 10 feet: 3 PT Moss Gatherer Goals Correction Goals PT Moss Gatherer Goals Time Frame: Dec 06, 2020 Roll Left & Right (QC): 3 (Joel) Sit to Lying (QC): 3 (Joel) Lying-Sitting on Side/Bed(QC): 3 (Joel) Sit to Stand (QC): 3 (Joel) Chair/Hsu-rp-Kwpqm Xfer(QC): 3 (Joel) Toilet Transfer (QC): 3 (Joel) Car Transfer (QC): 3 (Joel) Does the Patient Walk: Yes Walk 10 feet (QC): 3 (Joel) Walk 50ft with 2 Turns (QC): 3 (Joel) Walk 150 ft (QC): 88 Walking 10ft on Uneven Surface: 88 1 Step (curb) (QC): 88 4 Steps (QC): 88 12 Steps (QC): 88 Picking up an Object (QC): 88 Wheel 50 feet with 2 turns (QC: 4 Wheel 150 feet: 4 PT Plan Problem List Problem List: Activity Tolerance, Functional Strength, Safety, Balance, Gait, Transfer, Bed Mobility, ROM Treatment/Plan Treatment Plan: Continue Plan of Care Treatment Plan: Bed Mobility, Education, Functional Activity Cooper, Functional Strength, Group Therapy, Gait, Safety, Therapeutic Exercise, Transfers Treatment Duration: Dec 06, 2020 Frequency: At least 5 of 7 days/Wk (IRF) Estimated Hrs Per Day: 1.5 hours per day Patient and/or Family Agrees t: Yes Safety Risks/Education Patient Education: Correct Positioning, Safety Issues Teaching Recipient: Patient Teaching Methods: Demonstration, Discussion Response to Teaching: Reinforcement Needed Time/GCodes Time In: 1345 Time Out: 1500 Total Billed Treatment Time: 15 Total Billed Treatment 1 visit EX Kenyatta' KHUSHBU ONEIL PT Nov 28, 2020 13:59
[2020-11-28] MEDS: ENOXAPARIN 40 MG/0.4 ML (LOVENOX) SYR SC SCH (18:09)
[2020-11-28 18:32] VITALS: BP 104/69
[2020-11-28 21:49] VITALS: BP 113/69
[2020-11-28] MEDS: CYCLOBENZAPRINE 10 MG (FLEXERIL) TAB PO SCH (22:01)
[2020-11-28] MEDS: MONTELUKAST 10 MG (SINGULAIR) TAB PO SCH (22:02)
[2020-11-29] MEDS: CEFEPIME INJECTION 1,000 MG in WATER (STERILE) FOR INJECTION 10 ML IV SCH ×3 (00:39→11:21)
[2020-11-29] MEDS: LEVOTHYROXINE 88 MCG (LEVOTHORID) TAB PO SCH (05:35)
[2020-11-29 06:13] LABS: BASOPHILS % (AUTO) 0 % (0-10); EOSINOPHILS # (AUTO) 0.1 10^3/uL (0.0-0.3); EOSINOPHILS % (AUTO) 1 % (0-10); HEMATOCRIT 34 % (35-52); HEMOGLOBIN 11.1 g/dL (11.5-16.0); LYMPHOCYTES # (AUTO) 4.6 10^3/uL (1.0-4.0); LYMPHOCYTES % (AUTO) 36 % (12-44); MEAN CORPUSCULAR HEMOGLOBIN 31 pg (25-34); MEAN CORPUSCULAR HGB CONC 33 g/dL (32-36); MEAN CORPUSCULAR VOLUME 94 fL (80-99); MEAN PLATELET VOLUME 12.6 fL (9.0-12.2); MONOCYTES # (AUTO) 1.5 10^3/uL (0.0-1.0); MONOCYTES % (AUTO) 11 % (0-12); NEUTROPHILS # (AUTO) 6.4 10^3/uL (1.8-7.8); NEUTROPHILS % (AUTO) 50 % (42-75); PLATELET COUNT 231 10^3/uL (130-400); WHITE BLOOD COUNT 12.8 10^3/uL (4.3-11.0)
[2020-11-29 06:22] VITALS: BP 111/64
[2020-11-29] MEDS: DOXYCYCLINE 100 MG (VIBRAMYCIN) TABLET PO SCH (06:33)
[2020-11-29] MEDS: ADVAIR HFA 45/21 MCG INHALER 8 GM IH SCH (07:19)
[2020-11-29 07:23] LABS: ALANINE AMINOTRANSFERASE 21 U/L (0-55); ALBUMIN 3.8 GM/DL (3.2-4.5); ALKALINE PHOSPHATASE 40 U/L (40-136); BILIRUBIN,TOTAL 0.3 MG/DL (0.1-1.0); BUN/CREATININE RATIO 22; CARBON DIOXIDE 22 MMOL/L (21-32); CHLORIDE 104 MMOL/L (98-107); CREATININE SERUM 0.87 MG/DL (0.60-1.30); GFR ESTIMATED > 60; GLUCOSE 135 MG/DL (70-105); SODIUM 140 MMOL/L (135-145)
[2020-11-29] MEDS: NICOTINE 21 MG (NICODERM) PATCH TD SCH (08:57)
[2020-11-29] MEDS: ALLOPURINOL 100 MG (ZYLOPRIM) TAB PO SCH (08:57)
[2020-11-29] MEDS: PANTOPRAZOLE 20 MG TABLET (PROTONIX) PO SCH (08:59)
[2020-11-29] MEDS: FUROSEMIDE 40 MG (LASIX) TAB PO SCH (08:59)
[2020-11-29] MEDS: metFORMIN 500 MG (GLUCOPHAGE) TAB PO SCH (08:59)
[2020-11-29] MEDS: LOSARTAN 25 MG (COZAAR) TAB PO SCH (08:59)
[2020-11-29] MEDS: ASPIRIN 81 MG CHEW (CHILDREN'S ASA) PO SCH (08:59)
[2020-11-29] MEDS: LEVETIRACETAM 500 MG (KEPPRA) TAB PO SCH (09:01)
[2020-11-29] MEDS: DIVALPROEX 500 MG DELAYED RELEASE (DEPAKOTE) TAB PO SCH (09:02)
[2020-11-29] MEDS: CLOPIDOGREL 75 MG (PLAVIX) TABLET PO SCH (09:02)
[2020-11-29] MEDS: polyethylene glycoL POWDER 17 GM (MIRALAX) PACK PO SCH (09:02)
[2020-11-29] MEDS: SENNA W/DOCUSATE (SENOKOT S) TABLET PO SCH (09:02)
[2020-11-29] MEDS ORDERED: CLOP75TA28 PO (09:03)
[2020-11-29] MEDS ORDERED: INSU100V16 SC (09:03)
[2020-11-29] MEDS ORDERED: ENOX40DI8 SC (09:03)
[2020-11-29] MEDS ORDERED: ACHD5005 PO (09:03)
[2020-11-29] MEDS ORDERED: MICO90PO TOP (09:03)
[2020-11-29] MEDS ORDERED: Lorazepam PO (09:03)
[2020-11-29] MEDS ORDERED: DOXY100T2 PO (09:03)
[2020-11-29] MEDS: DOCUSATE SODIUM 100 MG (COLACE) CAP PO SCH (09:03)
[2020-11-29] MEDS ORDERED: CEFD300C3 PO (09:03)
[2020-11-29] MEDS ORDERED: LOSA25TA41 PO (09:03)
[2020-11-29] MEDS ORDERED: NICO1PAT34 TD (09:03)
[2020-11-29] MEDS ORDERED: ASPI-999 PO (09:03)
--- NOTE | 2020-11-29 09:04 | Discharge Inst-Skilled Nursing ---
Discharge Inst-Skilled NF Reconcile Patient Problems Problems Reviewed?: Yes Patient Instructions Patient Problems: CVA Seizures Consult/Follow Up/Orders Follow Up Appt.: PCP 1 week Skilled NF Admit to: Certification (SNF) I certify that SNF services are required to be given on an inpatient basis because of the above named patient's need for intermediate care on a co ntinuing basis for the conditions(s) for which he/she was receiving inpatient hospital services prior to his/her transfer to the SNF. Half-Way Facility Order: Nursing Services, Airplane Engineer-Evaluate & Treat, Physical Therapy-Evaluate & Treat, Speech Language-Evaluate & Treat Oxygen Delivery Method: Room Air Discharge Diet: ADA Diet Resuscitation Status: Do Not Resuscitate New & Resume Previous Orders New Medications: Cefdinir (Cefdinir) 300 Mg Capsule 300 MG PO BID, #12 CAP Aspirin (Aspirin) 81 Mg Tab.chew 81 MG PO DAILY for 365 Days, TAB Clopidogrel Bisulfate (Clopidogrel) 75 Mg Tablet 75 MG PO DAILY for 365 Days, TAB Doxycycline Hyclate (Doxycycline Hyclate) 100 Mg Tablet 100 MG PO BID@07,17, #12 TAB Enoxaparin Sodium (Enoxaparin Sodium) 40 Mg/0.4 Ml Syringe 40 MG SC Q24H for 30 Days, SYRINGE Insulin Aspart (Novolog) 100 Unit/1 Ml Susp 3 UNIT SC BID PRN for sugar >170 for 365 Days, ML [Lorazepam] () 0.5 MG TABLET 0.5 MG PO TID PRN for ANXIETY, #30 TAB Losartan Potassium (Losartan Potassium) 25 Mg Tablet 25 MG PO DAILY for 365 Days, TAB Miconazole Nitrate (Lotrimin AF) 90 Gm Powder 0 GM TOP TID for 7 Days, EA Nicotine (Nicoderm Cq) 1 Each Patch.td24 21 MG TD DAILY@0900, #30 PATCH Continued Medications: Albuterol/Ipratropium (Combivent Respimat Inhal [place]) 4 Gm Aero 1 PUFF IH Q6H PRN for WHEEZING, INH Allopurinol (Allopurinol) 100 Mg Tablet 100 MG PO BID, TAB Cyclobenzaprine HCl (Cyclobenzaprine HCl) 10 Mg Tablet 10 MG PO HS, TAB Divalproex Sodium (Depakote) 500 Mg Tablet.dr 500 MG PO BID, TAB Fluticasone Propionate (Flonase Allergy Relief) 9.9 Ml [place].susp 2 SPRAY NS DAILY PRN for CONGESTION, EACH Fluticasone/Salmeterol (Advair 100-50 Diskus) 1 Each Blst.w.dev 1 EACH IH BID PRN for SHORTNESS OF BREATH, EA Furosemide (Furosemide) 40 Mg Tablet 40 MG PO DAILY, TAB Hydrocodone/Acetaminophen (Hydrocodone-Acetamin 5-325 mg) 1 Each Tablet 1 EACH PO DAILY PRN for PAIN-MODERATE (5-7), #30 TAB (This prescription has been renewed) Hydrocortisone (Proctozone-Hc) 30 Gm Cream.appl 1 APPLIC RC BID PRN for HEMMORRHOID DISCOMFORT, APPLIC Insulin Degludec (Tresiba Flextouch U-200) 200 Unit/1 Ml Insuln.pen 40 UNIT SQ HS, EA Lacosamide (Vimpat) 100 Mg Tablet 100 MG PO BID, TAB Levetiracetam (Keppra) 500 Mg Tablet 1500 MG PO BID, TAB TAKES 3 (500MG) TABS Levothyroxine Sodium (Levothyroxine Sodium) 88 Mcg Tablet 88 MCG PO DAILY, TAB Metformin HCl (Metformin HCl) 500 Mg Tablet 500 MG PO BID WITH MEALS, TAB Montelukast Sodium (Montelukast Sodium) 10 Mg Tablet 10 MG PO HS, TAB Omeprazole (Omeprazole) 20 Mg Capsule.dr 20 MG PO DAILY, CAP Potassium Chloride (Potassium Chloride) 20 Meq Tablet.er 20 MEQ PO DAILY, TAB Propranolol HCl (Propranolol HCl ER) 120 Mg Cap.sa.24h 120 MG PO BID, CAP Rosuvastatin Calcium (Rosuvastatin Calcium) 10 Mg Tablet 10 MG PO HS, TAB Discontinued Medications: Lorazepam (Ativan) 0.5 Mg Tablet 0.5 MG PO DAILY PRN for ANXIETY, TAB Sumatriptan Succinate (Sumatriptan Succinate) 50 Mg Tablet 50 MG PO PRN PRN for MIGRAINE, TAB Emerita Salgado Nov 29, 2020 09:03 EMERITA SALGADO DO Nov 29, 2020 09:04
--- NOTE | 2020-11-29 09:04 | Discharge Summary ---
Diagnosis/Chief Complaint Date of Admission Nov 15, 2020 at 11:40 Date of Discharge Discharge Date: Nov 29, 2020 Discharge Diagnosis Assessment: CVA Left sided weakness Left sided neglect HTN DM HLP Smoker COPD Chronic pain PNA on CXR 11/27/20 placed on treatment no sepsis Plan: IRF protocol Pain meds home dosing BM regimen Monitor O2 11/16/20: Monitor sugar Increase therapy Monitor confusion 11/17/20: Confusion noted BM regimen 11/18/20: BM regimen successful now maintain Monitor confusion Work on transfers to decrease caregiver burden 11/19/20: Confusion monitored Monitor BP and sugar 11/20/20: Monitor BP and glucose Labs tomorrow Monitor for falls 11/21/20: Labs good Monitor confusion Monitor for falls 11/22/20: Incontinence care Monitor confusion Monitor BP 11/23/20: Family education to eval options at DC Monitor hallucinations 11/24/20: Family training tomorrow Monitor closely Sugars good 11/25/20: NHP 11/26/20: Continue treatment Needs NHP 11/27/20: NHP Monitor sugar 11/28/20: Monitor closely DC home PNA treatment early no sepsis COVID test (1) CVA (cerebral vascular accident) (2) Diabetes (3) Hypertension (4) Left-sided weakness (5) Smoker (6) Hyperlipemia (7) Odilon-neglect of left side Discharge Summary Discharge Physical Examination Allergies: Coded Allergies: NSAIDS (Non-Steroidal Anti-Inflamma (Verified Allergy, Unknown, 11/15/20) Renal dysfunction Penicillins (Verified Allergy, Unknown, 11/15/20) Throat swelling adhesive (Verified Allergy, Unknown, Rash, 11/15/20) albuterol (Verified Allergy, Unknown, 11/15/20) SOB, wheezing bee venom protein (honey bee) (Verified Allergy, Unknown, 11/15/20) Swelling carbamazepine (Verified Allergy, Unknown, 11/15/20) Seizure codeine (Verified Allergy, Unknown, Itching, 11/15/20) doxepin (Verified Allergy, Unknown, 11/15/20) Seizure duloxetine (Verified Allergy, Unknown, 11/15/20) Seizure lavender (Lavandula angustifolia) (Verified Allergy, Unknown, Hives, 11/15/20) phenobarbital (Verified Allergy, Unknown, 11/15/20) Seizure phenytoin (Verified Allergy, Unknown, 11/15/20) Seizure sulfamethoxazole (Verified Allergy, Unknown, 11/15/20) Renal dysfunction tramadol (Verified Allergy, Unknown, 11/15/20) Seizure trimethoprim (Verified Allergy, Unknown, 11/15/20) Renal dysfunction Vitals & I&Os Vital Signs Date Time Temp Pulse Resp B/P (MAP) Pulse Ox O2 Delivery O2 Flow Rate FiO2 11/29/20 15:23 36.0 80 16 111/64 96 Room Air General Appearance: Alert, Cooperative Respiratory: Clear to Auscultation Cardiovascular: Regular Rate Hospital Course Was the Problem List Reviewed?: Yes Hospital Course: Pt had a lengthy hospital course after she was admitted from the hospital from a stroke. She had a hx of seizure disorder and mental illness with DM that had labile control insulin dependent. Overall she was able to participate in therapy and did regain some function of her left leg but overall she remained dependent in all cares and wheel chair bound status. did family training and felt it was best to go to a long-term. Labs (last 24 hrs) Laboratory Tests 11/15/20 15:45: Glucometer 177H 11/16/20 05:25: White Blood Count 9.0, Red Blood Count 4.40, Hemoglobin 13.5, Hematocrit 41, Mean Corpuscular Volume 92, Mean Corpuscular Hemoglobin 31, Mean Corpuscular Hemoglobin Concent 33, Red Cell Distribution Width 13.8, Platelet Count 320, Mean Platelet Volume 11.8, Immature Granulocyte % (Auto) 0, Neutrophils (%) (Auto) 50, Lymphocytes (%) (Auto) 37, Monocytes (%) (Auto) 12, Eosinophils (%) (Auto) 1, Basophils (%) (Auto) 0, Neutrophils # (Auto) 4.5, Lymphocytes # (Auto) 3.4, Monocytes # (Auto) 1.1H, Eosinophils # (Auto) 0.1, Basophils # (Auto) 0.0, Immature Granulocyte # (Auto) 0.0, Sodium Level 139, Potassium Level 4.2, Chloride Level 106, Carbon Dioxide Level 21, Anion Gap 12, Blood Urea Nitrogen 19H, Creatinine 0.95, Estimat Glomerular Filtration Rate > 60, BUN/Creatinine Ratio 20, Glucose Level 198H, Calcium Level 9.9, Corrected Calcium 9.7, Total Bilirubin 0.3, Aspartate Amino Transf (AST/SGOT) 29, Alanine Aminotransferase (ALT/SGPT) 26, Alkaline Phosphatase 53, Total Protein 7.4, Albumin 4.2 11/16/20 05:26: Glucometer 196H 11/16/20 15:48: Glucometer 148H 11/17/20 05:26: Glucometer 137H 11/17/20 16:02: Glucometer 170H 11/18/20 05:36: Glucometer 109 11/18/20 15:34: Glucometer 105 11/19/20 05:24: Glucometer 123H 11/19/20 16:42: Glucometer 121H 11/19/20 20:03: Glucometer 130H 11/20/20 05:08: Glucometer 124H 11/20/20 15:37: Glucometer 119H 11/21/20 04:30: White Blood Count 6.6, Red Blood Count 4.22, Hemoglobin 12.7, Hematocrit 39, Mean Corpuscular Volume 92, Mean Corpuscular Hemoglobin 30, Mean Corpuscular Hemoglobin Concent 33, Red Cell Distribution Width 13.4, Platelet Count 319, Mean Platelet Volume 12.3H, Immature Granulocyte % (Auto) 0, Neutrophils (%) (Auto) 23L, Lymphocytes (%) (Auto) 66H, Monocytes (%) (Auto) 10, Eosinophils (%) (Auto) 1, Basophils (%) (Auto) 0, Neutrophils # (Auto) 1.5L, Lymphocytes # (Auto) 4.4H, Monocytes # (Auto) 0.7, Eosinophils # (Auto) 0.1, Basophils # (Auto) 0.0, Immature Granulocyte # (Auto) 0.0, Sodium Level 140, Potassium Level 4.4, Chloride Level 102, Carbon Dioxide Level 22, Anion Gap 16H, Blood Urea Nitrogen 25H, Creatinine 0.93, Estimat Glomerular Filtration Rate > 60, BUN /Creatinine Ratio 27, Glucose Level 114H, Calcium Level 10.0, Corrected Calcium 9.9, Total Bilirubin 0.3, Aspartate Amino Transf (AST/SGOT) 28, Alanine Aminotransferase (ALT/SGPT) 18, Alkaline Phosphatase 45, Total Protein 7.2, Albumin 4.1 11/21/20 15:27: Glucometer 86 11/22/20 05:20: Glucometer 110 11/22/20 15:35: Glucometer 100 11/23/20 05:24: Glucometer 114H 11/23/20 17:28: Glucometer 110 11/23/20 20:26: Glucometer 157H 11/24/20 05:16: Glucometer 110 11/24/20 16:41: Glucometer 163H 11/25/20 05:10: Glucometer 135H 11/25/20 16:20: Glucometer 137H 11/26/20 05:34: Glucometer 119H 11/26/20 10:35: Glucometer 213H 11/26/20 15:51: Glucometer 126H 11/27/20 05:31: Glucometer 92 11/27/20 16:23: Glucometer 114H 11/28/20 05:12: White Blood Count 17.0H, Red Blood Count 3.99, Hemoglobin 12.1, Hematocrit 37, Mean Corpuscular Volume 92, Mean Corpuscular Hemoglobin 30, Mean Corpuscular Hemoglobin Concent 33, Red Cell Distribution Width 13.9, Platelet Count 243, Mean Platelet Volume 12.7H, Immature Granulocyte % (Auto) 1, Neutrophils (%) (Auto) 59, Lymphocytes (%) (Auto) 28, Monocytes (%) (Auto) 12, Eosinophils (%) (Auto) 0, Basophils (%) (Auto) 0, Neutrophils # (Auto) 10.1H, Lymphocytes # (Auto) 4.7H, Monocytes # (Auto) 2.1H, Eosinophils # (Auto) 0.0, Basophils # (Auto) 0.0, Immature Granulocyte # (Auto) 0.1, Neutrophils % (Manual) 54, Lymphocytes % (Manual) 27, Monocytes % (Manual) 10, Band Neutrophils 9, Polychromasia SLIGHT, Microcytosis SLIGHT, Elliptocytes SLIGHT, Sodium Level 140, Potassium Level 4.2, Chloride Level 101, Carbon Dioxide Level 27, Anion Gap 12, Blood Urea Nitrogen 16, Creatinine 0.83, Estimat Glomerular Filtration Rate > 60, BUN/Creatinine Ratio 19, Glucose Level 119H, Calcium Level 9.8, Corrected Calcium 9.9, Total Bilirubin 0.4, Aspartate Amino Transf (AST/SGOT) 26, Alanine Aminotransferase (ALT/SGPT) 15, Alkaline Phosphatase 40, Total Protein 6.8, Albumin 3.9, Procalcitonin 0.08 11/28/20 05:47: Glucometer 106 11/28/20 06:25: Lactic Acid Level 1.46 11/28/20 07:00: Urine Color DARK YELLOW, Urine Clarity CLEAR, Urine pH 6.0, Urine Specific [place] 1.020, Urine Protein TRACEH, Urine Glucose (UA) NEGATIVE, Urine Ketones 1+H, Urine Nitrite NEGATIVE, Urine Bilirubin NEGATIVE, Urine Urobilinogen 0.2, Urine Leukocyte Esterase NEGATIVE, Urine RBC (Auto) NEGATIVE, Urine RBC NONE, Urine WBC 0-2, Urine Squamous Epithelial Cells 2-5, Urine Crystals NONE, Urine Bacteria TRACE, Urine Casts NONE, Urine Mucus NEGATIVE, Urine Culture Indicated NO 11/28/20 15:25: Coronavirus 2019 ([facility]) Negative 11/28/20 15:36: Glucometer 154H 11/29/20 05:19: Glucometer 198H 11/29/20 05:50: White Blood Count 12.8H, Red Blood Count 3.59L, Hemoglobin 11.1L, Hematocrit 34L , Mean Corpuscular Volume 94, Mean Corpuscular Hemoglobin 31, Mean Corpuscular Hemoglobin Concent 33, Red Cell Distribution Width 14.2, Platelet Count 231, Mean Platelet Volume 12.6H, Immature Granulocyte % (Auto) 1, Neutrophils (%) (Auto) 50, Lymphocytes (%) (Auto) 36, Monocytes (%) (Auto) 11, Eosinophils (%) (Auto) 1, Basophils (%) (Auto) 0, Neutrophils # (Auto) 6.4, Lymphocytes # (Auto) 4.6H, Monocytes # (Auto) 1.5H, Eosinophils # (Auto) 0.1, Basophils # (Auto) 0.0, Immature Granulocyte # (Auto) 0.1 11/29/20 06:52: Sodium Level 140, Potassium Level 4.0, Chloride Level 104, Carbon Dioxide Level 22, Anion Gap 14, Blood Urea Nitrogen 19H, Creatinine 0.87, Estimat Glomerular Filtration Rate > 60, BUN/Creatinine Ratio 22, Glucose Level 135H, Calcium Level 10.0, Corrected Calcium 10.2H, Total Bilirubin 0.3, Aspartate Amino Transf (AST/SGOT) 30, Alanine Aminotransferase (ALT/SGPT) 21, Alkaline Phosphatase 40, Total Protein 7.0, Albumin 3.8, Procalcitonin 0.07 Microbiology 11/28/20 Blood Culture - Preliminary, Resulted No growth Pending Labs Microbiology Date/Time Source Procedure Growth Status 11/28/20 10:08 Peripheral Rt Ac Blood Culture - Preliminary No growth Resulted 11/28/20 09:10 Peripheral Rt Ac Blood Culture - Preliminary No growth Resulted Laboratory Tests 11/15/20 15:45: Glucometer 177 11/16/20 05:25: White Blood Count 9.0, Red Blood Count 4.40, Hemoglobin 13.5, Hematocrit 41, Mean Corpuscular Volume 92, Mean Corpuscular Hemoglobin 31, Mean Corpuscular Hemoglobin Concent 33, Red Cell Distribution Width 13.8, Platelet Count 320, Mean Platelet Volume 11.8, Immature Granulocyte % (Auto) 0, Neutrophils (%) (Auto) 50, Lymphocytes (%) (Auto) 37, Monocytes (%) (Auto) 12, Eosinophils (%) (Auto) 1, Basophils (%) (Auto) 0, Neutrophils # (Auto) 4.5, Lymphocytes # (Auto) 3.4, Monocytes # (Auto) 1.1, Eosinophils # (Auto) 0.1, Basophils # (Auto) 0.0, Immature Granulocyte # (Auto) 0.0, Sodium Level 139, Potassium Level 4.2, Chlor yonis Level 106, Carbon Dioxide Level 21, Anion Gap 12, Blood Urea Nitrogen 19, Creatinine 0.95, Estimat Glomerular Filtration Rate > 60, BUN/Creatinine Ratio 20, Glucose Level 198, Calcium Level 9.9, Corrected Calcium 9.7, Total Bilirubin 0.3, Aspartate Amino Transf (AST/SGOT) 29, Alanine Aminotransferase (ALT/SGPT) 26, Alkaline Phosphatase 53, Total Protein 7.4, Albumin 4.2 11/16/20 05:26: Glucometer 196 11/16/20 15:48: Glucometer 148 11/17/20 05:26: Glucometer 137 11/17/20 16:02: Glucometer 170 11/18/20 05:36: Glucometer 109 11/18/20 15:34: Glucometer 105 11/19/20 05:24: Glucometer 123 11/19/20 16:42: Glucometer 121 11/19/20 20:03: Glucometer 130 11/20/20 05:08: Glucometer 124 11/20/20 15:37: Glucometer 119 11/21/20 04:30: White Blood Count 6.6, Red Blood Count 4.22, Hemoglobin 12.7, Hematocrit 39, Mean Corpuscular Volume 92, Mean Corpuscular Hemoglobin 30, Mean Corpuscular Hemoglobin Concent 33, Red Cell Distribution Width 13.4, Platelet Count 319, Mean Platelet Volume 12.3, Immature Granulocyte % (Auto) 0, Neutrophils (%) (Auto) 23, Lymphocytes (%) (Auto) 66, Monocytes (%) (Auto) 10, Eosinophils (%) (Auto) 1, Basophils (%) (Auto) 0, Neutrophils # (Auto) 1.5, Lymphocytes # (Auto) 4.4, Monocytes # (Auto) 0.7, Eosinophils # (Auto) 0.1, Basophils # (Auto) 0.0, Immature Granulocyte # (Auto) 0.0, Sodium Level 140, Potassium Level 4.4, Chloride Level 102, Carbon Dioxide Level 22, Anion Gap 16, Blood Urea Nitrogen 25, Creatinine 0.93, Estimat Glomerular Filtration Rate > 60, BUN/Creatinine Ratio 27, Glucose Level 114, Calcium Level 10.0, Corrected Calcium 9.9, Total Bilirubin 0.3, Aspartate Amino Transf (AST/SGOT) 28, Alanine Aminotransferase (ALT/SGPT) 18, Alkaline Phosphatase 45, Total Protein 7.2, Albumin 4.1 11/21/20 15:27: Glucometer 86 11/22/20 05:20: Glucometer 110 11/22/20 15:35: Glucometer 100 11/23/20 05:24: Glucometer 114 11/23/20 17:28: Glucometer 110 11/23/20 20:26: Glucometer 157 11/24/20 05:16: Glucometer 110 11/24/20 16:41: Glucometer 163 11/25/20 05:10: Glucometer 135 11/25/20 16:20: Glucometer 137 11/26/20 05:34: Glucometer 119 11/26/20 10:35: Glucometer 213 11/26/20 15:51: Glucometer 126 11/27/20 05:31: Glucometer 92 11/27/20 16:23: Glucometer 114 11/28/20 05:12: White Blood Count 17.0, Red Blood Count 3.99, Hemoglobin 12.1, Hematocrit 37, Mean Corpuscular Volume 92, Mean Corpuscular Hemoglobin 30, Mean Corpuscular Hemoglobin Concent 33, Red Cell Distribution Width 13.9, Platelet Count 243, Mean Platelet Volume 12.7, Immature Granulocyte % (Auto) 1, Neutrophils (%) (Auto) 59, Lymphocytes (%) (Auto) 28, Monocytes (%) (Auto) 12, Eosinophils (%) (Auto) 0, Basophils (%) (Auto) 0, Neutrophils # (Auto) 10.1, Lymphocytes # (Auto) 4.7, Monocytes # (Auto) 2.1, Eosinophils # (Auto) 0.0, Basophils # (Auto) 0.0, Immature Granulocyte # (Auto) 0.1, Neutrophils % (Manual) 54, Lymphocytes % (Manual) 27, Monocytes % (Manual) 10, Band Neutrophils 9, Polychromasia SLIGHT, Microcytosis SLIGHT, Elliptocytes SLIGHT, Sodium Level 140, Potassium Level 4.2, Chloride Level 101, Carbon Dioxide Level 27, Anion Gap 12, Blood Urea Nitrogen 16, Creatinine 0.83, Estimat Glomerular Filtration Rate > 60, BUN/Creatinine Ra tyrone 19, Glucose Level 119, Calcium Level 9.8, Corrected Calcium 9.9, Total Bilirubin 0.4, Aspartate Amino Transf (AST/SGOT) 26, Alanine Aminotransferase (ALT/SGPT) 15, Alkaline Phosphatase 40, Total Protein 6.8, Albumin 3.9, Procalcitonin 0.08 11/28/20 05:47: Glucometer 106 11/28/20 06:25: Lactic Acid Level 1.46 11/28/20 07:00: Urine Color DARK YELLOW, Urine Clarity CLEAR, Urine pH 6.0, Urine Specific [place] 1.020, Urine Protein TRACE, Urine Glucose (UA) NEGATIVE, Urine Ketones 1+, Urine Nitrite NEGATIVE, Urine Bilirubin NEGATIVE, Urine Urobilinogen 0.2, Urine Leukocyte Esterase NEGATIVE, Urine RBC (Auto) NEGATIVE, Urine RBC NONE, Urine WBC 0-2, Urine Squamous Epithelial Cells 2-5, Urine Crystals NONE, Urine Bacteria TRACE, Urine Casts NONE, Urine Mucus NEGATIVE, Urine Culture Indicated NO 11/28/20 15:25: Coronavirus 2019 ([facility]) Negative 11/28/20 15:36: Glucometer 154 11/29/20 05:19: Glucometer 198 11/29/20 05:50: White Blood Count 12.8, Red Blood Count 3.59, Hemoglobin 11.1, Hematocrit 34, Mean Corpuscular Volume 94, Mean Corpuscular Hemoglobin 31, Mean Corpuscular Hemoglobin Concent 33, Red Cell Distribution Width 14.2, Platelet Count 231, Mean Platelet Volume 12.6, Immature Granulocyte % (Auto) 1, Neutrophils (%) (Auto) 50, Lymphocytes (%) (Auto) 36, Monocytes (%) (Auto) 11, Eosinophils (%) (Auto) 1, Basophils (%) (Auto) 0, Neutrophils # (Auto) 6.4, Lymphocytes # (Auto) 4.6, Monocytes # (Auto) 1.5, Eosinophils # (Auto) 0.1, Basophils # (Auto) 0.0, Immature Granulocyte # (Auto) 0.1 11/29/20 06:52: Sodium Level 140, Potassium Level 4.0, Chloride Level 104, Carbon Dioxide Level 22, Anion Gap 14, Blood Urea Nitrogen 19, Creatinine 0.87, Estimat Glomerular Filtration Rate > 60, BUN/Creatinine Ratio 22, Glucose Level 135, Calcium Level 10.0, Corrected Calcium 10.2, Total Bilirubin 0.3, Aspartate Amino Transf (AST/SGOT) 30, Alanine Aminotransferase (ALT/SGPT) 21, Alkaline Phosphatase 40, Total Protein 7.0, Albumin 3.8, Procalcitonin 0.07 Discharge Home Medications: Active Scripts Active Lotrimin AF (Miconazole Nitrate) 90 Gm Powder 0 Gm TOP TID 7 Days Novolog (Insulin Aspart) 100 Unit/1 Ml Susp 3 Unit SC BID PRN 365 Days [Lorazepam] 0.5 MG Tablet 0.5 Mg PO TID PRN Aspirin 81 Mg Tab.chew 81 Mg PO DAILY 365 Days Losartan Potassium 25 Mg Tablet 25 Mg PO DAILY 365 Days Clopidogrel (Clopidogrel Bisulfate) 75 Mg Tablet 75 Mg PO DAILY 365 Days Enoxaparin Sodium 40 Mg/0.4 Ml Syringe 40 Mg SC Q24H 30 Days Nicoderm Cq (Nicotine) 1 Each Patch.td24 21 Mg TD DAILY@0900 Cefdinir 300 Mg Capsule 300 Mg PO BID Doxycycline Hyclate 100 Mg Tablet 100 Mg PO BID@07,17 Hydrocodone-Acetamin 5-325 mg (Hydrocodone/Acetaminophen) 1 Each Tablet 1 Each PO DAILY PRN Reported Rosuvastatin Calcium 10 Mg Tablet 10 Mg PO HS Propranolol HCl ER (Propranolol HCl) 120 Mg Cap.sa.24h 120 Mg PO BID Levothyroxine Sodium 88 Mcg Tablet 88 Mcg PO DAILY Tresiba Flextouch U-200 (Insulin Degludec) 200 Unit/1 Ml Insuln.pen 40 Unit SQ HS Omeprazole 20 Mg Capsule.dr 20 Mg PO DAILY Montelukast Sodium 10 Mg Tablet 10 Mg PO HS Metformin HCl 500 Mg Tablet 500 Mg PO BID WITH MEALS Keppra (Levetiracetam) 500 Mg Tablet 1,500 Mg PO BID TAKES 3 (500MG) TABS Vimpat (Lacosamide) 100 Mg Tablet 100 Mg PO BID Combivent Respimat Inhal [place] (Albuterol/Ipratropium) 4 Gm Aero 1 Puff IH Q6H PRN Proctozone-Hc (Hydrocortisone) 30 Gm Cream.appl 1 Applic RC BID PRN Furosemide 40 Mg Tablet 40 Mg PO DAILY Flonase Allergy Relief (Fluticasone Propionate) 9.9 Ml [place].susp 2 [place] NS DAILY PRN Depakote (Divalproex Sodium) 500 Mg Tablet.dr 500 Mg PO BID Cyclobenzaprine HCl 10 Mg Tablet 10 Mg PO HS Allopurinol 100 Mg Tablet 100 Mg PO BID Advair 100-50 Diskus (Fluticasone/Salmeterol) 1 Each Blst.w.dev 1 Each IH BID PRN Potassium Chloride 20 Meq Tablet.er 20 Meq PO DAILY Instructions to patient/family Please see electronic discharge instructions given to patient. Diagnosis/Problems Diagnosis/Problems (1) CVA (cerebral vascular accident) (2) Diabetes (3) Hypertension (4) Left-sided weakness (5) Smoker (6) Hyperlipemia (7) Odilon-neglect of left side Clinical Quality Measures DVT/VTE Risk/Contraindication: Risk Factor Score Per Nursin RFS Level Per Nursing on Admit: 4+=Very High TITA LUBIN DO Nov 29, 2020 09:04
[2020-11-29] MEDS: PROPRANOLOL LA 120 MG (INDERAL LA) CAP NON-FORMULARY PO SCH (09:05)
[2020-11-29] MEDS: FLUTICASONE NASAL SPRAY (FLONASE) 16 GM BTL NS SCH (09:06)
[2020-11-29] MEDS: NICOTINE PATCH REMOVAL TP SCH (09:07)
[2020-11-29] MEDS: MICONAZOLE 2% POWDER (DESENEX AF) 90 GM TOP SCH ×2 (09:08→13:09)
[2020-11-29] MEDS: VIMPAT 100 MG PO SCH (09:10)
[2020-11-29] MEDS: TRESIBA FLEXTOUCH 200 UNITS/ML SQ SCH (09:10)
--- NOTE | 2020-11-29 10:30 | Occupational Ther Daily Note ---
OT Current Status-Daily Note Subjective Pt described no pain and agreed to OT tx. Mental Status/Objective Patient Orientation: Person, Confused ADL-Treatment Therapy Code Descriptions/Definitions Functional [place] Measure: 0=Not Assessed/NA 4=Minimal Assistance 1=Total Assistance 5=Supervision or Setup 2=Maximal Assistance 6=Modified [place] 3=Moderate Assistance 7=Complete IndependenceSCALE: Activities may be completed with or without assistive devices. 5-Nlejtxukis-yhfurfp completes the activity by him/herself with no assistance from a helper. 5-Set-up or Clean-up Assistance-helper sets up or cleans up; patient completes activity. [place] assists only prior to or following the activity. 4-Supervision or Touching Assistance-helper provides verbal cues and/or touching/steadying and/or contact guard assistance as patient completes activity. Assistance may be provided throughout the activity or intermittently. 3-Partial/Moderate Assistance-helper does LESS THAN HALF the effort. [place] lifts, holds or supports trunk or limbs, but provides less than half the effort. 2-Substantial/Maximal Assistance-helper does MORE THAN HALF the effort. [place] lifts or holds trunk or limbs and provides more than half the effort. 0-Ppfkjyrqj-hzqilk does ALL the effort. Patient does none of the effort to complete the activity. Or, the assistance of 2 or more helpers is required for the patient to complete the activity. If activity was not attempted, code reason: 7-Patient Refused. 9-Not Applicable-not attempted and the patient did not perform the activity before the current illness, exacerbation or injury. 10-Not Attempted due to Environmental Limitations-(lack of equipment, weather restraints, etc.). 88-Not Attempted due to Medical Conditions or Safety Concerns. Lower Body Dressing (QC): 2 (MaxA, pt able to thread R leg and perform pants hike on R side while standing. Pt needed minimal cues to perform task and assistance needed to thread L leg & L pant hike,mod A standing balance) Other Treatment Pt sat EOB to don pants with needing assistance to thread L leg and pants hike while standing on L side. While donning pants, pt needed min A for sitting balance on EOB due to pt constantly wanting to lay back down. Pt transferred to w/c from bed with a cue to look over to her left to see the w/c. Pt transferred at modA towards L and propelled self around commons areas and back to room to work on functional w/c mobility. pt performed functional w/c mobility with moderate cues to stay on task and to continue propelling w/c with R arm. Pt transferred from w/c to recliner, Min A toward R side with call light on R side, chair alarm on and all needs met. Education OT Patient Education: Correct positioning, Energy conservation, Modified ADL techniques, Progress toward Goal/Update tx plan, Purpose of tx/functional activities, Reviewed precautions, Safety issues, W/C management Teaching Recipient: Patient Teaching Methods: Demonstration, Discussion Response to Teaching: Reinforcement Needed OT Short Term Goals Short Term Goals Time Frame: Nov 30, 2020 Oral hygiene: 5 Shower/bathe self: 3 Upper body dressin Lower body dressin OT Legal Department Manager Goals Legal Department Manager Goals Time Frame: Dec 09, 2020 Eating (QC): 6 Oral Hygiene (QC): 6 Toileting Hygiene (QC): 4 Shower/Bathe Self (QC): 4 Upper Body Dressing (QC): 5 Lower Body Dressing (QC): 4 On/Off Footwear (QC): 4 Additional Goals: 1-Demonstrate ADL Tasks, 2-Verbalize Understanding, 3- ImproveStrength/Cooper 1=Demonstrate adherence to instructed precautions during ADL tasks. 2=Patient will verbalize/demonstrate understanding of assistive devices/modifications for ADL. 3=Patient will improve strength/tolerance for activity to enable patient to perform ADL's. OT Education/Plan Problem List/Assessment Assessment: Decreased Activ Tolerance, Decreased Safety Aware, Decreased UE Strength, Impaired Bed Mobility, Impaired Cognition, Impaired Coordination, Impaired Funct Balance, Impaired I ADL's, Impaired Self-Care Skills, Restricted Funct UE ROM, Visual-Perceptual Deficit Discharge Recommendations Plan/Recommendations: Continue POC Treatment Plan/Plan of Care Patient would benefit from OT for education, treatment and training to promote independence in ADL's, mobility, safety and/or upper extremity function for ADL's. Plan of Care: ADL Retraining, Functional Mobility, Group Exercise/Act as Ind, UE Funct Exercise/Act, UE Neuromus Re-Ed/Coord, Visual/Perceptual Retrain Treatment Duration: Dec 09, 2020 Frequency: At least 5 of 7 days/Wk (IRF) Estimated Hrs Per Day: 1.5 hours per day Agreement: Yes Rehab Potential: Fair Time/GCodes Start Time: 10:00 Stop Time: 10:15 Total Time Billed (hr/min): 15 Billed Treatment Time 1, ADL JOAN JACOBSON OT Nov 29, 2020 10:30
[2020-11-29] MEDS: HYDROcodone/APAP 5 MG/325 MG (LORTAB) TAB PO PRN (11:20)
--- NOTE | 2020-11-29 12:44 | NUR ---
CM/SS DISCHARGE Patient discharged to new Medicare skilled placement with [facility] via [facility] transport. Transport service understands to call ARU so that staff can come down to get their wheelchair then return with patient and her belongings. Updated patient and updated SO/Carlos via text due to his sleep cycle. IMM2 presented, reviewed, signed, charted. MO [id number] completed and faxed to [facility] with Covid screen (negative) and final discharge instructions and orders. Prepared continuum of care packet to accompany patient in partnership with assigned Unit RN. [facility]/Jose coordinated [facility] transport as noted. Patient remains hopeful to return home at some point.
--- NOTE | 2020-11-29 14:31 | Therapy Team Discharge Summary ---
Therapy Discharge Summary Discharge Recommendations Date of Discharge Occupational Therapy Pt admitted to ARU s/p CVA. At OF, pt was independent with all ADLS and functional mobility using SPC. Upon evaluation, pt required set up assistance with eating, mod A oral care, total assist showering, max A upper body dressing, total assist lower body dressing, total assist footwear and total assist toileting. OT txs focused on increasing safety and independence with ADLS, increasing functional mobility, increasing attention to L visual field, increasing functional use of LUE, and neuromuscular reeducation. Pt made poor progress over the course of therapy, with assistance level varying between ganga tments. At discharge, pt required SBA-set up assistance with eating, mod-max A oral care, total assist showering (assist x2), max A upper body dressing, max- total A lower body dressing, max-total A footwear and total assist with toileting. Pt did not meet any LTGs. Pt to discharge from facility on this date, thus d/c from OT. Decreased Activ Tolerance, Decreased Safety Aware, Decreased UE Strength, Impaired Bed Mobility, Impaired Cognition, Impaired Coordination, Impaired Funct Balance, Impaired I ADL's, Impaired Self-Care Skills, Restricted Funct UE ROM, Visual-Perceptual Deficit PT Asbestos Microscopist Goals Senior Living Goals PT Asbestos Microscopist Goals Time Frame: Dec 06, 2020 Roll Left to Right (QC): 3 (Joel) Sit to Lying (QC): 3 (Joel) Lying-Sitting on Side/Bed(QC): 3 (Joel) Sit to Stand (QC): 3 (Joel) Chair/Flg-th-Rphsv Xfer(QC): 3 (Joel) Car Transfer (QC): 3 (Joel) Does the Patient Walk: Yes Walk 10 feet (QC): 3 (Joel) Walk 10ft-Uneven Surface(QC): 88 Walk 50ft with 2 Turns (QC): 3 (Joel) Walk 150 ft (QC): 88 Wheel 50 feet with 2 turns (QC: 4 1 Step (curb) (QC): 88 4 Steps (QC): 88 12 Steps (QC): 88 Picking up an Object (QC): 88 OT Senior Living Goals Senior Living Goals Time Frame: Dec 09, 2020 Eating (QC): 6 (not met) Oral Hygiene (QC): 6 (not t) Shower/Bathe Self (QC): 4 (not met) Upper Body Dressing (QC): 5 (not met) Lower Body Dressing (QC): 4 (not met) On/Off Footwear (QC): 4 (not met) Toileting Hygiene (QC): 4 (not met) Toilet/Commode Transfer (QC): 3 (not met) Additional Goals: 1-Demonstrate ADL Tasks, 2-Verbalize Understanding, 3- ImproveStrength/Cooper 1=Demonstrate adherence to instructed precautions during ADL tasks. 2=Patient will verbalize/demonstrate understanding of assistive devices/modifications for ADL. 3=Patient will improve strength/tolerance for activity to enable patient to perform ADL's. Speech Senior Living Goals Asbestos Microscopist Goals Patient will improve cognitive communication skills in order to require decreased assist with daily tasks. JOAN JACOBSON OT Nov 29, 2020 14:31
--- NOTE | 2020-11-29 14:32 | Therapy Team Discharge Summary ---
Therapy Discharge Summary Discharge Recommendations Date of Discharge Physical Therapy Patient came to rehab following a CVA. 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 Patient has been performing bed mobility and transfer training, balance and endurance training, functional strengthening, gait training, and education. Patient has made some progress and has met her snf goals for bed mobility and transfers. Now, patient performs bed mobility with min assist, supine <-> sit mod assist, sit <-> stand min assist, SPT to the right min assist and to the left mod assist, car transfer mod assist, ambulates 8' in the parallel bars with min/mod assist, and can propel a manual WC 150' with max assist. Patient is being discharged from this facility today and will be discharged from PT at this time. Occupational Therapy Decreased Activ Tolerance, Decreased Safety Aware, Decreased UE Strength, Impaired Bed Mobility, Impaired Cognition, Impaired Coordination, Impaired Funct Balance, Impaired I ADL's, Impaired Self-Care Skills, Restricted Funct UE ROM, Visual-Perceptual Deficit PT Mcfp Goals Nps Goals PT Nps Goals Time Frame: Dec 06, 2020 Roll Left to Right (QC): 3 (Joel) Sit to Lying (QC): 3 (Joel) Lying-Sitting on Side/Bed(QC): 3 (Joel) Sit to Stand (QC): 3 (Joel) Chair/[id number]-[id number] Xfer(QC): 3 (Joel) Car Transfer (QC): 3 (Joel) Does the Patient Walk: Yes Walk 10 feet (QC): 3 (Joel) Walk 10ft-Uneven Surface(QC): 88 Walk 50ft with 2 Turns (QC): 3 (Jole) Walk 150 ft (QC): 88 Wheel 50 feet with 2 turns (QC: 4 1 Step (curb) (QC): 88 4 Steps (QC): 88 12 Steps (QC): 88 Picking up an Object (QC): 88 OT Nps Goals Mcfp Goals Time Frame: Dec 09, 2020 Eating (QC): 6 Oral Hygiene (QC): 6 Shower/Bathe Self (QC): 4 Upper Body Dressing (QC): 5 Lower Body Dressing (QC): 4 On/Off Footwear (QC): 4 Toileting Hygiene (QC): 4 Toilet/Commode Transfer (QC): 3 (Joel) Additional Goals: 1-Demonstrate ADL Tasks, 2-Verbalize Understanding, 3- ImproveStrength/Cooper 1=Demonstrate adherence to instructed precautions during ADL tasks. 2=Patient will verbalize/demonstrate understanding of assistive devices/modifications for ADL. 3=Patient will improve strength/tolerance for activity to enable patient to perform ADL's. Speech Mcfp Goals Nps Goals Patient will improve cognitive communication skills in order to require decreased assist with daily tasks. KHUSHBU ONEIL PT Nov 29, 2020 14:32
[2020-11-29 15:23] VITALS: BP 111/64
== END 2020-11-29 15:00 | DRG 56 ==
PROVIDERS: ADMIT Internal Medicine; ATTEND Internal Medicine
DX: I69.354 Hemiplegia and hemiparesis following cerebral infarction affecting left non-dominant side (principal); J18.9 Pneumonia, unspecified organism; R41.4 Neurologic neglect syndrome; I69.398 Other sequelae of cerebral infarction; I69.320 Aphasia following cerebral infarction; I69.392 Facial weakness following cerebral infarction; I69.318 Other symptoms and signs involving cognitive functions following cerebral infarction; Z66 Do not resuscitate; Z20.822 Contact with and (suspected) exposure to COVID-19; R41.0 Disorientation, unspecified; R32 Unspecified urinary incontinence; E11.9 Type 2 diabetes mellitus without complications; J44.9 Chronic obstructive pulmonary disease, unspecified; E66.9 Obesity, unspecified; I10 Essential (primary) hypertension; F17.200 Nicotine dependence, unspecified, uncomplicated; G40.909 Epilepsy, unspecified, not intractable, without status epilepticus; G43.909 Migraine, unspecified, not intractable, without status migrainosus; G25.0 Essential tremor; Z68.31 Body mass index [BMI] 31.0-31.9, adult; E78.5 Hyperlipidemia, unspecified; E78.00 Pure hypercholesterolemia, unspecified; G89.4 Chronic pain syndrome; M19.91 Primary osteoarthritis, unspecified site; M54.9 Dorsalgia, unspecified; Z23 Encounter for immunization; Z79.4 Long term (current) use of insulin; Z79.82 Long term (current) use of aspirin; Z88.6 Allergy status to analgesic agent; Z88.0 Allergy status to penicillin; Z88.2 Allergy status to sulfonamides; Z82.0 Family history of epilepsy and other diseases of the nervous system
CPT/HCPCS: 36415; 71045; 80053; 81000; 82962; 83605; 84145; 85007; 85025; 85027; 87040; 87635; 90686; 94640; 94760